=== PATIENT | male | born 1950 | race Caucasian/White ===

== ENCOUNTER → 2017-06-03 | Outpatient (CLI) | payer MEDICARE, BC ==
[2017-06-03 15:24] LABS: Blood Urea Nitrogen 22 mg/dL (9-20); Non-African American GFR(MDRD) >60 (>60 ml/min/1.73 sqM)
--- NOTE | 2017-06-03 16:25 | CT ---
EXAMINATION TYPE: CT chest w con DATE OF EXAM: 06/03/2017 COMPARISON: NONE HISTORY: 66-year-old male Abnormal chest xray. TECHNIQUE: Contiguous axial scanning of the chest after the administration of 100 mL of Omnipaque 300 . Coronal/sagittal reconstructions performed. CT DLP: 282.70mGycm. Automatic exposure control utilized for a dose reduction. FINDINGS: Heart is normal size with trace anterior pericardial fluid. Coronary vessel calcifications are remark able for coronary artery disease. Aorta is normal caliber with mild to moderate atherosclerotic arch calcifications and conventional ar ch vessel branching anatomy. There is mediastinal lymphadenopathy with a 1.6 cm pretracheal lymph node, 1 cm precarinal lymph note d. Abnormal soft tissue extending from the left hilum, encasing and narrowing the left upper lobe bronch us and extending into the left upper lobe. The abnormal left hilar soft tissue measures up to 5.4 x 4 .5 cm. There is a contiguous left upper lobe mass measuring 5.3 x 4.1 cm and up to 5.7 cm craniocauda l. Minimal satellite nodularity is also present measuring up to 7 mm. Subpleural reticulations within th e visualized lower lungs suggests underlying fibrosis. Moderate upper lung emphysematous changes pres ent. Spleen is enlarged measuring 14.6 cm on axial series. There is nonspecific nodularity of the left adr enal gland measuring 2.2 cm. Bones: Endplate spondylosis mid to lower thoracic spine. No osseous destructive process. IMPRESSION: 1. Left upper lobe mass measuring up to 5.7 cm with contiguous abnormal soft tissue encasing the left upper lobe bronchus and extending into the left hilum. Findings suggest lung cancer. 2. Metastatic disease with a 1.6 cm pretracheal lymph node. Minimal satellite nodularity is also pres ent in the left upper lobe measuring up to 7 mm. 3. Some 1.2 cm nodularity of the left adrenal gland is nonspecific. Underlying adrenal adenoma is pos sible. Focus of early metastatic disease here is not excluded. 4. Underlying fibrotic changes and moderate emphysema. 5. Mild splenomegaly (14.6 cm). Clinical correlate.
== END | disposition home or self-care (01) ==
LOC: RADCTMAIN 14:39
PROVIDERS: ATTEND Family Medicine
DX: C81.71 Other Hodgkin lymphoma, lymph nodes of head, face, and neck (principal); C80.1 Malignant (primary) neoplasm, unspecified; J43.9 Emphysema, unspecified; J84.10 Pulmonary fibrosis, unspecified; R91.8 Other nonspecific abnormal finding of lung field
CPT/HCPCS: 82565; 84520; 71260; 36415; Q9967

== ENCOUNTER 2017-06-08 15:05 | Day surgery (SDC) | payer MEDICARE, BC ==
[~2017-06-08 15:05] MED LIST: ALBUTEROL NEB (CONC) 2.5 MG/0.5 ML INHALATION ONE; ATROPINE SULFATE 0.4 MG/ML 1 ML VIAL IM ONE; LACTATED RINGERS 1,000 ML IV ONE; LIDOCAINE 2% (PF) 20 MG/ML 10ML INHALATION ONE
[2017-06-08] MEDS ORDERED: LIDOCAINE 1% 20 ML VIAL (10MG/ML) FOR IV START INTRADERMA ONE (15:10)
[2017-06-08] MEDS ORDERED: LACTATED RINGERS 1,000 ML IV ONE (15:11)
[2017-06-08 15:28] VITALS: BMI 26.9
[2017-06-08 15:28] LABS: Glucose,Whole Blood 107 mg/dL (75-99)
[2017-06-08 15:30] VITALS: RESP 16; TEMP 98.2
[2017-06-08] MEDS ORDERED: PROPOFOL 10 MG/ML 20 ML VIAL IV ONE (16:48)
[2017-06-08] MEDS ORDERED: LIDOCAINE 2% (PF) 20 MG/ML 10ML INHALATION ONE (17:06)
--- NOTE | 2017-06-08 17:22 | P.PCN ---
Date of Procedure: 06/08/17 Preoperative Diagnosis: Left upper lobe mass Postoperative Diagnosis: Left upper lobe mass Procedure(s) Performed: Flexible bronchoscopy, endobronchial biopsy, endobronchial brushings, bronchioloalveolar lavage Implants: Anesthesia: MAC Surgeon: Skip Scanlon Economics Consultant #1: Lucretia Atkins Estimated Blood Loss (ml): 10 Pathology: other Condition: stable Disposition: same day Indications for Procedure: COURTNEY mass Operative Findings: This procedure was done in the bronchoscopy suite. Anesthetic agents was being administered by HOTEL OR MOTEL MANAGER at the bedside. The patient was given a total of 270 mg milligrams of propofol throughout the procedure. After achieving adequate sedation the flexible bronchoscope was inserted to the right nostril and the bronchoscope was advanced into the upper airway. This procedure was being done as the patient was being oxygenated with high flow nasal cannula and the pulse ox remained above 90% throughout the procedure. As the bronchoscope was being advanced, the upper airway structures were examined and noted and the observed structures included the pharynx, larynx, epiglottis, vallecula, arytenoids, and vocal cords and all of this upper airway structures were within normal limits. Vocal cord mobility was within normal. No nodules. No lesions. A total of 2 mL of 1% lidocaine was applied to the vocal cords and following that the bronchoscope was advanced into the upper trachea and examination of the tracheal bronchial tree was done. Main trachea was within normal. Nicolasa was sharp in the midline. Bilateral mainstem bronchi were patent and within normal limits. Examination of the right side included the right mainstem bronchus, right upper lobe bronchus, bronchus intermedius, right middle lobe bronchus, right lower lobe bronchus and all of these were within normal limits were patent and there was a [id number] degree uptake of bronchomalacia encountered and noted throughout the airways. Examination of the left side included the left mainstem bronchus that was within normal limits. The left upper lobe bronchus was then identified and the left upper lobe bronchus was involved by some endobronchial irregularities over the medial wall where there was some mucosal irregularities and vascularity that was quite concerning of malignancy. Following that the lingular segment was identified and was quite narrowed and distorted and so was the secondary nicolasa the scene left upper lobe bronchus and the left lower lobe bronchus. Most abnormal area with the left upper lobe bronchus that was completely plugged by endobronchial tumor. In fact, the left upper lobe bronchus was completely blocked by necrotic fragment that was causing new complaints or almost 100% complete occlusion of the left upper lobe bronchus. At that point, endobronchial biopsies of the left upper lobe bronchus was done taken several fragments and pieces of the left upper lobe endobronchial tumor. At this point there was some endobronchial bleeding and the total amount of bleeding was estimated to be around 5-10 mL. The bleeding was stopped after irrigating the area with cold saline. After taking adequate number of endobronchial biopsies, bronchioloalveolar lavage of the left upper lobe was somewhat a total of 80 cc' s of fluid was infused and 25-30cc was was suctioned back. After that, the bronchus brushings of the left upper lobe bronchus was done. After obtaining all of the samples, therapeutic it was suctioning was done and the airways were cleared from an insulin bloody secretions. The bronchoscope was removed and the patient was stressed recovered a stable condition. No complications. Awaiting final biopsy results. Description of Procedure:
[2017-06-08 17:42] VITALS: BP 165/78; PULSE 70
== END 2017-06-08 18:25 | disposition home or self-care (01) ==
LOC: ORWHC2ENDO 15:05
PROVIDERS: ATTEND Internal Medicine Critical Care Medicine
DX: C34.12 Malignant neoplasm of upper lobe, left bronchus or lung (principal); E03.9 Hypothyroidism, unspecified; I10 Essential (primary) hypertension; C81.90 Hodgkin lymphoma, unspecified, unspecified site; Z87.891 Personal history of nicotine dependence; Z80.1 Family history of malignant neoplasm of trachea, bronchus and lung
CPT/HCPCS: 94640; 88104; 88108; 88305; 88342; 88341; 31625; 31623; 31624; J2001; J2704

== ENCOUNTER → 2017-06-23 | Outpatient (CLI) | payer MEDICARE, BC ==
--- NOTE | 2017-06-23 09:30 | MR ---
EXAMINATION TYPE: MR brain wo/w con DATE OF EXAM: 06/23/2017 9:18 AM COMPARISON: NONE HISTORY: LUNG CA, Headache CONTRAST: Patient received 16 mL intravenous MultiHance gadolinium contrast. Multiplanar and multispin-echo imaging of the brain was performed . Pre and post contrast enhanced i mages are obtained. The ventricles, basal cisterns and sulci overlying the cerebral convexities are mildly enlarged. There is evidence of mild to moderate periventricular white matter ischemic demyelination. Remote deep white matter insults are also noted. No acute edema is seen on diffusion weighted imaging. There is no evidence for midline shift or mass effect. Acute intracranial hemorrhage or extra-axial collection is not evident. No enhancing lesions are seen. Chronic paranasal sinusitis. Mastoid air cells are well-aerated. IMPRESSION: Age-related atrophic and chronic small vessel ischemic change. No acute intracranial process at this time. No enhancing lesions are seen.
== END | disposition home or self-care (01) ==
LOC: RADMRIMAIN 07:59
PROVIDERS: ATTEND Internal Medicine Hematology & Oncology
DX: C34.90 Malignant neoplasm of unspecified part of unspecified bronchus or lung (principal); G31.1 Senile degeneration of brain, not elsewhere classified; I67.82 Cerebral ischemia
CPT/HCPCS: 70553; A9577

== ENCOUNTER → 2017-06-25 | Outpatient (CLI) | payer MEDICARE, BC ==
--- NOTE | 2017-06-26 10:52 | PE ---
EXAMINATION TYPE: PET CT fusion skull to thigh DATE OF EXAM: 06/25/2017 COMPARISON: CT chest 05/26/2017 Prior PET/CT: None HISTORY: Lung mass TECHNIQUE: Following the intravenous administration of 15.99 mCi of F-18 FDG, whole body images are performed from the skull base to the midthigh. Images are reviewed on the computer in the coronal, a xial, and sagittal planes. Reconstructed rotating images are created on independent workstation and reviewed on the computer. A localization and attenuation correction CT is performed in conjunction with the PET scan. DLP: 431.41 mGycm SCAN: Initial Blood glucose: 106 mg/dL Average Mediastinum SUV: 1.2 Average Liver SUV: 2.1 FINDINGS: NECK: There is a right supraclavicular lymph node with uptake of 4.5 SUV in the right supraclavicula r region at the level of the larynx. PET image 50. THORAX: There is marked uptake within the left suprahilar mass measuring 8.3 SUV value. There is a ly mph node with increased uptake in the superior mediastinum with an SUV value of 9.3. PET image 71. An additional pretracheal lymph node has increased uptake of 4.9 but is not enlarged by CT criteria. ABDOMEN: No abnormal uptake. There is some vague increased signal within the medial right lobe liver. This is better visualized on the perfusion images. Image 142. Underlying metastatic disease is not excluded. Discrete typical metastasis however is not evident. PELVIS: No abnormal uptake OSSEOUS STRUCTURES: No abnormal uptake LOCALIZATION CT: Left suprahilar lung mass measures 7.8 x 4.9 cm COMPARISON: Hilar mass appears larger than the comparison by measurement criteria. This has lingular encasement is adjacent to the left lower lobe bronchus. The ascending thoracic aorta at the level the main pulmonary artery is 3.6 cm. The main pulmonary artery the bifurcation is 3.2 cm. The spinal cor d is enlarged measures 1.8 cm. The pretracheal lymph node has increased in size and is currently 1.0 cm. Note is made of coronary artery calcification. Note is made of diverticulosis within the mid sigm oid colon. IMPRESSION: 1. Left suprahilar mass with increased uptake compatible with neoplasm. 2. Three lymph nodes identified on PET/CT are suspicious for metastatic lesions including a pretrache al lymph node, superior mediastinal lymph node, and right supraclavicular lymph node discussed above.
== END | disposition home or self-care (01) ==
LOC: RADPETMAIN 13:09
PROVIDERS: ATTEND Internal Medicine Hematology & Oncology
DX: C34.90 Malignant neoplasm of unspecified part of unspecified bronchus or lung (principal)
CPT/HCPCS: 78815; A9552

== ENCOUNTER → 2017-09-16 | Outpatient (CLI) | payer MEDICARE, BC ==
[2017-09-16 09:14] LABS: Blood Urea Nitrogen 24 mg/dL (9-20); Non-African American GFR(MDRD) >60 (>60 ml/min/1.73 sqM)
--- NOTE | 2017-09-16 10:47 | CT ---
EXAMINATION TYPE: CT chest w con DATE OF EXAM: 09/16/2017 COMPARISON: PET/CT dated 06/25/[address] thorax dated 05/26/2017 HISTORY: Lung Cancer CT DLP: 694 mGycm. Automated Exposure Control for Dose Reduction was Utilized. TECHNIQUE: CT scan of the thorax is performed following with IV Contrast, patient injected with 100 mL of Omnipaque 350. FINDINGS: LUNGS: There is decrease in size and new cavitation of the most superior aspect of the left upper lob e mass that previously measured approximately 5.3 x 4.1 cm and now measures approximately 3.5 x 3.5 c m. Surrounding peripheral groundglass opacity remains as does traction bronchiectasis and obstructive distal subsegmental atelectasis. There is also decrease in size of the more confluent area of the ma ss abutting the left mediastinal border measuring approximately 4.4 x 1.9 cm and previously measuring 5.6 x 2.9 cm abutting the left lateral aspect of the main pulmonary and left main pulmonary artery. Subpleural density along the anterior margin of the left upper lobe on series 4 image 34 through 37 i s favored to relate to atelectasis. Triangular-shaped right upper lobe subpleural 3 mm pulmonary nodu les unchanged and of low suspicion. This is seen on series 4 image 20. Findings are superimposed upon moderate centrilobular and paraseptal emphysematous changes with peripheral basilar predominant tania ycombing relating to pulmonary fibrosis. The previously seen satellite 7 mm left upper lobe pulmonary nodule is no longer present and has reso lved. Area of probable scarring is unchanged from the prior exam in the left upper lobe anteriorly on series 4 image 17. MEDIASTINUM: The pretracheal lymph node that previously measured 1.6 cm has decreased in size now lawanda suring 1.1 x 0.7 cm. Second pretracheal lymph node previously measuring 9 mm has also decreased in si ze now measuring 6 mm. No pericardial effusion is seen. OTHER: Small hiatal hernia is noted. The spleen again is enlarged measuring up to 14.5 cm in anterior posterior dimension. Enlarging hepatic hypoattenuated lesion measuring up to 3.4 x 2.5 cm is seen wi thin the left hepatic lobe on series 3 image 71, retrospectively increase in size from the prior exam of 05/26/2017. 5 mm left upper pole renal cyst is present, benign. There is overall stability of the approximately 1.3 cm left adrenal gland nodule and thickening of the lateral limb of the left adrenal gland. No greater than 1 cm nodule seen within the right adrenal gland. Mild multilevel degenerative change of the thoracic spine. IMPRESSION: 1. Left hepatic lobe ill-defined hypoattenuated lesion concerning for metastasis. Further evaluation with dynamic contrast enhanced three-phase CT or MR is recommended. 2. Response to treatment in regards to the left upper lobe pulmonary mass in both the component abutt ing the mediastinal border and now cavitary left upper lobe mass. Complete resolution of the previous ly seen satellite nodule and marked improvement in size of mediastinal lymph nodes, now nonenlarged. 3. Overall stability of the indeterminate left adrenal gland nodule that could also be assessed on e above recommended exam. 4. Redemonstration of splenomegaly.
== END | disposition home or self-care (01) ==
LOC: RADCTMAIN 08:49
PROVIDERS: ATTEND Internal Medicine Hematology & Oncology
DX: C34.12 Malignant neoplasm of upper lobe, left bronchus or lung (principal)
CPT/HCPCS: 82565; 84520; 71260; 36415; Q9967

== ENCOUNTER → 2017-11-05 | Outpatient (CLI) | payer MEDICARE, BC ==
--- NOTE | 2017-11-09 06:27 | PE ---
EXAMINATION TYPE: PET CT fusion skull to thigh DATE OF EXAM: 11/05/2017 COMPARISON: PET/CT June 25, 2017. CT chest September 16, 2017 HISTORY: Lung cancer progress study , completed chemotherapy and radiation treatment September 18 7 TECHNIQUE: Following the intravenous administration of 13.59 mCi of F-18 FDG, whole body images are performed from the skull base to the midthigh. Images are reviewed on the computer in the coronal, a xial, and sagittal planes. Reconstructed rotating images are created on independent workstation and reviewed on the computer. A noncontrast CT is performed in conjunction with the PET scan. SCAN: Subsequent Scan FINDINGS: SKULL BASE AND NECK: No suspicious hypermetabolic uptake on current study. Previously visualized sub centimeter hypermetabolic focus right supraclavicular region probable lymph node is not clearly seen on current study. Mild symmetric increased uptake at submandibular glands could reflect inflammatory process, correlate clinically. CHEST, MEDIASTINUM, AND HILAR REGION: Masslike consolidation left suprahilar region is diminished in size with some central aeration measuring 5.6 x 2.9 cm current study axial image 88. No suspicious hy permetabolic uptake is seen on current study. There is some cavitation superiorly now identified on a xial image 84 without hypermetabolic uptake. There is new peripheral mid lateral to lower lung warranty manager ior consolidation with hypermetabolic uptake presumed postinflammatory or related to treatment change . Max SUV is 4.13. There is background moderate underlying emphysematous change most prominent in apices redemonstrated. Hypermetabolic right paratracheal lymph nodes as significantly improved. There is diminished in size of paratracheal lymph nodes, largest measures 8 x 8 mm on axial image 76 diminished in size from prio r study. Minimal hypermetabolic uptake is seen, max SUV is 2.68. No greater than 1 cm lymph nodes are seen on current study. No new areas of hypermetabolic uptake are identified. ABDOMEN AND PELVIS: There is persistent vague hypodense area or lesion left hepatic lobe with slightl y more prominent heterogeneous hypermetabolic uptake, lesion measures 5.4 x 4.2 cm on current study a xial image 151. There is new slight bulging of the anterior liver capsule.. Max SUV is 5.3. Lesion is felt falsely measured on recent CT as only posterior portion was measured. OSSEOUS STRUCTURES: No suspicious hypermetabolic uptake is present. OTHER CT: Nearly completely opacified right sphenoid sinus is now present, correlate clinically for a cute sinusitis. Bilateral gynecomastia is again redemonstrated. There is moderate to severe 3 vessel coronary artery calcification redemonstrated which is noted ashley er for coronary artery disease. Nodular thickening to left adrenal gland is redemonstrated felt stable favoring benign hyperplasia. Sigmoid colonic diverticulosis is redemonstrated. There is multilevel spurring in the spine. There is facet arthropathy lower lumbar levels. Spine is s traightened on lateral view. There is fairly moderate calcified plaque in the abdominal aorta extending into iliac branch vessels. IMPRESSION: Overall mixed response with predominantly positive treatment response with diminished siz e and hypermetabolic uptake in the left hilar mass, thoracic adenopathy, and right supraclavicular ad enopathy. Left hepatic lobe lesion however is more hypermetabolic and felt larger.
== END | disposition home or self-care (01) ==
LOC: RADPETMAIN 08:08
PROVIDERS: ATTEND Internal Medicine Hematology & Oncology
DX: C34.12 Malignant neoplasm of upper lobe, left bronchus or lung (principal); R59.0 Localized enlarged lymph nodes; K76.89 Other specified diseases of liver
CPT/HCPCS: 78815; A9552

== ENCOUNTER 2017-11-17 08:52 | Day surgery (SDC) | payer MEDICARE, BC ==
[2017-11-17 09:20] VITALS: TEMP 98.3
[2017-11-17 09:34] LABS: INR 1.1 (<1.2); Prothrombin Time 10.6 sec (9.0-12.0)
[2017-11-17 09:37] LABS: Mean Platelet Volume 6.7; Platelet Count 178 k/uL (150-450)
[2017-11-17] MEDS: HYDROmorphone 0.5 MG/0.5 ML SYRINGE IVP NR ×2 (10:28→10:40)
[2017-11-17 12:17] VITALS: RESP 16
--- NOTE | 2017-11-17 12:44 | CT ---
EXAMINATION TYPE: CT guided FNA DATE OF EXAM: 11/17/2017 COMPARISON: NONE HISTORY: Lung cancer and left hepatic lobe mass CT DLP: 950mGycm PROCEDURE: The risks, applications, benefits and alternatives, were discussed with the patient and questions wer e answered. Informed consent was obtained. The patient was placed supine on the fluoroscopic table, prepped and draped in the usual sterile fashion. A 22-gauge system was utilized with direct passage of the needle into the left lobe liver lesion und er CT guidance. Samples were obtained with fine needle aspiration. Pathology confirmed adequate herb ple. The patient was stable throughout procedure and remained stable upon discharge from radiology. All e lements of maximal barrier and sterile technique were utilized. IMPRESSION: 1. Successful left lobe liver mass fine needle aspiration under CT guidance.
[2017-11-17 13:46] VITALS: BP 114/66; PULSE 66
== END 2017-11-17 14:20 | disposition home or self-care (01) ==
LOC: RADPROMAIN 08:52
PROVIDERS: ATTEND Internal Medicine Hematology & Oncology
DX: C22.0 Liver cell carcinoma (principal); C34.12 Malignant neoplasm of upper lobe, left bronchus or lung
CPT/HCPCS: 88305; 88173; 85049; 85610; 88313; 36415; 77012; 10022; J1170

== ENCOUNTER → 2018-03-02 | Outpatient (CLI) | payer MEDICARE, BC ==
[2018-03-02 12:38] LABS: Blood Urea Nitrogen 16 mg/dL (9-20)
--- NOTE | 2018-03-02 17:23 | CT ---
EXAMINATION TYPE: CT chest abdomen w con DATE OF EXAM: 03/02/2018 INDICATION: Liver cell carcinoma and lung cancer COMPARISON: 09/16/2017 CT DLP: 1475 mGycm CONTRAST: Performed with Oral Contrast and with IV Contrast, patient injected with 100 ml mL of Isovue 300. TECHNIQUE: Axial images at 5 mm thick sections. Reconstructed images in the coronal plane. Delayed images through the kidneys. FINDINGS: CT CHEST: Portion of the thyroid visualized is normal. Emphysematous changes are present. There is a suspicious spiculated cavitary lesion at the left apex and suprahilar region measuring 3.7 x 2.5 cm. This previously measured 3.6 x 3.1 cm. Pulmonary fibrosis is present. No enlarged mediastinal or hilar adenopathy is evident. The ascending aorta diameter at the level of the main pulmonary artery is 3.2 cm. The main pulmonary artery diameter at the bifurcation is 3.2 cm. Coronary artery calcification is present. CT ABDOMEN: Liver: Diminished density in relation spleen compatible with mild fatty infiltration of the liver. Ap pears to be resection of the left lobe liver Spleen: Normal Pancreas: Normal Adrenal glands: Superior left adrenal gland measures 1.7 cm transverse which is slightly increased fr om 1.6 cm. Gallbladder: Normal Kidneys: No masses are evident. No hydronephrosis is present. No cysts are present. Delayed images were obtained through the kidneys, which remain unremarkable. Aorta: Vascular calcification is within the aorta. Inferior vena cava: Normal. CT PELVIS: Loops of bowel within the abdomen and pelvis are normal. Antrum the stomach may has some wall thi ckening diffusely. Loops of bowel within the abdomen appear unremarkable. Fecal debris is within the colon. IMPRESSIONS: 1. Cavitary mass on the left apex currently measuring 3.7 x 2.5 cm. 2. Pulmonary fibrosis is present. 3. Slightly more prominent left adrenal gland.
== END | disposition home or self-care (01) ==
LOC: RADCTMAIN 11:58
PROVIDERS: ATTEND Radiology Radiation Oncology
DX: C34.12 Malignant neoplasm of upper lobe, left bronchus or lung (principal); C22.0 Liver cell carcinoma; J84.10 Pulmonary fibrosis, unspecified
CPT/HCPCS: 82565; 84520; 71260; 74160; 36415; Q9967

== ENCOUNTER → 2018-07-31 | Outpatient (CLI) | payer MEDICARE, BC ==
[2018-07-31 12:04] LABS: Blood Urea Nitrogen 18 mg/dL (9-20)
--- NOTE | 2018-07-31 13:58 | CT ---
EXAMINATION TYPE: CT ChestAbdPelvis w con DATE OF EXAM: 07/31/2018 COMPARISON: 03/02/2018, 09/16/2017, 11/05/2017 HISTORY: Patient in for follow up of lung and liver cancer. Patient did last chemo Sep 17, 2017. CT DLP: 1253.8 mGycm Automated exposure control for dose reduction was used. CONTRAST: CT scan of the chest, abdomen and pelvis is performed with Oral Contrast and with IV Contrast, patien t injected with 100 mL of Isovue M300. FINDINGS: LUNGS: Diffuse emphysematous changes are noted. Linear changes involving the lungs suggestive of scar or atelectasis. There is a large spiculated mass involving the left upper lobe which previously tre ured 3.3 x 2.5 x 3.1 cm and now measures 3.3 x 2.5 x 4.1 cm. However, there appears to be increased s oft tissue extending into the left suprahilar region which could be related to consolidation versus i ncreasing mass. Interlobular septal thickening compatible chronic interstitial lung disease seen and there is subsegm ental consolidation at both lung bases. Vague peripheral nodule lateral margin right lower lobe axial image 46 measures 4 mm retrospectively similar in size to the prior exam. Pleural thickening along t he left upper lobe is unchanged. MEDIASTINUM: There are no greater than 1 cm hilar or mediastinal lymph nodes. No pericardial effusi on is seen. The ascending aorta diameter at the level of the main pulmonary artery is 3.2 cm. The ma in pulmonary artery diameter at the bifurcation is 3.2 cm. Coronary artery calcification is present. LIVER/GB: Diminished density in relation spleen compatible with mild fatty infiltration of the liver. Appears to be resection of the left lobe liver . There is an area of hyperdensity along the upper ma rgin of the dome of the liver right lobe which measures 1.7 cm appears to be more prominent than comp ared to the prior exam. May represent focal fatty sparing. Other etiologies not entirely excluded. Ad ditional hyperdense area seen involving the inferior margin of the right lobe the liver measuring 5 m m. PANCREAS: No significant abnormality is seen. SPLEEN: Spleen measures 15 cm compatible splenomegaly. ADRENALS: No significant abnormality is seen. KIDNEYS: No hydronephrosis. Subcentimeter hypodensity upper pole left kidney too small to characteriz e but likely related to tiny simple cyst.. BOWEL: Bowel gas pattern nonspecific with extensive retained fecal debris evidence of diverticulosis of colon. Small hiatal hernia noted. LYMPH NODES: There is a soft tissue density in the region of priscilla hepatis measuring 1.2 cm in short axis suspicious for area of adenopathy but stable.. OSSEOUS STRUCTURES: Hypertrophic changes and degenerative changes of the vertebral column. OTHER: Atherosclerotic change of the aorta. IMPRESSION: 1. There is a spiculated left upper lobe lung mass now measuring 3.2 x 2.3 x 3.1 cm and previously me asuring 3.3 x 2.5 x 3.1 cm. There appears to be increased soft tissue component of the mass extending into the left suprahilar re gion abutting the left mediastinal border which now measures 2.8 x 3 cm and previously measured 2 x 2 centimeters. 3. There are 2 hyperdense areas within the liver which may represent areas of fatty sparing. However there appear more prominent on today's exam as measured above. Recommend ultrasound for further evalu ation. 4. Correlate for pulmonary fibrosis. 3. Findings are suspicious for an area of adenopathy priscilla hepatis measuring short axis of 1.2 cm ret rospectively stable from prior exam of 03/02/2018 and 09/16/2017.
== END | disposition home or self-care (01) ==
LOC: RADCTMAIN 11:25
PROVIDERS: ATTEND Internal Medicine Hematology & Oncology
DX: R91.8 Other nonspecific abnormal finding of lung field (principal); R93.2 Abnormal findings on diagnostic imaging of liver and biliary tract; C34.12 Malignant neoplasm of upper lobe, left bronchus or lung
CPT/HCPCS: 82565; 84520; 71260; 74177; 36415; Q9967

== ENCOUNTER 2018-08-21 15:27 | Emergency (ER) | payer MEDICARE, BC ==
--- NOTE | 2018-08-21 16:53 | ED ---
General Adult HPI <Carlos Lopez - Last Filed: 08/21/18 19:18> - General Source: patient, RN notes reviewed Mode of arrival: ambulatory Limitations: no limitations <Pancho Wilhelm - Last Filed: 08/21/18 19:42> - General Chief complaint: Recheck/Abnormal Lab/Rx Stated complaint: low o2 Ca patient Time Seen by Provider: 08/21/18 16:37 - History of Present Illness Initial comments: Patient 68-year-old male presented to the emergency room today with a chief complaint of increased shortness of breath. Patient does have a history of lung cancer. Currently on Coumadin therapy. Patient states that was at the oncologist office today was advised complete emergency room for further evaluation of his shortness of breath. He does admit that has been steadily increasing over the last few months. Patient's denies any pain. He was then sent cough congestion believes seasonal sputum. Patient denies any other complaints. (Pancho Wilhelm) - Related Data Home Medications Medication Instructions Recorded Confirmed Acetaminophen-Codeine 300-30mg 1 tab PO Q8H PRN 06/08/17 11/17/17 [Tylenol #3] Aspirin 81 mg PO DAILY 06/08/17 11/17/17 Atorvastatin [Lipitor] 20 mg PO DAILY 06/08/17 11/17/17 Bisoprol/Hydrochlorothiazide 1 tab PO DAILY 06/08/17 11/17/17 [Bisoprolol-Hctz 5-6.25 mg Tab] Levothyroxine Sodium [Levoxyl] 137 mcg PO DAILY 06/08/17 11/17/17 [place]-3 Fatty Acids [[place]-3] 1 tab PO BID 06/08/17 11/17/17 Finasteride [Proscar] 5 mg PO DAILY 11/11/17 11/17/17 Lisinopril [Zestril] 5 mg PO DAILY 11/11/17 11/17/17 Multivitamin [Men's Multi-Vitamin] 1 each PO DAILY 11/11/17 11/17/17 Previous Rx's Medication Instructions Recorded Levofloxacin [Levaquin] 500 mg PO DAILY 7 Days tab 08/21/18 Allergies Allergy/AdvReac Type Severity Reaction Status Date / Time No Known Allergies Allergy Verified 08/21/18 16:20 Review of Systems ROS Other: All systems not noted in ROS Statement are negative. <Carlos Lopez - Last Filed: 08/21/18 19:18> ROS Other: All systems not noted in ROS Statement are negative. <WilhelmPancho - Last Filed: 08/21/18 19:42> ROS Statement: Those systems with pertinent positive or pertinent negative responses have been documented in the HPI. 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 - completed radiation and chemo - PET 11/05 resolved History of Any Multi-Drug Resistant Organisms: None Reported Past Surgical History: Hernia Repair Past Anesthesia/Blood Transfusion Reactions: No Reported Reaction Past Psychological History: No Psychological Hx Reported Smoking Status: Former smoker Past Alcohol Use History: None Reported Past Drug Use History: None Reported - Past Family History Father Family Medical History: Myocardial Infarction (PR) <Pancho Wilhelm - Last Filed: 08/21/18 19:42> General Exam <Carlos Lopez - Last Filed: 08/21/18 19:18> Limitations: no limitations <Pancho Wilhelm - Last Filed: 08/21/18 19:42> - General Exam Comments Initial Comments: General: The patient is awake and alert, in no distress, and does not appear acutely ill. Eye: Pupils are equal, round and reactive to light. Extra-ocular movements are intact. No nystagmus. There is normal conjunctiva bilaterally. No signs of icterus. Ears, nose, mouth and throat: There are moist mucous membranes and no oral lesions. Neck: The neck is supple, there is no tenderness or JVD. Cardiovascular: There is a regular rate and rhythm. No murmur, rub or gallop is appreciated. Respiratory: Lungs are clear to auscultation, respirations are non-labored, breath sounds are equal. No wheezes, stridor, rales, or rhonchi. Musculoskeletal: Normal ROM, no tenderness. Sensation intact. Strength 5/5. Pulses equal bilaterally 2+. Neurological: A&O x 3. CN II-XII intact, There are no obvious motor or sensory deficits. Coordination appears grossly intact. Speech is normal. Skin: Skin is warm and dry and no rashes or lesions are noted. Psychiatric: Cooperative, appropriate mood & affect, normal judgment. (Pancho Wilhelm) Course <Carlos Lopez - Last Filed: 08/21/18 19:18> <Pancho Wilhelm - Last Filed: 08/21/18 19:42> Vital Signs 08/21/18 08/21/18 08/21/18 16:18 16:43 16:50 Temperature 98.9 F Pulse Rate 86 87 87 Respiratory 20 30 H 27 H Rate Blood Pressure 133/69 157/70 O2 Sat by Pulse 94 L 91 L 91 L Oximetry 08/21/18 08/21/18 08/21/18 17:00 17:10 17:20 Temperature Pulse Rate 81 84 82 Respiratory 22 28 H 21 Rate Blood Pressure 157/70 145/70 145/70 O2 Sat by Pulse 96 95 97 Oximetry 08/21/18 08/21/18 08/21/18 17:30 17:40 17:50 Temperature Pulse Rate 84 86 85 Respiratory 15 18 20 Rate Blood Pressure 145/70 135/68 135/68 O2 Sat by Pulse 97 94 L 95 Oximetry 08/21/18 18:00 Temperature Pulse Rate 82 Respiratory 20 Rate Blood Pressure 135/68 O2 Sat by Pulse 94 L Oximetry - Reevaluation(s) Reevaluation #1: 08/21/18 19:18 PEs supervision I personally saw and examined patient. I reviewed and agree with the PA findings including all diagnostic interpretation treatment plans is written unless otherwise stated. I discussed the case initially with Dr. Allen. Patient does have evidence of an elevated troponin as well as left lower lobe infiltrate. Patient was offered admission and refuses at this time. He does that a lot follow-up with his dumper at [facility]. We did discuss this at length. (Carlos Lopez) EKG Findings - EKG Comments: EKG Findings:: EKG performed at 1639: Shows normal sinus rhythm at 86 bpm. LA interval 146. QRS is 110. QT/QTC 378/452. No acute ST changes. <Pancho Wilhelm - Last Filed: 08/21/18 19:42> Medical Decision Making - Lab Data Result diagrams: 08/21/18 17:08 08/21/18 17:08 <Carlos Lopez - Last Filed: 08/21/18 19:18> - Lab Data Result diagrams: 08/21/18 17:08 08/21/18 17:08 <Pancho Wilhelm - Last Filed: 08/21/18 19:42> - Medical Decision Making Patient's labs been reviewed does show elevated troponin 0.060. Patient's EKG showed no acute change. There is no old EKG to compare to. Patient's remaining lab work is unremarkable. A CT of the chest does show evidence for a pneumonia. No evidence for PE. Results were discussed with patient. Case discussed and seen by [facility] physician Dr. Lopez. Patient states that he does not want to stay in the hospital. Does not want to be admitted. Was discussed about the severity elevated troponin. Patient states that he will follow-up with his dumper. Patient will be treated for a pneumonia started on antibiotics. He is advised that he should follow-up the doctor tomorrow. Advised return if any symptoms increase or worsen. (Pancho Wilhelm) - Lab Data Lab Results 08/21/18 08/21/18 08/21/18 Range/Units 17:08 17:08 17:08 WBC 9.1 (3.8-10.6) k/uL RBC 4.90 (4.30-5.90) m/uL Hgb 14.6 (13.0-17.5) gm/dL Hct 41.5 (39.0-53.0) % MCV 84.6 (80.0-100.0) fL MCH 29.7 (25.0-35.0) pg MCHC 35.1 (31.0-37.0) g/dL RDW 13.0 (11.5-15.5) % Plt Count 183 (150-450) k/uL Neutrophils % 60 % Lymphocytes % 24 % Monocytes % 10 % Eosinophils % 4 % Basophils % 1 % Neutrophils # 5.4 (1.3-7.7) k/uL Lymphocytes # 2.1 (1.0-4.8) k/uL Monocytes # 0.9 (0-1.0) k/uL Eosinophils # 0.3 (0-0.7) k/uL Basophils # 0.1 (0-0.2) k/uL PT 10.6 (9.0-12.0) sec INR 1.1 (<1.2) APTT 23.2 (22.0-30.0) sec Sodium 138 (137-145) mmol/L Potassium 4.1 (3.5-5.1) mmol/L Chloride 102 (98-107) mmol/L Carbon Dioxide 28 (22-30) mmol/L Anion Gap 8 mmol/L BUN 18 (9-20) mg/dL Creatinine 0.89 (0.66-1.25) mg/dL Est GFR (CKD-EPI)AfAm >90 (>60 ml/min/1.73 sqM) Est GFR (CKD-EPI)NonAf 88 (>60 ml/min/1.73 sqM) Glucose 107 H (74-99) mg/dL Calcium 9.2 (8.4-10.2) mg/dL Total Bilirubin 0.8 (0.2-1.3) mg/dL AST 42 (17-59) U/L ALT 41 (21-72) U/L Alkaline Phosphatase 48 (38-126) U/L Total Creatine Kinase (55-170) U/L CK-MB (CK-2) (0.0-2.4) ng/mL CK-MB (CK-2) Rel Index Troponin I (0.000-0.034) ng/mL Total Protein 6.8 (6.3-8.2) g/dL Albumin 3.5 (3.5-5.0) g/dL 08/21/18 Range/Units 17:08 WBC (3.8-10.6) k/uL RBC (4.30-5.90) m/uL Hgb (13.0-17.5) gm/dL Hct (39.0-53.0) % MCV (80.0-100.0) fL MCH (25.0-35.0) pg MCHC (31.0-37.0) g/dL RDW (11.5-15.5) % Plt Count (150-450) k/uL Neutrophils % % Lymphocytes % % Monocytes % % Eosinophils % % Basophils % % Neutrophils # (1.3-7.7) k/uL Lymphocytes # (1.0-4.8) k/uL Monocytes # (0-1.0) k/uL Eosinophils # (0-0.7) k/uL Basophils # (0-0.2) k/uL PT (9.0-12.0) sec INR (<1.2) APTT (22.0-30.0) sec Sodium (137-145) mmol/L Potassium (3.5-5.1) mmol/L Chloride (98-107) mmol/L Carbon Dioxide (22-30) mmol/L Anion Gap mmol/L BUN (9-20) mg/dL Creatinine (0.66-1.25) mg/dL Est GFR (CKD-EPI)AfAm (>60 ml/min/1.73 sqM) Est GFR (CKD-EPI)NonAf (>60 ml/min/1.73 sqM) Glucose (74-99) mg/dL Calcium (8.4-10.2) mg/dL Total Bilirubin (0.2-1.3) mg/dL AST (17-59) U/L ALT (21-72) U/L Alkaline Phosphatase (38-126) U/L Total Creatine Kinase 159 (55-170) U/L CK-MB (CK-2) 3.4 H (0.0-2.4) ng/mL CK-MB (CK-2) Rel Index 2.1 Troponin I 0.060 H* (0.000-0.034) ng/mL Total Protein (6.3-8.2) g/dL Albumin (3.5-5.0) g/dL Disposition <Carlos Lopez - Last Filed: 08/21/18 19:18> Is patient prescribed a controlled substance at d/c from ED?: No Time of Disposition: 19:41 <Pancho Wilhelm - Last Filed: 08/21/18 19:42> Clinical Impression: Elevated troponin, CAP (community acquired pneumonia) Disposition: HOME SELF-CARE Condition: Good Instructions: Community Acquired Pneumonia (ED) Additional Instructions: Please follow-up the family doctor, oncologist, dumper tomorrow as discussed. Please return to emergency room if any symptoms increase worsen or for any other concerns. Prescriptions: Levofloxacin [Levaquin] 500 mg PO DAILY 7 Days tab Referrals: Noman Stephens Jr, [Primary Care Provider] - 1-2 days
[2018-08-21 17:50] LABS: INR 1.1 (<1.2); Partial Thromboplastin Time 23.2 sec (22.0-30.0); Prothrombin Time 10.6 sec (9.0-12.0)
[2018-08-21 17:51] LABS: Basophils # (A) 0.1 k/uL (0-0.2); Basophils % (A) 1 %; Eosinophils # (A) 0.3 k/uL (0-0.7); Eosinophils % (A) 4 %; HCT 41.5 % (39.0-53.0); HGB 14.6 gm/dL (13.0-17.5); Lymphocytes # (A) 2.1 k/uL (1.0-4.8); Lymphocytes % (A) 24 %; MCH 29.7 pg (25.0-35.0); MCHC 35.1 g/dL (31.0-37.0); MCV 84.6 fL (80.0-100.0); Mean Platelet Volume 6.7; Monocytes # (A) 0.9 k/uL (0-1.0); Monocytes % (A) 10 %; Neutrophils # (A) 5.4 k/uL (1.3-7.7); Neutrophils % (A) 60 %; Platelet Count 183 k/uL (150-450); WBC 9.1 k/uL (3.8-10.6)
[2018-08-21 18:00] LABS: ALT 41 U/L (21-72); AST 42 U/L (17-59); Albumin 3.5 g/dL (3.5-5.0); Alkaline Phosphatase 48 U/L (38-126); Anion Gap 8 mmol/L; Blood Urea Nitrogen 18 mg/dL (9-20); Calcium 9.2 mg/dL (8.4-10.2); Carbon Dioxide 28 mmol/L (22-30); Chloride 102 mmol/L (98-107); Glucose 107 mg/dL (74-99); Potassium 4.1 mmol/L (3.5-5.1); Sodium 138 mmol/L (137-145); Total Bilirubin 0.8 mg/dL (0.2-1.3); Total Protein 6.8 g/dL (6.3-8.2)
[2018-08-21 18:03] VITALS: PULSE 82
[2018-08-21 18:12] LABS: Creatine Kinase MB 3.4 ng/mL (0.0-2.4)
[2018-08-21 18:15] LABS: Troponin I 0.06 ng/mL (0.000-0.034)
--- NOTE | 2018-08-21 18:59 | CT ---
EXAMINATION TYPE: CT angio chest with contrast and with 3-D Reconstruction renderings DATE OF EXAM: 08/21/2018 6:30 PM COMPARISON: 07/31/2018 HISTORY: Shortness of breath and low O2. CT DLP: 381.3 mGycm Automated exposure control for dose reduction was used. CONTRAST: CTA scan of the thorax is performed with IV Contrast, patient injected with 75ml mL of Isov ue 370, pulmonary embolism protocol. Review reconstructions. FINDINGS: AIRWAYS AND LUNGS AND PLEURAL SPACES: 1. The interval change is within the left lower lobe where there is consolidative and groundglass op acity new since the prior study. This does not have a dependent nature and, therefore, is consistent with clinical diagnosis of pneumonitis/developing pneumonia. The lungs are otherwise negative for acu te process. The left upper lobe bronchogenic mass and left hilar appearance is similar when compared to the prior CT of 07/31/2018. 2. Pleural spaces are negative. 3. The tracheobronchial tree is patent. MEDIASTINUM: There is satisfactory enhancement of the pulmonary artery and its branches, there is no CT evidence for pulmonary embolism. Aorta is negative for acute findings. No cardiomegaly. No perica rdial effusion is seen. Dominant coronary calcifications are redemonstrated. SKELETAL STRUCTURES: Unremarkable. OTHER: No additional significant abnormality is seen. IMPRESSION: 1. NEGATIVE FOR PULMONARY EMBOLISM. 2. SUSPECT LEFT LOWER LOBE PNEUMONIA. 3. REDEMONSTRATED LEFT UPPER LOBE BRONCHOGENIC AND LEFT HILAR/MEDIASTINAL NEOPLASIA.
[2018-08-21 20:07] VITALS: BP 166/77; RESP 16; TEMP 98
== END 2018-08-21 20:00 | disposition home or self-care (01) ==
LOC: EC 15:27
DX: J18.9 Pneumonia, unspecified organism (principal); R79.89 Other specified abnormal findings of blood chemistry; E78.5 Hyperlipidemia, unspecified; I10 Essential (primary) hypertension; E07.9 Disorder of thyroid, unspecified; Z86.19 Personal history of other infectious and parasitic diseases; Z85.71 Personal history of Hodgkin lymphoma; Z85.118 Personal history of other malignant neoplasm of bronchus and lung; Z87.891 Personal history of nicotine dependence; Z79.82 Long term (current) use of aspirin; Z79.899 Other long term (current) drug therapy
CPT/HCPCS: 36415; 93005; 80053; 82550; 82553; 84484; 85025; 85610; 85730; 71275; 99285; Q9967

== ENCOUNTER → 2018-11-21 | Outpatient (CLI) | payer MEDICARE, BC ==
[2018-11-21 11:25] LABS: Blood Urea Nitrogen 25 mg/dL (9-20)
--- NOTE | 2018-11-21 14:09 | CT ---
EXAMINATION TYPE: CT ChestAbdPelvis w con DATE OF EXAM: 11/21/2018 COMPARISON: 07/31/2018 and 08/21/2018 HISTORY: Follow up scan. No complaints @ Time of scan. History of lung carcinoma, liver carcinoma an d lymphoma CT DLP: 1845 mGycm. Automated Exposure Control for Dose Reduction was Utilized. CONTRAST: CT scan of the thorax, abdomen and pelvis is performed with IV Contrast, patient injected with 100 mL of Isovue 300. FINDINGS: LUNGS: When measured on soft tissue windows on series 3 image 25 there is enlargement of the left upp er lobe known bronchogenic carcinoma as this measures approximately 5.5 x 5.6 cm and previously measu red approximately 3.4 x 5.5 cm at this location. A lobular component of the left upper lobe pulmonary nodule measures 2.2 x 3.4 cm on series 3 image 21 and previously measured 1.6 x 2.2 cm. There is mul tifocal left sided pleural thickening along the left upper lobe circumferentially. There is encasemen t of the left upper lobe segmental pulmonary arteries and bronchi with cylindrical bronchiectasis, tr action. There at least abutment of the mediastinum with suspicion for extent into the mediastinum. There is background moderate emphysematous change. Peripheral basilar predominant fibrosis with honey combing is again seen. More prominent spiculated appearance of a possible right upper lobe pulmonary nodule on series 4 image 24 is now seen. There is decrease in degree of the left basilar groundglass opacity seen on the prior exam. This likely represents resolution of the previously seen pneumonia. MEDIASTINUM: There are no greater than 1 cm hilar or mediastinal lymph nodes. There is severe three-v essel coronary artery calcifications. No pericardial effusion is seen. LIVER/GB: There is been a partial hepatectomy with resection of the left hepatic lobe. Additionally t here is redemonstration of hepatic steatosis that limits evaluation for underlying hepatic masses how ever there is elongated hypervascular bilobed lesion in segment 7 and 8 near the dome of diaphragm wi th components measuring 1.3 x 1.9 cm on series 3 image 54 and 1.1 x 2.3 cm on image 56. This is overa ll similar to the prior radiograph 07/31/2018. Other punctate foci suspicious for metastasis are seen anteriorly within the right hepatic lobe on image 67 and within the right hepatic lobe on image 70 an d 2 locations. PANCREAS: Peripheral calcifications are seen within the uncinate process, sequela chronic pancreatiti s. No ductal dilatation is seen. SPLEEN: The spleen is elongated and enlarged measuring 14.9 cm in longitudinal dimension. ADRENALS: Left adrenal gland is slightly thickened in comparison to the right although no discrete me asurable nodule is seen. KIDNEYS: Again there is a subcentimeter left upper pole renal lesion that is too small to accurately characterize. Bilateral extrarenal pelvises sees are seen. Too small to accurately characterize right lower pole renal lesion is also seen. BOWEL: A small hiatal hernia is noted. Numerous sigmoid diverticula are seen. Long segment sigmoid co lonic wall thickening may relate to incomplete distention or chronic diverticulitis. No pericolonic f at stranding is seen to suggest acute diverticulitis. No dilated large or small bowel is noted. LYMPH NODES: Other than the minimally enlarged stable priscilla hepatis lymph nodes measuring 1.1 cm in s hort axis there are no greater than 1cm abdominal or pelvic lymph nodes are appreciated. OSSEOUS STRUCTURES: There are minimal degenerative changes of the spine. No new suspicious osseous le [place] is seen. OTHER: Extensive atherosclerosis is present of the abdominal aorta and its branches. Abdominal aorta is of normal course and caliber. IMPRESSION: 1. Enlarging lobulated left upper lobe pulmonary mass at least abutting the mediastinal border with s uspicion for mediastinal invasion and encasement of the left hilum. Findings are superimposed upon ba ckground moderate emphysema and pulmonary fibrosis. 2. Resolution of the previously seen left basilar groundglass opacity that likely represented pneumon ia on the prior. 3. Similar appearing arterially hyperdense suspicious hepatic lesion in comparison to exam of 07/31/20 18 with 2 additional retrospectively unchanged subcentimeter foci suspicious for metastasis.
== END ==
LOC: RADCTMAIN 10:54
PROVIDERS: ATTEND Internal Medicine Hematology & Oncology
DX: J43.9 Emphysema, unspecified (principal); J84.10 Pulmonary fibrosis, unspecified; R91.8 Other nonspecific abnormal finding of lung field; C81.98 Hodgkin lymphoma, unspecified, lymph nodes of multiple sites; C34.12 Malignant neoplasm of upper lobe, left bronchus or lung; C22.8 Malignant neoplasm of liver, primary, unspecified as to type
CPT/HCPCS: 82565; 84520; 71260; 74177; 36415; Q9967

== ENCOUNTER → 2018-12-02 | Outpatient (CLI) | payer MEDICARE, BC | END | disposition home or self-care (01) | LOC: RADPETMAIN 12:42 | PROVIDERS: ATTEND Internal Medicine Hematology & Oncology | DX: Z53.9 Procedure and treatment not carried out, unspecified reason (principal) ==

== ENCOUNTER → 2018-12-09 | Outpatient (CLI) | payer MEDICARE, BC ==
--- NOTE | 2018-12-09 15:09 | PE ---
EXAMINATION TYPE: PET CT fusion skull to thigh DATE OF EXAM: 12/09/2018 COMPARISON: Most recent PET/CT November 05, 2017 and older studies. Most recent CAT scan November 21, [address]. HISTORY: Left lung cancer metastatic to liver progress study with treatment completed end of 2016. TECHNIQUE: Following the intravenous administration of 12.42 mCi of F-18 FDG, whole body images are performed from the skull base to the midthigh. Images are reviewed on the computer in the coronal, a xial, and sagittal planes. Reconstructed rotating images are created on independent workstation and reviewed on the computer. A localization and attenuation correction CT is performed in conjunction with the PET scan. SCAN: Subsequent Scan FINDINGS: SKULL BASE AND NECK: No new areas of suspicious hypermetabolic uptake are present. CHEST, MEDIASTINUM, AND HILAR REGION: There is more solid posterior left upper lung hypermetabolic ma ss measuring 3.9 x 3.0 cm transversely axial image 87 with max SUV of 8.49 on current study. This has hypermetabolic inferior and medial curvilinear extension near axial image 94 on current study extend ing towards left suprahilar region. There is more rounded a metabolic consolidation posterior medial to hypermetabolic left upper lung mass axial image 87 with peripherally metabolic irregular consolida tion in the left upper lung and some contiguous irregular left suprahilar a metabolic consolidation o n current study. There is background mild to moderate underlying emphysematous change most prominent in the upper lungs with dependent atelectasis in both lung bases. Left-sided volume loss with mediast inal shift is redemonstrated. Subcentimeter lymph nodes in the mediastinum do not show new hypermetab olic uptake. ABDOMEN AND PELVIS: Patient is status post left hepatectomy. No new suspicious hypermetabolic foci in the liver are identified. No new areas of abnormal hypermetabolic uptake in the abdomen are seen. OSSEOUS STRUCTURES: No new areas of suspicious hypermetabolic uptake identified. OTHER CT: Nearly completely opacified right sphenoid sinus is redemonstrated. Bilateral left greater than right mild gynecomastia is again redemonstrated. There are now suspected coronary stents in the LAD and left circumflex distribution. Slight thickening to left adrenal gland is redemonstrated felt stable favoring benign hyperplasia. Left-sided and sigmoid colonic diverticulosis are both redemonstrated. There is left pelvic phlebolit h. There is multilevel spurring in the spine. There is facet arthropathy lower lumbar levels. Spine is s traightened on lateral view. There is fairly moderate calcified plaque in the abdominal aorta extendi ng into iliac branch vessels. IMPRESSION: Interval left hepatectomy from prior PET/CT. No new hepatic hypermetabolic foci identifie d. There is better visualization of active malignancy left upper lung on current study versus prior P ET/CT.
== END ==
LOC: RADPETMAIN 11:46
PROVIDERS: ATTEND Internal Medicine Hematology & Oncology
DX: C34.12 Malignant neoplasm of upper lobe, left bronchus or lung (principal)
CPT/HCPCS: 78815; A9552

== ENCOUNTER → 2018-12-25 | Outpatient (CLI) | payer MEDICARE, BC ==
--- NOTE | 2018-12-25 17:26 | MR ---
EXAMINATION TYPE: MR brain wo/w con DATE OF EXAM: 12/25/2018 COMPARISON: 06/23/2017 HISTORY: Lung cancer. Headache. TECHNIQUE: Multiplanar, multisequence images of the brain and brainstem is performed without and with IV contras t, the contrast was 16 mL of MultiHance. FINDINGS: There are numerous foci of focal increased signal on the T2 and FLAIR images in the subcort ical white matter and periventricular white matter. Total number is more than 50. These measure up to 10 mm. There is no mass effect nor midline shift. There is no sign of cortical infarct. The contrast images show no pathologic enhancement. There is normal contrast enhancement of the anterior middle and posterior cerebral arteries. There is normal enhancement of the venous sinuses. The brain stem is intact. Cerebellum is intact. IMPRESSION: Cerebral atrophy. Extensive white matter disease probably due to chronic small vessel isc hemia. No significant change compared to old exam. I do not see pathologic enhancement to suggest met astatic disease.
== END | disposition home or self-care (01) ==
LOC: RADMRIMAIN 16:04
PROVIDERS: ATTEND Internal Medicine Hematology & Oncology
DX: G31.9 Degenerative disease of nervous system, unspecified (principal); R90.82 White matter disease, unspecified; C34.12 Malignant neoplasm of upper lobe, left bronchus or lung
CPT/HCPCS: 70553; A9585

== ENCOUNTER → 2019-01-27 | Outpatient (CLI) | payer MEDICARE, BC ==
--- NOTE | 2019-01-27 14:16 | PE ---
EXAMINATION TYPE: PET CT fusion skull to thigh DATE OF EXAM: 01/27/2019 COMPARISON: Most recent PET/CT December 09, [address] chest abdomen pelvis November. HISTORY: Lung cancer progress study with liver metastatic disease diagnosed 2017 completed chemothera py and radiation treatment September 18, 2017. TECHNIQUE: Following the intravenous administration of 12.42 mCi of F-18 FDG, whole body images are performed from the skull base to the midthigh. Images are reviewed on the computer in the coronal, a xial, and sagittal planes. Reconstructed rotating images are created on independent workstation and reviewed on the computer. A noncontrast CT is performed in conjunction with the PET scan. SCAN: Subsequent Scan FINDINGS: SKULL BASE AND NECK: No new areas of suspicious hypermetabolic uptake are present. CHEST, MEDIASTINUM, AND HILAR REGION: There is background mild to moderate underlying emphysematous c hange redemonstrated is prominent in the apices. There is persistent hypermetabolic left suprahilar m ass with indistinct margins from mediastinum that is stable or slightly more prominent from most rece nt PET/CT measuring approximately 8.7 x 4.9 cm on axial image 87 for reference, max SUV is 10.47 on c urrent study. Extension to left hilar level near axial image 94 is similar to prior study. There is now suspicious thick-walled cavitary hypermetabolic lesion right upper lobe axial image 84 m easuring 1.4 x 1.0 cm, max SUV is 3.65. ABDOMEN AND PELVIS: Surgical changes from left-sided hepatectomy are redemonstrated. No definitive ne w hypodense or hypermetabolic focal masses in the liver are present. Remainder of abdomen and pelvis shows normal excretion without definitive new areas of hypermetabolic uptake. OSSEOUS STRUCTURES: No new areas of suspicious hypermetabolic uptake are present. OTHER CT: Interval improvement in right sphenoid sinus disease noted. Small amount of bilateral gynecomastia is redemonstrated. Coronary stents once again suspected. Stable asymmetric thickening to left adrenal gland favoring benign hyperplasia. Diverticula in the le ft and sigmoid colon are redemonstrated. Prostate gland is upper limits of normal in size. Some left- sided pelvic phleboliths are redemonstrated. There is multilevel spurring in the spine. There is facet arthropathy lower lumbar levels. Spine is s traightened on lateral view. There is fairly moderate calcified plaque in the abdominal aorta extending into iliac branch vessels. IMPRESSION: Suspect overall neoplastic progression with left suprahilar malignancy stable or likely s lightly larger and increasing max SUV noted. Also new suspicious cavitary lesion right upper lobe.
== END | disposition home or self-care (01) ==
LOC: RADPETMAIN 07:48
PROVIDERS: ATTEND Internal Medicine Hematology & Oncology
DX: C34.12 Malignant neoplasm of upper lobe, left bronchus or lung (principal); Z92.21 Personal history of antineoplastic chemotherapy
CPT/HCPCS: 78815; A9552

== ENCOUNTER → 2019-04-21 | Outpatient (CLI) | payer MEDICARE, BC ==
--- NOTE | 2019-04-23 07:47 | PE ---
EXAMINATION TYPE: PET CT fusion skull to thigh DATE OF EXAM: 04/21/2019 COMPARISON: Prior PET/CT January 27, 2019 and older studies. HISTORY: Left-sided lung cancer progress study with partial liver resection 2017, completed radiati on treatment to left lung 2017 and recently completed chemotherapy. TECHNIQUE: Following the intravenous administration of 12.9 mCi of F-18 FDG, whole body images are p erformed from the skull base to the midthigh. Images are reviewed on the computer in the coronal, ax ial, and sagittal planes. Reconstructed rotating images are created on independent workstation and r eviewed on the computer. A noncontrast CT is performed in conjunction with the PET scan. SCAN: Subsequent Scan FINDINGS: SKULL BASE AND NECK: No new areas of suspicious hypermetabolic uptake. CHEST, MEDIASTINUM, AND HILAR REGION: Background mild to moderate underlying emphysematous change red emonstrated. There is persistent left suprahilar mass with indistinct margins measuring approximately 8.6 x 5.1 cm axial image 95, max SUV is 5.74 on current study improved from prior. Inferior extensio n to left hilar level near axial image 104 is redemonstrated. Dependent atelectasis bilateral lower lungs is present and slightly more prominent. No new masses or areas of hypermetabolic uptake clearly seen. There is interval improvement in 1.0 cm thick wall cavit griselda lesion right upper lobe with residual 9 x 6 mm ametabolic nodular focus present axial image 88. ABDOMEN AND PELVIS: Surgical changes from left-sided hepatectomy are redemonstrated. No new areas of suspicious hypermetabolic uptake are present. OSSEOUS STRUCTURES: No new areas of suspicious hypermetabolic uptake. OTHER CT: Mild to moderate calcified plaque bilateral carotid bulb level is redemonstrated. Small amount of bilateral gynecomastia is redemonstrated. Coronary stents once again suspected. Stable asymmetric thickening to left adrenal gland favoring benign hyperplasia. Diverticula in the si gmoid colon are redemonstrated. Prostate gland is upper limits of normal in size. Some left-sided pel tatiana phleboliths are redemonstrated. There is multilevel spurring in the spine. There is facet arthropathy lower lumbar levels. Spine is s traightened on lateral view. There is fairly moderate calcified plaque in the abdominal aorta extending into iliac branch vessels. IMPRESSION: Improved max SUV consistent with positive treatment response. Size of neoplasm fairly sta ble. No new metastatic disease is seen.
== END | disposition home or self-care (01) ==
LOC: RADPETMAIN 11:53
PROVIDERS: ATTEND Internal Medicine Hematology & Oncology
DX: C34.12 Malignant neoplasm of upper lobe, left bronchus or lung (principal)
CPT/HCPCS: 78815; A9552

== ENCOUNTER → 2019-09-01 | Outpatient (CLI) | payer MEDICARE, BC ==
--- NOTE | 2019-09-03 07:09 | PE ---
EXAMINATION TYPE: PET CT fusion skull to thigh DATE OF EXAM: 09/01/2019 COMPARISON: 11/21/2018 CT chest abdomen pelvis Prior PET/CT: 04/21/2019 most recent. HISTORY: Right lower quadrant pain, left lung cancer TECHNIQUE: Following the intravenous administration of 12.23 mCi of F-18 FDG, whole body images are performed from the skull base to the midthigh. Images are reviewed on the computer in the coronal, a xial, and sagittal planes. Reconstructed rotating images are created on independent workstation and reviewed on the computer. A localization and attenuation correction CT is performed in conjunction with the PET scan. DLP: 451.63 mGycm SCAN: Subsequent Blood glucose: 109 mg/dL Average Mediastinum SUV: 1.84 Average Liver SUV: 2.33 FINDINGS: NECK: No abnormal uptake THORAX: There is increased uptake within the left posterior apical collection with an SUV value of 5. 99. Image 90 ABDOMEN: No abnormal uptake. No suspicious uptake in the right lower quadrant is evident. There is di ffuse uptake through the loops of bowel which can be normal. PELVIS: No suspicious uptake evident. Diffuse uptake is again seen through the pelvic loops of bowel. OSSEOUS STRUCTURES: No abnormal uptake LOCALIZATION CT: There is a small left pleural effusion. Cavitary lesion in the left apex again evide nt. Moderately advanced coronary artery calcification is again evident. Minimal pericardial effusion is present. Gallbladder surgically absent. Fecal debris is within the colon. Diverticulosis without a cute diverticulitis is present within the sigmoid colon COMPARISON: Uptake through the left suprahilar region is similar to the most recent PET/CT study. The re may be less cavitation on the current exam. IMPRESSION: 1. Similar appearance to left upper lobe uptake.
== END | disposition home or self-care (01) ==
LOC: RADPETMAIN 09:12
PROVIDERS: ATTEND Internal Medicine Hematology & Oncology
DX: C34.12 Malignant neoplasm of upper lobe, left bronchus or lung (principal); Z92.21 Personal history of antineoplastic chemotherapy
CPT/HCPCS: 78815; A9552

== ENCOUNTER → 2019-09-19 | Day surgery (SDC) | payer MEDICARE, BC ==
[2019-09-17 16:10] VITALS: BMI 25.1
[~2019-09-19] MED LIST changes: -ALBUTEROL NEB (CONC) 2.5 MG/0.5 ML INHALATION ONE; -ATROPINE SULFATE 0.4 MG/ML 1 ML VIAL IM ONE; +DEXAMETHASONE SOD PHOSPHATE 10 MG/ML 1 ML VIAL IV ONE; +DEXAMETHASONE SOD PHOSPHATE 4 MG/ML 1 ML VIAL IV ONE; +FAMOTIDINE 20 MG/2 ML VIAL IV ONE; +HYDROcodone/APAP 5-325MG 1 EACH TAB PO ONE; +HYDROmorphone 0.5 MG/0.5 ML SYRINGE IVP PRN; -LACTATED RINGERS 1,000 ML IV ONE; +LACTATED RINGERS 1,000 ML IV SCH; +LIDOCAINE 1% 20 ML VIAL (10MG/ML) FOR IV START INTRADERMA PRN; +LIDOCAINE 1% INJ 10MG/ML (20 ML MDV) ONE; +LIDOCAINE 1%-EPI 1:100,000 20 ML VIAL SQ ONE; -LIDOCAINE 2% (PF) 20 MG/ML 10ML INHALATION ONE; +MIDAZOLAM 2 MG/2 ML VIAL IV PRN; +MIDAZOLAM 2 MG/2 ML VIAL ONE; +ONDANSETRON 4 MG/2 ML VIAL IVP ONE; +PHENYLEPHRINE-0.9% NACL SYG 1 MG/10 ML SYRINGE ONE; +PROPOFOL 10 MG/ML 20 ML VIAL IV ONE; +SCOPOLAMINE 1.5MG/72HR PATCH TRANSDERM ONE; +diphenhydrAMINE 50 MG/ML 1 ML VIAL ONE; +fentaNYL (PF) 50 MCG/ML 2 ML AMP ONE
[2019-09-19 08:58] LABS: Glucose,Whole Blood 105 mg/dL (75-99)
--- NOTE | 2019-09-19 10:50 | P.OP ---
Date of Procedure: 09/19/19 Preoperative Diagnosis: Left vocal cord paralysis Postoperative Diagnosis: Same Procedure(s) Performed: Left medialization thyroplasty Implants: Napier thyroplasty implant Anesthesia: DINAHA Surgeon: Carlos Price Estimated Blood Loss (ml): 5 Pathology: none sent Condition: stable Disposition: PACU Indications for Procedure: This 69-year-old white male with lung cancer with mediastinal involvement with a left vocal cord paralysis Operative Findings: Left vocal cord paralysis Description of Procedure: Patient brought to proceed and placed in a supine position. Patient underwent induction of IV sedation by the assistant secretary after appropriate monitors were placed. The patient was positioned with head donut and shoulder roll and prepped and draped in usual aseptic fashion. 1% lidocaine with 1-100,000 epinephrine was infused subcutaneously in field block fashion. A linear incision was then fashioned just above the level of the inferior aspect of the thyroid cartilage across the midline but mainly on the left. This is carried sharply through the skin and subcu tissue and platysma layers. The midline raphae was located and the strap muscles reflected from the midline raphae laterally to the left. This exposed the thyroid cartilage. The thyrohyoid muscle was detached from the inferior attachment of the thyroid cartilage using cautery. The inferior tubercle was located and the window caliper was utilized and then appropriate nazario were made to locate the brown point so that the window outline measurements for male were utilized. The this was marked and the thyroid window was created and the cartilage was removed. The perichondrium was then elevated deep to this. The this was then incised horizontally. Good hemostasis was noted. The Napier thyroplasty sizing tools were then utilized with the measuring device is to obtain the appropriate size implant and it was felt by voicing and without strain that the a #11 male implant was then appropriate size and therefore this was placed. This was then tested with him voicing and was working well for stronger voicing without strain or any respiratory difficulty or stridor. The larynx was then checked with flexible la ryngoscopy and the left vocal cord was noted to be in good position in the median position with good approximation of the right vocal cord without airway obstruction on vocalization. Good hemostasis was noted. The wound was then closed in layers with the deep muscular layers being closed with 3-0 Vicryl suture more superficial muscular layers and subcutaneous layer was closed with inverted interrupted 4-0 Vicryl suture skin closed with running locking 5-0 Prolene suture. In the deeper compartment a #10 suction drain was placed and this was sutured to the skin with suture. This was suctioned and minimal antrostomy 1 mL of blood was noted in the tubing. Sterile dressing was placed. The patient was awake and alert with good breathing no stridor and good voicing and was transferred to postop recovery area in satisfactory condition.
[2019-09-19 11:00] VITALS: TEMP 97
[2019-09-19 11:02] VITALS: RESP 16
[2019-09-19 12:35] VITALS: BP 115/75; PULSE 85
== END | disposition home or self-care (01) ==
LOC: OR 07:57
PROVIDERS: ATTEND Otolaryngology
DX: J38.01 Paralysis of vocal cords and larynx, unilateral (principal); C34.90 Malignant neoplasm of unspecified part of unspecified bronchus or lung; I51.9 Heart disease, unspecified; E78.00 Pure hypercholesterolemia, unspecified; I10 Essential (primary) hypertension; E07.9 Disorder of thyroid, unspecified; I25.10 Atherosclerotic heart disease of native coronary artery without angina pectoris; E78.5 Hyperlipidemia, unspecified; E11.9 Type 2 diabetes mellitus without complications; K21.9 Gastro-esophageal reflux disease without esophagitis; Z87.891 Personal history of nicotine dependence; Z79.899 Other long term (current) drug therapy; Z79.84 Long term (current) use of oral hypoglycemic drugs; Z79.890 Hormone replacement therapy; Z79.02 Long term (current) use of antithrombotics/antiplatelets; Z79.82 Long term (current) use of aspirin; Z95.5 Presence of coronary angioplasty implant and graft; Z98.890 Other specified postprocedural states; Z85.71 Personal history of Hodgkin lymphoma; Z92.21 Personal history of antineoplastic chemotherapy; Z86.19 Personal history of other infectious and parasitic diseases; Z82.49 Family history of ischemic heart disease and other diseases of the circulatory system; Z80.1 Family history of malignant neoplasm of trachea, bronchus and lung
CPT/HCPCS: 31591; L8509; J2250; J1200; J1100; J2405; J0690; J2001; J3010; J2370; J2704

== ENCOUNTER 2019-11-20 12:43 | Emergency (ER) | payer MEDICARE, BC ==
[2019-11-20] MEDS ORDERED: IBUPROFEN 600 MG TAB PO STA (13:20)
[2019-11-20] MEDS ORDERED: ACETAMINOPHEN TAB 500 MG TAB PO STA (13:20)
--- NOTE | 2019-11-20 13:22 | ED ---
General Adult HPI - General Chief complaint: Fever Stated complaint: Fever Time Seen by Provider: 11/20/19 13:05 Source: patient, family, RN notes reviewed Mode of arrival: wheelchair Limitations: no limitations - History of Present Illness Initial comments: Patient is a pleasant 69-year-old male presenting to the emergency department with fever. Onset of symptoms was last night. He should complains of myalgias and fatigue. Patient states her may be slightly worse dyspnea from chronic. Patient has known non-small cell lung cancer. Patient did go through 2 rounds of chemotherapy and then immunotherapy. This has been stopped recently secondary to patient with weight loss. No abdominal pain or dysuria. Patient has mild rhinorrhea. - Related Data Home Medications Medication Instructions Recorded Confirmed Lisinopril [Zestril] 10 mg PO BID 11/11/17 11/20/19 ALPRAZolam [Xanax] 0.5 mg PO Q8H PRN 08/21/18 11/20/19 Clopidogrel Bisulfate [Plavix] 75 mg PO DAILY 08/21/18 11/20/19 Metoprolol Tartrate [Lopressor] 100 mg PO BID 08/21/18 11/20/19 Rosuvastatin [Crestor] 20 mg PO HS 08/21/18 11/20/19 [place]-3 Fatty Acids/Fish Oil [Fish 1 cap PO BID 09/17/19 11/20/19 Oil 1,000 mg Softgel] glipiZIDE [Glucotrol] 5 mg PO AC-BRKFST 09/17/19 11/20/19 metFORMIN HCL [Glucophage] 500 mg PO TID 09/17/19 11/20/19 Aspirin [Adult Low Dose Aspirin EC] 81 mg PO DAILY 09/19/19 11/20/19 Levothyroxine Sodium [Synthroid] 200 mcg PO DAILY 09/19/19 11/20/19 Multivitamin [Multivitamins Adult 1 tab PO DAILY 09/19/19 11/20/19 Gummies] Tiotropium 18 Mcg/Puff [Spiriva] 1 puff INHALATION RT-DAILY 09/19/19 11/20/19 amLODIPine BESYLATE [Norvasc] 10 mg PO DAILY 09/19/19 11/20/19 predniSONE 10 mg PO BID 11/20/19 11/20/19 Previous Rx's Medication Instructions Recorded Levofloxacin [Levaquin] 500 mg PO DAILY #9 tab 11/20/19 Allergies Allergy/AdvReac Type Severity Reaction Status Date / Time No Known Allergies Allergy Verified 11/20/19 14:44 Review of Systems ROS Statement: Those systems with pertinent positive or pertinent negative responses have been documented in the HPI. ROS Other: All systems not noted in ROS Statement are negative. 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 - completed radiation and chemo - PET 11/05 resolved History of Any Multi-Drug Resistant Organisms: None Reported Past Surgical History: Hernia Repair Additional Past Surgical History / Comment(s): thyroid Past Anesthesia/Blood Transfusion Reactions: No Reported Reaction Date of Last Stent Placement:: 2017 Past Psychological History: No Psychological Hx Reported Smoking Status: Former smoker Past Alcohol Use History: None Reported Past Drug Use History: None Reported - Past Family History Father Family Medical History: Myocardial Infarction ([place]) Mother Family Medical History: Cancer Additional Family Medical History / Comment(s): Lung General Exam Limitations: no limitations General appearance: alert Head exam: Present: normocephalic Eye exam: Present: normal appearance, PERRL ENT exam: Present: normal oropharynx Neck exam: Present: normal inspection. Absent: meningismus Respiratory exam: Present: rhonchi Cardiovascular Exam: Present: tachycardia GI/Abdominal exam: Present: soft. Absent: distended, tenderness Extremities exam: Present: normal inspection Neurological exam: Present: alert Psychiatric exam: Present: flat affect Skin exam: Present: normal color Course Vital Signs 11/20/19 11/20/19 11/20/19 12:51 13:09 13:30 Temperature 102.3 F H Pulse Rate 107 H 104 H Respiratory 20 20 20 Rate Blood Pressure 84/52 119/75 O2 Sat by Pulse 87 L 91 L Oximetry 11/20/19 11/20/19 11/20/19 14:00 14:30 15:00 Temperature Pulse Rate 98 96 95 Respiratory 20 18 25 H Rate Blood Pressure 114/61 96/58 96/58 O2 Sat by Pulse 91 L Oximetry 11/20/19 11/20/19 11/20/19 15:04 15:15 15:30 Temperature 98.8 F Pulse Rate 92 91 Respiratory 22 16 Rate Blood Pressure 88/53 88/53 O2 Sat by Pulse 90 L Oximetry 11/20/19 11/20/19 11/20/19 15:45 16:00 16:27 Temperature Pulse Rate 94 88 88 Respiratory 20 23 20 Rate Blood Pressure 77/48 72/38 102/59 O2 Sat by Pulse 94 L 95 Oximetry EKG Findings - EKG Comments: EKG Findings:: Sinus tachycardia 104. PA 122. QRS 100. QT 314. QTC 412. Normal axis. Normal QRS. Nonspecific ST-T. Medical Decision Making - Medical Decision Making Patient reevaluated and significantly improved with fluids. Patient and family updated on results and recommendation or admission. Patient and family aware that patient is likely very sick and could be septic with concerns for hypotension and a potential infection that is not seen at this point. Patient is recommended admission however refuses. Family is present. Patient and family are aware that this is a very strong recommendation for admission. Despite this patient refuses and will leave AGAINST MEDICAL ADVICE. Patient does demonstrate medical decision making. Patient advised close follow-up. IV medications will be switched to oral. - Lab Data Result diagrams: 11/20/19 13:14 11/20/19 13:14 Lab Results 11/20/19 11/20/19 11/20/19 Range/Units 13:14 13:14 13:14 WBC 17.2 H (3.8-10.6) k/uL RBC 4.36 (4.30-5.90) m/uL Hgb 13.2 (13.0-17.5) gm/dL Hct 38.5 L (39.0-53.0) % MCV 88.2 (80.0-100.0) fL MCH 30.1 (25.0-35.0) pg MCHC 34.2 (31.0-37.0) g/dL RDW 15.5 (11.5-15.5) % Plt Count 239 (150-450) k/uL Neutrophils % 76 % Lymphocytes % 12 % Monocytes % 8 % Eosinophils % 0 % Basophils % 2 % Neutrophils # 13.1 H (1.3-7.7) k/uL Lymphocytes # 2.0 (1.0-4.8) k/uL Monocytes # 1.4 H (0-1.0) k/uL Eosinophils # 0.1 (0-0.7) k/uL Basophils # 0.4 H (0-0.2) k/uL Poikilocytosis Slight PT (9.0-12.0) sec INR (<1.2) APTT (22.0-30.0) sec Sodium 136 L (137-145) mmol/L Potassium 4.9 (3.5-5.1) mmol/L Chloride 102 (98-107) mmol/L Carbon Dioxide 25 (22-30) mmol/L Anion Gap 9 mmol/L BUN 33 H (9-20) mg/dL Creatinine 0.91 (0.66-1.25) mg/dL Est GFR (CKD-EPI)AfAm >90 (>60 ml/min/1.73 sqM) Est GFR (CKD-EPI)NonAf 86 (>60 ml/min/1.73 sqM) Glucose 135 H (74-99) mg/dL Plasma Lactic Acid Harry (0.7-2.0) mmol/L Calcium 8.9 (8.4-10.2) mg/dL Total Bilirubin 1.0 (0.2-1.3) mg/dL AST 35 (17-59) U/L ALT 23 (4-49) U/L Alkaline Phosphatase 53 (38-126) U/L Total Protein 6.4 (6.3-8.2) g/dL Albumin 3.3 L (3.5-5.0) g/dL Urine Color Urine Appearance (Clear) Urine pH (5.0-8.0) Ur Specific [place] (1.001-1.035) Urine Protein (Negative) Urine Glucose (UA) (Negative) Urine Ketones (Negative) Urine Blood (Negative) Urine Nitrite (Negative) Urine Bilirubin (Negative) Urine Urobilinogen (<2.0) mg/dL Ur Leukocyte Esterase (Negative) Urine WBC (0-5) /hpf Ur Squamous Epith Cells (0-4) /hpf Hyaline Casts (0-2) /lpf Urine Mucus (None) /hpf Influenza Type A RNA Not Detected (Not Detectd) Influenza Type B (PCR) Not Detected (Not Detectd) 11/20/19 11/20/19 11/20/19 Range/Units 13:14 13:14 15:09 WBC (3.8-10.6) k/uL RBC (4.30-5.90) m/uL Hgb (13.0-17.5) gm/dL Hct (39.0-53.0) % MCV (80.0-100.0) fL MCH (25.0-35.0) pg MCHC (31.0-37.0) g/dL RDW (11.5-15.5) % Plt Count (150-450) k/uL Neutrophils % % Lymphocytes % % Monocytes % % Eosinophils % % Basophils % % Neutrophils # (1.3-7.7) k/uL Lymphocytes # (1.0-4.8) k/uL Monocytes # (0-1.0) k/uL Eosinophils # (0-0.7) k/uL Basophils # (0-0.2) k/uL Poikilocytosis PT 9.9 (9.0-12.0) sec INR 0.9 (<1.2) APTT 20.8 L (22.0-30.0) sec Sodium (137-145) mmol/L Potassium (3.5-5.1) mmol/L Chloride (98-107) mmol/L Carbon Dioxide (22-30) mmol/L Anion Gap mmol/L BUN (9-20) mg/dL Creatinine (0.66-1.25) mg/dL Est GFR (CKD-EPI)AfAm (>60 ml/min/1.73 sqM) Est GFR (CKD-EPI)NonAf (>60 ml/min/1.73 sqM) Glucose (74-99) mg/dL Plasma Lactic Acid Harry 2.6 H* (0.7-2.0) mmol/L Calcium (8.4-10.2) mg/dL Total Bilirubin (0.2-1.3) mg/dL AST (17-59) U/L ALT (4-49) U/L Alkaline Phosphatase (38-126) U/L Total Protein (6.3-8.2) g/dL Albumin (3.5-5.0) g/dL Urine Color Yellow Urine Appearance Cloudy (Clear) Urine pH 5.5 (5.0-8.0) Ur Specific [place] 1.020 (1.001-1.035) Urine Protein 1+ H (Negative) Urine Glucose (UA) Negative (Negative) Urine Ketones Negative (Negative) Urine Blood Negative (Negative) Urine Nitrite Negative (Negative) Urine Bilirubin Negative (Negative) Urine Urobilinogen 2.0 (<2.0) mg/dL Ur Leukocyte Esterase Negative (Negative) Urine WBC 2 (0-5) /hpf Ur Squamous Epith Cells 1 (0-4) /hpf Hyaline Casts 4 H (0-2) /lpf Urine Mucus Many H (None) /hpf Influenza Type A RNA (Not Detectd) Influenza Type B (PCR) (Not Detectd) - Radiology Data Radiology results: image reviewed (Chest x-ray shows bilateral upper lobe masses consistent with patient's history of lung carcinoma. COPD.) Disposition Clinical Impression: Fever Disposition: Left Against Medical Advice Instructions (If sedation given, give patient instructions): Fever in Adults (ED) Additional Instructions: Please follow-up with primary care physician and your lung doctor and your oncologist this week. [id number] Tylenol as needed for fever. Return for difficulty breathing, increased weakness, worsening or change in symptoms or other concerns. You're leaving AGAINST MEDICAL ADVICE. Antibiotic prescription provided. Prescriptions: Levofloxacin [Levaquin] 500 mg PO DAILY #9 tab Is patient prescribed a controlled substance at d/c from ED?: No Referrals: Noman Stephens Jr, DO [Primary Care Provider] - 1-2 days Tamie Garcia MD [STAFF PHYSICIAN] - 1-2 days Skip Scanlon MD [STAFF PHYSICIAN] - 1-2 days Time of Disposition: 17:05
[2019-11-20] MEDS ORDERED: SODIUM CHLORIDE 0.9% 1,000 ML IV SCH (13:30)
[2019-11-20] MEDS: SODIUM CHLORIDE 0.9% 500 ML 500 ML IV SCH ×2 (13:34→14:03)
[2019-11-20 14:13] LABS: Basophils # (A) 0.4 k/uL (0-0.2); Basophils % (A) 2 %; Eosinophils # (A) 0.1 k/uL (0-0.7); Eosinophils % (A) 0 %; HCT 38.5 % (39.0-53.0); HGB 13.2 gm/dL (13.0-17.5); Lymphocytes % (A) 12 %; MCH 30.1 pg (25.0-35.0); MCHC 34.2 g/dL (31.0-37.0); MCV 88.2 fL (80.0-100.0); Mean Platelet Volume 7.3; Monocytes # (A) 1.4 k/uL (0-1.0); Monocytes % (A) 8 %; Neutrophils # (A) 13.1 k/uL (1.3-7.7); Neutrophils % (A) 76 %; Platelet Count 239 k/uL (150-450); Poikilocytosis Slight; RBC 4.36 m/uL (4.30-5.90); RDW 15.5 % (11.5-15.5); WBC 17.2 k/uL (3.8-10.6)
--- NOTE | 2019-11-20 14:13 | XR ---
EXAMINATION TYPE: XR chest 2V DATE OF EXAM: 11/20/2019 COMPARISON: NONE HISTORY: Shortness of breath. History of lung cancer TECHNIQUE: Frontal and lateral views of the chest are obtained. FINDINGS: Scattered senescent parenchymal changes noted. Hyperinflation compatible with COPD. There is a right upper lobe mass noted measuring 4.2 cm. In addition there is additional mass identif ied within the left suprahilar region measuring 5.8 x 5.8 cm. I suspect a degree of volume loss. Elev ation left hemidiaphragm. Heart size is stable. Degenerative changes dorsal spine. IMPRESSION: 1. Bilateral masses as described consistent with patient's history of lung carcinoma. Suspected left- sided volume loss.
[2019-11-20 14:14] LABS: INR 0.9 (<1.2); Prothrombin Time 9.9 sec (9.0-12.0)
[2019-11-20 14:17] LABS: Partial Thromboplastin Time 20.8 sec (22.0-30.0)
[2019-11-20 14:28] LABS: ALT 23 U/L (4-49); AST 35 U/L (17-59); African American GFR (CKD) >90 (>60 ml/min/1.73 sqM); Albumin 3.3 g/dL (3.5-5.0); Alkaline Phosphatase 53 U/L (38-126); Anion Gap 9 mmol/L; Blood Urea Nitrogen 33 mg/dL (9-20); Calcium 8.9 mg/dL (8.4-10.2); Carbon Dioxide 25 mmol/L (22-30); Chloride 102 mmol/L (98-107); Glucose 135 mg/dL (74-99); Non-African American GFR(CKD) 86 (>60 ml/min/1.73 sqM); Potassium 4.9 mmol/L (3.5-5.1); Sodium 136 mmol/L (137-145); Total Protein 6.4 g/dL (6.3-8.2)
[2019-11-20 15:25] LABS: Appearance,Urine Cloudy (Clear); Bilirubin,Urine Negative (Negative); Blood,Urine Negative (Negative); Color,Urine Yellow; Glucose,Urine (UA) Negative (Negative); Hyaline Casts,Urine 4 /lpf (0-2); Ketones,Urine Negative (Negative); Leukocyte Esterase,Urine Negative (Negative); Mucus,Urine Many /hpf; Nitrite,Urine Negative (Negative); PH, Urine 5.5 (5.0-8.0); Protein,Urine 1+ (Negative); Squamous Epithelial Cell,Urine 1 /hpf (0-4); WBC,Urine 2 /hpf (0-5)
[2019-11-20] MEDS ORDERED: SODIUM CHLORIDE 0.9% 500 ML 500 ML IV STA (15:58)
[2019-11-20] MEDS ORDERED: SODIUM CHLORIDE 0.9% 1,000 ML IV STA ×2 (15:58)
[2019-11-20] MEDS ORDERED: LEVOFLOXACIN 750MG-D5W PMX 750 MG in DEXTROSE/WATER 1 150ML.BAG IVPB STA (15:59)
[2019-11-20] MEDS ORDERED: LEVOFLOXACIN 750 MG TAB PO STA (17:07)
[2019-11-20 18:00] VITALS: BP 109/64; PULSE 87; RESP 25
[2019-11-20 18:02] VITALS: TEMP 98.9
[2019-11-21] MEDS ORDERED: LEVOFLOXACIN 750MG-D5W PMX 750 MG in DEXTROSE/WATER 1 150ML.BAG IVPB SCH (16:00)
== END 2019-11-20 18:02 | disposition left against medical advice (07) ==
LOC: EC 12:43
DX: R50.9 Fever, unspecified (principal); M79.10 Myalgia, unspecified site; R53.83 Other fatigue; I10 Essential (primary) hypertension; E78.5 Hyperlipidemia, unspecified; E07.9 Disorder of thyroid, unspecified; Z79.82 Long term (current) use of aspirin; Z79.51 Long term (current) use of inhaled steroids; Z79.890 Hormone replacement therapy; Z79.02 Long term (current) use of antithrombotics/antiplatelets; Z79.84 Long term (current) use of oral hypoglycemic drugs; Z79.899 Other long term (current) drug therapy; Z87.891 Personal history of nicotine dependence; Z85.71 Personal history of Hodgkin lymphoma
CPT/HCPCS: 36415; 71046; 80053; 81001; 83605; 85025; 85610; 85730; 87040; 87502; 93005; 96360; 96361; 99284

== ENCOUNTER 2019-11-22 13:00 | Inpatient (IN) | payer MEDICARE, BC ==
[2019-11-22] MEDS ORDERED: SODIUM CHLORIDE 0.9% 1,000 ML IV STA ×2 (13:11→13:59)
[2019-11-22] MEDS ORDERED: methylPREDNISolone SOD SUCCI 125 MG/2 ML VIAL IV STA (13:11)
[2019-11-22] MEDS ORDERED: IPRATROPIUM-ALBUTEROL 3 ML NEB INHALATION STA (13:11)
--- NOTE | 2019-11-22 13:20 | ED ---
SOB HPI - General Chief Complaint: Shortness of Breath Stated Complaint: Shortness of breath Time Seen by Provider: 11/22/19 13:08 Source: patient, family, EMS, RN notes reviewed, old records reviewed Mode of arrival: EMS Limitations: no limitations - History of Present Illness Initial Comments: This is a 69-year-old male with a history of left-sided lung cancer also a former smoker COPD who presents with complaints of shortness of breath. He was found to be hypoxemic with his pulse ox in the 50s which did improve after oxygen was applied into the 90s. He has had fevers chills over last couple days he was seen here 3 days ago placed on Ricardo FALCON Complaint: shortness of breath - Related Data Home Medications Medication Instructions Recorded Confirmed Lisinopril [Zestril] 10 mg PO BID 11/11/17 11/22/19 ALPRAZolam [Xanax] 0.5 mg PO Q8H PRN 08/21/18 11/22/19 Clopidogrel Bisulfate [Plavix] 75 mg PO HS 08/21/18 11/22/19 Metoprolol Tartrate [Lopressor] 100 mg PO BID 08/21/18 11/22/19 Rosuvastatin [Crestor] 20 mg PO HS 08/21/18 11/22/19 [place]-3 Fatty Acids/Fish Oil [Fish 1 cap PO BID 09/17/19 11/22/19 Oil 1,000 mg Softgel] glipiZIDE [Glucotrol] 5 mg PO AC-BRKFST 09/17/19 11/22/19 metFORMIN HCL [Glucophage] 500 mg PO BID 09/17/19 11/22/19 Aspirin [Adult Low Dose Aspirin EC] 81 mg PO HS 09/19/19 11/22/19 Levothyroxine Sodium [Synthroid] 200 mcg PO DAILY 09/19/19 11/22/19 Multivitamin [Multivitamins Adult 1 tab PO DAILY 09/19/19 11/22/19 Gummies] Tiotropium 18 Mcg/Puff [Spiriva] 1 puff INHALATION RT-DAILY 09/19/19 11/22/19 amLODIPine BESYLATE [Norvasc] 10 mg PO DAILY 09/19/19 11/22/19 predniSONE 10 mg PO DAILY 11/20/19 11/22/19 Albuterol Nebulized [Ventolin 2.5 mg INHALATION RT-Q4H PRN 11/22/19 11/22/19 Nebulized] Levofloxacin [Levaquin] 500 mg PO DAILY 11/22/19 11/22/19 Zolpidem [Ambien] 5 - 10 mg PO HS PRN 11/22/19 11/22/19 Allergies Allergy/AdvReac Type Severity Reaction Status Date / Time No Known Allergies Allergy Verified 11/22/19 14:46 Review of Systems ROS Statement: Those systems with pertinent positive or pertinent negative responses have been documented in the HPI. ROS Other: All systems not noted in ROS Statement are negative. 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 - completed radiation and chemo - PET 11/05 resolved History of Any Multi-Drug Resistant Organisms: None Reported Past Surgical History: Hernia Repair Additional Past Surgical History / Comment(s): thyroid Past Anesthesia/Blood Transfusion Reactions: No Reported Reaction Date of Last Stent Placement:: 2017 Past Psychological History: No Psychological Hx Reported Smoking Status: Former smoker Past Alcohol Use History: None Reported Past Drug Use History: None Reported - Past Family History Father Family Medical History: Myocardial Infarction ([place]) Mother Family Medical History: Cancer Additional Family Medical History / Comment(s): Lung General Exam - General Exam Comments Initial Comments: This a well-developed asthenic appearing male who is awake alert oriented 3 Limitations: no limitations General appearance: alert, anxious, in distress Head exam: Present: atraumatic, normocephalic, normal inspection Eye exam: Present: normal appearance, PERRL, EOMI. Absent: scleral icterus, conjunctival injection, periorbital swelling ENT exam: Present: mucous membranes dry Neck exam: Present: normal inspection. Absent: tenderness, meningismus, lymphadenopathy Respiratory exam: Present: respiratory distress, accessory muscle use, decreased breath sounds. Absent: wheezes, rales, rhonchi, stridor Cardiovascular Exam: Present: normal rhythm, tachycardia, normal heart sounds. Absent: systolic murmur, diastolic murmur, rubs, gallop, clicks GI/Abdominal exam: Present: soft, normal bowel sounds. Absent: distended, tenderness, guarding, rebound, rigid Extremities exam: Present: normal inspection, full ROM, normal capillary refill. Absent: tenderness, pedal edema, joint swelling, calf tenderness Back exam: Present: normal inspection Neurological exam: Present: alert, oriented X3, CN II-XII intact Psychiatric exam: Present: normal affect, normal mood Skin exam: Present: warm, dry, intact, normal color. Absent: rash Course Vital Signs 11/22/19 11/22/19 11/22/19 13:02 13:24 13:28 Temperature 101.0 F H Pulse Rate 116 H 104 H Respiratory 24 24 20 Rate Blood Pressure 121/78 O2 Sat by Pulse 69 L Oximetry 11/22/19 13:40 Temperature Pulse Rate 104 H Respiratory 20 Rate Blood Pressure O2 Sat by Pulse Oximetry - Reevaluation(s) Reevaluation #1: 11/22/19 15:37 Patient did get improvement after oxygen was applied. Medical Decision Making - Medical Decision Making Patient is improving after administration of oxygen he's not sure of the nebulizer treatment helped. I did discuss the findings with him and his family as well as with Dr. Stephens. Patient be admitted for inpatient treatment of pneumonia, COPD exacerbation, lung cancer, dehydration - Lab Data Result diagrams: 11/22/19 13:11 11/22/19 13:11 Lab Results 11/22/19 11/22/19 11/22/19 Range/Units 13:11 13:11 13:11 WBC 12.2 H (3.8-10.6) k/uL RBC 3.72 L (4.30-5.90) m/uL Hgb 11.0 L (13.0-17.5) gm/dL Hct 32.5 L (39.0-53.0) % MCV 87.4 (80.0-100.0) fL MCH 29.5 (25.0-35.0) pg MCHC 33.7 (31.0-37.0) g/dL RDW 15.6 H (11.5-15.5) % Plt Count 195 (150-450) k/uL Neutrophils % 89 % Lymphocytes % 5 % Monocytes % 5 % Eosinophils % 0 % Basophils % 1 % Neutrophils # 10.8 H (1.3-7.7) k/uL Lymphocytes # 0.6 L (1.0-4.8) k/uL Monocytes # 0.6 (0-1.0) k/uL Eosinophils # 0.0 (0-0.7) k/uL Basophils # 0.1 (0-0.2) k/uL Poikilocytosis Moderate PT 10.8 (9.0-12.0) sec INR 1.1 (<1.2) APTT 21.9 L (22.0-30.0) sec Sodium 136 L (137-145) mmol/L Potassium 4.5 (3.5-5.1) mmol/L Chloride 108 H (98-107) mmol/L Carbon Dioxide 21 L (22-30) mmol/L Anion Gap 7 mmol/L BUN 25 H (9-20) mg/dL Creatinine 0.74 (0.66-1.25) mg/dL Est GFR (CKD-EPI)AfAm >90 (>60 ml/min/1.73 sqM) Est GFR (CKD-EPI)NonAf >90 (>60 ml/min/1.73 sqM) Glucose 230 H (74-99) mg/dL Plasma Lactic Acid Harry (0.7-2.0) mmol/L Calcium 8.4 (8.4-10.2) mg/dL Magnesium 1.6 (1.6-2.3) mg/dL Total Bilirubin 0.8 (0.2-1.3) mg/dL AST 44 (17-59) U/L ALT 24 (4-49) U/L Alkaline Phosphatase 40 (38-126) U/L Creatine Kinase 52 L (55-170) U/L Troponin I (0.000-0.034) ng/mL NT-Pro-B Natriuret Pep pg/mL Total Protein 5.4 L (6.3-8.2) g/dL Albumin 2.6 L (3.5-5.0) g/dL 11/22/19 11/22/19 11/22/19 Range/Units 13:11 13:11 13:11 WBC (3.8-10.6) k/uL RBC (4.30-5.90) m/uL Hgb (13.0-17.5) gm/dL Hct (39.0-53.0) % MCV (80.0-100.0) fL MCH (25.0-35.0) pg MCHC (31.0-37.0) g/dL RDW (11.5-15.5) % Plt Count (150-450) k/uL Neutrophils % % Lymphocytes % % Monocytes % % Eosinophils % % Basophils % % Neutrophils # (1.3-7.7) k/uL Lymphocytes # (1.0-4.8) k/uL Monocytes # (0-1.0) k/uL Eosinophils # (0-0.7) k/uL Basophils # (0-0.2) k/uL Poikilocytosis PT (9.0-12.0) sec INR (<1.2) APTT (22.0-30.0) sec Sodium (137-145) mmol/L Potassium (3.5-5.1) mmol/L Chloride (98-107) mmol/L Carbon Dioxide (22-30) mmol/L Anion Gap mmol/L BUN (9-20) mg/dL Creatinine (0.66-1.25) mg/dL Est GFR (CKD-EPI)AfAm (>60 ml/min/1.73 sqM) Est GFR (CKD-EPI)NonAf (>60 ml/min/1.73 sqM) Glucose (74-99) mg/dL Plasma Lactic Acid Harry 2.7 H* (0.7-2.0) mmol/L Calcium (8.4-10.2) mg/dL Magnesium (1.6-2.3) mg/dL Total Bilirubin (0.2-1.3) mg/dL AST (17-59) U/L ALT (4-49) U/L Alkaline Phosphatase (38-126) U/L Creatine Kinase (55-170) U/L Troponin I 0.660 H* (0.000-0.034) ng/mL NT-Pro-B Natriuret Pep 2110 pg/mL Total Protein (6.3-8.2) g/dL Albumin (3.5-5.0) g/dL - EKG Data -: EKG Interpreted by Me EKG shows normal: sinus rhythm (Sinus tachycardia of 106. Interval 120 QRS 96 QT since QTC of 322/427 possible left atrial enlargement. This is consistent with EKG dated and 1 submitted by EMS.) - Radiology Data Radiology results: report reviewed (I did review the imaging and report is evidence of left hilar and right upper lobe masses also consolidation of the lower lobes.), image reviewed Critical Care Time Critical Care Time: Yes Critical Care Time: 33 minutes of critical care time which includes initial presentation with history physical labs x-rays multiple reevaluation the patient responsive therapy review of old charting discussed with the patient family and several occasions discussion with the main physician admission orders and documentation of the above Disposition Clinical Impression: Acute exacerbation of chronic obstructive pulmonary disease, Acute respiratory distress syndrome in adult, Pneumonia, Lung cancer, Febrile illness, acute, Dehydration, Failure of outpatient treatment Disposition: ADMITTED IP TO THIS HOSP Condition: Fair Is patient prescribed a controlled substance at d/c from ED?: No Referrals: Noman Stephens Jr, [Primary Care Provider] - 1-2 days
[2019-11-22 13:40] LABS: Basophils # (A) 0.1 k/uL (0-0.2); Basophils % (A) 1 %; Eosinophils % (A) 0 %; HCT 32.5 % (39.0-53.0); Lymphocytes # (A) 0.6 k/uL (1.0-4.8); Lymphocytes % (A) 5 %; MCH 29.5 pg (25.0-35.0); MCHC 33.7 g/dL (31.0-37.0); MCV 87.4 fL (80.0-100.0); Mean Platelet Volume 7.4; Monocytes # (A) 0.6 k/uL (0-1.0); Monocytes % (A) 5 %; Neutrophils # (A) 10.8 k/uL (1.3-7.7); Neutrophils % (A) 89 %; Platelet Count 195 k/uL (150-450); Poikilocytosis Moderate; RBC 3.72 m/uL (4.30-5.90); RDW 15.6 % (11.5-15.5); WBC 12.2 k/uL (3.8-10.6)
[2019-11-22 13:48] LABS: ALT 24 U/L (4-49); AST 44 U/L (17-59); African American GFR (CKD) >90 (>60 ml/min/1.73 sqM); Albumin 2.6 g/dL (3.5-5.0); Alkaline Phosphatase 40 U/L (38-126); Anion Gap 7 mmol/L; Blood Urea Nitrogen 25 mg/dL (9-20); Calcium 8.4 mg/dL (8.4-10.2); Carbon Dioxide 21 mmol/L (22-30); Chloride 108 mmol/L (98-107); Creatine Kinase 52 U/L (55-170); Glucose 230 mg/dL (74-99); Magnesium 1.6 mg/dL (1.6-2.3); Non-African American GFR(CKD) >90 (>60 ml/min/1.73 sqM); Potassium 4.5 mmol/L (3.5-5.1); Sodium 136 mmol/L (137-145); Total Bilirubin 0.8 mg/dL (0.2-1.3); Total Protein 5.4 g/dL (6.3-8.2)
[2019-11-22 13:59] LABS: INR 1.1 (<1.2); Partial Thromboplastin Time 21.9 sec (22.0-30.0); Prothrombin Time 10.8 sec (9.0-12.0)
--- NOTE | 2019-11-22 15:08 | XR ---
EXAMINATION TYPE: XR chest 2V DATE OF EXAM: 11/22/2019 COMPARISON: 11/20/2019 TECHNIQUE: PA and lateral views submitted. HISTORY: Difficulty breathing FINDINGS: Scattered senescent parenchymal changes noted. Hyperinflation compatible with COPD. There is a right upper lobe mass noted measuring 4.2 cm. In addition there is additional mass identified within the le ft suprahilar region measuring 5.8 x 5.8 cm. Degenerative changes of the spine. Heart size stable. Interstitial pattern seen with bilateral consol idation and small left effusion. Arthropathy of the shoulders with diffuse osteopenia. IMPRESSION: 1. Bilateral pulmonary masses with basilar consolidation. Underlying pneumonia in the differential di agnosis. Correlate to exclude venous congestion or interstitial pneumonitis.
[2019-11-22] MEDS ORDERED: PIPERACILLIN-TAZOBACTAM 3.375 GM in SODIUM CHLORIDE 0.9% 100 ML IVPB STA (15:39)
[2019-11-22] MEDS ORDERED: PNEUMONIA PROTOCOL UTILIZED 1 EACH MISC PO PRN (15:42)
[2019-11-22] MEDS ORDERED: LEVOFLOXACIN 750MG-D5W PMX 750 MG in DEXTROSE/WATER 1 150ML.BAG IVPB STA (15:42)
[2019-11-22] MEDS: SODIUM CHLORIDE 0.9% 1,000 ML IV SCH (16:02)
[2019-11-22] MEDS: IPRATROPIUM-ALBUTEROL 3 ML NEB INHALATION SCH ×3 (17:12→23:29)
[2019-11-22] MEDS: HYDROcodone/APAP 10-325MG 1 EACH TAB PO PRN (17:31)
[2019-11-22 18:08] LABS: Glucose,Whole Blood 280 mg/dL (75-99)
[2019-11-22] MEDS: INSULIN ASPART (NovoLOG) 100 UNIT/ML VIAL SQ SCH ×2 (18:26→19:44)
[2019-11-22] MEDS: metFORMIN 500 MG TAB PO SCH (18:27)
[2019-11-22 19:40] LABS: Glucose,Whole Blood 357 mg/dL (75-99)
[2019-11-22] MEDS: ATORVASTATIN 40 MG TAB PO SCH (19:44)
[2019-11-22] MEDS: ALPRAZolam 0.5 MG TAB PO PRN (19:44)
[2019-11-22] MEDS: glipiZIDE 5 MG TAB PO SCH (19:44)
[2019-11-22] MEDS: ZOLPIDEM 5 MG TAB PO PRN (19:44)
[2019-11-22] MEDS: ASPIRIN 81 MG PO SCH (19:45)
[2019-11-22] MEDS: CLOPIDOGREL 75 MG TAB PO SCH (19:45)
[2019-11-22] MEDS: METOPROLOL TARTRATE 50 MG TAB PO SCH (19:46)
[2019-11-22] MEDS: LISINOPRIL 10 MG TAB PO SCH (20:34)
[2019-11-22] MEDS ORDERED: NON FORMULARY DRUG (Omega-3 Fatty Acids/Fish Oil [Fish Oil 1,000 Mg Softgel] 1 CAP) PO SCH (21:00)
[2019-11-22] MEDS: PIPERACILLIN-TAZOBACTAM 3.375 GM in SODIUM CHLORIDE 0.9% 100 ML IVPB SCH (23:30)
[2019-11-23] MEDS: HYDROcodone/APAP 10-325MG 1 EACH TAB PO PRN ×4 (01:19→23:36)
[2019-11-23] MEDS: SODIUM CHLORIDE 0.9% 1,000 ML IV SCH ×2 (02:51→17:07)
[2019-11-23] MEDS: IPRATROPIUM-ALBUTEROL 3 ML NEB INHALATION SCH ×5 (03:37→20:22)
[2019-11-23 06:13] LABS: Glucose,Whole Blood 230 mg/dL (75-99)
[2019-11-23] MEDS: INSULIN ASPART (NovoLOG) 100 UNIT/ML VIAL SQ SCH ×4 (06:28→19:53)
[2019-11-23] MEDS: metFORMIN 500 MG TAB PO SCH ×2 (06:29→17:05)
[2019-11-23] MEDS: LEVOTHYROXINE 100 MCG TAB PO SCH (06:29)
[2019-11-23] MEDS ORDERED: glipiZIDE 5 MG TAB PO SCH (07:30)
[2019-11-23] MEDS: PIPERACILLIN-TAZOBACTAM 3.375 GM in SODIUM CHLORIDE 0.9% 100 ML IVPB SCH ×3 (07:39→23:36)
[2019-11-23] MEDS ORDERED: NON FORMULARY DRUG (Tiotropium 18 Mcg/Puff 1 PUFF) INHALATION SCH (08:00)
[2019-11-23] MEDS: MULTIVITAMINS, THERA 1 EACH TAB PO SCH (08:15)
[2019-11-23] MEDS: METOPROLOL TARTRATE 50 MG TAB PO SCH ×2 (08:15→19:53)
[2019-11-23] MEDS ORDERED: LEVOFLOXACIN 500 MG TAB PO SCH (09:00)
--- NOTE | 2019-11-23 09:47 | XR ---
EXAMINATION TYPE: XR chest 2V DATE OF EXAM: 11/23/2019 COMPARISON: 11/22/2019, PET/CT 09/01/2019 INDICATION: Pneumonia TECHNIQUE: Frontal and lateral views of the chest are obtained. FINDINGS: The heart size is normal. The pulmonary vasculature is normal. There is a density in the periphery of the right upper lobe. Pneumonia and underlying mass should be considered. There is worsening opacity in the left apex. Pneumonia should be considered. There is maicol vation left diaphragm. A small left pleural effusion is not excluded.. IMPRESSION: 1. Worsening left apical infiltrate. Correlate for pneumonia. 2. Right upper lobe infiltrate. Developing mass should be considered. 3. Underlying left upper lobe lung cancer remains present.
[2019-11-23] MEDS ORDERED: BENZOCAINE/MENTHOL LOZENG 1 EACH LOZENGE MUCOUS MEM PRN (10:39)
[2019-11-23] MEDS ORDERED: Magnesium Replacement Protocol 1 EACH MISC MISCELLANE PRN (10:50)
[2019-11-23] MEDS: ALPRAZolam 0.5 MG TAB PO PRN ×2 (11:05→18:57)
[2019-11-23 11:33] LABS: Glucose,Whole Blood 247 mg/dL (75-99)
[2019-11-23] MEDS: LISINOPRIL 10 MG TAB PO SCH ×2 (11:42→19:53)
[2019-11-23 11:46] LABS: Basophils % (A) 0 %; Eosinophils % (A) 0 %; HCT 29.1 % (39.0-53.0); HGB 9.8 gm/dL (13.0-17.5); Hypochromasia Slight; Lymphocytes % (A) 8 %; MCH 30.4 pg (25.0-35.0); MCHC 33.5 g/dL (31.0-37.0); MCV 90.8 fL (80.0-100.0); Mean Platelet Volume 7.3; Monocytes # (A) 0.5 k/uL (0-1.0); Monocytes % (A) 4 %; Neutrophils # (A) 10.1 k/uL (1.3-7.7); Neutrophils % (A) 86 %; Platelet Count 155 k/uL (150-450); Poikilocytosis Moderate; RDW 15.7 % (11.5-15.5); WBC 11.8 k/uL (3.8-10.6)
[2019-11-23 11:51] LABS: African American GFR (CKD) >90 (>60 ml/min/1.73 sqM); Anion Gap 8 mmol/L; Blood Urea Nitrogen 26 mg/dL (9-20); Carbon Dioxide 21 mmol/L (22-30); Chloride 110 mmol/L (98-107); Glucose 237 mg/dL (74-99); Non-African American GFR(CKD) >90 (>60 ml/min/1.73 sqM); Potassium 4.3 mmol/L (3.5-5.1); Sodium 139 mmol/L (137-145)
--- NOTE | 2019-11-23 12:19 | P.CNPUL ---
History of Present Illness Consult date: 11/23/19 Reason for consult: dyspnea, cough, hypoxemia, abnormal CXR/CT Chief complaint: Cough, congestion, weakness, weight loss History of present illness: 69-year-old male patient of Dr. 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 Chicas and Dr. Scanlon. Patient was diagnosed in 2016, he is status post chemoradiation therapy completed in August 2017. He was started on immunotherapy in April 2018, and his most recent PET scan from August 2019 showed no disease progression, fact the metabolic activity seen in the right mediastinum has completely resolved and the left suprahilar mass showed less metabolic activity and had shrunken in size. There was however evidence of radiation pneumonitis and left upper lobe and loss and limited areas of drug- induced pneumonitis with chronic interstitial changes. Other medical history includes coronary artery disease, history of non-ST elevated myocardial infarction, and patient had several coronary artery stents, diabetes mellitus 2, Hodgkin's lymphoma, hepatitis C, former smoker, history of chronic obstructive lung disease the baseline FEV1 of 75% of predicted however most recent PFT in [facility] 2018 showed decrease in his FEV1 value down to 1.92 L or 60% of predicted consistent with stage II COPD, and patient is not normally oxygen dependent. Patient states his immunotherapy had been on hold since September for possibility of cataract surgery. On 11/22/2019 patient presented today emergency department per EMS for increasing shortness of breath, fever, fatigue, decreased appetite, chest soreness from difficulty breathing. He states his pulse ox was in the 60s at home. Patient was seen in the emergency department 3 days prior and was started on Levaquin. Denies any nausea or vomiting, denied any diarrhea, no abdominal pain. Chest x-ray showed bilateral pulmonary masses with basilar consolidation, with high suspicion for pneumonia, venous congestion or interstitial pneumonitis. Patient was started on antibiotics with Zosyn and Levaquin, breathing treatments and admitted for further management. Review of Systems All systems: negative Constitutional: Reports anorexia, Reports fatigue, Reports fever, Reports malaise, Reports weakness, Reports weight loss, Denies chills Eyes: denies blurred vision, denies pain Ears, nose, mouth and throat: Denies headache, Denies sore throat Cardiovascular: Denies chest pain, Denies shortness of breath Respiratory: Reports cough with sputum, Reports dyspnea, Reports hemoptysis, Reports home oxygen, Reports respiratory infections, Denies cough Gastrointestinal: Denies abdominal pain, Denies diarrhea, Denies nausea, Denies vomiting Musculoskeletal: Denies myalgias Integumentary: Denies pruritus, Denies rash Neurological: Denies numbness, Denies weakness Psychiatric: Denies anxiety, Denies depression Endocrine: Denies fatigue, Denies weight change 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 - completed radiation and chemo - PET 11/05 resolved History of Any Multi-Drug Resistant Organisms: None Reported Past Surgical History: Hernia Repair Additional Past Surgical History / Comment(s): thyroid Past Anesthesia/Blood Transfusion Reactions: No Reported Reaction Date of Last Stent Placement:: 2017 Past Psychological History: No Psychological Hx Reported Smoking Status: Former smoker Past Alcohol Use History: None Reported Additional Past Alcohol Use History / Comment(s): Quit smoking 2004. Started as a teenager. Past Drug Use History: None Reported - Past Family History Father Family Medical History: Myocardial Infarction ([place]) Mother Family Medical History: Cancer Additional Family Medical History / Comment(s): Lung Medications and Allergies Home Medications Medication Instructions Recorded Confirmed Type Lisinopril [Zestril] 10 mg PO BID 11/11/17 11/22/19 History ALPRAZolam [Xanax] 0.5 mg PO Q8H PRN 08/21/18 11/22/19 History Clopidogrel Bisulfate [Plavix] 75 mg PO HS 08/21/18 11/22/19 History Metoprolol Tartrate [Lopressor] 100 mg PO BID 08/21/18 11/22/19 History Rosuvastatin [Crestor] 20 mg PO HS 08/21/18 11/22/19 History [place]-3 Fatty Acids/Fish Oil [Fish 1 cap PO BID 09/17/19 11/22/19 History Oil 1,000 mg Softgel] glipiZIDE [Glucotrol] 5 mg PO AC-BRKFST 09/17/19 11/22/19 History metFORMIN HCL [Glucophage] 500 mg PO BID 09/17/19 11/22/19 History Aspirin [Adult Low Dose Aspirin EC] 81 mg PO HS 09/19/19 11/22/19 History Levothyroxine Sodium [Synthroid] 200 mcg PO DAILY 09/19/19 11/22/19 History Multivitamin [Multivitamins Adult 1 tab PO DAILY 09/19/19 11/22/19 History Gummies] Tiotropium 18 Mcg/Puff [Spiriva] 1 puff INHALATION RT-DAILY 09/19/19 11/22/19 History amLODIPine BESYLATE [Norvasc] 10 mg PO DAILY 09/19/19 11/22/19 History predniSONE 10 mg PO DAILY 11/20/19 11/22/19 History Albuterol Nebulized [Ventolin 2.5 mg INHALATION RT-Q4H PRN 11/22/19 11/22/19 History Nebulized] HYDROcodone/APAP 10-325MG [[place] 1 tab PO Q6H PRN 11/22/19 11/22/19 History 10-325] Levofloxacin [Levaquin] 500 mg PO DAILY 11/22/19 11/22/19 History Zolpidem [Ambien] 5 - 10 mg PO HS PRN 11/22/19 11/22/19 History Allergies Allergy/AdvReac Type Severity Reaction Status Date / Time No Known Allergies Allergy Verified 11/22/19 14:46 Physical Exam Vitals: Vital Signs Temp Pulse Pulse Resp BP BP Pulse Ox 11/23/19 11:23 94 11/23/19 11:12 96 11/23/19 08:00 97.5 F L 108 H 20 105/57 91 L 11/23/19 07:35 94 11/23/19 07:25 96 91 L 11/23/19 03:46 92 11/23/19 03:37 90 11/23/19 03:15 97.8 F 92 20 104/66 91 L 11/22/19 23:42 89 11/22/19 23:29 89 11/22/19 23:25 97.6 F 89 20 101/61 90 L 11/22/19 19:25 98.5 F 110 H 22 100/65 90 L 11/22/19 18:19 98.0 F 111 H 20 111/65 91 L 11/22/19 17:26 105 H 11/22/19 17:17 101 H 11/22/19 16:11 105 H 18 120/76 92 L 11/22/19 13:40 104 H 20 11/22/19 13:28 104 H 20 11/22/19 13:24 24 11/22/19 13:02 101.0 F H 116 H 24 121/78 69 L Intake and Output 11/22/19 11/23/19 11/23/19 22:59 06:59 14:59 Intake Total 240 240 Output Total 600 400 200 Balance -360 -400 40 Intake: Oral 240 240 Output: Urine 600 400 200 Other: # Voids 1 Weight 71.214 kg 79.5 kg GENERAL EXAM: Alert, very pleasant, 69-year-old white male, appears chronically ill, fatigued, debilitated, short of breath, he is currently on 6 L of oxygen with a pulse ox of 91%, has conversational dyspnea HEAD: Normocephalic/atraumatic. EYES: Normal reaction of pupils, equal size. Conjunctiva pink, sclera white. NOSE: Clear with pink turbinates. THROAT: No erythema or exudates. NECK: No masses, no JVD, no thyroid enlargement, no adenopathy. CHEST: No chest wall deformity. Symmetrical expansion. LUNGS: Equal air entry with coarse crackles at bilateral bases, and left upper lobe CVS: Regular rate and rhythm, normal S1 and S2, no gallops, no murmurs, no rubs ABDOMEN: Soft, nontender. No hepatosplenomegaly, normal bowel sounds, no guarding or rigidity. EXTREMITIES: No clubbing, no edema, no cyanosis, 2+ pulses and upper and lower extremities. MUSCULOSKELETAL: Muscle strength and tone normal. SPINE: No scoliosis or deformity SKIN: No rashes CENTRAL NERVOUS SYSTEM: Alert and oriented -3. No focal deficits, tone is normal in all 4 extremities. PSYCHIATRIC: Alert and oriented -3. Appropriate affect. Intact judgment and insight. Results - Laboratory Findings CBC and BMP: 11/23/19 11:23 11/22/19 13:11 PT/INR, D-dimer PT 10.8 sec (9.0-12.0) 11/22/19 13:11 INR 1.1 (<1.2) 11/22/19 13:11 Abnormal lab findings: Abnormal Labs 11/22/19 11/22/19 11/22/19 13:11 13:11 13:11 WBC 12.2 H RBC 3.72 L Hgb 11.0 L Hct 32.5 L RDW 15.6 H Neutrophils # 10.8 H Lymphocytes # 0.6 L APTT 21.9 L Sodium 136 L Chloride 108 H Carbon Dioxide 21 L BUN 25 H Glucose 230 H POC Glucose (mg/dL) Plasma Lactic Acid Harry Creatine Kinase 52 L Troponin I Total Protein 5.4 L Albumin 2.6 L 11/22/19 11/22/19 11/22/19 13:11 13:11 17:53 WBC RBC Hgb Hct RDW Neutrophils # Lymphocytes # APTT Sodium Chloride Carbon Dioxide BUN Glucose POC Glucose (mg/dL) 280 H Plasma Lactic Acid Harry 2.7 H* Creatine Kinase Troponin I 0.660 H* Total Protein Albumin 11/22/19 11/23/19 11/23/19 19:38 05:52 11:23 WBC 11.8 H RBC 3.20 L Hgb 9.8 L Hct 29.1 L RDW 15.7 H Neutrophils # 10.1 H Lymphocytes # APTT Sodium Chloride Carbon Dioxide BUN Glucose POC Glucose (mg/dL) 357 H 230 H Plasma Lactic Acid Harry Creatine Kinase Troponin I Total Protein Albumin 11/23/19 11:32 WBC RBC Hgb Hct RDW Neutrophils # Lymphocytes # APTT Sodium Chloride Carbon Dioxide BUN Glucose POC Glucose (mg/dL) 247 H Plasma Lactic Acid Harry Creatine Kinase Troponin I Total Protein Albumin - Diagnostic Findings Chest x-ray: report reviewed, image reviewed Assessment and Plan Plan: Assessment: #1. Acute hypoxemic respiratory failure related to bilateral pneumonia, chest x-ray showed bilateral pulmonary masses, consolidation with suspicion of underlying pneumonia, follow-up chest x-ray today on 11/23/2019 showing worsening left apical infiltrate, right upper lobe infiltrate and developing mass should be considered #2. Weakness, fatigue, febrile illness, occasional hemoptysis related to the above #3. Non-small cell carcinoma of the lung, TNM stage IIIB diagnosed in 2017 patient underwent chemoradiation therapy completed in August 2017, patient was started immunotherapy in April 2018, most recent PET scan in August 2019 showed no disease progression, resolution of metabolic activity in the right mediastinum, in decrease in metabolic activity involving left suprahilar mass was decreased in size. #4. Chronic interstitial changes involving left upper lobe #5. History of coronary artery disease with history of coronary artery stenting #6. History of non-ST elevated myocardial infarction #7. History of COPD with FEV1 of 60% of predicted, stage II COPD not normally oxygen dependent #8. Type 2 diabetes mellitus #9. Dyspnea, acute on chronic, multifactorial, related to acute bilateral lung pneumonia, chronic COPD, chronic deconditioning #10. History of Hodgkin's disease #11. History of hypothyroidism #12. History of hypertension #13. History of hyperlipidemia #14. Former smoker Plan: Continue Zosyn and Levaquin, continue breathing treatments, we will add IV steroids, GI and DVT prophylaxis, send sputum for culture. Patient has been fluid resuscitated, hemodynamically stable, he is very weak, he continues on supplemental oxygen at 6 L, and close monitoring today's chest x-ray has been reviewed, showing worsening left apical infiltrate, and right upper lobe infiltrate. Overall prognosis is guarded, will continue to follow I performed a history & physical examination of the patient and discussed their management with my nurse practitioner, Mohini Fischer. I reviewed the nurse practitioner's note and agree with the documented findings and plan of care. Lung sounds are positive for diffuse crackles. The findings and the impression was discussed with the patient. I attest to the documentation by the nurse practitioner. Time with Patient: Greater than 30
--- NOTE | 2019-11-23 14:22 | P.HPIM ---
History of Present Illness H&P Date: 11/23/19 Chief Complaint: Worsening shortness of breath This is a 69 year old gentleman with history of underlying left sided lung cancer, hyperlipidemia, hypertension, thyroid disorder, hepatitis C, Hodgkin's lymphoma and squamous cell-completed radiation and chemo, former nicotine d ependence returned to the ER with complaints of worsening shortness of breath, occasional hemoptysis, fevers, chills 2 days. Patient initially had come into ER 3 days ago, placed on Levaquin and discharged home. Chest x-ray on admission reported bilateral pulmonary masses with bibasilar consolidation, underlying pneumonia, interstitial pneumonitis. Right upper lobe mass noted at 4.2 cm, additional masses identified within the suprahilar region measuring 5.8 x 5.8 cm. follow-up chest x-ray this morning reporting worsening left apical infiltrate, correlate for pneumonia, right upper lobe infiltrate, developing mass possible, underlying left upper lobe lung cancer. EKG reported sinus tachy cardia, left atrial enlargement. T-max 101, WBC 12.2-now down to 11.8. Hemoglobin 9.8, BUN 26, creatinine 0.76. Blood sugars elevated 230-350s. O2 sat on admission 69% on room air, placed on nonrebreather, currently maintaining O2 sats in the low 90s on 6 L nasal cannula. IV antibiotics of Zosyn and Levaquin initiated in addition to nebulized bronchodilators and IV fluid hydration. Pulmonary and oncology consulted. Review of Systems ROS Statement: Those systems with pertinent positive or pertinent negative responses have been documented in the HPI. ROS Other: All systems not noted in ROS Statement are negative. 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 Started as a teenager. Past Drug Use History: None Reported - Past Family History Father Family Medical History: Myocardial Infarction ([place]) Mother Family Medical History: Cancer Additional Family Medical History / Comment(s): Lung Medications and Allergies Home Medications Medication Instructions Recorded Confirmed Type Lisinopril [Zestril] 10 mg PO BID 11/11/17 11/22/19 History ALPRAZolam [Xanax] 0.5 mg PO Q8H PRN 08/21/18 11/22/19 History Clopidogrel Bisulfate [Plavix] 75 mg PO HS 08/21/18 11/22/19 History Metoprolol Tartrate [Lopressor] 100 mg PO BID 08/21/18 11/22/19 History Rosuvastatin [Crestor] 20 mg PO HS 08/21/18 11/22/19 History [place]-3 Fatty Acids/Fish Oil [Fish 1 cap PO BID 09/17/19 11/22/19 History Oil 1,000 mg Softgel] glipiZIDE [Glucotrol] 5 mg PO AC-BRKFST 09/17/19 11/22/19 History metFORMIN HCL [Glucophage] 500 mg PO BID 09/17/19 11/22/19 History Aspirin [Adult Low Dose Aspirin EC] 81 mg PO HS 09/19/19 11/22/19 History Levothyroxine Sodium [Synthroid] 200 mcg PO DAILY 09/19/19 11/22/19 History Multivitamin [Multivitamins Adult 1 tab PO DAILY 09/19/19 11/22/19 History Gummies] Tiotropium 18 Mcg/Puff [Spiriva] 1 puff INHALATION RT-DAILY 09/19/19 11/22/19 History amLODIPine BESYLATE [Norvasc] 10 mg PO DAILY 09/19/19 11/22/19 History predniSONE 10 mg PO DAILY 11/20/19 11/22/19 History Albuterol Nebulized [Ventolin 2.5 mg INHALATION RT-Q4H PRN 11/22/19 11/22/19 History Nebulized] HYDROcodone/APAP 10-325MG [[place] 1 tab PO Q6H PRN 11/22/19 11/22/19 History 10-325] Levofloxacin [Levaquin] 500 mg PO DAILY 11/22/19 11/22/19 History Zolpidem [Ambien] 5 - 10 mg PO HS PRN 01/16/20 01/16/20 History Allergies Allergy/AdvReac Type Severity Reaction Status Date / Time No Known Allergies Allergy Verified 11/22/19 14:46 Physical Exam Vitals: Vital Signs Temp Pulse Pulse Resp BP BP Pulse Ox 11/23/19 08:00 97.5 F L 108 H 20 105/57 91 L 11/23/19 07:35 94 11/23/19 07:25 96 91 L 11/23/19 03:46 92 11/23/19 03:37 90 11/23/19 03:15 97.8 F 92 20 104/66 91 L 11/22/19 23:42 89 11/22/19 23:29 89 11/22/19 23:25 97.6 F 89 20 101/61 90 L 11/22/19 19:25 98.5 F 110 H 22 100/65 90 L 11/22/19 18:19 98.0 F 111 H 20 111/65 91 L 11/22/19 17:26 105 H 11/22/19 17:17 101 H 11/22/19 16:11 105 H 18 120/76 92 L 11/22/19 13:40 104 H 20 11/22/19 13:28 104 H 20 11/22/19 13:24 24 11/22/19 13:02 101.0 F H 116 H 24 121/78 69 L Intake and Output 11/22/19 11/23/19 11/23/19 22:59 06:59 14:59 Intake Total 240 240 Output Total 600 400 Balance -360 -400 240 Intake: Oral 240 240 Output: Urine 600 400 Other: Weight 71.214 kg 79.5 kg PHYSICAL EXAM: VITAL SIGNS: [As above] GENERAL: Sitting up in bed, no acute distress, hoarse. HEENT: Conjunctivae normal. eyes normal. Oral mucosa moist NECK: No JVD. No thyroid enlargement. No LNs CARDIOVASCULAR: S1, S2 regular.. No murmur RESPIRATION: Breath sounds diminished in the bases. No rhonchi. Bibasilar crackles. No wheezing, No bronchial breathing. ABDOMEN: Soft, nontender . No guarding. no masses palpable. No ascites, No hepatosplenomegaly.Bowel sounds heard. LEGS: No edema. no swelling PSYCHIATRY: Alert and oriented X3, mood and affect normal. NERVOUS SYSTEM: Cranial N 2-12 grossly normal. Moves all 4 limbs. Diffuse weakness No focal deficits. Strength and sensation grossly intact.. Skin: no rash Lymphatic system. No LN neck axilla. Microbiology 11/22/19 03:15 Sputum Sputum Culture - Preliminary Results CBC & Chem 7: 11/23/19 11:23 11/23/19 11:23 Labs: Abnormal Lab Results - Last 24 Hours (Table) 11/22/19 11/22/19 11/22/19 Range/Units 13:11 13:11 13:11 WBC 12.2 H (3.8-10.6) k/uL RBC 3.72 L (4.30-5.90) m/uL Hgb 11.0 L (13.0-17.5) gm/dL Hct 32.5 L (39.0-53.0) % RDW 15.6 H (11.5-15.5) % Neutrophils # 10.8 H (1.3-7.7) k/uL Lymphocytes # 0.6 L (1.0-4.8) k/uL APTT 21.9 L (22.0-30.0) sec Sodium 136 L (137-145) mmol/L Chloride 108 H (98-107) mmol/L Carbon Dioxide 21 L (22-30) mmol/L BUN 25 H (9-20) mg/dL Glucose 230 H (74-99) mg/dL POC Glucose (mg/dL) (75-99) mg/dL Plasma Lactic Acid Harry (0.7-2.0) mmol/L Creatine Kinase 52 L (55-170) U/L Troponin I (0.000-0.034) ng/mL Total Protein 5.4 L (6.3-8.2) g/dL Albumin 2.6 L (3.5-5.0) g/dL 11/22/19 11/22/19 11/22/19 Range/Units 13:11 13:11 17:53 WBC (3.8-10.6) k/uL RBC (4.30-5.90) m/uL Hgb (13.0-17.5) gm/dL Hct (39.0-53.0) % RDW (11.5-15.5) % Neutrophils # (1.3-7.7) k/uL Lymphocytes # (1.0-4.8) k/uL APTT (22.0-30.0) sec Sodium (137-145) mmol/L Chloride (98-107) mmol/L Carbon Dioxide (22-30) mmol/L BUN (9-20) mg/dL Glucose (74-99) mg/dL POC Glucose (mg/dL) 280 H (75-99) mg/dL Plasma Lactic Acid Harry 2.7 H* (0.7-2.0) mmol/L Creatine Kinase (55-170) U/L Troponin I 0.660 H* (0.000-0.034) ng/mL Total Protein (6.3-8.2) g/dL Albumin (3.5-5.0) g/dL 11/22/19 11/23/19 Range/Units 19:38 05:52 WBC (3.8-10.6) k/uL RBC (4.30-5.90) m/uL Hgb (13.0-17.5) gm/dL Hct (39.0-53.0) % RDW (11.5-15.5) % Neutrophils # (1.3-7.7) k/uL Lymphocytes # (1.0-4.8) k/uL APTT (22.0-30.0) sec Sodium (137-145) mmol/L Chloride (98-107) mmol/L Carbon Dioxide (22-30) mmol/L BUN (9-20) mg/dL Glucose (74-99) mg/dL POC Glucose (mg/dL) 357 H 230 H (75-99) mg/dL Plasma Lactic Acid Harry (0.7-2.0) mmol/L Creatine Kinase (55-170) U/L Troponin I (0.000-0.034) ng/mL Total Protein (6.3-8.2) g/dL Albumin (3.5-5.0) g/dL Microbiology - Last 24 Hours (Table) 11/22/19 03:15 Sputum Culture - Preliminary Sputum Assessment and Plan Assessment: Assessment: Acute hypoxic respiratory failure, multifactorial, secondary to bilateral pneumonia, bilateral pulmonary masses, in a patient with history of underlying left lobe carcinoma, failed outpatient treatment Acute dehydration Acute COPD exacerbation Non-small cell CA of the lung, completed chemoradiation therapy, underwent immunotherapy, PET scan August 2019 reported no progression. CVAT, history of stenting, non-STEMI Diabetes mellitus2 Hypothyroidism Hypertension Hodgkin's disease Former nicotine dependence Plan: Continue current medication regime ,monitoring and symptomatic treatment. Maintain IV fluid hydration, IV antibiotics of Zosyn, Levaquin, nebulized bronchodilators. Evaluated by pulmonary with recommendations noted and appreciated. Oncology consult in place with recommendations pending. PT/OT consulted. Prognosis guarded given multiple complex medical issues. The impression and plan of care has been dictated as directed. : I performed a history and examination of this patient, discussed the same with the dictator. I agree with the dictator's note ,documented as a scribe. Any additional findings or plans will be noted.
--- NOTE | 2019-11-23 16:11 | P.CONS ---
History of Present Illness - Reason for Consult Consult date: 11/23/19 History of hepatocellular cancer, and lung cancer. - History of Present Illness Mr. Savage is a 69-year-old white male who had initially presented to his PCP with abnormal CXR done routinely at [facility], he was found to have Left upper lobe mass. He had CT Scan of chest dated 06/03/17 revealing a Large L Hilar mass 5.4X4.5 cm involving COURTNEY bronchus and contiguous with left upper lobe mass measuring 5.1X4.1X5.7 cm. He has 1.6 pre-tracheal lymph node. Left Adrenal nodularity measured 1.2 cm. The patient was evaluated by Dr Scanlon and had diagnostic Bronchoscopy on 06/08/17 revealing COURTNEY bronchus involvement with endobronchial process, Biopsy revealed Squamous cell Carcinoma. He smoked 1-2 PPD X 30 years, quit 3 years ago, he was exposed to agent orange in [place]. He has Hx of Hodgkins disesae diagnosed & treated by Dr Sylvain Perales at [facility] (MOPP regimen) > CR. 06/28/17: Feels well, asymptomatic. MRI of head negative,PET Scan: III-A disease, ? RSC Lymph node. He was therefore treated with concurrent chemoradiation com pleting that in 08/2311/10/17: still C/O fatigue. PET Scan : Good throacic response, but liver lesion larger with increased FDG uptake. 11/29/17: Bx of liver : HCC, he has Hx of Hep-C treated with IFN 15 years ago. 03/03/18: Had L hepatic Lobectomy on 01/04/18 (Dr Ngo) : HCC, margins negative. he was diagnosed with NSTEMI while at [facility], seen by Dr Doty (Cardiology) . 04/14/18: Had coronary angiography by Dr Doty at [place] > CABG advised > not a candidate for CABG according to panel discussion at [place] > had PTCA and multiple stents placed. 06/08/18: Feels Ok, had PTCA and stents placed > started on Imfinzi . 09/12/18: Feels Ok, was placed on steroids(Medrol dosepack) for suspected bilater al Pneumonitis > improved. 10/18/18: Feels Ok, less SOB on low-dose steroids. Tolerating Imfinzi well. 11/28/18: Feels Ok, CT Scan suggested progression of L lung disease. He is on Prednisone 10mg Po daily. 12/12/18: Feels Ok, tired. PET Scan : No sings of metastatic disease, no active disease in liver. COURTNEY tumor with increased SUV, but no definate increase in size . 01/30/19: Not doing well, C/O persistent weakness and hoarseness. PET Scan> progressive lung Ca with R lung lesion, HCC stable. He was then started on chemotherapy with carboplatin and Taxol, along with Avastin and Tecentriq. He had 6 cycles of the same, completing those in 05/25. She continued to have issues with neuropathy, hoarseness and fatigue. 05/29/19: C/O fatigue, nausea, vomiting and decreased oral intake following cycle #6 of Chemotherapy. Chemotherapy was discontinued and he was continued on Avastin and Tecentriq 07/05/19: Feels very tired, C/O severe neuropathy in both hands/feet, Anorexic 07.26.19: Dysphagia, feeling food and pills getting Stuck in Throat. 09/06/19: Not doing well, will have Vocal cord surgery by Dr Price. C/O severe L shoulder pain. PET Scan: Stable L hilar tumor uptake. 10/03/19: C/O severe weakness, anorexia, lost weight, still has L shoulder pain. Maintenance chemotherapy was also held at this point, to see if his symptoms improved. In addition he was supposed to have a cataract surgery. The patient does has a computed past medical and surgical history, especially related to oncology, as detailed above. Not been on any active treatment since 09/25. He has continued to have issues with fatigue, neuropathy, and overall decreased appetite. The vision noted new issues starting about a week ago, with nasal and chest congestion, new cough, and some increased shortness of breath. He was seen in the emergency room earlier this week, and discharged after supportive treatment. However his symptoms persisted and progressed. He called the office yesterday with significant new symptoms, including fever of 103, increased difficulty in breathing and dusky discoloration, as well as generalized sweats. EMS was called and he was brought into the hospital. Worsening densities were noted in both upper lobes. The patient was felt to have bilateral pneumonia, and was adm itted for further management. Consult was placed for further evaluation and recommendations Review of Systems Constitutional: Reports fatigue, Reports malaise, Reports poor appetite, Reports weakness, Reports weight loss Eyes: left decreased vision, denies blurred vision, denies pain Ears: deny: decreased hearing, ear discharge, earache, tinnitus Ears, nose, mouth and throat: Reports post-nasal drip, Denies headache, Denies sore throat Cardiovascular: Reports shortness of breath Respiratory: Reports congestion, Reports cough with sputum, Reports dyspnea Gastrointestinal: Denies abdominal pain, Denies diarrhea, Denies nausea, Denies vomiting Genitourinary: Reports as per HPI Musculoskeletal: Reports muscle weakness Integumentary: Denies pruritus, Denies rash Neurological: Reports weakness Psychiatric: Reports anxiety Endocrine: Reports fatigue, Reports weight change Hematologic/Lymphatic: Reports as per HPI 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 - completed radiation and chemo - PET 11/05 resolved History of Any Multi-Drug Resistant Organisms: None Reported Past Surgical History: Hernia Repair Additional Past Surgical History / Comment(s): thyroid Past Anesthesia/Blood Transfusion Reactions: No Reported Reaction Date of Last Stent Placement:: 2017 Past Psychological History: No Psychological Hx Reported Smoking Status: Former smoker Past Alcohol Use History: None Reported Additional Past Alcohol Use History / Comment(s): Quit smoking 2004. Started as a teenager. Past Drug Use History: None Reported - Past Family History Father Family Medical History: Myocardial Infarction ([place]) Mother Family Medical History: Cancer Additional Family Medical History / Comment(s): Lung Medications and Allergies Home Medications Medication Instructions Recorded Confirmed Type Lisinopril [Zestril] 10 mg PO BID 11/11/17 11/22/19 History ALPRAZolam [Xanax] 0.5 mg PO Q8H PRN 08/21/18 11/22/19 History Clopidogrel Bisulfate [Plavix] 75 mg PO HS 08/21/18 11/22/19 History Metoprolol Tartrate [Lopressor] 100 mg PO BID 08/21/18 11/22/19 History Rosuvastatin [Crestor] 20 mg PO HS 08/21/18 11/22/19 History [place]-3 Fatty Acids/Fish Oil [Fish 1 cap PO BID 09/17/19 11/22/19 History Oil 1,000 mg Softgel] glipiZIDE [Glucotrol] 5 mg PO AC-BRKFST 09/17/19 11/22/19 History metFORMIN HCL [Glucophage] 500 mg PO BID 09/17/19 11/22/19 History Aspirin [Adult Low Dose Aspirin EC] 81 mg PO HS 09/19/19 11/22/19 History Levothyroxine Sodium [Synthroid] 200 mcg PO DAILY 09/19/19 11/22/19 History Multivitamin [Multivitamins Adult 1 tab PO DAILY 09/19/19 11/22/19 History Gummies] Tiotropium 18 Mcg/Puff [Spiriva] 1 puff INHALATION RT-DAILY 09/19/19 11/22/19 History amLODIPine BESYLATE [Norvasc] 10 mg PO DAILY 09/19/19 11/22/19 History predniSONE 10 mg PO DAILY 11/20/19 11/22/19 History Albuterol Nebulized [Ventolin 2.5 mg INHALATION RT-Q4H PRN 11/22/19 11/22/19 History Nebulized] HYDROcodone/APAP 10-325MG [[place] 1 tab PO Q6H PRN 11/22/19 11/22/19 History 10-325] Levofloxacin [Levaquin] 500 mg PO DAILY 11/22/19 11/22/19 History Zolpidem [Ambien] 5 - 10 mg PO HS PRN 11/22/19 11/22/19 History Allergies Allergy/AdvReac Type Severity Reaction Status Date / Time No Known Allergies Allergy Verified 11/22/19 14:46 Physical Exam Vitals: Vital Signs Temp Pulse Pulse Resp BP BP Pulse Ox 11/23/19 12:00 97.7 F 90 20 107/61 90 L 11/23/19 11:23 94 11/23/19 11:12 96 11/23/19 08:00 97.5 F L 108 H 20 105/57 91 L 11/23/19 07:35 94 11/23/19 07:25 96 91 L 11/23/19 03:46 92 11/23/19 03:37 90 11/23/19 03:15 97.8 F 92 20 104/66 91 L 11/22/19 23:42 89 11/22/19 23:29 89 11/22/19 23:25 97.6 F 89 20 101/61 90 L 11/22/19 19:25 98.5 F 110 H 22 100/65 90 L 11/22/19 18:19 98.0 F 111 H 20 111/65 91 L 11/22/19 17:26 105 H 11/22/19 17:17 101 H 11/22/19 16:11 105 H 18 120/76 92 L 11/22/19 13:40 104 H 20 Intake and Output 11/22/19 11/23/19 11/23/19 22:59 06:59 14:59 Intake Total 240 480 Output Total 600 400 200 Balance -360 -400 280 Intake: Oral 240 480 Output: Urine 600 400 200 Other: # Voids 1 Weight 71.214 kg 79.5 kg - Constitutional General appearance: no acute distress - EENT Eyes: EOMI, ptosis (left) ENT: hearing grossly normal, normal oropharynx - Neck Neck: no lymphadenopathy Thyroid: bilateral: normal size - Respiratory Respiratory: right: rales, left: rhonchi (upper) - Cardiovascular Rhythm: regular Heart sounds: normal: S1, S2 - Gastrointestinal General gastrointestinal: normal bowel sounds, soft - Integumentary Integumentary: normal - Neurologic Neurologic: CNII-XII intact - Musculoskeletal Musculoskeletal: generalized weakness, strength equal bilaterally - Psychiatric Psychiatric: A&O x's 3, appropriate affect Results CBC & Chem 7: 11/23/19 11:23 11/23/19 11:23 Labs: Abnormal Lab Results - Last 24 Hours (Table) 11/22/19 11/22/19 11/22/19 Range/Units 13:11 13:11 13:11 WBC 12.2 H (3.8-10.6) k/uL RBC 3.72 L (4.30-5.90) m/uL Hgb 11.0 L (13.0-17.5) gm/dL Hct 32.5 L (39.0-53.0) % RDW 15.6 H (11.5-15.5) % Neutrophils # 10.8 H (1.3-7.7) k/uL Lymphocytes # 0.6 L (1.0-4.8) k/uL APTT 21.9 L (22.0-30.0) sec Sodium 136 L (137-145) mmol/L Chloride 108 H (98-107) mmol/L Carbon Dioxide 21 L (22-30) mmol/L BUN 25 H (9-20) mg/dL Glucose 230 H (74-99) mg/dL POC Glucose (mg/dL) (75-99) mg/dL Plasma Lactic Acid Harry (0.7-2.0) mmol/L Calcium (8.4-10.2) mg/dL Creatine Kinase 52 L (55-170) U/L Troponin I (0.000-0.034) ng/mL Total Protein 5.4 L (6.3-8.2) g/dL Albumin 2.6 L (3.5-5.0) g/dL 11/22/19 11/22/19 11/22/19 Range/Units 13:11 13:11 17:53 WBC (3.8-10.6) k/uL RBC (4.30-5.90) m/uL Hgb (13.0-17.5) gm/dL Hct (39.0-53.0) % RDW (11.5-15.5) % Neutrophils # (1.3-7.7) k/uL Lymphocytes # (1.0-4.8) k/uL APTT (22.0-30.0) sec Sodium (137-145) mmol/L Chloride (98-107) mmol/L Carbon Dioxide (22-30) mmol/L BUN (9-20) mg/dL Glucose (74-99) mg/dL POC Glucose (mg/dL) 280 H (75-99) mg/dL Plasma Lactic Acid Harry 2.7 H* (0.7-2.0) mmol/L Calcium (8.4-10.2) mg/dL Creatine Kinase (55-170) U/L Troponin I 0.660 H* (0.000-0.034) ng/mL Total Protein (6.3-8.2) g/dL Albumin (3.5-5.0) g/dL 11/22/19 11/23/19 11/23/19 Range/Units 19:38 05:52 11:23 WBC 11.8 H (3.8-10.6) k/uL RBC 3.20 L (4.30-5.90) m/uL Hgb 9.8 L (13.0-17.5) gm/dL Hct 29.1 L (39.0-53.0) % RDW 15.7 H (11.5-15.5) % Neutrophils # 10.1 H (1.3-7.7) k/uL Lymphocytes # (1.0-4.8) k/uL APTT (22.0-30.0) sec Sodium (137-145) mmol/L Chloride (98-107) mmol/L Carbon Dioxide (22-30) mmol/L BUN (9-20) mg/dL Glucose (74-99) mg/dL POC Glucose (mg/dL) 357 H 230 H (75-99) mg/dL Plasma Lactic Acid Harry (0.7-2.0) mmol/L Calcium (8.4-10.2) mg/dL Creatine Kinase (55-170) U/L Troponin I (0.000-0.034) ng/mL Total Protein (6.3-8.2) g/dL Albumin (3.5-5.0) g/dL 11/23/19 11/23/19 Range/Units 11:23 11:32 WBC (3.8-10.6) k/uL RBC (4.30-5.90) m/uL Hgb (13.0-17.5) gm/dL Hct (39.0-53.0) % RDW (11.5-15.5) % Neutrophils # (1.3-7.7) k/uL Lymphocytes # (1.0-4.8) k/uL APTT (22.0-30.0) sec Sodium (137-145) mmol/L Chloride 110 H (98-107) mmol/L Carbon Dioxide 21 L (22-30) mmol/L BUN 26 H (9-20) mg/dL Glucose 237 H (74-99) mg/dL POC Glucose (mg/dL) 247 H (75-99) mg/dL Plasma Lactic Acid Harry (0.7-2.0) mmol/L Calcium 8.0 L (8.4-10.2) mg/dL Creatine Kinase (55-170) U/L Troponin I (0.000-0.034) ng/mL Total Protein (6.3-8.2) g/dL Albumin (3.5-5.0) g/dL Microbiology - Last 24 Hours (Table) 11/22/19 03:15 Sputum Culture - Preliminary Sputum Chest x-ray: report reviewed Assessment and Plan (1) Pneumonia Narrative/Plan: The patient is currently presenting with new symptoms, that have become quite prominent over the past few weeks, and are dictated in the HPI. The rapid onset of symptoms, and imaging studies are most indicative of an infection. The patient has been seen by pulmonary medicine, and is currently on breathing treatments, IV steroids, and broad-spectrum antibiotic The case was discussed in detail with the patient and his family, as well as with the primary service. Given his presentation, other differentials include recurrent pneumonitis, as well as progression of tumor by itself, or associated with postobstructive pneumonia. Recurrent pneumonitis is unlikely, as the patient has been off immunotherapy now for 2 months. Comparison of current imaging with prior imaging was done by pulmonary medicine, and discussed with them. At this time the imaging studies appear to be more suggestive of bilateral pneumonia rather than tumor progression. The patient will therefore continue treatment per pulmonary medicine. We will continue to follow. If he does not appear to be responding appropriately, then additional imaging can be considered. Current Visit: Yes Status: Acute Code(s): J18.9 - PNEUMONIA, UNSPECIFIED ORGANISM SNOMED Code(s): 457990463 (2) Lung cancer Narrative/Plan: Diagnostic and therapeutic circumstances as described. The patient has not been on any active treatment for about 2 months. Based on imaging so far, progression appears to be less likely at least in the lung, as described above. Imaging that the patient recovers from his acute situation appropriately with treatment for pneumonia, he will have restaging studies done in the near future. He is coming due for his routine PET scan anyway. The concern in this case is the patient's persistent poor performance status, despite stopping his treatment, therefore generally ruling treatment related effects out as a cause, and despite no definite evidence of progression. Current Visit: Yes Status: Acute Code(s): C34.90 - MALIGNANT NEOPLASM OF UNSP PART OF UNSP BRONCHUS OR LUNG SNOMED Code(s): 295682690 (3) Hepatocellular carcinoma Narrative/Plan: The patient has not had any evidence of recurrence or progression since his initial treatment. he is being monitored for the same, with periodic imaging studies that he is having for his lung malignancy Current Visit: Yes Status: Acute Code(s): C22.0 - LIVER CELL CARCINOMA SNOMED Code(s): 254155251
[2019-11-23 16:35] LABS: Glucose,Whole Blood 173 mg/dL (75-99)
[2019-11-23] MEDS: methylPREDNISolone SOD SUCCI 40 MG/ML 1 ML VIAL IV SCH ×2 (17:06→23:35)
[2019-11-23] MEDS: LEVOFLOXACIN 750 MG TAB PO SCH (17:06)
[2019-11-23] MEDS: amLODIPine 10 MG TAB PO SCH (17:08)
[2019-11-23 19:50] LABS: Glucose,Whole Blood 198 mg/dL (75-99)
[2019-11-23] MEDS: ASPIRIN 81 MG PO SCH (19:53)
[2019-11-23] MEDS: glipiZIDE 5 MG TAB PO SCH (19:53)
[2019-11-23] MEDS: CLOPIDOGREL 75 MG TAB PO SCH (19:53)
[2019-11-23] MEDS: ZOLPIDEM 5 MG TAB PO PRN (19:53)
[2019-11-23] MEDS: ATORVASTATIN 40 MG TAB PO SCH (19:53)
[2019-11-24] MEDS: IPRATROPIUM-ALBUTEROL 3 ML NEB INHALATION SCH ×7 (00:08→23:16)
[2019-11-24] MEDS: SODIUM CHLORIDE 0.9% 1,000 ML IV SCH ×3 (04:20→18:03)
[2019-11-24] MEDS: HYDROcodone/APAP 10-325MG 1 EACH TAB PO PRN ×3 (05:15→16:43)
[2019-11-24 06:28] LABS: Glucose,Whole Blood 193 mg/dL (75-99)
[2019-11-24] MEDS: metFORMIN 500 MG TAB PO SCH ×2 (06:28→17:28)
[2019-11-24] MEDS: LEVOTHYROXINE 100 MCG TAB PO SCH (06:28)
[2019-11-24] MEDS: INSULIN ASPART (NovoLOG) 100 UNIT/ML VIAL SQ SCH ×4 (06:28→20:43)
[2019-11-24 07:03] LABS: Anisocytosis Slight; Basophils % (A) 0 %; Eosinophils % (A) 0 %; HCT 28.8 % (39.0-53.0); HGB 9.5 gm/dL (13.0-17.5); Hypochromasia Moderate; Lymphocytes # (A) 0.4 k/uL (1.0-4.8); Lymphocytes % (A) 4 %; MCH 29.9 pg (25.0-35.0); MCHC 32.9 g/dL (31.0-37.0); MCV 90.9 fL (80.0-100.0); Mean Platelet Volume 8.1; Monocytes # (A) 0.3 k/uL (0-1.0); Monocytes % (A) 3 %; Neutrophils # (A) 8.9 k/uL (1.3-7.7); Neutrophils % (A) 93 %; Platelet Count 115 k/uL (150-450); Poikilocytosis Moderate; RBC 3.17 m/uL (4.30-5.90); RDW 16.2 % (11.5-15.5); WBC 9.6 k/uL (3.8-10.6)
[2019-11-24 07:13] LABS: African American GFR (CKD) >90 (>60 ml/min/1.73 sqM); Anion Gap 7 mmol/L; Blood Urea Nitrogen 26 mg/dL (9-20); Calcium 8.3 mg/dL (8.4-10.2); Carbon Dioxide 21 mmol/L (22-30); Chloride 113 mmol/L (98-107); Glucose 194 mg/dL (74-99); Magnesium 1.7 mg/dL (1.6-2.3); Non-African American GFR(CKD) >90 (>60 ml/min/1.73 sqM); Potassium 4.5 mmol/L (3.5-5.1); Sodium 141 mmol/L (137-145)
[2019-11-24] MEDS: MULTIVITAMINS, THERA 1 EACH TAB PO SCH (10:12)
[2019-11-24] MEDS: amLODIPine 10 MG TAB PO SCH (10:12)
[2019-11-24] MEDS: LISINOPRIL 10 MG TAB PO SCH ×2 (10:12→20:44)
[2019-11-24] MEDS: METOPROLOL TARTRATE 50 MG TAB PO SCH ×2 (10:12→20:44)
[2019-11-24] MEDS: methylPREDNISolone SOD SUCCI 40 MG/ML 1 ML VIAL IV SCH ×3 (10:13→23:13)
[2019-11-24] MEDS: PIPERACILLIN-TAZOBACTAM 3.375 GM in SODIUM CHLORIDE 0.9% 100 ML IVPB SCH ×3 (10:14→23:13)
[2019-11-24 11:42] LABS: Glucose,Whole Blood 268 mg/dL (75-99)
--- NOTE | 2019-11-24 12:19 | P.PN ---
Subjective Progress Note Date: 11/24/19 Principal diagnosis: Acute hypoxemic respiratory failure secondary to bilateral pneumonia 69-year-old male patient of Dr. 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 Chicas and Dr. Scanlon. Patient was diagnosed in 2016, he is status post chemoradiation therapy completed in August 2017. He was started on immunotherapy in April 2018, and his most recent PET scan from August 2019 showed no disease progression, fact the metabolic activity seen in the right mediastinum has completely resolved and the left suprahilar mass showed less metabolic activity and had shrunken in size. There was however evidence of radiation pneumonitis and left upper lobe and loss and limited areas of drug-induced pneumonitis with chronic interstitial changes. Other medical history includes coronary artery disease, history of non-ST elevated myocardial infarction, and patient had several coronary artery stents, diabetes mellitus 2, Hodgkin's lymphoma, hepatitis C, former smoker, history of chronic obstructive lung disease the baseline FEV1 of 75% of predicted however most recent PFT in January 2019 showed decrease in his FEV1 value down to 1.92 L or 60% of predicted consistent with stage II COPD, and patient is not normally oxygen dependent. Patient states his immunotherapy had been on hold since September for possibility of cataract surgery. On 11/22/2019 patient presented today emergency department per EMS for increasing shortness of breath, fever, fatigue, decreased appetite, chest soreness from difficulty breathing. He states his pulse ox was in the 60s at home. Patient was seen in the emergency department 3 days prior and was started on Levaquin. Denies any nausea or vomiting, denied any diarrhea, no abdominal pain. Chest x-ray showed bilateral pulmonary masses with basilar consolidation, with high suspicion for pneumonia, venous congestion or interstitial pneumonitis. Patient was started on antibiotics with Zosyn and Levaquin, breathing treatments and admitted for further management. The patient is seen today 11/24/2019 in follow-up on the selective care unit. He is awake and alert in no acute distress. He is still requiring 8 L high flow nasal cannula to maintain O2 saturations in the 90s. He's been afebrile the past 24 hours. White count 9.6. Hemoglobin 9.5. Creatinine 0.71. Blood and sputum cultures revealing no growth to date. He is continued on DuoNeb inha lations, IV Solu-Medrol, Zosyn and Levaquin. Objective - Vital Signs Vital signs: Vital Signs Temp 98.3 F 11/24/19 03:00 Pulse 89 11/24/19 11:16 Resp 18 11/24/19 03:00 BP 97/55 11/24/19 03:00 Pulse Ox 95 11/24/19 03:00 Intake & Output 11/23/19 11/24/19 11/24/19 18:59 06:59 18:59 Intake Total 1620 240 Output Total 800 300 Balance 820 -60 Weight 81 kg Intake: Intake, IV Titration 900 Amount Piperacillin-Tazobactam 3 100 .375 gm In Sodium Chloride 0.9% 100 ml @ 25 mls/hr IVPB Q8HR [facility] Rx# :[id number] Sodium Chloride 0.9% 1, 800 000 ml @ 100 mls/hr IV . Q10H [facility] Rx#:[id number] Oral 720 240 Output: Urine 800 300 Other: # Voids 1 # Bowel Movements 1 - Exam GENERAL EXAM: Alert, very pleasant, 69-year-old male patient, appears chronically ill, debilitated, short of breath, he is currently on 6 L of oxygen with a pulse ox of 95% HEAD: Normocephalic/atraumatic. EYES: Normal reaction of pupils, equal size. Conjunctiva pink, sclera white. NOSE: Clear with pink turbinates. THROAT: No erythema or exudates. NECK: No masses, no JVD, no thyroid enlargement, no adenopathy. CHEST: No chest wall deformity. Symmetrical expansion. LUNGS: Equal air entry with coarse crackles at bilateral bases, few scattered rhonchi CVS: Regular rate and rhythm, normal S1 and S2, no gallops, no murmurs, no rubs ABDOMEN: Soft, nontender. No hepatosplenomegaly, normal bowel sounds, no guarding or rigidity. EXTREMITIES: No clubbing, no edema, no cyanosis, 2+ pulses and upper and lower extremities. MUSCULOSKELETAL: Muscle strength and tone normal. SPINE: No scoliosis or deformity SKIN: No rashes CENTRAL NERVOUS SYSTEM: No focal deficits, tone is normal in all 4 extremities. PSYCHIATRIC: Alert and oriented -3. Appropriate affect. Intact judgment and i nsight. - Labs CBC & Chem 7: 11/24/19 06:35 11/24/19 06:35 Labs: Abnormal Lab Results - Last 24 Hours (Table) 11/23/19 11/23/19 11/24/19 Range/Units 16:35 19:47 06:26 RBC (4.30-5.90) m/uL Hgb (13.0-17.5) gm/dL Hct (39.0-53.0) % RDW (11.5-15.5) % Plt Count (150-450) k/uL Neutrophils # (1.3-7.7) k/uL Lymphocytes # (1.0-4.8) k/uL Chloride (98-107) mmol/L Carbon Dioxide (22-30) mmol/L BUN (9-20) mg/dL Glucose (74-99) mg/dL POC Glucose (mg/dL) 173 H 198 H 193 H (75-99) mg/dL Calcium (8.4-10.2) mg/dL 11/24/19 11/24/19 11/24/19 Range/Units 06:35 06:35 11:40 RBC 3.17 L (4.30-5.90) m/uL Hgb 9.5 L (13.0-17.5) gm/dL Hct 28.8 L (39.0-53.0) % RDW 16.2 H (11.5-15.5) % Plt Count 115 L (150-450) k/uL Neutrophils # 8.9 H (1.3-7.7) k/uL Lymphocytes # 0.4 L (1.0-4.8) k/uL Chloride 113 H (98-107) mmol/L Carbon Dioxide 21 L (22-30) mmol/L BUN 26 H (9-20) mg/dL Glucose 194 H (74-99) mg/dL POC Glucose (mg/dL) 268 H (75-99) mg/dL Calcium 8.3 L (8.4-10.2) mg/dL Microbiology - Last 24 Hours (Table) 11/22/19 13:11 Blood Culture - Preliminary Blood No Growth after 24 hours 11/22/19 03:15 Gram Stain - Preliminary Sputum Sputum Culture - Preliminary Assessment and Plan Assessment: #1. Acute hypoxemic respiratory failure related to bilateral pneumonia, chest x-ray showed bilateral pulmonary masses, consolidation with suspicion of underlying pneumonia, follow-up chest x-ray today on 11/23/2019 showing worsening left apical infiltrate, right upper lobe infiltrate and developing mass should be considered #2. Weakness, fatigue, febrile illness, occasional hemoptysis related to the above #3. Non-small cell carcinoma of the lung, TNM stage IIIB diagnosed in 2016 patient underwent chemoradiation therapy completed in August 2017, patient was started immunotherapy in April 2018, most recent PET scan in August 2019 showed no disease progression, resolution of metabolic activity in the right mediastinum, in decrease in metabolic activity involving left suprahilar mass was decreased in size. #4. Chronic interstitial changes involving left upper lobe #5. History of coronary artery disease with history of coronary artery stenting #6. History of non-ST elevated myocardial infarction #7. History of COPD with FEV1 of 60% of predicted, stage II COPD not normally oxygen dependent #8. Type 2 diabetes mellitus #9. Dyspnea, acute on chronic, multifactorial, related to acute bilateral lung pneumonia, chronic COPD, chronic deconditioning #10. History of Hodgkin's disease #11. History of hypothyroidism #12. History of hypertension #13. History of hyperlipidemia #14. Former smoker Plan: The patient was seen and evaluated by Dr. Arteaga. Slightly improved today compared to yesterday. We'll continue the current treatment plan. We'll repeat a chest x-ray in the a.m. We'll continue to follow. I, the cosigning physician, performed a history & physical examination of the patient. Lungs sounds bilateral crackles scattered rhonchi. Maintaining good O2 saturations in the 90s on 6 L high flow nasal cannula. I discussed the assessment and plan of care with my nurse practitioner, Lucretia Atkins. I attest to the above note as dictated by her.
[2019-11-24] MEDS: MORPHINE SULFATE 2 MG/ML SYRINGE IVP PRN ×3 (13:07→23:14)
[2019-11-24] MEDS: LEVOFLOXACIN 750 MG TAB PO SCH (16:40)
[2019-11-24 16:51] LABS: Glucose,Whole Blood 208 mg/dL (75-99)
[2019-11-24 20:44] LABS: Glucose,Whole Blood 209 mg/dL (75-99)
[2019-11-24] MEDS: ALPRAZolam 0.5 MG TAB PO PRN (20:44)
[2019-11-24] MEDS: CLOPIDOGREL 75 MG TAB PO SCH (20:44)
[2019-11-24] MEDS: glipiZIDE 5 MG TAB PO SCH (20:44)
[2019-11-24] MEDS: ZOLPIDEM 5 MG TAB PO PRN (20:44)
[2019-11-24] MEDS: ATORVASTATIN 40 MG TAB PO SCH (20:44)
[2019-11-24] MEDS: ASPIRIN 81 MG PO SCH (20:44)
[2019-11-24] MEDS: MAGNESIUM SULFATE-D5W PMX 1 GM in DEXTROSE/WATER 1 100ML.BAG IVPB SCH ×2 (21:33→23:12)
[2019-11-24] MEDS ORDERED: APIXABAN 5 MG TAB PO SCH (22:30)
[2019-11-25] MEDS: HYDROcodone/APAP 10-325MG 1 EACH TAB PO PRN (02:23)
[2019-11-25] MEDS: MORPHINE SULFATE 2 MG/ML SYRINGE IVP PRN ×2 (03:10→06:29)
[2019-11-25] MEDS: IPRATROPIUM-ALBUTEROL 3 ML NEB INHALATION SCH ×6 (03:28→23:06)
[2019-11-25] MEDS: SODIUM CHLORIDE 0.9% 1,000 ML IV SCH ×3 (05:20→23:23)
[2019-11-25 06:10] LABS: Glucose,Whole Blood 166 mg/dL (75-99)
[2019-11-25] MEDS: LEVOTHYROXINE 100 MCG TAB PO SCH (06:12)
[2019-11-25] MEDS: INSULIN ASPART (NovoLOG) 100 UNIT/ML VIAL SQ SCH ×4 (06:12→23:22)
[2019-11-25] MEDS: metFORMIN 500 MG TAB PO SCH (06:12)
[2019-11-25 06:16] LABS: Anisocytosis Slight; Basophils % (A) 0 %; Eosinophils % (A) 0 %; HCT 29.9 % (39.0-53.0); HGB 9.7 gm/dL (13.0-17.5); Hypochromasia Moderate; Lymphocytes # (A) 0.7 k/uL (1.0-4.8); Lymphocytes % (A) 5 %; MCH 29.7 pg (25.0-35.0); MCHC 32.5 g/dL (31.0-37.0); MCV 91.5 fL (80.0-100.0); Mean Platelet Volume 7.3; Monocytes # (A) 0.5 k/uL (0-1.0); Monocytes % (A) 4 %; Neutrophils # (A) 12.6 k/uL (1.3-7.7); Neutrophils % (A) 90 %; Poikilocytosis Moderate; RBC 3.27 m/uL (4.30-5.90); RDW 16.5 % (11.5-15.5)
[2019-11-25 06:22] LABS: Platelet Count 180 k/uL (150-450)
[2019-11-25 06:31] LABS: ALT 35 U/L (4-49); AST 44 U/L (17-59); African American GFR (CKD) >90 (>60 ml/min/1.73 sqM); Albumin 2.5 g/dL (3.5-5.0); Alkaline Phosphatase 50 U/L (38-126); Anion Gap 5 mmol/L; Blood Urea Nitrogen 27 mg/dL (9-20); Calcium 8.6 mg/dL (8.4-10.2); Carbon Dioxide 24 mmol/L (22-30); Chloride 111 mmol/L (98-107); Glucose 160 mg/dL (74-99); Magnesium 2.3 mg/dL (1.6-2.3); Non-African American GFR(CKD) >90 (>60 ml/min/1.73 sqM); Potassium 4.6 mmol/L (3.5-5.1); Sodium 140 mmol/L (137-145); Total Bilirubin 0.5 mg/dL (0.2-1.3); Total Protein 5.3 g/dL (6.3-8.2)
--- NOTE | 2019-11-25 07:07 | XR ---
EXAMINATION TYPE: XR chest 1V portable DATE OF EXAM: 11/25/2019 HISTORY: chf. REFERENCE: Previous study dated 11/23/2019. FINDINGS: There continue to be masslike densities in both upper lobes. Both have improved slightly. T here is continuing left basilar airspace disease. There are small, bilateral effusions. There is wors ening interstitial change in the right upper lobe. There is more confluent airspace disease developin g in the right lower lobe. IMPRESSION: 1. CONTINUING MASSLIKE DENSITY IN BOTH UPPER LOBES. 2. WORSENING INTERSTITIAL CHANGE IN THE RIGHT UPPER LOBE MAY REPRESENT INTERSTITIAL SPREAD OF CARCINO MA. 3. QUESTIONABLE DEVELOPING PNEUMONIA IN THE RIGHT MIDLUNG.
[2019-11-25 07:17] LABS: Glucose,Whole Blood 165 mg/dL (75-99)
[2019-11-25] MEDS: DILTIAZEM 125 MG in SODIUM CHLORIDE 0.9% 100 ML IV SCH (07:44)
[2019-11-25 08:27] LABS: ABG Base Excess 0.5 mmol/L; ABG HCO3 25 mmol/L (21-25); ABG Oxygen Saturation 86.2 % (94-97); ABG PCO2 40 mmHg (35-45); ABG PH 7.41 (7.35-7.45); ABG TCO2 26 mmol/L (19-24); Allen Test Performed? Yes
[2019-11-25 08:30] LABS: ABG PO2 51 mmHg (83-108)
[2019-11-25] MEDS ORDERED: SUCCINYLCHOLINE CHLORIDE 100 MG/5 ML SYR IV ONE (08:50)
[2019-11-25] MEDS ORDERED: PROPOFOL 10 MG/ML 20 ML VIAL IV ONE (08:50)
--- NOTE | 2019-11-25 09:10 | P.PCN ---
Date of Procedure: 11/25/19 Procedure(s) Performed: Preoperative diagnoses= acute respiratory failure. Operative diagnoses= acute respiratory failure. Procedure= intubation. Complication=none. Condition= critical. Description& indication for the procedure= 69 years old male with acute respiratory failure he needs to be intubated, patient was hypoxic on 100% facemask, patient was preoxygenated and induction done using propofol 100 mg IV, and succinylcholine 100 mg IV, intubation done using Mac number 3 blade, and the size 8 oral ET tube, acute secured at 23 cm, positive end-tidal CO2, positive bilateral breath sounds equal, patient on the ventilator and vent settings as per ICU team
[2019-11-25] MEDS: LISINOPRIL 10 MG TAB PO SCH (09:21)
[2019-11-25] MEDS: amLODIPine 10 MG TAB PO SCH (09:21)
--- NOTE | 2019-11-25 09:35 | XR ---
EXAMINATION TYPE: XR chest 1V portable DATE OF EXAM: 11/25/2019 HISTORY: ET tube placement. REFERENCE: Previous study dated 11/25/2019. FINDINGS: There is been interval placement of an ET tube. The tips in good position approximately 7.3 cm above the raheem. An NG tube is been passed and its tip is within the stomach. There continue to be masslike densities in the upper lobes bilaterally. There is worsening interstiti al change throughout the right lung which May reflect interstitial spread of carcinomatosis. There is a pleural reaction on the left. The heart is not enlarged. IMPRESSION: 1. SATISFACTORY TUBE PLACEMENT. 2. NO SIGNIFICANT INTERVAL CHANGE IN THE APPEARANCE OF THE CHEST FROM THIS MORNING'S FILM.
[2019-11-25 09:38] LABS: ABG Base Excess -0.5 mmol/L; ABG HCO3 26 mmol/L (21-25); ABG PCO2 52 mmHg (35-45); ABG PH 7.31 (7.35-7.45); ABG PO2 361 mmHg (83-108); ABG TCO2 27 mmol/L (19-24); Allen Test Performed? Yes
[2019-11-25] MEDS ORDERED: HYDROmorphone 0.5 MG/0.5 ML SYRINGE IVP ONE (09:59)
[2019-11-25] MEDS: CISATRACURIUM 2 MG/ML 5 ML VIAL IV ONE (10:05)
[2019-11-25] MEDS ORDERED: VANCOMYCIN IV PER PHARMACY 1 EACH MISC MISCELLANE PRN (10:30)
[2019-11-25] MEDS: MULTIVITAMINS, THERA 1 EACH TAB PO SCH (10:38)
[2019-11-25] MEDS: methylPREDNISolone SOD SUCCI 40 MG/ML 1 ML VIAL IV SCH ×3 (10:42→23:19)
[2019-11-25] MEDS: CHLORHEXIDINE GLUCONATE 15 ML CUP MUCOUS MEM SCH ×2 (10:42→20:05)
[2019-11-25] MEDS: PIPERACILLIN-TAZOBACTAM 3.375 GM in SODIUM CHLORIDE 0.9% 100 ML IVPB SCH ×3 (10:42→23:19)
[2019-11-25] MEDS: HYDROmorphone 1 MG/ML 1 ML SYRINGE IVP PRN ×4 (10:52→23:18)
[2019-11-25] MEDS: PROPOFOL 1,000 MG in EMPTY BAG 1 BAG IV SCH ×5 (11:49→23:25)
[2019-11-25 11:51] LABS: Glucose,Whole Blood 138 mg/dL (75-99)
[2019-11-25] MEDS: VANCOMYCIN 1,500 MG in SODIUM CHLORIDE 0.9% 250 ML IVPB SCH ×2 (11:57→19:39)
[2019-11-25 12:06] LABS: Appearance,BF Blood Tinged; Nucleated Cells, Body Fluid 47 /uL; RBC, Body Fluid 110 /uL
[2019-11-25 12:10] LABS: Mononuclear WBC,Body Fluid 93 %; Polynuclear WBC,Body Fluid 7 %; Total Cells Counted,Body Fluid 100
--- NOTE | 2019-11-25 12:43 | P.PN ---
Subjective Progress Note Date: 11/24/19 Principal diagnosis: Non-small cell carcinoma, acute hypoxemia, bilateral pneumonia 69-year-old male well-known to my practice past history of non-small cell lung carcinoma TNM stage IIIB currently on immunotherapy who is currently following with Dr. Chicas and Dr. Scanlon Patient was diagnosed in 2016 actually was seen in my office because after running 5 miles daily he started getting somewhat short of breath came in to get treated for what he thought was a bronchitis plain film x-ray demonstrated a large mass in the left lung. Patient underwent chemoradiation therapy completed in August 2017 and started immunotherapy April 2018 most recent PET scan from August showed no disease progression the metabolic activity seen in the mediastinum completely resolved and the left suprahilar mass showed less metabolic activity and had in fact shrunk in size. There was however evidence of radiation pneumonitis the left upper lobe as well as possible drug-induced pneumonitis with chronic interstitial changes. 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 He presented to the emergency room approximately 5 days ago the emergency room physician had wished to admit him and apparently he bolted and decided to go home and return in 2 days later at which time he was admitted. Presented with increased shortness of breath fever fatigue decreased appetite chest soreness from difficulty breathing and coughing has a pulse oximeter at home pulse ox was in the 60s he was taking oral Levaquin from prior ER visit was started on antibiotics with this admission Zosyn and Levaquin and albuterol updraft 6:00 AM I was called and told the patient was becoming more hypoxic he had gone into atrial fibrillation with rapid ventricular response rate was around 120 we di scussed meds he was already on 100 mg twice daily of metoprolol 5 mg of Norvasc . The only thing was to start him on elaquis for the A. fib , patient was on 6 L nasal cannula his pulse ox was on or around 60 as most everything had already been done and he was already on the right meds for A. fib my decision at that time was to transfer him to the intensive care unit and prepared to intubate if necessary. On my presentation to round today patient was in fact intubated and was sedated and resting and in fact after intubating him Dr. CARLISLE came in and did a bronchoscopy including washes for diagnostic as well as therapeutic efforts at this time patient is resting comfortably oxygenating well and once O2 sats had improved the A. fib went back to a sinus rhythm Objective - Vital Signs Vital signs: Vital Signs Temp 97.3 F L 11/25/19 07:30 Pulse 81 11/25/19 12:00 Resp 18 11/25/19 12:00 BP 77/49 11/25/19 10:00 Pulse Ox 94 L 11/25/19 12:00 Intake & Output 11/24/19 11/25/19 11/25/19 18:59 06:59 18:59 Intake Total 962 507.5 Output Total 700 300 405 Balance 262 -300 102.5 Weight 80.5 kg Intake: Intake, IV Titration 500 507.5 Amount Diltiazem 125 mg In 7.5 Sodium Chloride 0.9% 100 ml @ 5 MG/HR 5 mls/hr IV .Q24H [facility] Rx#:[id number] Piperacillin-Tazobactam 3 100 100 .375 gm In Sodium Chloride 0.9% 100 ml @ 25 mls/hr IVPB Q8HR [facility] Rx# :[id number] Sodium Chloride 0.9% 1, 400 400 000 ml @ 100 mls/hr IV . Q10H [facility] Rx#:[id number] Oral 462 0 Output: Urine 700 300 405 Other: Voiding Method Indwelling Catheter ABP, PAP, CO, CI - Last Documented Arterial Blood Pressure 111/46 - Exam General: Patient intubated, sedated HEENT: [PERRL. EOMI. No pharyngeal erythema or exudate.] Neck: [No adenopathy.] Cardiac: [Heart regular in rate and rhythm. No S3. No S4. No clicks, rubs. No murmur.] Lungs: [Clear to auscultation bilaterally.] Abdomen: [No mass. No organomegaly. Bowel sounds presnt and normoactive in all 4 quadrants.] Extremes: [No edema no cyanosis no claudication normal pulses] : Normal male genitalia Oro inserted Musculoskeletal: [No joint erythema, edema or tenderness.] Skin: [No rash.] Neurologic: [No lateralizing deficits. CN II - XII grossly intact.] Lymphatic: [No adenopathy.] - Labs CBC & Chem 7: 11/25/19 05:43 11/25/19 05:43 Labs: Abnormal Lab Results - Last 24 Hours (Table) 11/24/19 11/24/19 11/25/19 Range/Units 16:49 20:34 05:43 WBC (3.8-10.6) k/uL RBC (4.30-5.90) m/uL Hgb (13.0-17.5) gm/dL Hct (39.0-53.0) % RDW (11.5-15.5) % Neutrophils # (1.3-7.7) k/uL Lymphocytes # (1.0-4.8) k/uL ABG pH (7.35-7.45) ABG pCO2 (35-45) mmHg ABG pO2 (83-108) mmHg ABG HCO3 (21-25) mmol/L ABG Total CO2 (19-24) mmol/L ABG O2 Saturation (94-97) % Chloride 111 H (98-107) mmol/L BUN 27 H (9-20) mg/dL Glucose 160 H (74-99) mg/dL POC Glucose (mg/dL) 208 H 209 H (75-99) mg/dL Total Protein 5.3 L (6.3-8.2) g/dL Albumin 2.5 L (3.5-5.0) g/dL 11/25/19 11/25/19 11/25/19 Range/Units 05:43 06:08 07:15 WBC 14.0 H (3.8-10.6) k/uL RBC 3.27 L (4.30-5.90) m/uL Hgb 9.7 L (13.0-17.5) gm/dL Hct 29.9 L (39.0-53.0) % RDW 16.5 H (11.5-15.5) % Neutrophils # 12.6 H (1.3-7.7) k/uL Lymphocytes # 0.7 L (1.0-4.8) k/uL ABG pH (7.35-7.45) ABG pCO2 (35-45) mmHg ABG pO2 (83-108) mmHg ABG HCO3 (21-25) mmol/L ABG Total CO2 (19-24) mmol/L ABG O2 Saturation (94-97) % Chloride (98-107) mmol/L BUN (9-20) mg/dL Glucose (74-99) mg/dL POC Glucose (mg/dL) 166 H 165 H (75-99) mg/dL Total Protein (6.3-8.2) g/dL Albumin (3.5-5.0) g/dL 11/25/19 11/25/19 11/25/19 Range/Units 08:26 09:37 11:50 WBC (3.8-10.6) k/uL RBC (4.30-5.90) m/uL Hgb (13.0-17.5) gm/dL Hct (39.0-53.0) % RDW (11.5-15.5) % Neutrophils # (1.3-7.7) k/uL Lymphocytes # (1.0-4.8) k/uL ABG pH 7.31 L (7.35-7.45) ABG pCO2 52 H (35-45) mmHg ABG pO2 51 L* 361 H (83-108) mmHg ABG HCO3 26 H (21-25) mmol/L ABG Total CO2 26 H 27 H (19-24) mmol/L ABG O2 Saturation 86.2 L 100.0 H (94-97) % Chloride (98-107) mmol/L BUN (9-20) mg/dL Glucose (74-99) mg/dL POC Glucose (mg/dL) 138 H (75-99) mg/dL Total Protein (6.3-8.2) g/dL Albumin (3.5-5.0) g/dL Microbiology - Last 24 Hours (Table) 11/22/19 03:15 Gram Stain - Final Sputum Sputum Culture - Final 11/22/19 13:11 Blood Culture - Preliminary Blood No Growth after 48 hours Assessment and Plan (1) Acute exacerbation of chronic obstructive pulmonary disease Current Visit: Yes Status: Acute Code(s): J44.1 - CHRONIC OBSTRUCTIVE PULMONARY DISEASE W (ACUTE) EXACERBATION SNOMED Code(s): 899918073 (2) Acute respiratory distress syndrome in adult Current Visit: Yes Status: Acute Code(s): J80 - ACUTE RESPIRATORY DISTRESS SYNDROME SNOMED Code(s): 05173796 (3) Dehydration Current Visit: Yes Status: Acute Code(s): E86.0 - DEHYDRATION SNOMED Code(s): 10357956 (4) Failure of outpatient treatment Current Visit: Yes Status: Acute Code(s): Z78.9 - OTHER SPECIFIED HEALTH STATUS SNOMED Code(s): 577759178 (5) Febrile illness, acute Current Visit: Yes Status: Acute Code(s): R50.9 - FEVER, UNSPECIFIED SNOMED Code(s): 682282250 (6) Hepatocellular carcinoma Current Visit: Yes Status: Acute Code(s): C22.0 - LIVER CELL CARCINOMA SNOMED Code(s): 794227067 (7) Lung cancer Current Visit: Yes Status: Acute Code(s): C34.90 - MALIGNANT NEOPLASM OF UNSP PART OF UNSP BRONCHUS OR LUNG SNOMED Code(s): 262632391 (8) Mass of upper lobe of left lung Current Visit: No Status: Acute Code(s): R91.8 - OTHER NONSPECIFIC ABNORMAL FINDING OF LUNG FIELD SNOMED Code(s): 217410640 Plan: Patient transferred to the intensive care unit at or around 6:00 this morning The patient was in new onset atrial fibrillation with rapid ventricular response was already metoprolol 100 twice daily Already on Norvasc 5 mg daily eliquis added for stroke prevention Patient patient's hypoxemia progressed decision, secondary to profound hypoxemia was made to intubate around 9:00 Once oxygenation was restored patient converted to normal sinus rhythm Patient is currently intubated, sedated, antibiotics are still on board for pneumonia Bronchoscopy was performed by pulmonary medicine results pending Will continue to follow and reevaluate daily Prognosis at this time guarded Time with Patient: Greater than 30
--- NOTE | 2019-11-25 13:25 | P.PN ---
Subjective Progress Note Date: 11/25/19 Principal diagnosis: Acute hypoxic respiratory failure secondary to bilateral pneumonia and underlying bronchogenic carcinoma. 69-year-old male patient of Dr. 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 Chicas and Dr. Scanlon. Patient was diagnosed in 2016, he is status post chemoradiation therapy completed in August 2017. He was started on immunotherapy in April 2018, and his most recent PET scan from August 2019 showed no disease progression, fact the metabolic activity seen in the right me diastinum has completely resolved and the left suprahilar mass showed less metabolic activity and had shrunken in size. There was however evidence of radiation pneumonitis and left upper lobe and loss and limited areas of drug- induced pneumonitis with chronic interstitial changes. Other medical history includes coronary artery disease, history of non-ST elevated myocardial infarction, and patient had several coronary artery stents, diabetes mellitus 2, Hodgkin's lymphoma, hepatitis C, former smoker, history of chronic obstructive lung disease the baseline FEV1 of 75% of predicted however most recent PFT in January 2019 showed decrease in his FEV1 value down to 1.92 L or 60% of predicted consistent with stage II COPD, and patient is not normally oxygen dependent. Patient states his immunotherapy had been on hold since September for possibility of cataract surgery. On 11/22/2019 patient presented today emergency department per EMS for increasing shortness of breath, fever, fatigue, decreased appetite, chest soreness from difficulty breathing. He states his pulse ox was in the 60s at home. Patient was seen in the emergency department 3 days prior and was started on Levaquin. Denies any nausea or vomiting, denied any diarrhea, no abdominal pain. Chest x-ray showed bilateral pulmonary masses with basilar consolidation, with high suspicion for pneumonia, venous congestion or int erstitial pneumonitis. Patient was started on antibiotics with Zosyn and Levaquin, breathing treatments and admitted for further management. Patient was reevaluated today on 11/25/2019, patient developed worsening shortness of breath early this morning, and his O2 saturation was extremely low in spite of placement on a nonrebreather mask. I was called by the rapid response team with his ABG on 100% nonrebreather pO2 of 51 pCO2 of 40 pH of 7.41. Recommended immediate intubation. And follow-up ABG post intubation showed a pO2 of 361 pCO2 of 52 and pH of 7.31. I came in and evaluated the pat ient, chest x-ray was reviewed clearly showed evidence of worsening airspace disease especially in the right lung. Proceeded to bronchoscopy of this patient, and performed lavage of the right upper lobe right the lobe right lower lobe. There was evidence of blood clots in the inferior segment of the right upper lobe, there was also evidence of extrinsic compression of the posterior apical segment on the left side. The bronchial mucosa was bathing with blood. But again no evidence of active bleeding at the time of my bronchoscopy. Lavage was performed, antibiotics were reviewed, and vancomycin was added. Patient developed atrial fibrillation with RVR earlier while he was on the medical floor, however as soon as he was intubated, patient went into a normal sinus rhythm. Patient did not require any pressors. And did not require any medications for his atrial fibrillation. His blood pressure medications were placed on hold mostly because of relatively low blood pressure. An arterial line was placed, did not feel the need for a central line at this point. Updated his on his condition. The differential on the bronchial washing showed significant PMNs. Gram stain culture are pending. Objective - Vital Signs Vital signs: Vital Signs Temp 98 F 11/25/19 12:00 Pulse 82 11/25/19 13:00 Resp 14 11/25/19 13:00 BP 77/49 11/25/19 10:00 Pulse Ox 92 L 11/25/19 13:00 Intake & Output 11/24/19 11/25/19 11/25/19 18:59 06:59 18:59 Intake Total 962 607.5 Output Total 700 300 455 Balance 262 -300 152.5 Weight 80.5 kg Intake: Intake, IV Titration 500 607.5 Amount Diltiazem 125 mg In 7.5 Sodium Chloride 0.9% 100 ml @ 5 MG/HR 5 mls/hr IV .Q24H [facility] Rx#:[id number] Piperacillin-Tazobactam 3 100 100 .375 gm In Sodium Chloride 0.9% 100 ml @ 25 mls/hr IVPB Q8HR [facility] Rx# :[id number] Sodium Chloride 0.9% 1, 400 500 000 ml @ 100 mls/hr IV . Q10H [facility] Rx#:[id number] Oral 462 0 Output: Urine 700 300 455 Other: Voiding Method Indwelling Catheter ABP, PAP, CO, CI - Last Documented Arterial Blood Pressure 120/49 - Exam GENERAL EXAM: Revealed a 69-year-old white male on mechanical ventilation, sedated, on propofol. Head: Atraumatic, normocephalic. Endotracheal tube and orogastric tube are intact. EENT: PERRLA, EOMI, neck is. Moist mucous membranes. CHEST: No chest wall deformity. Symmetrical expansion. LUNGS: Crackles at the right base are noted. No rhonchi no wheezes. CVS: Regular rate and rhythm, normal S1 and S2, no gallops, no murmurs, no rubs ABDOMEN: Soft, nontender. No hepatosplenomegaly, normal bowel sounds, no guarding or rigidity. EXTREMITIES: No clubbing, no edema, no cyanosis, 2+ pulses and upper and lower extremities. MUSCULOSKELETAL: Good muscle tone, no deformities. SKIN: No rashes CENTRAL NERVOUS SYSTEM: Could not be assessed, patient is on propofol. Bit restless on propofol, Dilaudid was added be PSYCHIATRIC: Cannot be assessed. - Labs CBC & Chem 7: 11/25/19 05:43 11/25/19 05:43 Labs: Abnormal Lab Results - Last 24 Hours (Table) 11/24/19 11/24/19 11/25/19 Range/Units 16:49 20:34 05:43 WBC (3.8-10.6) k/uL RBC (4.30-5.90) m/uL Hgb (13.0-17.5) gm/dL Hct (39.0-53.0) % RDW (11.5-15.5) % Neutrophils # (1.3-7.7) k/uL Lymphocytes # (1.0-4.8) k/uL ABG pH (7.35-7.45) ABG pCO2 (35-45) mmHg ABG pO2 (83-108) mmHg ABG HCO3 (21-25) mmol/L ABG Total CO2 (19-24) mmol/L ABG O2 Saturation (94-97) % Chloride 111 H (98-107) mmol/L BUN 27 H (9-20) mg/dL Glucose 160 H (74-99) mg/dL POC Glucose (mg/dL) 208 H 209 H (75-99) mg/dL Total Protein 5.3 L (6.3-8.2) g/dL Albumin 2.5 L (3.5-5.0) g/dL 11/25/19 11/25/19 11/25/19 Range/Units 05:43 06:08 07:15 WBC 14.0 H (3.8-10.6) k/uL RBC 3.27 L (4.30-5.90) m/uL Hgb 9.7 L (13.0-17.5) gm/dL Hct 29.9 L (39.0-53.0) % RDW 16.5 H (11.5-15.5) % Neutrophils # 12.6 H (1.3-7.7) k/uL Lymphocytes # 0.7 L (1.0-4.8) k/uL ABG pH (7.35-7.45) ABG pCO2 (35-45) mmHg ABG pO2 (83-108) mmHg ABG HCO3 (21-25) mmol/L ABG Total CO2 (19-24) mmol/L ABG O2 Saturation (94-97) % Chloride (98-107) mmol/L BUN (9-20) mg/dL Glucose (74-99) mg/dL POC Glucose (mg/dL) 166 H 165 H (75-99) mg/dL Total Protein (6.3-8.2) g/dL Albumin (3.5-5.0) g/dL 11/25/19 11/25/19 11/25/19 Range/Units 08:26 09:37 11:50 WBC (3.8-10.6) k/uL RBC (4.30-5.90) m/uL Hgb (13.0-17.5) gm/dL Hct (39.0-53.0) % RDW (11.5-15.5) % Neutrophils # (1.3-7.7) k/uL Lymphocytes # (1.0-4.8) k/uL ABG pH 7.31 L (7.35-7.45) ABG pCO2 52 H (35-45) mmHg ABG pO2 51 L* 361 H (83-108) mmHg ABG HCO3 26 H (21-25) mmol/L ABG Total CO2 26 H 27 H (19-24) mmol/L ABG O2 Saturation 86.2 L 100.0 H (94-97) % Chloride (98-107) mmol/L BUN (9-20) mg/dL Glucose (74-99) mg/dL POC Glucose (mg/dL) 138 H (75-99) mg/dL Total Protein (6.3-8.2) g/dL Albumin (3.5-5.0) g/dL Microbiology - Last 24 Hours (Table) 11/22/19 03:15 Gram Stain - Final Sputum Sputum Culture - Final 11/22/19 13:11 Blood Culture - Preliminary Blood No Growth after 48 hours Assessment and Plan Assessment: Impression: #1. Acute hypoxemic respiratory failure related to bilateral pneumonia, hemoptysis, underlying bronchogenic carcinoma, patient is known to have history of stage IIIB squamous cell carcinoma diagnosed in 2016. #2. Recurrent hemoptysis, most likely secondary to blood thinners/Plavix. that the patient takes, plus pneumonia plus bronchogenic carcinoma. Bronchoscopy revealed bronchial mucosa to be bathing with blood, however the most likely source of the blood seems to be from the right upper lobe posterior segment since there was a blood clot removed, but there was no oozing in that right upper lobe bronchus. #3. Non-small cell carcinoma of the lung, TNM stage IIIB diagnosed in 2017 patient underwent chemoradiation therapy completed in August 2017, patient was started immunotherapy in April 2018, most recent PET scan in August 2019 showed no disease progression, resolution of metabolic activity in the right mediastinum, in decrease in metabolic activity involving left suprahilar mass was decreased in size. #4. Chronic interstitial changes involving left upper lobe #5. History of coronary artery disease with history of coronary artery stenting #6. History of non-ST elevated myocardial infarction #7. History of COPD with FEV1 of 60% of predicted, stage II COPD not normally oxygen dependent #8. Type 2 diabetes mellitus #9. Dyspnea, acute on chronic, multifactorial, related to acute bilateral lung pneumonia, chronic COPD, chronic deconditioning #10. History of Hodgkin's disease #11. History of hypothyroidism #12. History of hypertension #13. History of hyperlipidemia #14. Former smoker #15 history of hepatic carcinoma, surgically removed at [facility]. #16 status post bronchoscopy and lavage of the right lung, done on 11/25/2019. Plan: Continue ventilatory support. Nutritional support. Hemodynamic support if necessary. Antibiotics in the form of vancomycin and Levaquin and Zosyn for now. And they would be decelerated based on the cultures from the lavage. Resume cardiac meds, hold blood pressure meds if the patient is hypotensive. Consider holding Plavix, but I believe at this point I will continue Plavix unless the hemoptysis gets much worse. Continue bronchodilators. We'll continue to monitor in the ICU. Critical care time is 35 minutes not including the time on procedures. was updated on his condition. We'll continue to follow. Time with Patient: Greater than 30
[2019-11-25 15:00] LABS: ABG Base Excess -0.1 mmol/L; ABG HCO3 26 mmol/L (21-25); ABG Oxygen Saturation 96.3 % (94-97); ABG PCO2 49 mmHg (35-45); ABG PH 7.33 (7.35-7.45); ABG PO2 86 mmHg (83-108); ABG TCO2 27 mmol/L (19-24); Allen Test Performed? Yes
[2019-11-25] MEDS: LEVOFLOXACIN 750 MG TAB PO SCH (15:59)
--- NOTE | 2019-11-25 16:53 | PCN ---
PROCEDURE NOTE OPERATIVE REPORT: Placement of the left radial arterial line. PREOPERATIVE DIAGNOSIS: Acute respiratory failure secondary to pneumonia. POSTOPERATIVE DIAGNOSIS: Acute respiratory failure secondary to pneumonia. ANESTHESIA: None deployed. PROCEDURE DESCRIPTION: The left wrist was placed on the bedside table. The left wrist was prepared in a sterile fashion and drapes were applied. The left radial artery was palpated easily, cannulated, and a guidewire was placed. A Cook catheter was inserted over the guidewire, and the guidewire was removed. Good blood flow and good waveform were noted, no evidence of any immediate complications. MMODL / IJN: [id number] /
--- NOTE | 2019-11-25 16:53 | PCN ---
PROCEDURE NOTE OPERATIVE REPORT: Bronchoscopy and bronchoalveolar lavage of the right upper lobe, right middle lobe and right lower lobe. PREOPERATIVE DIAGNOSES: Acute respiratory failure, and worsening pneumonia on the right lung. History of lung cancer. POSTOPERATIVE DIAGNOSES: Acute respiratory failure, and worsening pneumonia on the right lung. History of lung cancer. ANESTHESIA: The patient was already on propofol drip, and he received Nimbex 10 mg IV push prior to procedure. PROCEDURE DESCRIPTION: The patient was placed in a supine position, he was already on mechanical ventilation with endotracheal tube connected to ventilator. We monitored his O2 saturation continuously, blood pressure was continuously monitored via arterial line, and cardiac rhythm was continuously monitored. After adequate sedation, the bronchoscope was advanced through the endotracheal tube down to the area of the distal trachea. As we visualized the airways, there was significant amount of blood noted in the whole airways and bathing the mucosa bilaterally. There was no evidence of active bleeding, however, as I looked further, there was a good size blood clot noted in the right upper lobe posterior segment, and this was lavaged and suctioned. No endobronchial tumor could be seen on the right side. Then, lavage of the right upper lobe, right middle lobe and right lower lobe was done. The fluid was serosanguineous, and the fluid was sent for different diagnostic studies. I evaluated the left side, and as we entered the left upper lobe bronchus, I was able to visualize extrinsic compression on the posterior apical segment of the left upper lobe, but no endobronchial tumor was noted. No evidence of active bleeding. The blood was suctioned easily, and washed easily. The lingula was noted to be unremarkable. The left lower lobe was also noted to be unremarkable except for blood on the bronchial mucosa. Procedure was well tolerated, no evidence of any immediate complications. MMODL / IJN: [id number] /
[2019-11-25 18:17] LABS: Glucose,Whole Blood 152 mg/dL (75-99)
[2019-11-25] MEDS: METOPROLOL TARTRATE 50 MG TAB PO SCH (20:05)
[2019-11-25] MEDS: ASPIRIN 81 MG PO SCH (20:05)
[2019-11-25] MEDS: ATORVASTATIN 40 MG TAB PO SCH (20:05)
--- NOTE | 2019-11-25 21:45 | P.CRDCN ---
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 [facility] with a past medical history significant for history of non-small cell lung cancer the patient received a mean of therapy in the past, currently the cancer seems to be under remission, history of coronary artery disease and status post triple-vessel stenting performed in 2018, the patient underwent stenting of the left anterior descending artery, left circumflex, and ramus intermedius, for some reason the patient continues to be on dual antiplatelet therapy with aspirin and Plavix, as well as multiple comorbid conditions was admitted to the intensive care unit with what it seems to be acute hypoxic respiratory failure. The patient was not feeling well for the last few days where he was experiencing symptoms of cough associated with sputum production. Beside that he was experiencing symptoms of increasing in the shortness of breath. No chest pain or chest discomfort. He initially was admitted to the third floor but later during the day he developed acute hypoxic respiratory failure and subsequently he developed arrhythmia and we consulted to see the patient for further evaluation of atrial fibrillation. I did review the 12 please EKG and that revealed what it seems to be an atrial tachycardia and I did not see any evidence of atrial fibrillation. Subsequently the patient was transferred to the intensive care unit and he was intubated and then he was intubated. He remains hemodynamically stable. Early today he underwent bronchoscopy and blood was aspirated. Currently he is on dual antiplatelet therapy with aspirin and Plavix. I did review the records of stenting and all of them were performed in 2018 at [facility] after he underwent liver surgery complicated by acute non-ST deviation myocardial infarction and subsequently a heart catheterization and stenting as described above. 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 Started as a teenager. Past Drug Use History: None Reported - Past Family History Father Family Medical History: Myocardial Infarction (PR) Mother Family Medical History: Cancer Additional Family Medical History / Comment(s): Lung Medications and Allergies Home Medications Medication Instructions Recorded Confirmed Type Lisinopril [Zestril] 10 mg PO BID 11/11/17 11/22/19 History ALPRAZolam [Xanax] 0.5 mg PO Q8H PRN 08/21/18 11/22/19 History Clopidogrel Bisulfate [Plavix] 75 mg PO HS 08/21/18 11/22/19 History Metoprolol Tartrate [Lopressor] 100 mg PO BID 08/21/18 11/22/19 History Rosuvastatin [Crestor] 20 mg PO HS 08/21/18 11/22/19 History [place]-3 Fatty Acids/Fish Oil [Fish 1 cap PO BID 09/17/19 11/22/19 History Oil 1,000 mg Softgel] glipiZIDE [Glucotrol] 5 mg PO AC-BRKFST 09/17/19 11/22/19 History metFORMIN HCL [Glucophage] 500 mg PO BID 09/17/19 11/22/19 History Aspirin [Adult Low Dose Aspirin EC] 81 mg PO HS 09/19/19 11/22/19 History Levothyroxine Sodium [Synthroid] 200 mcg PO DAILY 09/19/19 11/22/19 History Multivitamin [Multivitamins Adult 1 tab PO DAILY 09/19/19 11/22/19 History Gummies] Tiotropium 18 Mcg/Puff [Spiriva] 1 puff INHALATION RT-DAILY 09/19/19 11/22/19 History amLODIPine BESYLATE [Norvasc] 10 mg PO DAILY 09/19/19 11/22/19 History predniSONE 10 mg PO DAILY 11/20/19 11/22/19 History Albuterol Nebulized [Ventolin 2.5 mg INHALATION RT-Q4H PRN 11/22/19 11/22/19 History Nebulized] HYDROcodone/APAP 10-325MG [[place] 1 tab PO Q6H PRN 11/22/19 11/22/19 History 10-325] Levofloxacin [Levaquin] 500 mg PO DAILY 11/22/19 11/22/19 History Zolpidem [Ambien] 5 - 10 mg PO HS PRN 11/22/19 11/22/19 History Allergies Allergy/AdvReac Type Severity Reaction Status Date / Time No Known Allergies Allergy Verified 11/22/19 14:46 Physical Exam Vitals: Vital Signs Temp Pulse Pulse Resp BP BP Pulse Ox 11/25/19 20:00 97.0 F L 82 18 94 L 11/25/19 19:45 83 18 94 L 11/25/19 19:30 81 18 93 L 11/25/19 19:22 82 11/25/19 19:15 85 20 93 L 11/25/19 19:00 86 18 93 L 11/25/19 18:45 86 21 93 L 11/25/19 18:30 88 15 93 L 11/25/19 18:15 84 18 94 L 11/25/19 18:00 79 9 L 93 L 11/25/19 17:45 83 21 81/51 92 L 11/25/19 17:30 84 20 92 L 11/25/19 17:15 85 16 93 L 11/25/19 17:00 86 16 93 L 11/25/19 16:45 92 16 93 L 11/25/19 16:30 93 17 92 L 11/25/19 16:15 92 21 93 L 11/25/19 16:00 97.9 F 90 10 L 91 L 11/25/19 15:45 88 13 93 L 11/25/19 15:30 89 18 92 L 11/25/19 15:25 88 11/25/19 15:15 87 14 93 L 11/25/19 15:08 87 11/25/19 15:00 87 11 L 94 L 11/25/19 14:45 86 16 93 L 11/25/19 14:30 86 18 91 L 11/25/19 14:15 85 17 92 L 11/25/19 14:00 84 16 91 L 11/25/19 13:45 84 16 92 L 11/25/19 13:30 86 16 92 L 11/25/19 13:15 84 17 92 L 11/25/19 13:00 82 14 92 L 11/25/19 12:45 84 19 92 L 11/25/19 12:30 82 15 92 L 11/25/19 12:15 82 16 93 L 11/25/19 12:00 98 F 81 18 94 L 11/25/19 11:45 86 28 H 95 11/25/19 11:40 88 11/25/19 11:30 81 18 95 11/25/19 11:25 96 11/25/19 11:15 85 18 89 L 11/25/19 11:00 86 19 90 L 11/25/19 10:45 96 23 97 11/25/19 10:30 90 19 96 11/25/19 10:15 87 20 93 L 11/25/19 10:00 85 18 77/49 95 11/25/19 09:45 84 12 88/50 97 11/25/19 09:30 89 15 96/58 98 11/25/19 09:15 90 17 121/79 97 11/25/19 09:00 94 15 95/60 93 L 11/25/19 08:45 123 H 19 109/68 87 L 11/25/19 08:30 114 H 22 105/80 87 L 11/25/19 08:15 134 H 18 100/76 87 L 11/25/19 08:00 123 H 21 121/87 90 L 11/25/19 07:45 137 H 26 H 121/87 90 L 11/25/19 07:30 97.3 F L 142 H 22 95/70 89 L 11/25/19 03:05 98.1 F 100 20 100/59 90 L 11/24/19 23:27 128 H 11/24/19 23:17 124 H 11/24/19 23:00 98 F 111 H 24 113/68 92 L Intake and Output 11/25/19 11/25/19 11/25/19 06:59 14:59 22:59 Intake Total 510.175 3136.829 Output Total 300 605 390 Balance -300 322.289 746.829 Intake: IV 725 718 Diltiazem 125 mg In 10 Sodium Chloride 0.9% 100 ml @ 5 MG/HR 5 mls/hr IV .Q24H PEDRO LUIS Rx#:[id number] Piperacillin-Tazobactam 3 100 200 .375 gm In Sodium Chloride 0.9% 100 ml @ 25 mls/hr IVPB Q8HR PEDRO LUIS Rx# :[id number] Sodium Chloride 0.9% 1, 600 500 000 ml @ 100 mls/hr IV . Q10H PEDRO LUIS Rx#:[id number] pressure bag 15 18 Intake, IV Titration 202.289 303.829 Amount Diltiazem 125 mg In 7.5 Sodium Chloride 0.9% 100 ml @ 5 MG/HR 5 mls/hr IV .Q24H PEDRO LUIS Rx#:[id number] Piperacillin-Tazobactam 3 100 .375 gm In Sodium Chloride 0.9% 100 ml @ 25 mls/hr IVPB Q8HR PEDRO LUIS Rx# :[id number] Propofol 1,000 mg In 94.789 178.829 Empty Bag 1 bag @ Titrate IV .Q0M PEDRO LUIS Rx#: [id number] Vancomycin 1,500 mg In 125 Sodium Chloride 0.9% 250 ml @ 125 mls/hr IVPB Q8H PEDRO LUIS Rx#:[id number] Oral 0 0 Tube Feeding 85 Other 30 Output: Urine 300 605 390 Other: Voiding Method Indwelling Catheter Indwelling Catheter Weight 80.5 kg 81.1 kg ABP, PAP, CO, CI - Last 8 Hours Arterial Blood Pressure 112/47 Arterial Blood Pressure 102/50 Arterial Blood Pressure 110/53 Arterial Blood Pressure 119/50 Arterial Blood Pressure 112/48 Arterial Blood Pressure 121/50 Arterial Blood Pressure 110/48 Arterial Blood Pressure 122/50 Arterial Blood Pressure 128/53 Arterial Blood Pressure 97/45 Arterial Blood Pressure 103/43 Arterial Blood Pressure 119/49 Arterial Blood Pressure 116/47 Arterial Blood Pressure 133/48 Arterial Blood Pressure 141/52 Arterial Blood Pressure 127/48 Arterial Blood Pressure 115/45 Arterial Blood Pressure 117/46 Arterial Blood Pressure 103/44 Arterial Blood Pressure 104/43 Arterial Blood Pressure 121/46 Arterial Blood Pressure 131/56 Arterial Blood Pressure 129/51 Arterial Blood Pressure 133/53 Arterial Blood Pressure 120/49 Arterial Blood Pressure 119/49 - Constitutional General appearance: mild distress - Respiratory Respiratory: bilateral: diminished - Cardiovascular Rhythm: regular Heart sounds: normal: S1, S2 Results 11/25/19 05:43 11/25/19 05:43 Cardiac Enzymes 11/25/19 11/25/19 Range/Units 05:43 17:30 AST 44 (17-59) U/L Troponin I 0.369 H* (0.000-0.034) ng/mL CBC 11/25/19 Range/Units 05:43 WBC 14.0 H (3.8-10.6) k/uL RBC 3.27 L (4.30-5.90) m/uL Hgb 9.7 L (13.0-17.5) gm/dL Hct 29.9 L (39.0-53.0) % Plt Count 180 D (150-450) k/uL Comprehensive Metabolic Panel 11/25/19 Range/Units 05:43 Sodium 140 (137-145) mmol/L Potassium 4.6 (3.5-5.1) mmol/L Chloride 111 H (98-107) mmol/L Carbon Dioxide 24 (22-30) mmol/L BUN 27 H (9-20) mg/dL Creatinine 0.72 (0.66-1.25) mg/dL Glucose 160 H (74-99) mg/dL Calcium 8.6 (8.4-10.2) mg/dL AST 44 (17-59) U/L ALT 35 (4-49) U/L Alkaline Phosphatase 50 (38-126) U/L Total Protein 5.3 L (6.3-8.2) g/dL Albumin 2.5 L (3.5-5.0) g/dL Current Medications Generic Name Dose Route Start Last Admin Trade Name Freq PRN Reason Stop Dose Admin Hydrocodone Bitart/Acetaminophen 1 each 11/22/19 17:23 11/25/19 02:23 [place] 10 PO 1 each Q6H PRN Administration MODERATE Pain Albuterol/Ipratropium 3 ml 11/22/19 17:00 11/25/19 19:12 Duoneb 0.5 Mg-3 Mg/3 Ml Soln INHALATION 3 ml RT-Q4H PEDRO LUIS Administration Alprazolam 0.5 mg 11/22/19 15:45 11/24/19 20:44 Xanax PO 0.5 mg Q8H PRN Administration Anxiety Aspirin 81 mg 11/22/19 21:00 11/25/19 20:05 Aspirin PO 81 mg HS PEDRO LUIS Administration Atorvastatin Calcium 40 mg 11/22/19 21:00 11/25/19 20:05 Lipitor PO 40 mg HS PEDRO LUIS Administration Benzocaine/Menthol 1 each 11/23/19 10:39 11/23/19 19:53 Cepacol Lozenge MUCOUS MEM 1 each Q4HR PRN Administration Sore Throat Chlorhexidine Gluconate 15 ml 11/25/19 09:15 11/25/19 20:05 Peridex MUCOUS MEM 15 ml BID PEDRO LUIS Administration Hydromorphone HCl 1 mg 11/25/19 18:10 11/25/19 18:16 Dilaudid IVP 1 mg Q2HR PRN Administration SEVERE Pain Sodium Chloride 1,000 mls @ 100 mls/hr 11/22/19 15:45 11/25/19 14:26 Saline 0.9% IV 100 mls/hr .Q10H PEDRO LUIS Administration Piperacillin Sod/Tazobactam 100 mls @ 25 mls/hr 11/23/19 00:00 11/25/19 16:00 Sod 3.375 gm/ Sodium Chloride IVPB 12/02/19 16:01 25 mls/hr Q8HR PEDRO LUIS Administration Diltiazem HCl 125 mg/ Sodium 125 mls @ 5 mls/hr 11/25/19 07:30 11/25/19 09:14 Chloride IV 0 mg/hr .Q24H PEDRO LUIS 0 mls/hr Infusion 5 MG/HR Propofol 1,000 mg/ IV Solution 100 mls @ 0 mls/hr 11/25/19 09:15 11/25/19 20:53 IV 60 mcg/kg/min .Q0M PEDRO LUIS 29.196 mls/hr Administration Protocol Titrate Vancomycin HCl 1,500 mg/ 250 mls @ 125 mls/hr 11/25/19 12:00 11/25/19 19:39 Sodium Chloride IVPB 125 mls/hr Q8H PEDRO LUIS Administration Insulin Aspart 0 unit 11/25/19 12:00 11/25/19 18:47 Novolog SQ 2 unit Q6HR PEDRO LUIS Administration Protocol Levofloxacin 750 mg 11/23/19 16:00 11/25/19 15:59 Levaquin PO 11/28/19 16:01 750 mg Q24H PEDRO LUIS Administration Levothyroxine Sodium 200 mcg 11/23/19 06:30 11/25/19 06:12 Synthroid PO 200 mcg DAILY@0630 PEDRO LUIS Administration Methylprednisolone Sodium Succinate 40 mg 11/23/19 16:00 11/25/19 15:59 Solu-Medrol IV 40 mg Q8HR PEDRO LUIS Administration Metoprolol Tartrate 50 mg 11/25/19 21:00 11/25/19 20:05 Lopressor PO 50 mg BID PEDRO LUIS Administration Miscellaneous Information 1 each 11/22/19 15:42 Pneumonia Protocol Utilized PO ONCE PRN Per Protocol Miscellaneous Information 1 each 11/23/19 10:50 Magnesium Per Protocol MISCELLANE DAILY PRN Per Protocol Protocol Morphine Sulfate 2 mg 11/24/19 12:12 11/25/19 06:29 Morphine Sulfate (Inj) IVP 2 mg Q4H PRN Administration breathing Multivitamins 1 each 11/23/19 09:00 11/25/19 10:38 Theragran PO Not Given DAILY [facility] Pantoprazole Sodium 40 mg 11/26/19 09:00 Protonix IVP DAILY [facility] Zolpidem Tartrate 5 mg 11/22/19 15:45 11/24/19 20:44 Ambien PO 5 mg HS PRN Administration Insomnia Intake and Output 11/25/19 11/25/19 11/25/19 06:59 14:59 22:59 Intake Total 782.907 3911.829 Output Total 300 605 390 Balance -300 322.289 746.829 Intake: IV 725 718 Diltiazem 125 mg In 10 Sodium Chloride 0.9% 100 ml @ 5 MG/HR 5 mls/hr IV .Q24H PEDRO LUIS Rx#:[id number] Piperacillin-Tazobactam 3 100 200 .375 gm In Sodium Chloride 0.9% 100 ml @ 25 mls/hr IVPB Q8HR PEDRO LUIS Rx# :[id number] Sodium Chloride 0.9% 1, 600 500 000 ml @ 100 mls/hr IV . Q10H PEDRO LUIS Rx#:[id number] pressure bag 15 18 Intake, IV Titration 202.289 303.829 Amount Diltiazem 125 mg In 7.5 Sodium Chloride 0.9% 100 ml @ 5 MG/HR 5 mls/hr IV .Q24H PEDRO LUIS Rx#:[id number] Piperacillin-Tazobactam 3 100 .375 gm In Sodium Chloride 0.9% 100 ml @ 25 mls/hr IVPB Q8HR PEDRO LUIS Rx# :[id number] Propofol 1,000 mg In 94.789 178.829 Empty Bag 1 bag @ Titrate IV .Q0M PEDRO LUIS Rx#: [id number] Vancomycin 1,500 mg In 125 Sodium Chloride 0.9% 250 ml @ 125 mls/hr IVPB Q8H PEDRO LUIS Rx#:[id number] Oral 0 0 Tube Feeding 85 Other 30 Output: Urine 300 605 390 Other: Voiding Method Indwelling Catheter Indwelling Catheter Weight 80.5 kg 81.1 kg Patient Weight 11/26/19 06:59 Weight 81.1 kg 11/25/19 05:43 11/25/19 05:43 Assessment and Plan Assessment: Assessment #1 acute hypoxic respiratory failure secondary to bilateral pneumonia #2 hemoptysis of unknown etiology #3 cardiac arrhythmia, the patient did have an atrial tachycardia, no evidence of atrial fibrillation #4 history of non-small cell lung carcinoma #5 coronary artery disease and status post double vessel stenting #6 diabetes type 2 #7 hypertension #8 dyslipidemia Plan #1 DC Plavix and continue aspirin. The last stent was performed more than a year ago and the patient does have hemoptysis. #2 hold any kind of oral anticoagulation, the patient did not have any atrial fibrillation and his EKG revealed atrial tachycardia #3 obtain an echocardiogram was Doppler to established ventricular systolic function #4 he remains hemodynamically stable at this point of time #5 obtain 2 more sets of serial cardiac enzymes to assess his troponin trend #6 follow-up with the patient Thank you for allowing us participate in his care
[2019-11-25 23:13] LABS: Glucose,Whole Blood 201 mg/dL (75-99)
[2019-11-26] MEDS: IPRATROPIUM-ALBUTEROL 3 ML NEB INHALATION SCH ×5 (03:00→19:29)
[2019-11-26] MEDS: VANCOMYCIN 1,500 MG in SODIUM CHLORIDE 0.9% 250 ML IVPB SCH ×3 (03:38→19:34)
[2019-11-26] MEDS: HYDROmorphone 1 MG/ML 1 ML SYRINGE IVP PRN ×9 (03:39→23:07)
[2019-11-26 04:03] LABS: ABG Base Excess 0.7 mmol/L; ABG HCO3 27 mmol/L (21-25); ABG Oxygen Saturation 96.9 % (94-97); ABG PCO2 53 mmHg (35-45); ABG PH 7.32 (7.35-7.45); ABG PO2 89 mmHg (83-108); ABG TCO2 29 mmol/L (19-24)
[2019-11-26 04:38] LABS: Allen Test Performed? no
[2019-11-26 04:46] LABS: Anisocytosis Slight; HCT 25.5 % (39.0-53.0); HGB 8.5 gm/dL (13.0-17.5); Hypochromasia Moderate; MCH 30.3 pg (25.0-35.0); MCHC 33.3 g/dL (31.0-37.0); MCV 91.1 fL (80.0-100.0); Mean Platelet Volume 7.2; Platelet Count 153 k/uL (150-450); Poikilocytosis Moderate; RBC 2.79 m/uL (4.30-5.90); RDW 16.6 % (11.5-15.5); WBC 9.3 k/uL (3.8-10.6)
[2019-11-26 04:58] LABS: African American GFR (CKD) >90 (>60 ml/min/1.73 sqM); Anion Gap 0 mmol/L; Blood Urea Nitrogen 26 mg/dL (9-20); Calcium 8.1 mg/dL (8.4-10.2); Carbon Dioxide 27 mmol/L (22-30); Chloride 112 mmol/L (98-107); Glucose 183 mg/dL (74-99); Non-African American GFR(CKD) >90 (>60 ml/min/1.73 sqM); Potassium 4.3 mmol/L (3.5-5.1); Sodium 139 mmol/L (137-145)
[2019-11-26 05:24] LABS: Glucose,Whole Blood 202 mg/dL (75-99)
[2019-11-26] MEDS: LEVOTHYROXINE 100 MCG TAB PO SCH (05:26)
[2019-11-26] MEDS: INSULIN ASPART (NovoLOG) 100 UNIT/ML VIAL SQ SCH ×2 (05:26→12:24)
[2019-11-26] MEDS: DILTIAZEM 125 MG in SODIUM CHLORIDE 0.9% 100 ML IV SCH (05:27)
[2019-11-26] MEDS: PROPOFOL 1,000 MG in EMPTY BAG 1 BAG IV SCH ×6 (06:43→22:27)
[2019-11-26] MEDS: CHLORHEXIDINE GLUCONATE 15 ML CUP MUCOUS MEM SCH ×2 (08:05→20:00)
[2019-11-26] MEDS: methylPREDNISolone SOD SUCCI 40 MG/ML 1 ML VIAL IV SCH ×3 (08:05→23:00)
[2019-11-26] MEDS: PANTOPRAZOLE 40 MG/10 ML VIAL IVP SCH (08:07)
[2019-11-26] MEDS: PIPERACILLIN-TAZOBACTAM 3.375 GM in SODIUM CHLORIDE 0.9% 100 ML IVPB SCH ×3 (08:13→23:00)
--- NOTE | 2019-11-26 08:17 | XR ---
EXAMINATION TYPE: XR chest 1V portable DATE OF EXAM: 11/26/2019 CLINICAL HISTORY: Difficulty breathing progress study. History of lung cancer. TECHNIQUE: Single AP portable semiupright view of the chest is obtained. COMPARISON: Chest x-ray from one day earlier and older studies. PET/CT September 01, 2019 FINDINGS: Stable endotracheal tube and orogastric tube. Overlying EKG leads redemonstrated. Backgrou nd chronic emphysematous change with elevated left hemidiaphragm. Diffuse right lung opacity with rig ht suprahilar lateral masslike consolidation. Some left-sided volume loss with mediastinal shift. Car diac silhouette size stable and upper limits of normal with atherosclerotic aorta. Abnormal periaorti c soft tissue density or mass. Coronary stent in the left circumflex distribution. Underlying scoliot ic curvature in the spine. IMPRESSION: Background chronic emphysematous change and elevated left hemidiaphragm with left suprahi lar neoplasm. Diffuse right lung edema and/or infiltrates with more focal masslike right suprahilar c onsolidation all redemonstrated. Likely small bilateral pleural effusions. No significant change from most recent chest x-ray.
[2019-11-26] MEDS: MULTIVITAMINS, THERA 1 EACH TAB PO SCH (08:18)
[2019-11-26] MEDS: METOPROLOL TARTRATE 50 MG TAB PO SCH ×2 (08:18→20:00)
[2019-11-26] MEDS: SODIUM CHLORIDE 0.9% 1,000 ML IV SCH ×2 (09:36→15:39)
--- NOTE | 2019-11-26 11:01 | ECHOF ---
Referral Reason:new onset afib MEASUREMENTS -------- HEIGHT: 175.3 cm WEIGHT: 83.0 kg BP: 114/45 RVIDd: 3.5 cm (< 3.3) IVSd: 1.3 cm (0.6 - 1.1) LVIDd: 4.7 cm (3.9 - 5.3) LVPWd: 1.3 cm (0.6 - 1.1) IVSs: 1.4 cm LVIDs: 3.2 cm LVPWs: 1.6 cm LA Diam: 3.1 cm (2.7 - 3.8) LAESV Index (A-L): 18.04 ml/m Ao Diam: 3.3 cm (2.0 - 3.7) AV Cusp: 1.7 cm (1.5 - 2.6) MV EXCURSION: 21.996 mm (> 18.000) MV EF SLOPE: 70 mm/s (70 - 150) EPSS: 0.6 cm MV E Derrick: 0.81 m/s MV DecT: 219 ms MV A Derrick: 0.78 m/s MV E/A Ratio: 1.04 RAP: 15.00 mmHg RVSP: 62.84 mmHg TAPSE: 22.13 mm FINDINGS -------- Sinus rhythm. This was a technically adequate study. The left ventricular size is normal. There is mild concentric left ventricular hypertrophy. Overa ll left ventricular systolic function is normal with, an EF between 60 - 65 %. The right ventricle is mild to moderately enlarged. Normal LA size by volume 22+/-6 ml/m2. The right atrium is normal in size. Interatrial and interventricular septum intact. There is mild aortic valve sclerosis. Mild mitral annular calcification present. Mild mitral regurgitation is present. Moderate to severe tricuspid regurgitation present. There is severe pulmonary hypertension. The r ight ventricular systolic pressure, as measured by Doppler, is 62.84mmHg. The aortic root size is normal. The inferior vena cava is dilated with poor inspiratory collapse which is consistent with estimated r ight atrial pressure of 15 mmHg. There is a small, generalized pericardial effusion present. CONCLUSIONS -------- 1. Sinus rhythm. 2. This was a technically adequate study. 3. The left ventricular size is normal. 4. There is mild concentric left ventricular hypertrophy. 5. Overall left ventricular systolic function is normal with, an EF between 60 - 65 %. 6. The right ventricle is mild to moderately enlarged. 7. Normal LA size by volume 22+/-6 ml/m2. 8. The right atrium is normal in size. 9. Interatrial and interventricular septum intact. 10. There is mild aortic valve sclerosis. 11. Mild mitral annular calcification present. 12. Moderate to severe tricuspid regurgitation present. 13. There is severe pulmonary hypertension. 14. The right ventricular systolic pressure, as measured by Doppler, is 62.84mmHg. 15. The aortic root size is normal. 16. The inferior vena cava is dilated with poor inspiratory collapse which is consistent with estimat ed right atrial pressure of 15 mmHg. 17. There is a small, generalized pericardial effusion present. FINANCIAL PROJECT MANAGER: Sayda Yang RDCS
--- NOTE | 2019-11-26 11:39 | PN ---
PROGRESS NOTE PULMONARY/CRITICAL CARE PROGRESS NOTE: DATE OF SERVICE: November 26, 2019. CRITICAL CARE TIME: 34 minutes This is a 69-year-old male who was admitted back on November 22. He came to the ICU on the and was intubated on the for respiratory failure. His initial admission diagnosis was that of lung cancer, COPD exacerbation, and pneumonia. The patient has been seen by Dr. Arteaga the last couple of days. The patient came in with acute hypoxemic respiratory failure secondary to bilateral pneumonia with hemoptysis. The patient also is known to have a history of stage IIIB squamous cell carcinoma diagnosed in 2016. In addition, the patient has history of CAD with previous stenting, non ST-segment elevation myocardial infarction, moderate COPD with an FEV1 that is 60% of predicted, diabetes mellitus, Hodgkin disease, hypothyroidism, hypertension, hyperlipidemia, previous tobacco use, hepatic carcinoma, and status post bronchoscopy back in November 2019. Currently, the patient remains on the mechanical ventilator. He is on the volume assist-control mode with a rate of 20, breathing 20 times a minute, tidal volume 450, FiO2 60% to be dropped to 50%, PEEP is set of 5 to be increased to 8. Blood gases show pO2 of 89, pCO2 of 53 and a pH of 7.32. The patient is on propofol at 60 mcg/kg per minute, saline IV at 100 mL an hour and Vital high-protein at 32 with a goal of 32 mL an hour. The patient is still a FULL CODE. A conversation will take place today between myself and his , who is a former ICU nurse. The patient was initially diagnosed with stage IIIB non-small cell lung cancer back in 2016. The patient underwent chemoradiation, was completed August 2017. He started immunotherapy in April, but has not had any immunotherapy recently. PHYSICAL EXAMINATION: VITAL SIGNS: Current vital signs are reviewed. His temperature is 97.6, heart rate 85, respiratory rate 14, blood pressure 119/55, mean is 70, saturations are 95% on the 50% and 8 of PEEP. GENERAL: Appears in no acute distress. He is currently sedated heavily with Diprivan at 60 mcg/kg per minute. There is an orally placed endotracheal tube and NG tube. HEENT: Examination is grossly unremarkable. Tubes and lines are noted. NECK: Supple. Full range of motion. No adenopathy. Neck veins are flat. CARDIOVASCULAR: Examination reveals regular rhythm and rate. Heart rate 85. S1, S2 normal. No S3, S4, or murmur. Heart sounds are distant. LUNGS: Reveal diffuse coarse rhonchi. Breath sounds are diminished. There is prolongation. ABDOMEN: Soft. Bowel sounds are heard. EXTREMITIES: Are intact. No cyanosis, clubbing, or edema. SKIN: Without rash. NEUROLOGIC: Examination could not be adequately assessed. LABORATORY DATA: Laboratory data includes a white count 9.3, hemoglobin 8.5, hematocrit 25.5, platelet count 153,000. Blood gases have been noted, 89, 53 and 7.32. Sodium 139, potassium 4.3, chloride 112, CO2 is 27. Anion gap is 0. BUN and creatinine were 26 and 0.67. Troponins were 0.369 and 0.321. Microbiology is thus far all negative. The bronchoscopy was actually done yesterday on November 25. A chest x-ray done on November 26 shows emphysematous changes, elevation of left hemidiaphragm and left suprahilar neoplasm. There is diffuse edema bilaterally with infiltrates or focal masslike right suprahilar consolidation. The chest x-ray is relatively stable compared to prior x-rays. There is also bilateral small effusions and/or basilar atelectasis. MEDICATIONS: Medications are reviewed. Currently, the patient is on Xanax, aspirin, Lipitor, Cepacol lozenges, chlorhexidine, [place], Dilaudid, insulin, updrafts, Levaquin, levothyroxine, magnesium replacement, Solu-Medrol, metoprolol, morphine, multivitamins, Protonix, Zosyn, vancomycin, and Ambien. ASSESSMENT: 1. Acute hypoxemic respiratory failure secondary to underlying pneumonia and bronchogenic carcinoma, with intubation on November 25 and bronchoscopy on the same day. 2. Stage IIIB non-small cell lung cancer/squamous cell carcinoma, diagnosed in 2017, status post chemoradiation and more recently immunotherapy in 2018, although nothing recently. 3. Recurrent hemoptysis, secondary to lung cancer. 4. Stage IIIB non-small cell lung cancer/squamous cell type, as mentioned above. 5. Chronic interstitial changes, left upper lobe. 6. History of coronary artery disease with previous stenting. 7. History of non ST-segment elevation myocardial infarction. 8. Moderate/stage II chronic obstructive pulmonary disease with an FEV1 at 60% of predicted. 9. Type 2 diabetes mellitus. 10.History of Hodgkin disease. 11.History of hypothyroidism. 12.History of hypertension. 13.History of hyperlipidemia. 14.Previous tobacco use. 15.History of hepatic carcinoma, status post surgical excision. 16.Recent bronchoscopy and lavage, November 25, 2019. PLAN: The patient's overall prognosis remains very guarded. I will have a conversation about code status with the . She is a former ICU nurse. I will review the medications and discontinue the unnecessary medications that he was on prior to intubation. We will continue with GI and DVT prophylaxis as well as nutrition. Again prognosis is poor. No additional recommendations are made. CRITICAL CARE TIME: 34 minutes. KAM / LAURIN: [id number] /
[2019-11-26] MEDS: CISATRACURIUM 2 MG/ML 5 ML VIAL IV ONE (11:45)
--- NOTE | 2019-11-26 12:17 | P.PN ---
Subjective This is Rhoda Meneses PA-C dictating a progress note on this patient The patient was interviewed and examined by me as well as by Dr. Jones Case discussed with Dr. Jones and he agrees with the plan of care IMPRESSION / ASSESSMENT: Acute hypoxic respiratory failure secondary to pneumonia, requiring intubation Hemoptysis status post bronchoscopy with blood clots but no active bleeding, on the Plavix has been stopped History of non-small cell lung carcinoma Abnormal troponins, no acute EKG changes, likely type 2 ND likely secondary to combination of hypoxia and respiratory distress CAD status post stenting Echo showing preserved LV systolic function Diabetes Hypertension Dyslipidemia PLAN: Continue current medication regimen including aspirin, atorvastatin, and metoprolol 50 mg by mouth twice a day HPI/interval history Patient is a 69-year-old male with a past medical history of non-small cell lung cancer in remission, CAD status post stenting, hypertension, dyslipidemia who presented with complaints of cough and shortness of breath. He was admitted for treatment of pneumonia and later developed hemoptysis and respiratory failure requiring intubation and transfer to the ICU. His Plavix was stopped. He was thought to have possible atrial fibrillation however after reviewing the EKG it was sinus tachycardia. No signs of atrial fibrillation. Patient seen and examined resting in bed, remains intubated. He is responsive and shakes his head no when asked if he has any chest pain. Telemetry reveals sinus rhythm, rate in the 80s. EXAMINATION Patient is afebrile, pulse in the 80s, respirations 21, blood pressure 123/53, oxygen saturation 95% on mechanical ventilation Patient seen and examined resting in bed, intubated Lungs are rhonchorous bilaterally Heart is regular, no audible murmurs No elevated JVD No lower extremity edema REVIEW OF LABS, ECG Labs reviewed, WBC 9.3, hemoglobin 8.5, platelets 153, potassium 4.3, BUN 26, creatinine 0.67 Troponins 0.321, 0.369, 0.660 Echocardiogram showed EF 60-65%, mild concentric hypertrophy, Objective - Vital Signs Vital signs: Vital Signs Temp 97.6 F 11/26/19 08:00 Pulse 80 11/26/19 12:01 Resp 21 11/26/19 11:00 BP 81/51 11/25/19 17:45 Pulse Ox 95 11/26/19 11:00 Intake & Output 11/25/19 11/26/1920 18:59 06:59 18:59 Intake Total 5652.666 5252.792 805.887 Output Total 880 710 262 Balance 231.933 8194.792 543.887 Weight 81.1 kg 83.3 kg Intake: IV 1237 1036 615 Diltiazem 125 mg In 10 Sodium Chloride 0.9% 100 ml @ 5 MG/HR 5 mls/hr IV .Q24H [facility] Rx#:[id number] Piperacillin-Tazobactam 3 200 200 100 .375 gm In Sodium Chloride 0.9% 100 ml @ 25 mls/hr IVPB Q8HR [facility] Rx# :[id number] Sodium Chloride 0.9% 1, 1000 800 500 000 ml @ 100 mls/hr IV . Q10H [facility] Rx#:[id number] pressure bag 27 36 15 Intake, IV Titration 302.289 752.792 94.887 Amount Diltiazem 125 mg In 7.5 Sodium Chloride 0.9% 100 ml @ 5 MG/HR 5 mls/hr IV .Q24H [facility] Rx#:[id number] Piperacillin-Tazobactam 3 100 .375 gm In Sodium Chloride 0.9% 100 ml @ 25 mls/hr IVPB Q8HR [facility] Rx# :[id number] Propofol 1,000 mg In 194.789 252.792 94.887 Empty Bag 1 bag @ Titrate IV .Q0M [facility] Rx#: [id number] Vancomycin 1,500 mg In 500 Sodium Chloride 0.9% 250 ml @ 125 mls/hr IVPB Q8H [facility] Rx#:[id number] Oral 0 Tube Feeding 20 272 96 Other 90 Output: Urine 880 710 262 Other: Voiding Method Indwelling Catheter Indwelling Catheter Indwelling Catheter ABP, PAP, CO, CI - Last Documented Arterial Blood Pressure 123/53 - Labs CBC & Chem 7: 11/26/19 04:05 11/26/19 04:05 Labs: Abnormal Lab Results - Last 24 Hours (Table) 11/25/19 11/25/19 11/25/19 Range/Units 14:58 17:30 18:16 RBC (4.30-5.90) m/uL Hgb (13.0-17.5) gm/dL Hct (39.0-53.0) % RDW (11.5-15.5) % ABG pH 7.33 L (7.35-7.45) ABG pCO2 49 H (35-45) mmHg ABG HCO3 26 H (21-25) mmol/L ABG Total CO2 27 H (19-24) mmol/L Chloride (98-107) mmol/L BUN (9-20) mg/dL Glucose (74-99) mg/dL POC Glucose (mg/dL) 152 H (75-99) mg/dL Calcium (8.4-10.2) mg/dL Troponin I 0.369 H* (0.000-0.034) ng/mL 11/25/19 11/25/19 11/26/19 Range/Units 23:05 23:12 04:02 RBC (4.30-5.90) m/uL Hgb (13.0-17.5) gm/dL Hct (39.0-53.0) % RDW (11.5-15.5) % ABG pH 7.32 L (7.35-7.45) ABG pCO2 53 H (35-45) mmHg ABG HCO3 27 H (21-25) mmol/L ABG Total CO2 29 H (19-24) mmol/L Chloride (98-107) mmol/L BUN (9-20) mg/dL Glucose (74-99) mg/dL POC Glucose (mg/dL) 201 H (75-99) mg/dL Calcium (8.4-10.2) mg/dL Troponin I 0.321 H* (0.000-0.034) ng/mL 11/26/19 11/26/19 11/26/19 Range/Units 04:05 04:05 05:23 RBC 2.79 L (4.30-5.90) m/uL Hgb 8.5 L (13.0-17.5) gm/dL Hct 25.5 L (39.0-53.0) % RDW 16.6 H (11.5-15.5) % ABG pH (7.35-7.45) ABG pCO2 (35-45) mmHg ABG HCO3 (21-25) mmol/L ABG Total CO2 (19-24) mmol/L Chloride 112 H (98-107) mmol/L BUN 26 H (9-20) mg/dL Glucose 183 H (74-99) mg/dL POC Glucose (mg/dL) 202 H (75-99) mg/dL Calcium 8.1 L (8.4-10.2) mg/dL Troponin I (0.000-0.034) ng/mL Microbiology - Last 24 Hours (Table) 11/25/19 10:30 Gram Stain - Preliminary Bronchial Washings - Right Bronchial Washings Culture - Preliminary 11/25/19 10:30 Fungal Culture - Preliminary Bronchial Washings - Right 11/25/19 10:30 Acid Fast Bacilli Culture - Preliminary Bronchial Washings - Right 11/22/19 13:11 Blood Culture - Preliminary Blood No Growth after 72 hours 11/22/19 03:15 Gram Stain - Final Sputum Sputum Culture - Final
[2019-11-26 12:21] LABS: Glucose,Whole Blood 182 mg/dL (75-99)
--- NOTE | 2019-11-26 12:27 | XR ---
EXAMINATION TYPE: XR chest 1V portable DATE OF EXAM: 11/26/2019 CLINICAL HISTORY: Postcentral line placement . TECHNIQUE: Single AP portable upright view of the chest is obtained. COMPARISON: Chest x-ray from earlier today and older studies FINDINGS: Stable endotracheal tube and orogastric tube. New left internal jugular central venous cat heter terminating in SVC. Background chronic emphysematous change with elevated left hemidiaphragm redemonstrated. Diffuse righ t lung interstitial opacity with right suprahilar lateral masslike consolidation redemonstrated. Some left-sided volume loss with mediastinal shift redemonstrated. Cardiac silhouette size stable and upp er limits of normal with atherosclerotic aorta. Abnormal left paraaortic soft tissue density or mass again seen. Obstructive Left apical atelectatic changes felt present. Underlying scoliotic curvature in the spine. IMPRESSION: New left internal jugular central venous catheter terminating in SVC. No pneumothorax see n after Central catheter insertion. Other findings stable. Background chronic emphysematous change an d left-sided volume loss with left periaortic neoplasm and diffuse right lung interstitial edema and/ or infiltrates with lateral right upper lung masslike consolidation. Probable small bilateral pleural effusions.
--- NOTE | 2019-11-26 12:41 | PCN ---
PROCEDURE NOTE TRIPLE LUMEN CATHETER PLACEMENT: Indication: Hemodynamic monitoring/Intravenous access. A time-out was completed verifying correct patient, procedure, site, positioning, and implant(s) or special equipment if applicable. The patient was placed in a dependent position appropriate for triple lumen catheter placement based on the vein to be cannulated. The patient's left neck was prepped and draped in sterile fashion. 1% Lidocaine was used to anesthetize the surrounding skin area. A triple lumen 9F Cordis catheter was introduced into the left internal jugular vein using Seldinger technique. The catheter was threaded smoothly over the guide wire and appropriate blood return was obtained. Each lumen of the catheter was evacuated of air and flushed with sterile saline. The catheter was then sutured in place to the skin and a sterile dressing applied. Perfusion to the extremity distal to the point of catheter insertion was checked and found to be adequate. No immediate complications. MMODL / IJN: [id number] /
--- NOTE | 2019-11-26 13:40 | CDI ---
Documentation Clarification Form Date: 11/26/2019 12:36:55 PM From: Ping Morales RN, CCDS Admit Date: 11/22/2019 03:42:00 PM Patient Name: Jareth Savage Visit Number: [id number] Discharge Date: ATTENTION: The Clinical Documentation Specialists (CDI) and [facility] Coding Staff appreciate your assistance in clarifying documentation. Please respond to the clarification below the line at the bottom and electronically sign. The CDI & [facility] Coding staff will review the response and follow-up if needed. Please note: Queries are made part of the Legal Health Record. If you have any questions, please contact the author of this message via ITS. Dr. Noman Stephens The patient presented to ER on 11/22/19 with shortness of breath found to have hypoxemia, with complaints of fevers and chills. He has SIRS criteria and the attending clinical diagnosis is needed. History/Risk Factors: Cancer, Hogkins Lymphoma with chemotherapy and radiation treatments, Former smoker Clinical Indicators: 69-year-old male present on 11/22/19 with shortness of breath. His vital signs on 11/22/19 at 13:02 was 121/78 116 24 temp. 101.0, saturation 69 % room air. WBC 11/22/19 (12:00) 12..2, Neutrophils 10.8 Lactic acid: 11/22/19 (12:00) 2.7 Blood cultures: Pending, No Growth after 72 hours Treatment: Duoneb Inhalations Q4 hrs Solu-medrol IV q 8 hr Antibiotics:Vancomycin IV, Pharmacy to dose, Zosyn IV IV q hrs IV Bolus: .9 % 1000ml bolus, continue .9% @ 100 mls/hr In your professional opinion, please clarify if these findings signify one of the following conditions, whether the condition is POA, and cause, if known: Condition Sepsis ruled in and present on admission (specify infection source) Sepsis ruled out Severe Sepsis Septic Shock Other, please specify Unable to determine Identify the (suspected) organism Link or clarify if there is associated (due to/with): Organ failure Shock SIRS Criteria (2 or more of the following may indicate SIRS): -Temperature < 96.8F (36C) or > 101.0F (38.3C) -Heart Rate > 90 bpm -Respiratory Rate > 20 breaths/min or PaCO2 < 32 mmHg -White Blood Cell Count > 12,000 or < 4,000 cells/mm3 or > 10% bands -Lactate >2.0 mmol/L (>4.0 is equivalent to septic shock) (Last Revision: February 2018) known metastatic lung cancer with underlying infiltrate, severe hypoximia MTDD
[2019-11-26] MEDS ORDERED: INSULIN REGULAR BOLUS (FROM DRIP BAG) IV PRN (14:41)
[2019-11-26 14:50] LABS: Glucose,Whole Blood 188 mg/dL (75-99)
[2019-11-26] MEDS: INSULIN REGULAR 100 UNIT in SODIUM CHLORIDE 0.9% 100 ML IV SCH (15:14)
[2019-11-26 15:51] LABS: Glucose,Whole Blood 194 mg/dL (75-99)
--- NOTE | 2019-11-26 15:55 | P.PN ---
Subjective Progress Note Date: 11/26/19 This is a 69 year old gentleman with history of underlying left sided lung cancer, hyperlipidemia, hypertension, thyroid disorder, hepatitis C, Hodgkin's lymphoma and squamous cell-completed radiation and chemo, former nicotine dependence returned to the ER with complaints of worsening shortness of breath, occasional hemoptysis, fevers, chills 2 days. Patient initially had come into ER 3 days ago, placed on Levaquin and discharged home. Chest x-ray on admission reported bilateral pulmonary masses with bibasilar consolidation, underlying pneumonia, interstitial pneumonitis. Right upper lobe mass noted at 4.2 cm, additional masses identified within the suprahilar region measuring 5.8 x 5.8 cm. follow-up chest x-ray this morning reporting worsening left apical infiltrate, correlate for pneumonia, right upper lobe infiltrate, developing mass possible, underlying left upper lobe lung cancer. EKG reported sinus tachycardia, left atrial enlargement. T-max 101, WBC 12.2-now down to 11.8. Hemoglobin 9.8, BUN 26, creatinine 0.76. Blood sugars elevated 230-350s. O2 sat on admission 69% on room air, placed on nonrebreather, currently maintaining O2 sats in the low 90s on 6 L nasal cannula. IV antibiotics of Zosyn and Levaquin initiated in addition to nebulized bronchodilators and IV fluid hydration. Pulmonary and oncology consulted. 11/26/2019 until yesterday morning patient developed worsening hypoxia, sinus tachycardia, patient was transferred to ICU and intubated. Converted and r emains in sinus rhythm. Maintained on mechanical ventilation, FiO2 down to 50, PEEP up to +8. Continues on diprovan, IV fluids and IV antibiotics. Underwent bronchoscopy yesterday, cytology, cultures pending. Afebrile. Echo reportedly mild concentric hypertrophy, EF 60-65%, moderate to severe tricuspid regurgitation, severe pulmonary hypertension . Chest x-ray noted. Tolerating tube feeds at goal with minimal to no residuals. Objective - Vital Signs Vital signs: Vital Signs Temp 97.5 F L 11/26/19 12:00 Pulse 78 11/26/19 15:36 Resp 21 11/26/19 15:00 BP 81/51 11/25/19 17:45 Pulse Ox 95 11/26/19 15:00 Intake & Output 11/25/19 11/26/19 11/26/19 18:59 06:59 18:59 Intake Total 2944.941 4178.792 1621.351 Output Total 880 710 502 Balance 077.461 9917.792 1119.351 Weight 81.1 kg 83.3 kg Intake: IV 1237 1036 1027 Diltiazem 125 mg In 10 Sodium Chloride 0.9% 100 ml @ 5 MG/HR 5 mls/hr IV .Q24H [facility] Rx#:[id number] Piperacillin-Tazobactam 3 200 200 100 .375 gm In Sodium Chloride 0.9% 100 ml @ 25 mls/hr IVPB Q8HR [facility] Rx# :[id number] Sodium Chloride 0.9% 1, 1000 800 900 000 ml @ 100 mls/hr IV . Q10H [facility] Rx#:[id number] pressure bag 27 36 27 Intake, IV Titration 302.289 752.792 434.351 Amount Diltiazem 125 mg In 7.5 Sodium Chloride 0.9% 100 ml @ 5 MG/HR 5 mls/hr IV .Q24H [facility] Rx#:[id number] Piperacillin-Tazobactam 3 100 .375 gm In Sodium Chloride 0.9% 100 ml @ 25 mls/hr IVPB Q8HR [facility] Rx# :[id number] Propofol 1,000 mg In 194.789 252.792 184.351 Empty Bag 1 bag @ Titrate IV .Q0M [facility] Rx#: [id number] Vancomycin 1,500 mg In 500 250 Sodium Chloride 0.9% 250 ml @ 125 mls/hr IVPB Q8H [facility] Rx#:[id number] Oral 0 Tube Feeding 20 272 160 Other 90 Output: Urine 880 710 502 Other: Voiding Method Indwelling Catheter Indwelling Catheter Indwelling Catheter ABP, PAP, CO, CI - Last Documented Arterial Blood Pressure 104/45 - Exam VITAL SIGNS: [As above] GENERAL: Sitting up in bed, intubated, sedated. HEENT: Conjunctivae normal. eyes normal. OG present. NECK: No JVD. No thyroid enlargement. No LNs CARDIOVASCULAR: S1, S2 regular. No murmur RESPIRATION: Breath sounds diminished in the bases. Scattered rhonchi ABDOMEN: Soft, nontender . No guarding. no masses palpable. No ascites, No hepatosplenomegaly.Bowel sounds heard. LEGS: No edema. no swelling PSYCHIATRY: Alert and oriented X3, mood and affect normal. NERVOUS SYSTEM: Unable to fully assess, appears to have no gross focal deficits, shakes head to answer questions. Skin: no rash - Labs CBC & Chem 7: 11/26/19 04:05 11/26/19 04:05 Labs: Abnormal Lab Results - Last 24 Hours (Table) 11/25/19 11/25/19 11/25/19 Range/Units 17:30 18:16 23:05 RBC (4.30-5.90) m/uL Hgb (13.0-17.5) gm/dL Hct (39.0-53.0) % RDW (11.5-15.5) % ABG pH (7.35-7.45) ABG pCO2 (35-45) mmHg ABG HCO3 (21-25) mmol/L ABG Total CO2 (19-24) mmol/L Chloride (98-107) mmol/L BUN (9-20) mg/dL Glucose (74-99) mg/dL POC Glucose (mg/dL) 152 H (75-99) mg/dL Calcium (8.4-10.2) mg/dL Troponin I 0.369 H* 0.321 H* (0.000-0.034) ng/mL 11/25/19 11/26/19 11/26/19 Range/Units 23:12 04:02 04:05 RBC (4.30-5.90) m/uL Hgb (13.0-17.5) gm/dL Hct (39.0-53.0) % RDW (11.5-15.5) % ABG pH 7.32 L (7.35-7.45) ABG pCO2 53 H (35-45) mmHg ABG HCO3 27 H (21-25) mmol/L ABG Total CO2 29 H (19-24) mmol/L Chloride 112 H (98-107) mmol/L BUN 26 H (9-20) mg/dL Glucose 183 H (74-99) mg/dL POC Glucose (mg/dL) 201 H (75-99) mg/dL Calcium 8.1 L (8.4-10.2) mg/dL Troponin I (0.000-0.034) ng/mL 11/26/19 11/26/19 11/26/19 Range/Units 04:05 05:23 12:19 RBC 2.79 L (4.30-5.90) m/uL Hgb 8.5 L (13.0-17.5) gm/dL Hct 25.5 L (39.0-53.0) % RDW 16.6 H (11.5-15.5) % ABG pH (7.35-7.45) ABG pCO2 (35-45) mmHg ABG HCO3 (21-25) mmol/L ABG Total CO2 (19-24) mmol/L Chloride (98-107) mmol/L BUN (9-20) mg/dL Glucose (74-99) mg/dL POC Glucose (mg/dL) 202 H 182 H (75-99) mg/dL Calcium (8.4-10.2) mg/dL Troponin I (0.000-0.034) ng/mL 11/26/19 Range/Units 14:49 RBC (4.30-5.90) m/uL Hgb (13.0-17.5) gm/dL Hct (39.0-53.0) % RDW (11.5-15.5) % ABG pH (7.35-7.45) ABG pCO2 (35-45) mmHg ABG HCO3 (21-25) mmol/L ABG Total CO2 (19-24) mmol/L Chloride (98-107) mmol/L BUN (9-20) mg/dL Glucose (74-99) mg/dL POC Glucose (mg/dL) 188 H (75-99) mg/dL Calcium (8.4-10.2) mg/dL Troponin I (0.000-0.034) ng/mL Microbiology - Last 24 Hours (Table) 11/22/19 13:11 Blood Culture - Preliminary Blood No Growth after 96 hours 11/25/19 10:30 Gram Stain - Preliminary Bronchial Washings - Right Bronchial Washings Culture - Preliminary 11/25/19 10:30 Fungal Culture - Preliminary Bronchial Washings - Right 11/25/19 10:30 Acid Fast Bacilli Culture - Preliminary Bronchial Washings - Right 11/22/19 03:15 Gram Stain - Final Sputum Sputum Culture - Final Assessment and Plan Assessment: Assessment: Acute hypoxic respiratory failure, multifactorial, secondary to bilateral pneumonia, bilateral pulmonary masses, in a patient with history of underlying left lobe carcinoma, failed outpatient treatment, ventilator dependent Acute dehydration Acute COPD exacerbation Non-small cell CA of the lung, completed chemoradiation therapy, underwent immunotherapy, PET scan August 2019 reported no progression. Recurrent hemoptysis secondary to lung cancer CVAT, history of stenting, non-STEMI Diabetes mellitus2 Hypothyroidism Hypertension Hodgkin's disease Former nicotine dependence Sinus tachycardia, not A. fib per cardiology's review of EKGs Severe pulmonary hypertension Moderate to severe tricuspid regurgitation Plan: Continue current medication regime ,monitoring and symptomatic treatment. Maintain IV antibiotics,nebulized bronchodilators. Bronchoscopy cytology, cultures pending. Prognosis guarded given multiple complex medical issues. The impression and plan of care has been dictated as directed. : I performed a history and examination of this patient, discussed the same with the dictator. I agree with the dictator's note ,documented as a scribe. Any additional findings or plans will be noted.
[2019-11-26] MEDS: LEVOFLOXACIN 750 MG TAB PO SCH (16:21)
[2019-11-26 16:29] LABS: Glucose,Whole Blood 161 mg/dL (75-99)
[2019-11-26 16:54] LABS: Glucose,Whole Blood 148 mg/dL (75-99)
[2019-11-26 17:54] LABS: Glucose,Whole Blood 147 mg/dL (75-99)
[2019-11-26 18:51] LABS: Glucose,Whole Blood 136 mg/dL (75-99)
[2019-11-26] MEDS ORDERED: VANCOMYCIN TROUGH DUE 1 EACH MISC MISCELLANE ONE (19:00)
[2019-11-26 19:54] LABS: Glucose,Whole Blood 154 mg/dL (75-99)
[2019-11-26] MEDS: ASPIRIN 81 MG PO SCH (20:00)
[2019-11-26] MEDS: ATORVASTATIN 40 MG TAB PO SCH (20:00)
[2019-11-26 20:40] LABS: Glucose,Whole Blood 168 mg/dL (75-99)
[2019-11-26 21:44] LABS: Glucose,Whole Blood 166 mg/dL (75-99)
[2019-11-26 22:30] LABS: Glucose,Whole Blood 161 mg/dL (75-99)
[2019-11-26 23:39] LABS: Glucose,Whole Blood 155 mg/dL (75-99)
[2019-11-27] MEDS: IPRATROPIUM-ALBUTEROL 3 ML NEB INHALATION SCH ×7 (00:18→23:40)
[2019-11-27 00:34] LABS: Glucose,Whole Blood 143 mg/dL (75-99)
[2019-11-27] MEDS: HYDROmorphone 1 MG/ML 1 ML SYRINGE IVP PRN ×16 (00:47→23:30)
[2019-11-27 01:42] LABS: Glucose,Whole Blood 152 mg/dL (75-99)
[2019-11-27] MEDS: PROPOFOL 1,000 MG in EMPTY BAG 1 BAG IV SCH ×7 (03:05→21:48)
[2019-11-27 03:15] LABS: Glucose,Whole Blood 170 mg/dL (75-99)
[2019-11-27 04:04] LABS: Glucose,Whole Blood 176 mg/dL (75-99)
[2019-11-27 04:30] LABS: Anisocytosis Slight; HCT 26.4 % (39.0-53.0); HGB 8.5 gm/dL (13.0-17.5); Hypochromasia Moderate; MCH 29.8 pg (25.0-35.0); MCHC 32.2 g/dL (31.0-37.0); MCV 92.6 fL (80.0-100.0); Mean Platelet Volume 7.3; Platelet Count 149 k/uL (150-450); Poikilocytosis Moderate; RBC 2.85 m/uL (4.30-5.90); RDW 16.5 % (11.5-15.5)
[2019-11-27 04:34] LABS: African American GFR (CKD) >90 (>60 ml/min/1.73 sqM); Anion Gap 1 mmol/L; Blood Urea Nitrogen 29 mg/dL (9-20); Calcium 8.1 mg/dL (8.4-10.2); Carbon Dioxide 27 mmol/L (22-30); Chloride 112 mmol/L (98-107); Glucose 165 mg/dL (74-99); Non-African American GFR(CKD) >90 (>60 ml/min/1.73 sqM); Potassium 4.4 mmol/L (3.5-5.1); Sodium 140 mmol/L (137-145)
[2019-11-27 05:09] LABS: Glucose,Whole Blood 152 mg/dL (75-99)
[2019-11-27] MEDS: LEVOTHYROXINE 100 MCG TAB PO SCH (05:21)
[2019-11-27 05:23] LABS: ABG Base Excess 0.1 mmol/L; ABG HCO3 26 mmol/L (21-25); ABG Oxygen Saturation 94.7 % (94-97); ABG PCO2 53 mmHg (35-45); ABG PH 7.31 (7.35-7.45); ABG PO2 73 mmHg (83-108); ABG TCO2 28 mmol/L (19-24); Allen Test Performed? Yes
[2019-11-27] MEDS: SODIUM CHLORIDE 0.9% 1,000 ML IV SCH ×2 (05:26→16:05)
[2019-11-27 06:12] LABS: Glucose,Whole Blood 151 mg/dL (75-99)
[2019-11-27 07:10] LABS: Glucose,Whole Blood 167 mg/dL (75-99)
[2019-11-27] MEDS: CHLORHEXIDINE GLUCONATE 15 ML CUP MUCOUS MEM SCH ×2 (07:41→20:34)
[2019-11-27] MEDS: PIPERACILLIN-TAZOBACTAM 3.375 GM in SODIUM CHLORIDE 0.9% 100 ML IVPB SCH ×2 (07:41→16:05)
[2019-11-27] MEDS: PANTOPRAZOLE 40 MG/10 ML VIAL IVP SCH (07:41)
[2019-11-27] MEDS: methylPREDNISolone SOD SUCCI 40 MG/ML 1 ML VIAL IV SCH ×3 (07:41→23:31)
[2019-11-27 08:09] LABS: Glucose,Whole Blood 168 mg/dL (75-99)
--- NOTE | 2019-11-27 08:44 | XR ---
EXAMINATION TYPE: XR chest 1V portable DATE OF EXAM: 11/27/2019 COMPARISON: 11/26/2019 HISTORY: Shortness of breath TECHNIQUE: Single frontal view of the chest is obtained. FINDINGS: Left-sided central line seen with the tip overlying the SVC and no pneumothorax diffuse bi lateral pleural-parenchymal changes with pleural effusion and areas of consolidation are noted. Massl ricardo areas of density left upper lobe and right upper lobe are seen. There is increasing consolidation at the left lung. ET and NG tubes stable. IMPRESSION: 1. There is interval progression of disease involving the left lung apex. Other diffuse pleural-paren chymal changes are stable may represent diffuse pneumonia versus pulmonary edema. 2. Correlate for pulmonary mass.
[2019-11-27 09:06] LABS: Glucose,Whole Blood 147 mg/dL (75-99)
--- NOTE | 2019-11-27 09:47 | PN ---
PROGRESS NOTE PULMONARY/CRITICAL CARE PROGRESS NOTE: DATE OF SERVICE: November 27, 2019 CRITICAL CARE TIME: 34 minutes. This is a 69-year-old male who was admitted back on November 22. He came to the ICU on the and was intubated on the for acute hypoxemic respiratory failure. His initial admission diagnosis was that of lung cancer, COPD exacerbation and possible pneumonia. The patient had been seen by Dr. Arteaga over the last few days. The patient was again admitted with acute hypoxemic respiratory failure with bilateral pneumonia and hemoptysis. The patient has a known history of stage IIIB squamous cell carcinoma, diagnosed in 2017. He has gone through chemo and radiation and more recently was on immune therapy. In addition, the patient has a history of CAD with previous stenting, non ST-segment elevation myocardial infarction, moderate COPD with an FEV1 that is 60% of predicted (GOLD stage 2), diabetes mellitus, Hodgkin disease, hypothyroidism, hypertension, hyperlipidemia, previous tobacco use, hepatic carcinoma, and previous bronchoscopy. Currently, the patient remains on the mechanical ventilator. He is on the volume assist-control mode rate of 20, tidal volume 450, FiO2 of 50%, PEEP of 8. Blood gases are reasonable with a pO2 of 73, pCO2 of 53, pH 7.30. He is getting saline at 100 mL an hour, propofol at 60 mcg/kg per minute and Vital high-protein at 32 with a goal of 32 mL an hour. We will increase his Dilaudid to 1 mg q.1 hour around the clock. Previously he was not well controlled and was very agitated. I have had conversations with the who is a former ICU nurse as well as the son and daughter. I tried to be real honest about his overall prognosis. PHYSICAL EXAMINATION: VITAL SIGNS: Current vital signs are reviewed. Temperature is 97.9, heart rate 81, respiratory rate 20, blood pressure 98/44, saturation 97%. GENERAL: Appears in no acute distress. HEENT: Examination is grossly unremarkable. Mucous membranes are moist. No oral lesions. Oral endotracheal tube and NG tube noted. NECK: Supple. Full range of motion. No adenopathy or thyromegaly. Neck veins are flat. CARDIOVASCULAR: Examination reveals regular rhythm and rate. Heart sounds are distant. Heart rate 88 beats per minute. S1, S2 normal. No murmur. LUNGS: Reveal diffuse coarse rhonchi bilaterally. There are some bilateral wheezes. No crackles. ABDOMEN: Soft. Bowel sounds are heard. EXTREMITIES: Are intact. Minimal edema. SKIN: Without rash. NEUROLOGIC: Examination cannot be assessed. Microbiology thus far is negative including blood and sputum sampling as well as bronch washes done by my partner. LAB DATA: Lab data is reviewed. White count 10, hemoglobin 8.5, hematocrit 26.4, platelet count 149,000. Sodium 140, potassium 4.4, chloride 112, CO2 of 27. Anion gap is 1. BUN and creatinine were 29 and 0.7. Total protein was 5.3. Albumin 2.5. A chest x-ray today in my opinion shows similar findings with chest x-ray yesterday including chronic emphysematous changes, left-sided volume loss with a left periaortic neoplasm and diffuse right lung interstitial edema and/or infiltrate and also a right upper lung masslike consolidation. There are also small effusions. MEDICATIONS: Medications are reviewed. He is on aspirin, Lipitor, Peridex, Dilaudid, sliding scale insulin, DuoNeb, Levaquin, levothyroxine, magnesium replacement, Solu-Medrol, metoprolol, Protonix, Zosyn, propofol and vancomycin. ASSESSMENT: 1. Acute hypoxemic respiratory failure secondary to underlying pneumonia and/or bronchogenic carcinoma with intubation on the and bronchoscopy on the same day. 2. Stage III non-small cell lung cancer/squamous cell carcinoma, diagnosed in 2017, status post chemo radiation and more recently immunotherapy in 2018. 3. Recurrent hemoptysis, secondary to lung cancer. 4. Stage IIIB non-small cell lung cancer/squamous cell type, as mentioned above. 5. Chronic interstitial changes, left upper lobe, which may represent fluid, pneumonia, lymphangitic carcinomatosis, or radiation changes. 6. History of coronary artery disease with previous stenting. 7. History of non ST-segment elevation myocardial infarction. 8. Moderate/stage 2 chronic obstructive pulmonary disease, with an FEV1 of 60% of predicted. 9. Type 2 diabetes mellitus. 10.History of Hodgkin disease. 11.History of hypothyroidism. 12.History of benign essential hypertension. 13.History of hyperlipidemia. 14.Previous history of tobacco use. 15.History of hepatic carcinoma, status post surgical excision. 16.Status post bronchoscopy and BAL, November 25, 2019. PLAN: The patient's overall prognosis remains guarded. I have had conversations with the , daughter and son. I feel that they understand the severity of his illness. We will continue to support him fully at this time. The patient will continue with tube feeds at goal. He will continue with propofol at 60 mcg/kg per minute. We have increased his pain medications to Dilaudid 1 mg q.1 hour. His vent settings and blood gases were reasonable. His microbiology thus far is negative. We will continue to follow closely. He remains on Zosyn, Levaquin and vancomycin. We may need to deescalate antibiotics in the near future. Again overall prognosis remains very guarded. CRITICAL CARE TIME: 34 minutes. MMODL / IJN: [id number] /
[2019-11-27] MEDS: VANCOMYCIN 1,500 MG in SODIUM CHLORIDE 0.9% 250 ML IVPB SCH ×2 (10:03→21:49)
[2019-11-27 10:08] LABS: Glucose,Whole Blood 143 mg/dL (75-99)
[2019-11-27 11:04] LABS: Glucose,Whole Blood 54 mg/dL (75-99)
[2019-11-27 11:05] LABS: Glucose,Whole Blood 154 mg/dL (75-99)
[2019-11-27 11:07] LABS: Glucose,Whole Blood 168 mg/dL (75-99)
[2019-11-27] MEDS: METOPROLOL TARTRATE 50 MG TAB PO SCH ×2 (11:10→20:34)
[2019-11-27 12:05] LABS: Glucose,Whole Blood 164 mg/dL (75-99)
--- NOTE | 2019-11-27 12:42 | P.PN ---
Subjective Progress Note Date: 11/27/19 This is a 69 year old gentleman with history of underlying left sided lung cancer, hyperlipidemia, hypertension, thyroid disorder, hepatitis C, Hodgkin's lymphoma and squamous cell-completed radiation and chemo, former nicotine dependence returned to the ER with complaints of worsening shortness of breath, occasional hemoptysis, fevers, chills 2 days. Patient initially had come into ER 3 days ago, placed on Levaquin and discharged home. Chest x-ray on admission reported bilateral pulmonary masses with bibasilar consolidation, underlying pneumonia, interstitial pneumonitis. Right upper lobe mass noted at 4.2 cm, additional masses identified within the suprahilar region measuring 5.8 x 5.8 cm. follow-up chest x-ray this morning reporting worsening left apical infiltrate, correlate for pneumonia, right upper lobe infiltrate, developing mass possible, underlying left upper lobe lung cancer. EKG reported sinus tachycardia, left atrial enlargement. T-max 101, WBC 12.2-now down to 11.8. Hemoglobin 9.8, BUN 26, creatinine 0.76. Blood sugars elevated 230-350s. O2 sat on admission 69% on room air, placed on nonrebreather, currently maintaining O2 sats in the low 90s on 6 L nasal cannula. IV antibiotics of Zosyn and Levaquin initiated in addition to nebulized bronchodilators and IV fluid hydration. Pulmonary and oncology consulted. 11/26/2019 until yesterday morning patient developed worsening hypoxia, sinus tachycardia, patient was transferred to ICU and intubated. Converted and r emains in sinus rhythm. Maintained on mechanical ventilation, FiO2 down to 50, PEEP up to +8. Continues on diprovan, IV fluids and IV antibiotics. Underwent bronchoscopy yesterday, cytology, cultures pending. Afebrile. Echo reportedly mild concentric hypertrophy, EF 60-65%, moderate to severe tricuspid regurgitation, severe pulmonary hypertension . Chest x-ray noted. Tolerating tube feeds at goal with minimal to no residuals. 11/27/2019 remains vent dependent, FiO2 50%/+8 of PEEP. ABGs noted. Chest x- ray reporting interval progression of the disease involving left lung apex, diffuse pleural-progression of changes, correlate for pulmonary mass. Maintained on IV fluids ,diprovan, Dilaudid. Blood pressure marginal, map 55. No weaning trials recommended today.Tolerating tube feeds at goal with minimal to no residual. Blood sugars controlled on insulin drip. Bronc cultures, cytology pending. Continues on Zosyn, Levaquin, vancomycin. Creatinine 0.7. Afebrile, WBC 10. Objective - Vital Signs Vital signs: Vital Signs Temp 97.7 F 11/27/19 12:00 Pulse 81 11/27/19 12:00 Resp 20 11/27/19 12:00 BP 81/51 11/25/19 17:45 Pulse Ox 98 11/27/19 12:00 Intake & Output 11/26/19 11/27/19 11/27/19 18:59 06:59 18:59 Intake Total 2308.797 2249.269 1144.657 Output Total 687 685 268 Balance 4153.769 5130.269 876.657 Weight 87.1 kg Intake: IV 1539 1136 615 Piperacillin-Tazobactam 3 200 100 .375 gm In Sodium Chloride 0.9% 100 ml @ 25 mls/hr IVPB Q8HR [facility] Rx# :[id number] Sodium Chloride 0.9% 1, 1300 1100 500 000 ml @ 100 mls/hr IV . Q10H [facility] Rx#:[id number] pressure bag 39 36 15 Intake, IV Titration 545.797 745.269 433.657 Amount Insulin Regular 100 unit 11.446 23.450 13.685 In Sodium Chloride 0.9% 100 ml @ Per Protocol IV .Q0M [facility] Rx#:[id number] Propofol 1,000 mg In 284.351 346.819 169.972 Empty Bag 1 bag @ Titrate IV .Q0M [facility] Rx#: [id number] Vancomycin 1,500 mg In 250 Sodium Chloride 0.9% 250 ml @ 125 mls/hr IVPB Q12H [facility] Rx#:[id number] Vancomycin 1,500 mg In 250 375 Sodium Chloride 0.9% 250 ml @ 125 mls/hr IVPB Q8H [facility] Rx#:[id number] Tube Feeding 224 288 96 Other 80 Output: Urine 687 685 268 Other: Voiding Method Indwelling Catheter Indwelling Catheter Indwelling Catheter ABP, PAP, CO, CI - Last Documented Arterial Blood Pressure 97/44 - Exam VITAL SIGNS: [As above] GENERAL: Sitting up in bed, intubated, sedated. HEENT: Conjunctivae normal. eyes normal. OG present. NECK: No JVD. No thyroid enlargement. No LNs CARDIOVASCULAR: S1, S2 regular. No murmur RESPIRATION: Breath sounds diminished in the bases. Scattered rhonchi, and occasional expiratory wheezing. ABDOMEN: Soft, nontender . No guarding. no masses palpable. No ascites, No hepatosplenomegaly.Bowel sounds heard. LEGS: mild edema. PSYCHIATRY: Alert and oriented X3, mood and affect normal. NERVOUS SYSTEM: Unable to assess, sedated on diprovan and Dilaudid Skin: no rash - Labs CBC & Chem 7: 11/27/19 04:00 11/27/19 04:00 Labs: Abnormal Lab Results - Last 24 Hours (Table) 11/26/19 11/26/19 11/26/19 Range/Units 14:49 15:49 16:25 RBC (4.30-5.90) m/uL Hgb (13.0-17.5) gm/dL Hct (39.0-53.0) % RDW (11.5-15.5) % Plt Count (150-450) k/uL ABG pH (7.35-7.45) ABG pCO2 (35-45) mmHg ABG pO2 (83-108) mmHg ABG HCO3 (21-25) mmol/L ABG Total CO2 (19-24) mmol/L Chloride (98-107) mmol/L BUN (9-20) mg/dL Glucose (74-99) mg/dL POC Glucose (mg/dL) 188 H 194 H 161 H (75-99) mg/dL Calcium (8.4-10.2) mg/dL 11/26/19 11/26/19 11/26/19 Range/Units 16:53 17:53 18:49 RBC (4.30-5.90) m/uL Hgb (13.0-17.5) gm/dL Hct (39.0-53.0) % RDW (11.5-15.5) % Plt Count (150-450) k/uL ABG pH (7.35-7.45) ABG pCO2 (35-45) mmHg ABG pO2 (83-108) mmHg ABG HCO3 (21-25) mmol/L ABG Total CO2 (19-24) mmol/L Chloride (98-107) mmol/L BUN (9-20) mg/dL Glucose (74-99) mg/dL POC Glucose (mg/dL) 148 H 147 H 136 H (75-99) mg/dL Calcium (8.4-10.2) mg/dL 11/26/19 11/26/19 11/26/19 Range/Units 19:53 20:38 21:43 RBC (4.30-5.90) m/uL Hgb (13.0-17.5) gm/dL Hct (39.0-53.0) % RDW (11.5-15.5) % Plt Count (150-450) k/uL ABG pH (7.35-7.45) ABG pCO2 (35-45) mmHg ABG pO2 (83-108) mmHg ABG HCO3 (21-25) mmol/L ABG Total CO2 (19-24) mmol/L Chloride (98-107) mmol/L BUN (9-20) mg/dL Glucose (74-99) mg/dL POC Glucose (mg/dL) 154 H 168 H 166 H (75-99) mg/dL Calcium (8.4-10.2) mg/dL 11/26/19 11/26/19 11/27/19 Range/Units 22:29 23:38 00:32 RBC (4.30-5.90) m/uL Hgb (13.0-17.5) gm/dL Hct (39.0-53.0) % RDW (11.5-15.5) % Plt Count (150-450) k/uL ABG pH (7.35-7.45) ABG pCO2 (35-45) mmHg ABG pO2 (83-108) mmHg ABG HCO3 (21-25) mmol/L ABG Total CO2 (19-24) mmol/L Chloride (98-107) mmol/L BUN (9-20) mg/dL Glucose (74-99) mg/dL POC Glucose (mg/dL) 161 H 155 H 143 H (75-99) mg/dL Calcium (8.4-10.2) mg/dL 11/27/19 11/27/19 11/27/19 Range/Units 01:41 03:14 04:00 RBC (4.30-5.90) m/uL Hgb (13.0-17.5) gm/dL Hct (39.0-53.0) % RDW (11.5-15.5) % Plt Count (150-450) k/uL ABG pH (7.35-7.45) ABG pCO2 (35-45) mmHg ABG pO2 (83-108) mmHg ABG HCO3 (21-25) mmol/L ABG Total CO2 (19-24) mmol/L Chloride 112 H (98-107) mmol/L BUN 29 H (9-20) mg/dL Glucose 165 H (74-99) mg/dL POC Glucose (mg/dL) 152 H 170 H (75-99) mg/dL Calcium 8.1 L (8.4-10.2) mg/dL 11/27/19 11/27/19 11/27/19 Range/Units 04:00 04:02 05:07 RBC 2.85 L (4.30-5.90) m/uL Hgb 8.5 L (13.0-17.5) gm/dL Hct 26.4 L (39.0-53.0) % RDW 16.5 H (11.5-15.5) % Plt Count 149 L (150-450) k/uL ABG pH (7.35-7.45) ABG pCO2 (35-45) mmHg ABG pO2 (83-108) mmHg ABG HCO3 (21-25) mmol/L ABG Total CO2 (19-24) mmol/L Chloride (98-107) mmol/L BUN (9-20) mg/dL Glucose (74-99) mg/dL POC Glucose (mg/dL) 176 H 152 H (75-99) mg/dL Calcium (8.4-10.2) mg/dL 11/27/19 11/27/19 11/27/19 Range/Units 05:20 06:10 07:08 RBC (4.30-5.90) m/uL Hgb (13.0-17.5) gm/dL Hct (39.0-53.0) % RDW (11.5-15.5) % Plt Count (150-450) k/uL ABG pH 7.31 L (7.35-7.45) ABG pCO2 53 H (35-45) mmHg ABG pO2 73 L (83-108) mmHg ABG HCO3 26 H (21-25) mmol/L ABG Total CO2 28 H (19-24) mmol/L Chloride (98-107) mmol/L BUN (9-20) mg/dL Glucose (74-99) mg/dL POC Glucose (mg/dL) 151 H 167 H (75-99) mg/dL Calcium (8.4-10.2) mg/dL 11/27/19 11/27/19 11/27/19 Range/Units 08:08 09:00 10:07 RBC (4.30-5.90) m/uL Hgb (13.0-17.5) gm/dL Hct (39.0-53.0) % RDW (11.5-15.5) % Plt Count (150-450) k/uL ABG pH (7.35-7.45) ABG pCO2 (35-45) mmHg ABG pO2 (83-108) mmHg ABG HCO3 (21-25) mmol/L ABG Total CO2 (19-24) mmol/L Chloride (98-107) mmol/L BUN (9-20) mg/dL Glucose (74-99) mg/dL POC Glucose (mg/dL) 168 H 147 H 143 H (75-99) mg/dL Calcium (8.4-10.2) mg/dL 11/27/19 11/27/19 11/27/19 Range/Units 11:02 11:03 11:05 RBC (4.30-5.90) m/uL Hgb (13.0-17.5) gm/dL Hct (39.0-53.0) % RDW (11.5-15.5) % Plt Count (150-450) k/uL ABG pH (7.35-7.45) ABG pCO2 (35-45) mmHg ABG pO2 (83-108) mmHg ABG HCO3 (21-25) mmol/L ABG Total CO2 (19-24) mmol/L Chloride (98-107) mmol/L BUN (9-20) mg/dL Glucose (74-99) mg/dL POC Glucose (mg/dL) 54 L 154 H 168 H (75-99) mg/dL Calcium (8.4-10.2) mg/dL 11/27/19 Range/Units 12:03 RBC (4.30-5.90) m/uL Hgb (13.0-17.5) gm/dL Hct (39.0-53.0) % RDW (11.5-15.5) % Plt Count (150-450) k/uL ABG pH (7.35-7.45) ABG pCO2 (35-45) mmHg ABG pO2 (83-108) mmHg ABG HCO3 (21-25) mmol/L ABG Total CO2 (19-24) mmol/L Chloride (98-107) mmol/L BUN (9-20) mg/dL Glucose (74-99) mg/dL POC Glucose (mg/dL) 164 H (75-99) mg/dL Calcium (8.4-10.2) mg/dL Microbiology - Last 24 Hours (Table) 11/25/19 10:30 Gram Stain - Final Bronchial Washings - Right Bronchial Washings Culture - Final 11/25/19 10:30 Acid Fast Bacilli Smear - Final Bronchial Washings - Right Acid Fast Bacilli Culture - Preliminary 11/22/19 13:11 Blood Culture - Preliminary Blood No Growth after 96 hours Assessment and Plan Assessment: Assessment: Acute hypoxic respiratory failure, multifactorial, secondary to bilateral pneumonia, bilateral pulmonary masses, in a patient with history of underlying left lobe carcinoma, failed outpatient treatment, ventilator dependent Acute dehydration Acute COPD exacerbation Non-small cell CA of the lung, completed chemoradiation therapy, underwent immunotherapy, PET scan August 2019 reported no progression. Recurrent hemoptysis secondary to lung cancer CVAT, history of stenting, non-STEMI Diabetes mellitus2 Hypothyroidism Hypertension Hodgkin's disease Former nicotine dependence Sinus tachycardia, not A. fib per cardiology's review of EKGs Severe pulmonary hypertension Moderate to severe tricuspid regurgitation Plan: Continue current medication regime ,monitoring and symptomatic treatment. Bronchoscopy cytology, cultures pending. Continue IV antibiotics,nebulized bronchodilators. Close monitoring of renal function with repeat labs ordered for a.m. CODE STATUS, trach/PEG being discussed between vendette and family. Prognosis guarded given multiple complex medical issues. The impression and plan of care has been dictated as directed. : I performed a history and examination of this patient, discussed the same with the dictator. I agree with the dictator's note ,documented as a scribe. Any additional findings or plans will be noted.
[2019-11-27 13:00] LABS: Glucose,Whole Blood 155 mg/dL (75-99)
[2019-11-27 14:05] LABS: Glucose,Whole Blood 153 mg/dL (75-99)
[2019-11-27 15:00] LABS: Glucose,Whole Blood 150 mg/dL (75-99)
--- NOTE | 2019-11-27 15:39 | P.PN ---
Subjective This is Rhoda Meneses PA-C dictating a progress note on this patient The patient was interviewed and examined by me as well as by Dr. Jones Case discussed with Dr. Jones and he agrees with the plan of care IMPRESSION / ASSESSMENT: Acute hypoxic respiratory failure secondary to pneumonia, requiring intubation Hemoptysis status post bronchoscopy with blood clots but no active bleeding, on the Plavix has been stopped History of non-small cell lung carcinoma Abnormal troponins, no acute EKG changes, likely type 2 [place] likely secondary to combination of hypoxia and respiratory distress CAD status post stenting Echo showing preserved LV systolic function Diabetes Hypertension, currently hypotensive Dyslipidemia PLAN: From a cardiology standpoint, continue medical management with aspirin statins and beta blockers Will add hold parameters to metoprolol Thank you kindly for the consult, We will sign off now and see the patient on an as-needed basis, please feel free to call with questions HPI/interval history Patient is a 69-year-old male with a history of lung cancer, CAD status post stenting, hypertension, and dyslipidemia who presented with cough and shortness of breath. He developed hemoptysis and respiratory failure requiring intubation in his Plavix was stopped. Telemetry reveals sinus rhythm, heart rate in the 80s. Patient seen and examined resting in bed, intubated and sedated. Not on pressors. EXAMINATION Patient is afebrile, pulse in the 80s, respirations 20, blood pressure 98/43, oxygen saturation are percent on mechanical ventilation Patient seen and examined, intubated and sedated Breath sounds are equal bilaterally Heart is regular, systolic murmur audible No lower extremity edema REVIEW OF LABS, ECG WBC 10, hemoglobin 8.5, platelets 149, potassium 4.4, BUN 29, creatinine 0.7 Objective - Vital Signs Vital signs: Vital Signs Temp 97.7 F 11/27/19 12:00 Pulse 85 11/27/19 15:30 Resp 20 11/27/19 15:30 BP 81/51 11/25/19 17:45 Pulse Ox 100 11/27/19 15:00 Intake & Output 11/26/19 11/27/19 11/27/19 18:59 06:59 18:59 Intake Total 2308.797 2249.269 1591.566 Output Total 687 685 413 Balance 4013.139 9732.269 1178.566 Weight 87.1 kg Intake: IV 1539 1136 924 Piperacillin-Tazobactam 3 200 100 .375 gm In Sodium Chloride 0.9% 100 ml @ 25 mls/hr IVPB Q8HR [facility] Rx# :[id number] Sodium Chloride 0.9% 1, 1300 1100 800 000 ml @ 100 mls/hr IV . Q10H [facility] Rx#:[id number] pressure bag 39 36 24 Intake, IV Titration 545.797 745.269 539.566 Amount Insulin Regular 100 unit 11.446 23.450 19.594 In Sodium Chloride 0.9% 100 ml @ Per Protocol IV .Q0M [facility] Rx#:[id number] Propofol 1,000 mg In 284.351 346.819 269.972 Empty Bag 1 bag @ Titrate IV .Q0M [facility] Rx#: [id number] Vancomycin 1,500 mg In 250 Sodium Chloride 0.9% 250 ml @ 125 mls/hr IVPB Q12H [facility] Rx#:[id number] Vancomycin 1,500 mg In 250 375 Sodium Chloride 0.9% 250 ml @ 125 mls/hr IVPB Q8H [facility] Rx#:[id number] Tube Feeding 224 288 128 Other 80 Output: Urine 687 685 413 Other: Voiding Method Indwelling Catheter Indwelling Catheter Indwelling Catheter ABP, PAP, CO, CI - Last Documented Arterial Blood Pressure 89/43 - Labs CBC & Chem 7: 11/27/19 04:00 11/27/19 04:00 Labs: Abnormal Lab Results - Last 24 Hours (Table) 11/26/19 11/26/19 11/26/19 Range/Units 15:49 16:25 16:53 RBC (4.30-5.90) m/uL Hgb (13.0-17.5) gm/dL Hct (39.0-53.0) % RDW (11.5-15.5) % Plt Count (150-450) k/uL ABG pH (7.35-7.45) ABG pCO2 (35-45) mmHg ABG pO2 (83-108) mmHg ABG HCO3 (21-25) mmol/L ABG Total CO2 (19-24) mmol/L Chloride (98-107) mmol/L BUN (9-20) mg/dL Glucose (74-99) mg/dL POC Glucose (mg/dL) 194 H 161 H 148 H (75-99) mg/dL Calcium (8.4-10.2) mg/dL 11/26/19 11/26/19 11/26/19 Range/Units 17:53 18:49 19:53 RBC (4.30-5.90) m/uL Hgb (13.0-17.5) gm/dL Hct (39.0-53.0) % RDW (11.5-15.5) % Plt Count (150-450) k/uL ABG pH (7.35-7.45) ABG pCO2 (35-45) mmHg ABG pO2 (83-108) mmHg ABG HCO3 (21-25) mmol/L ABG Total CO2 (19-24) mmol/L Chloride (98-107) mmol/L BUN (9-20) mg/dL Glucose (74-99) mg/dL POC Glucose (mg/dL) 147 H 136 H 154 H (75-99) mg/dL Calcium (8.4-10.2) mg/dL 11/26/19 11/26/19 11/26/19 Range/Units 20:38 21:43 22:29 RBC (4.30-5.90) m/uL Hgb (13.0-17.5) gm/dL Hct (39.0-53.0) % RDW (11.5-15.5) % Plt Count (150-450) k/uL ABG pH (7.35-7.45) ABG pCO2 (35-45) mmHg ABG pO2 (83-108) mmHg ABG HCO3 (21-25) mmol/L ABG Total CO2 (19-24) mmol/L Chloride (98-107) mmol/L BUN (9-20) mg/dL Glucose (74-99) mg/dL POC Glucose (mg/dL) 168 H 166 H 161 H (75-99) mg/dL Calcium (8.4-10.2) mg/dL 11/26/19 11/27/19 11/27/19 Range/Units 23:38 00:32 01:41 RBC (4.30-5.90) m/uL Hgb (13.0-17.5) gm/dL Hct (39.0-53.0) % RDW (11.5-15.5) % Plt Count (150-450) k/uL ABG pH (7.35-7.45) ABG pCO2 (35-45) mmHg ABG pO2 (83-108) mmHg ABG HCO3 (21-25) mmol/L ABG Total CO2 (19-24) mmol/L Chloride (98-107) mmol/L BUN (9-20) mg/dL Glucose (74-99) mg/dL POC Glucose (mg/dL) 155 H 143 H 152 H (75-99) mg/dL Calcium (8.4-10.2) mg/dL 11/27/19 11/27/19 11/27/19 Range/Units 03:14 04:00 04:00 RBC 2.85 L (4.30-5.90) m/uL Hgb 8.5 L (13.0-17.5) gm/dL Hct 26.4 L (39.0-53.0) % RDW 16.5 H (11.5-15.5) % Plt Count 149 L (150-450) k/uL ABG pH (7.35-7.45) ABG pCO2 (35-45) mmHg ABG pO2 (83-108) mmHg ABG HCO3 (21-25) mmol/L ABG Total CO2 (19-24) mmol/L Chloride 112 H (98-107) mmol/L BUN 29 H (9-20) mg/dL Glucose 165 H (74-99) mg/dL POC Glucose (mg/dL) 170 H (75-99) mg/dL Calcium 8.1 L (8.4-10.2) mg/dL 11/27/19 11/27/19 11/27/19 Range/Units 04:02 05:07 05:20 RBC (4.30-5.90) m/uL Hgb (13.0-17.5) gm/dL Hct (39.0-53.0) % RDW (11.5-15.5) % Plt Count (150-450) k/uL ABG pH 7.31 L (7.35-7.45) ABG pCO2 53 H (35-45) mmHg ABG pO2 73 L (83-108) mmHg ABG HCO3 26 H (21-25) mmol/L ABG Total CO2 28 H (19-24) mmol/L Chloride (98-107) mmol/L BUN (9-20) mg/dL Glucose (74-99) mg/dL POC Glucose (mg/dL) 176 H 152 H (75-99) mg/dL Calcium (8.4-10.2) mg/dL 11/27/19 11/27/19 11/27/19 Range/Units 06:10 07:08 08:08 RBC (4.30-5.90) m/uL Hgb (13.0-17.5) gm/dL Hct (39.0-53.0) % RDW (11.5-15.5) % Plt Count (150-450) k/uL ABG pH (7.35-7.45) ABG pCO2 (35-45) mmHg ABG pO2 (83-108) mmHg ABG HCO3 (21-25) mmol/L ABG Total CO2 (19-24) mmol/L Chloride (98-107) mmol/L BUN (9-20) mg/dL Glucose (74-99) mg/dL POC Glucose (mg/dL) 151 H 167 H 168 H (75-99) mg/dL Calcium (8.4-10.2) mg/dL 11/27/19 11/27/19 11/27/19 Range/Units 09:00 10:07 11:02 RBC (4.30-5.90) m/uL Hgb (13.0-17.5) gm/dL Hct (39.0-53.0) % RDW (11.5-15.5) % Plt Count (150-450) k/uL ABG pH (7.35-7.45) ABG pCO2 (35-45) mmHg ABG pO2 (83-108) mmHg ABG HCO3 (21-25) mmol/L ABG Total CO2 (19-24) mmol/L Chloride (98-107) mmol/L BUN (9-20) mg/dL Glucose (74-99) mg/dL POC Glucose (mg/dL) 147 H 143 H 54 L (75-99) mg/dL Calcium (8.4-10.2) mg/dL 11/27/19 11/27/19 11/27/19 Range/Units 11:03 11:05 12:03 RBC (4.30-5.90) m/uL Hgb (13.0-17.5) gm/dL Hct (39.0-53.0) % RDW (11.5-15.5) % Plt Count (150-450) k/uL ABG pH (7.35-7.45) ABG pCO2 (35-45) mmHg ABG pO2 (83-108) mmHg ABG HCO3 (21-25) mmol/L ABG Total CO2 (19-24) mmol/L Chloride (98-107) mmol/L BUN (9-20) mg/dL Glucose (74-99) mg/dL POC Glucose (mg/dL) 154 H 168 H 164 H (75-99) mg/dL Calcium (8.4-10.2) mg/dL 11/27/19 11/27/19 11/27/19 Range/Units 12:59 14:02 14:58 RBC (4.30-5.90) m/uL Hgb (13.0-17.5) gm/dL Hct (39.0-53.0) % RDW (11.5-15.5) % Plt Count (150-450) k/uL ABG pH (7.35-7.45) ABG pCO2 (35-45) mmHg ABG pO2 (83-108) mmHg ABG HCO3 (21-25) mmol/L ABG Total CO2 (19-24) mmol/L Chloride (98-107) mmol/L BUN (9-20) mg/dL Glucose (74-99) mg/dL POC Glucose (mg/dL) 155 H 153 H 150 H (75-99) mg/dL Calcium (8.4-10.2) mg/dL Microbiology - Last 24 Hours (Table) 11/22/19 13:11 Blood Culture - Preliminary Blood No Growth after 120 hours 11/25/19 10:30 Gram Stain - Final Bronchial Washings - Right Bronchial Washings Culture - Final 11/25/19 10:30 Acid Fast Bacilli Smear - Final Bronchial Washings - Right Acid Fast Bacilli Culture - Preliminary
--- NOTE | 2019-11-27 15:51 | P.PN ---
Subjective Progress Note Date: 11/27/19 Principal diagnosis: pneumonia IN f/u today pt remains sedated and intubated Objective - Vital Signs Vital signs: Vital Signs Temp 97.7 F 11/27/19 12:00 Pulse 85 11/27/19 15:30 Resp 20 11/27/19 15:30 BP 81/51 11/25/19 17:45 Pulse Ox 100 11/27/19 15:00 Intake & Output 11/26/19 11/27/19 11/27/19 18:59 06:59 18:59 Intake Total 2308.797 2249.269 1591.566 Output Total 687 685 413 Balance 7920.253 3876.269 1178.566 Weight 87.1 kg Intake: IV 1539 1136 924 Piperacillin-Tazobactam 3 200 100 .375 gm In Sodium Chloride 0.9% 100 ml @ 25 mls/hr IVPB Q8HR [facility] Rx# :[id number] Sodium Chloride 0.9% 1, 1300 1100 800 000 ml @ 100 mls/hr IV . Q10H [facility] Rx#:[id number] pressure bag 39 36 24 Intake, IV Titration 545.797 745.269 539.566 Amount Insulin Regular 100 unit 11.446 23.450 19.594 In Sodium Chloride 0.9% 100 ml @ Per Protocol IV .Q0M [facility] Rx#:[id number] Propofol 1,000 mg In 284.351 346.819 269.972 Empty Bag 1 bag @ Titrate IV .Q0M [facility] Rx#: [id number] Vancomycin 1,500 mg In 250 Sodium Chloride 0.9% 250 ml @ 125 mls/hr IVPB Q12H [facility] Rx#:[id number] Vancomycin 1,500 mg In 250 375 Sodium Chloride 0.9% 250 ml @ 125 mls/hr IVPB Q8H [facility] Rx#:[id number] Tube Feeding 224 288 128 Other 80 Output: Urine 687 685 413 Other: Voiding Method Indwelling Catheter Indwelling Catheter Indwelling Catheter ABP, PAP, CO, CI - Last Documented Arterial Blood Pressure 89/43 - Constitutional General appearance: Present: average body habitus - EENT Eyes: Present: anicteric sclerae - Respiratory Respiratory: bilateral: diminished - Cardiovascular Heart sounds: normal: S1, S2 - Peripheral edema leg Peripheral Edema: bilateral: None - Gastrointestinal General gastrointestinal: Present: normal bowel sounds, soft - Musculoskeletal Musculoskeletal: Absent: gait normal, generalized weakness, strength equal bilaterally, right sided weakness, left sided weakness - Psychiatric Psychiatric: Absent: A&O x's 3, appropriate affect, intact judgment & insight - Labs CBC & Chem 7: 11/27/19 04:00 11/27/19 04:00 Labs: Abnormal Lab Results - Last 24 Hours (Table) 11/26/19 11/26/19 11/26/19 Range/Units 15:49 16:25 16:53 RBC (4.30-5.90) m/uL Hgb (13.0-17.5) gm/dL Hct (39.0-53.0) % RDW (11.5-15.5) % Plt Count (150-450) k/uL ABG pH (7.35-7.45) ABG pCO2 (35-45) mmHg ABG pO2 (83-108) mmHg ABG HCO3 (21-25) mmol/L ABG Total CO2 (19-24) mmol/L Chloride (98-107) mmol/L BUN (9-20) mg/dL Glucose (74-99) mg/dL POC Glucose (mg/dL) 194 H 161 H 148 H (75-99) mg/dL Calcium (8.4-10.2) mg/dL 11/26/19 11/26/19 11/26/19 Range/Units 17:53 18:49 19:53 RBC (4.30-5.90) m/uL Hgb (13.0-17.5) gm/dL Hct (39.0-53.0) % RDW (11.5-15.5) % Plt Count (150-450) k/uL ABG pH (7.35-7.45) ABG pCO2 (35-45) mmHg ABG pO2 (83-108) mmHg ABG HCO3 (21-25) mmol/L ABG Total CO2 (19-24) mmol/L Chloride (98-107) mmol/L BUN (9-20) mg/dL Glucose (74-99) mg/dL POC Glucose (mg/dL) 147 H 136 H 154 H (75-99) mg/dL Calcium (8.4-10.2) mg/dL 11/26/19 11/26/19 11/26/19 Range/Units 20:38 21:43 22:29 RBC (4.30-5.90) m/uL Hgb (13.0-17.5) gm/dL Hct (39.0-53.0) % RDW (11.5-15.5) % Plt Count (150-450) k/uL ABG pH (7.35-7.45) ABG pCO2 (35-45) mmHg ABG pO2 (83-108) mmHg ABG HCO3 (21-25) mmol/L ABG Total CO2 (19-24) mmol/L Chloride (98-107) mmol/L BUN (9-20) mg/dL Glucose (74-99) mg/dL POC Glucose (mg/dL) 168 H 166 H 161 H (75-99) mg/dL Calcium (8.4-10.2) mg/dL 11/26/19 11/27/19 11/27/19 Range/Units 23:38 00:32 01:41 RBC (4.30-5.90) m/uL Hgb (13.0-17.5) gm/dL Hct (39.0-53.0) % RDW (11.5-15.5) % Plt Count (150-450) k/uL ABG pH (7.35-7.45) ABG pCO2 (35-45) mmHg ABG pO2 (83-108) mmHg ABG HCO3 (21-25) mmol/L ABG Total CO2 (19-24) mmol/L Chloride (98-107) mmol/L BUN (9-20) mg/dL Glucose (74-99) mg/dL POC Glucose (mg/dL) 155 H 143 H 152 H (75-99) mg/dL Calcium (8.4-10.2) mg/dL 11/27/19 11/27/19 11/27/19 Range/Units 03:14 04:00 04:00 RBC 2.85 L (4.30-5.90) m/uL Hgb 8.5 L (13.0-17.5) gm/dL Hct 26.4 L (39.0-53.0) % RDW 16.5 H (11.5-15.5) % Plt Count 149 L (150-450) k/uL ABG pH (7.35-7.45) ABG pCO2 (35-45) mmHg ABG pO2 (83-108) mmHg ABG HCO3 (21-25) mmol/L ABG Total CO2 (19-24) mmol/L Chloride 112 H (98-107) mmol/L BUN 29 H (9-20) mg/dL Glucose 165 H (74-99) mg/dL POC Glucose (mg/dL) 170 H (75-99) mg/dL Calcium 8.1 L (8.4-10.2) mg/dL 11/27/19 11/27/19 11/27/19 Range/Units 04:02 05:07 05:20 RBC (4.30-5.90) m/uL Hgb (13.0-17.5) gm/dL Hct (39.0-53.0) % RDW (11.5-15.5) % Plt Count (150-450) k/uL ABG pH 7.31 L (7.35-7.45) ABG pCO2 53 H (35-45) mmHg ABG pO2 73 L (83-108) mmHg ABG HCO3 26 H (21-25) mmol/L ABG Total CO2 28 H (19-24) mmol/L Chloride (98-107) mmol/L BUN (9-20) mg/dL Glucose (74-99) mg/dL POC Glucose (mg/dL) 176 H 152 H (75-99) mg/dL Calcium (8.4-10.2) mg/dL 11/27/19 11/27/19 11/27/19 Range/Units 06:10 07:08 08:08 RBC (4.30-5.90) m/uL Hgb (13.0-17.5) gm/dL Hct (39.0-53.0) % RDW (11.5-15.5) % Plt Count (150-450) k/uL ABG pH (7.35-7.45) ABG pCO2 (35-45) mmHg ABG pO2 (83-108) mmHg ABG HCO3 (21-25) mmol/L ABG Total CO2 (19-24) mmol/L Chloride (98-107) mmol/L BUN (9-20) mg/dL Glucose (74-99) mg/dL POC Glucose (mg/dL) 151 H 167 H 168 H (75-99) mg/dL Calcium (8.4-10.2) mg/dL 11/27/19 11/27/19 11/27/19 Range/Units 09:00 10:07 11:02 RBC (4.30-5.90) m/uL Hgb (13.0-17.5) gm/dL Hct (39.0-53.0) % RDW (11.5-15.5) % Plt Count (150-450) k/uL ABG pH (7.35-7.45) ABG pCO2 (35-45) mmHg ABG pO2 (83-108) mmHg ABG HCO3 (21-25) mmol/L ABG Total CO2 (19-24) mmol/L Chloride (98-107) mmol/L BUN (9-20) mg/dL Glucose (74-99) mg/dL POC Glucose (mg/dL) 147 H 143 H 54 L (75-99) mg/dL Calcium (8.4-10.2) mg/dL 11/27/19 11/27/19 11/27/19 Range/Units 11:03 11:05 12:03 RBC (4.30-5.90) m/uL Hgb (13.0-17.5) gm/dL Hct (39.0-53.0) % RDW (11.5-15.5) % Plt Count (150-450) k/uL ABG pH (7.35-7.45) ABG pCO2 (35-45) mmHg ABG pO2 (83-108) mmHg ABG HCO3 (21-25) mmol/L ABG Total CO2 (19-24) mmol/L Chloride (98-107) mmol/L BUN (9-20) mg/dL Glucose (74-99) mg/dL POC Glucose (mg/dL) 154 H 168 H 164 H (75-99) mg/dL Calcium (8.4-10.2) mg/dL 11/27/19 11/27/19 11/27/19 Range/Units 12:59 14:02 14:58 RBC (4.30-5.90) m/uL Hgb (13.0-17.5) gm/dL Hct (39.0-53.0) % RDW (11.5-15.5) % Plt Count (150-450) k/uL ABG pH (7.35-7.45) ABG pCO2 (35-45) mmHg ABG pO2 (83-108) mmHg ABG HCO3 (21-25) mmol/L ABG Total CO2 (19-24) mmol/L Chloride (98-107) mmol/L BUN (9-20) mg/dL Glucose (74-99) mg/dL POC Glucose (mg/dL) 155 H 153 H 150 H (75-99) mg/dL Calcium (8.4-10.2) mg/dL Microbiology - Last 24 Hours (Table) 11/22/19 13:11 Blood Culture - Preliminary Blood No Growth after 120 hours 11/25/19 10:30 Gram Stain - Final Bronchial Washings - Right Bronchial Washings Culture - Final 11/25/19 10:30 Acid Fast Bacilli Smear - Final Bronchial Washings - Right Acid Fast Bacilli Culture - Preliminary - Imaging and Cardiology Chest x-ray: report reviewed Assessment and Plan (1) Pneumonia Narrative/Plan: Cont treatments per Pulmonary med and Critical Care Current Visit: Yes Status: Acute Priority: High Code(s): J18.9 - PNEUMONIA, UNSPECIFIED ORGANISM SNOMED Code(s): 819473228 (2) Hepatocellular carcinoma Current Visit: No Status: Chronic Priority: Medium Code(s): C22.0 - LIVER CELL CARCINOMA SNOMED Code(s): 436354365 (3) Lung cancer Current Visit: No Status: Chronic Priority: Medium Code(s): C34.90 - MALIGNANT NEOPLASM OF UNSP PART OF UNSP BRONCHUS OR LUNG SNOMED Code(s): 994422793 Plan: In regards to malignancy, it was not felt that pt has progression of disease at this time. Have sent CXR to Dr. Chicas for review at pt request. Will get opinion and recommendations from Dr. Chicas. plan is to meet/speak with pt tomorrow.
[2019-11-27] MEDS: LEVOFLOXACIN 750MG-D5W PMX 750 MG in DEXTROSE/WATER 1 150ML.BAG IVPB SCH (16:06)
[2019-11-27 16:17] LABS: Glucose,Whole Blood 161 mg/dL (75-99)
[2019-11-27 18:10] LABS: Glucose,Whole Blood 181 mg/dL (75-99)
[2019-11-27 20:12] LABS: Glucose,Whole Blood 160 mg/dL (75-99)
[2019-11-27] MEDS: INSULIN REGULAR 100 UNIT in SODIUM CHLORIDE 0.9% 100 ML IV SCH (20:33)
[2019-11-27] MEDS: ATORVASTATIN 40 MG TAB PO SCH (20:34)
[2019-11-27] MEDS: ASPIRIN 81 MG PO SCH (20:34)
[2019-11-27 22:00] LABS: Glucose,Whole Blood 171 mg/dL (75-99)
[2019-11-27] MEDS: CEFEPIME 2 GM in SODIUM CHLORIDE 0.9% 100 ML IVPB SCH (23:30)
--- NOTE | 2019-11-27 23:42 | P.CONS ---
History of Present Illness - Reason for Consult Consult date: 11/27/19 Pneumonia Requesting physician: Lori Laureano - Chief Complaint shortness of breath and cough x few days - History of Present Illness Patient is a 69-year-old male with a past medical he significant for non-small cell lung cancer stage IIIb initially diagnosed in 2016 and the patient status post chemoradiation completed August 2017 patient is currently on immunotherapy and apparently the patient did have overall improvement on the PET scan that was done August 2019 patient presented to [facility] ER on November 22, 2019 with a chief complaints of increasing shortness of breath and generalized not feeling well. The patient was seen for similar symptoms in the ER about 3 days prior to this admission for the patient was treated with oral Levaquin patient now complaining of weakness he was also hypoxic with O2 sats in 60% patient initially did have a chest x-ray with evidence of bilateral pneumonia he did have a fever on presented hospital with temperature of 101 F and did have a elevated white count of 12.2 patient has been admitted to the ICU patient has been intubated because of worsening respiratory status and the patient has been treated with vancomycin Zosyn and Levaquin patient did have bronchoscopy done November 25 with evidence of blood that was suctioned out significant purulent secretion on evidence of tumor the bronchoscopy cultures so far negative patient initially sputum culture on admission was negative as well as blood culture has been negative I was asked to see the patient today for further management of his antibiotics, history has been obtained from chart review the chart as the patient is currently intubated on the vent and does not report any history and no family member at the bedside. 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 Started as a teenager. Past Drug Use History: None Reported - Past Family History Father Family Medical History: Myocardial Infarction ([place]) Mother Family Medical History: Cancer Additional Family Medical History / Comment(s): Lung Medications and Allergies Home Medications Medication Instructions Recorded Confirmed Type Lisinopril [Zestril] 10 mg PO BID 11/11/17 11/22/19 History ALPRAZolam [Xanax] 0.5 mg PO Q8H PRN 08/21/18 11/22/19 History Clopidogrel Bisulfate [Plavix] 75 mg PO HS 08/21/18 11/22/19 History Metoprolol Tartrate [Lopressor] 100 mg PO BID 08/21/18 11/22/19 History Rosuvastatin [Crestor] 20 mg PO HS 08/21/18 11/22/19 History [place]-3 Fatty Acids/Fish Oil [Fish 1 cap PO BID 09/17/19 11/22/19 History Oil 1,000 mg Softgel] glipiZIDE [Glucotrol] 5 mg PO AC-BRKFST 09/17/19 11/22/19 History metFORMIN HCL [Glucophage] 500 mg PO BID 09/17/19 11/22/19 History Aspirin [Adult Low Dose Aspirin EC] 81 mg PO HS 09/19/19 11/22/19 History Levothyroxine Sodium [Synthroid] 200 mcg PO DAILY 09/19/19 11/22/19 History Multivitamin [Multivitamins Adult 1 tab PO DAILY 09/19/19 11/22/19 History Gummies] Tiotropium 18 Mcg/Puff [Spiriva] 1 puff INHALATION RT-DAILY 09/19/19 11/22/19 History amLODIPine BESYLATE [Norvasc] 10 mg PO DAILY 09/19/19 11/22/19 History predniSONE 10 mg PO DAILY 11/20/19 11/22/19 History Albuterol Nebulized [Ventolin 2.5 mg INHALATION RT-Q4H PRN 11/22/19 11/22/19 History Nebulized] HYDROcodone/APAP 10-325MG [[place] 1 tab PO Q6H PRN 11/22/19 11/22/19 History 10-325] Levofloxacin [Levaquin] 500 mg PO DAILY 11/22/19 11/22/19 History Zolpidem [Ambien] 5 - 10 mg PO HS PRN 11/22/19 11/22/19 History Allergies Allergy/AdvReac Type Severity Reaction Status Date / Time No Known Allergies Allergy Verified 11/22/19 14:46 Physical Exam Vitals: Vital Signs Temp Pulse Resp Pulse Ox 11/27/19 16:00 97.8 F 90 20 97 11/27/19 15:40 83 20 11/27/19 15:30 85 20 11/27/19 15:00 85 20 100 11/27/19 14:00 84 20 98 11/27/19 13:00 82 20 98 11/27/19 12:00 97.7 F 81 20 98 11/27/19 11:36 82 11/27/19 11:22 85 11/27/19 11:00 86 20 98 11/27/19 10:00 87 20 98 11/27/19 09:00 94 22 97 11/27/19 08:00 97.9 F 89 20 97 11/27/19 07:26 81 11/27/19 07:13 86 11/27/19 07:00 86 20 96 11/27/19 06:00 86 20 95 11/27/19 05:00 84 20 93 L 11/27/19 04:00 97.8 F 85 20 97 11/27/19 03:49 97 11/27/19 03:00 80 20 95 11/27/19 02:00 81 20 95 11/27/19 01:00 81 20 94 L 11/27/19 00:29 84 11/27/19 00:20 89 9 L 91 L 11/27/19 00:18 88 11/27/19 00:00 85 16 93 L 11/26/19 23:00 77 21 97 11/26/19 22:00 81 20 96 11/26/19 21:00 86 20 94 L 11/26/19 20:00 97.5 F L 84 21 96 11/26/19 19:50 80 11/26/19 19:30 80 11/26/19 19:00 78 21 96 11/26/19 18:00 80 21 96 11/26/19 17:00 83 21 95 Intake and Output 11/27/19 11/27/19 11/27/19 06:59 14:59 22:59 Intake Total 9630.554 0295.566 494.565 Output Total 465 358 115 Balance 626.845 7056.566 379.565 Intake: IV 927 821 306 Piperacillin-Tazobactam 3 100 100 .375 gm In Sodium Chloride 0.9% 100 ml @ 25 mls/hr IVPB Q8HR [facility] Rx# :[id number] Sodium Chloride 0.9% 1, 900 700 200 000 ml @ 100 mls/hr IV . Q10H [facility] Rx#:[id number] pressure bag 27 21 6 Intake, IV Titration 185.293 539.566 156.565 Amount Insulin Regular 100 unit 21.901 19.594 6.565 In Sodium Chloride 0.9% 100 ml @ Per Protocol IV .Q0M [facility] Rx#:[id number] Levofloxacin 750Mg-D5w 150 Pmx 750 mg In Dextrose/ Water 1 150ml.bag @ 100 mls/hr IVPB Q24H [facility] Rx#: [id number] Propofol 1,000 mg In 163.392 269.972 Empty Bag 1 bag @ Titrate IV .Q0M [facility] Rx#: [id number] Vancomycin 1,500 mg In 250 Sodium Chloride 0.9% 250 ml @ 125 mls/hr IVPB Q12H [facility] Rx#:[id number] Tube Feeding 224 128 32 Other 60 Output: Urine 465 358 115 Other: Voiding Method Indwelling Catheter Indwelling Catheter Indwelling Catheter Weight 87.1 kg ABP, PAP, CO, CI - Last 8 Hours Arterial Blood Pressure 111/45 Arterial Blood Pressure 89/43 Arterial Blood Pressure 103/45 Arterial Blood Pressure 108/47 Arterial Blood Pressure 97/44 Arterial Blood Pressure 98/42 Arterial Blood Pressure 101/43 Arterial Blood Pressure 93/44 GENERAL DESCRIPTION: Elderly male intubated on the vent, no distress. No tachypnea or accessory muscle of respiration use. HEENT: Shows Pallor , no scleral icterus. Oral mucous membrane could not be examined and the patient is orally intubated nECK: Trachea central, no thyromegaly. LUNGS: Unlabored breathing. Decreased breath sounds at bases. No wheeze or crackle. HEART: S1, S2, regular rate and rhythm. ABDOMEN: Soft, no tenderness , guarding or rigidity EXTREMITIES: No edema of feet. SKIN: No rash, no masses palpable. NEUROLOGICAL: The patient is sedated on the vent Results CBC & Chem 7: 11/27/19 04:00 11/27/19 04:00 Labs: Abnormal Lab Results - Last 24 Hours (Table) 11/26/19 11/26/19 11/26/19 Range/Units 17:53 18:49 19:53 RBC (4.30-5.90) m/uL Hgb (13.0-17.5) gm/dL Hct (39.0-53.0) % RDW (11.5-15.5) % Plt Count (150-450) k/uL ABG pH (7.35-7.45) ABG pCO2 (35-45) mmHg ABG pO2 (83-108) mmHg ABG HCO3 (21-25) mmol/L ABG Total CO2 (19-24) mmol/L Chloride (98-107) mmol/L BUN (9-20) mg/dL Glucose (74-99) mg/dL POC Glucose (mg/dL) 147 H 136 H 154 H (75-99) mg/dL Calcium (8.4-10.2) mg/dL 11/26/19 11/26/19 11/26/19 Range/Units 20:38 21:43 22:29 RBC (4.30-5.90) m/uL Hgb (13.0-17.5) gm/dL Hct (39.0-53.0) % RDW (11.5-15.5) % Plt Count (150-450) k/uL ABG pH (7.35-7.45) ABG pCO2 (35-45) mmHg ABG pO2 (83-108) mmHg ABG HCO3 (21-25) mmol/L ABG Total CO2 (19-24) mmol/L Chloride (98-107) mmol/L BUN (9-20) mg/dL Glucose (74-99) mg/dL POC Glucose (mg/dL) 168 H 166 H 161 H (75-99) mg/dL Calcium (8.4-10.2) mg/dL 11/26/19 11/27/19 11/27/19 Range/Units 23:38 00:32 01:41 RBC (4.30-5.90) m/uL Hgb (13.0-17.5) gm/dL Hct (39.0-53.0) % RDW (11.5-15.5) % Plt Count (150-450) k/uL ABG pH (7.35-7.45) ABG pCO2 (35-45) mmHg ABG pO2 (83-108) mmHg ABG HCO3 (21-25) mmol/L ABG Total CO2 (19-24) mmol/L Chloride (98-107) mmol/L BUN (9-20) mg/dL Glucose (74-99) mg/dL POC Glucose (mg/dL) 155 H 143 H 152 H (75-99) mg/dL Calcium (8.4-10.2) mg/dL 11/27/19 11/27/19 11/27/19 Range/Units 03:14 04:00 04:00 RBC 2.85 L (4.30-5.90) m/uL Hgb 8.5 L (13.0-17.5) gm/dL Hct 26.4 L (39.0-53.0) % RDW 16.5 H (11.5-15.5) % Plt Count 149 L (150-450) k/uL ABG pH (7.35-7.45) ABG pCO2 (35-45) mmHg ABG pO2 (83-108) mmHg ABG HCO3 (21-25) mmol/L ABG Total CO2 (19-24) mmol/L Chloride 112 H (98-107) mmol/L BUN 29 H (9-20) mg/dL Glucose 165 H (74-99) mg/dL POC Glucose (mg/dL) 170 H (75-99) mg/dL Calcium 8.1 L (8.4-10.2) mg/dL 11/27/19 11/27/19 11/27/19 Range/Units 04:02 05:07 05:20 RBC (4.30-5.90) m/uL Hgb (13.0-17.5) gm/dL Hct (39.0-53.0) % RDW (11.5-15.5) % Plt Count (150-450) k/uL ABG pH 7.31 L (7.35-7.45) ABG pCO2 53 H (35-45) mmHg ABG pO2 73 L (83-108) mmHg ABG HCO3 26 H (21-25) mmol/L ABG Total CO2 28 H (19-24) mmol/L Chloride (98-107) mmol/L BUN (9-20) mg/dL Glucose (74-99) mg/dL POC Glucose (mg/dL) 176 H 152 H (75-99) mg/dL Calcium (8.4-10.2) mg/dL 11/27/19 11/27/19 11/27/19 Range/Units 06:10 07:08 08:08 RBC (4.30-5.90) m/uL Hgb (13.0-17.5) gm/dL Hct (39.0-53.0) % RDW (11.5-15.5) % Plt Count (150-450) k/uL ABG pH (7.35-7.45) ABG pCO2 (35-45) mmHg ABG pO2 (83-108) mmHg ABG HCO3 (21-25) mmol/L ABG Total CO2 (19-24) mmol/L Chloride (98-107) mmol/L BUN (9-20) mg/dL Glucose (74-99) mg/dL POC Glucose (mg/dL) 151 H 167 H 168 H (75-99) mg/dL Calcium (8.4-10.2) mg/dL 11/27/19 11/27/19 11/27/19 Range/Units 09:00 10:07 11:02 RBC (4.30-5.90) m/uL Hgb (13.0-17.5) gm/dL Hct (39.0-53.0) % RDW (11.5-15.5) % Plt Count (150-450) k/uL ABG pH (7.35-7.45) ABG pCO2 (35-45) mmHg ABG pO2 (83-108) mmHg ABG HCO3 (21-25) mmol/L ABG Total CO2 (19-24) mmol/L Chloride (98-107) mmol/L BUN (9-20) mg/dL Glucose (74-99) mg/dL POC Glucose (mg/dL) 147 H 143 H 54 L (75-99) mg/dL Calcium (8.4-10.2) mg/dL 11/27/19 11/27/19 11/27/19 Range/Units 11:03 11:05 12:03 RBC (4.30-5.90) m/uL Hgb (13.0-17.5) gm/dL Hct (39.0-53.0) % RDW (11.5-15.5) % Plt Count (150-450) k/uL ABG pH (7.35-7.45) ABG pCO2 (35-45) mmHg ABG pO2 (83-108) mmHg ABG HCO3 (21-25) mmol/L ABG Total CO2 (19-24) mmol/L Chloride (98-107) mmol/L BUN (9-20) mg/dL Glucose (74-99) mg/dL POC Glucose (mg/dL) 154 H 168 H 164 H (75-99) mg/dL Calcium (8.4-10.2) mg/dL 11/27/19 11/27/19 11/27/19 Range/Units 12:59 14:02 14:58 RBC (4.30-5.90) m/uL Hgb (13.0-17.5) gm/dL Hct (39.0-53.0) % RDW (11.5-15.5) % Plt Count (150-450) k/uL ABG pH (7.35-7.45) ABG pCO2 (35-45) mmHg ABG pO2 (83-108) mmHg ABG HCO3 (21-25) mmol/L ABG Total CO2 (19-24) mmol/L Chloride (98-107) mmol/L BUN (9-20) mg/dL Glucose (74-99) mg/dL POC Glucose (mg/dL) 155 H 153 H 150 H (75-99) mg/dL Calcium (8.4-10.2) mg/dL 11/27/19 Range/Units 16:15 RBC (4.30-5.90) m/uL Hgb (13.0-17.5) gm/dL Hct (39.0-53.0) % RDW (11.5-15.5) % Plt Count (150-450) k/uL ABG pH (7.35-7.45) ABG pCO2 (35-45) mmHg ABG pO2 (83-108) mmHg ABG HCO3 (21-25) mmol/L ABG Total CO2 (19-24) mmol/L Chloride (98-107) mmol/L BUN (9-20) mg/dL Glucose (74-99) mg/dL POC Glucose (mg/dL) 161 H (75-99) mg/dL Calcium (8.4-10.2) mg/dL Microbiology - Last 24 Hours (Table) 11/22/19 13:11 Blood Culture - Preliminary Blood No Growth after 120 hours 11/25/19 10:30 Gram Stain - Final Bronchial Washings - Right Bronchial Washings Culture - Final 11/25/19 10:30 Acid Fast Bacilli Smear - Final Bronchial Washings - Right Acid Fast Bacilli Culture - Preliminary Assessment and Plan Assessment: patient presented to hospital with sepsis in this patient who did have a fever elevated white count source is likely pneumonia concern for possible community- acquired pathogen as the patient both sputum as well as blood culture has been negative for any resistant pathogen, patient to carry high risk of nephrotoxicity from combination of vancomycin and Zosyn the patient is currently on and we need to simplify his antibiotic therapy (1) Sepsis Current Visit: Yes Status: Acute Code(s): A41.9 - SEPSIS, UNSPECIFIED ORGANISM SNOMED Code(s): 86854574 (2) Pneumonia Current Visit: Yes Status: Acute Priority: High Code(s): J18.9 - PNEUMONIA, UNSPECIFIED ORGANISM SNOMED Code(s): 663285217 Plan: 1 discontinue the Zosyn and vancomycin- 2-start the patient cefepime 2 g every 24 continue with the Levaquin We will follow on clinical condition and cultures to further adjust medication if needed Thank you for this consultation we will follow the patient along with you Time with Patient: Greater than 30
[2019-11-27 23:50] LABS: Glucose,Whole Blood 160 mg/dL (75-99)
[2019-11-28] MEDS: PROPOFOL 1,000 MG in EMPTY BAG 1 BAG IV SCH ×3 (00:12→05:50)
[2019-11-28 01:39] LABS: Glucose,Whole Blood 176 mg/dL (75-99)
[2019-11-28] MEDS: HYDROmorphone 1 MG/ML 1 ML SYRINGE IVP PRN ×10 (02:32→23:23)
[2019-11-28] MEDS: SODIUM CHLORIDE 0.9% 1,000 ML IV SCH ×2 (02:32→12:26)
[2019-11-28] MEDS: IPRATROPIUM-ALBUTEROL 3 ML NEB INHALATION SCH ×5 (03:30→19:36)
[2019-11-28 04:11] LABS: Glucose,Whole Blood 163 mg/dL (75-99)
[2019-11-28 04:28] LABS: Anisocytosis Slight; HCT 28.6 % (39.0-53.0); Hypochromasia Moderate; MCH 29.3 pg (25.0-35.0); MCHC 31.5 g/dL (31.0-37.0); Mean Platelet Volume 7.6; Platelet Count 134 k/uL (150-450); Poikilocytosis Moderate; RBC 3.07 m/uL (4.30-5.90); RDW 16.6 % (11.5-15.5); WBC 8.2 k/uL (3.8-10.6)
[2019-11-28 04:35] LABS: African American GFR (CKD) >90 (>60 ml/min/1.73 sqM); Anion Gap 1 mmol/L; Blood Urea Nitrogen 34 mg/dL (9-20); Calcium 8.1 mg/dL (8.4-10.2); Carbon Dioxide 26 mmol/L (22-30); Chloride 115 mmol/L (98-107); Glucose 157 mg/dL (74-99); Non-African American GFR(CKD) >90 (>60 ml/min/1.73 sqM); Potassium 4.4 mmol/L (3.5-5.1); Sodium 142 mmol/L (137-145)
[2019-11-28 05:14] LABS: ABG Base Excess -0.2 mmol/L; ABG HCO3 26 mmol/L (21-25); ABG Oxygen Saturation 98.3 % (94-97); ABG PCO2 50 mmHg (35-45); ABG PH 7.32 (7.35-7.45); ABG PO2 95 mmHg (83-108); ABG TCO2 27 mmol/L (19-24); Allen Test Performed? Yes
[2019-11-28] MEDS: LEVOTHYROXINE 100 MCG TAB PO SCH (05:32)
[2019-11-28 05:43] LABS: Glucose,Whole Blood 180 mg/dL (75-99)
[2019-11-28] MEDS ORDERED: FUROSEMIDE 10 MG/ML 4 ML VIAL IV STA (06:25)
--- NOTE | 2019-11-28 07:51 | XR ---
EXAMINATION TYPE: XR chest 1V portable DATE OF EXAM: 11/28/2019 CLINICAL HISTORY: Difficulty breathing progress study. TECHNIQUE: Single AP portable upright view of the chest is obtained. COMPARISON: Chest x-ray from one day earlier and older studies. PET/CT September 01, 2019. FINDINGS: : Stable endotracheal tube and orogastric tube. Stable left internal jugular central veno us catheter . Overlying EKG leads redemonstrated. Background chronic emphysematous change with elevated left hemidiaphragm redemonstrated. Diffuse righ t lung interstitial opacity with right suprahilar lateral masslike consolidation redemonstrated. Some left-sided volume loss with mediastinal shift redemonstrated. Cardiac silhouette size stable and upp er limits of normal with atherosclerotic aorta. Abnormal left paraaortic soft tissue density or mass again seen. Obstructive Left upper lung atelectatic changes redemonstrated. Underlying scoliotic curv ature in the spine. IMPRESSION: Overall stable findings, left suprahilar mass or neoplasm on background chronic emphyse matous change with left-sided volume loss. Diffuse right lung edema and/or infiltrates with more foca l right upper lung masslike consolidation. Probable small bilateral pleural effusions. No significant change from one day earlier.
[2019-11-28 08:00] LABS: Glucose,Whole Blood 136 mg/dL (75-99)
--- NOTE | 2019-11-28 08:25 | PN ---
PROGRESS NOTE PULMONARY/CRITICAL CARE PROGRESS NOTE: DATE OF SERVICE: November 28, 2019 CRITICAL CARE TIME: 36 minutes. This is a 69-year-old male who was admitted back on November 22. He came to the ICU on the and was intubated on the for acute hypoxemic respiratory failure. His initial admission diagnosis was that of lung cancer, COPD exacerbation and possible pneumonia. The patient was seen by Dr. Arteaga initially and then me beginning on Tuesday. The patient was thought to have bilateral pneumonia and hemoptysis and underwent bronchoscopy on the . Cytology from that bronch result is currently negative, but microbiology is still pending or negative. Anyway, the patient has been here in the ICU. Initially requiring higher concentrations of oxygen and higher PEEP levels. Currently, he is on the volume assist-control mode rate of 20, tidal volume 450, FiO2 of 50%, PEEP of 8. Blood gases are very reasonable with a pO2 of 95, pCO2 of 50, pH is 7.32. He is getting saline at 100 mL an hour to be turned down to 43 mL an hour, propofol at 60 mcg/kg per minute, insulin at 8 units an hour and Vital high- protein at 32 with a goal of 32 mL an hour. The patient is way ahead on fluids. He will get Lasix 40 mg IV push and the IV was turned down. Microbiology thus far has been negative. Cytology and bronch washes were negative. The patient will have a daily interruption of sedation and spontaneous breathing trial today on PSV 8, CPAP of 5. I have been having ongoing discussions with the family including Ilda, his , who is a former ICU nurse here at this hospital. Currently, the patient remains a FULL CODE. PHYSICAL EXAMINATION: VITAL SIGNS: Current vital signs are reviewed. Temperature is 98.3, heart rate 80, respiratory rate 20, blood pressure 116/63, mean 80, and saturations are 98%. That is on 50% and 8 of PEEP. GENERAL: Appears in no acute distress, currently sedated heavily. HEENT: Examination is grossly unremarkable. There is an orally placed endotracheal tube and NG tube. NECK: Supple. Full range of motion. No adenopathy, thyromegaly or neck vein distention. CARDIOVASCULAR: Examination reveals regular rhythm and rate. Heart rate 80. S1, S2 normal. Heart sounds are distant. LUNGS: Reveal diffuse coarse rhonchi. Breath sounds equal. A few crackles. No wheezes. ABDOMEN: Soft. Bowel sounds are heard. EXTREMITIES: Are intact. Mild edema. SKIN: Without rash. NEUROLOGIC: Examination is difficult to assess given his current level of sedation. Microbiology thus far is negative including bronch washings, blood and sputum sampling. As I mentioned, cytology from the bronchoscopy was negative. White count 8.2, hemoglobin 9, hematocrit 28.6, platelet count 134,000. Sodium and potassium normal. Chloride 115, CO2 is 26. BUN and creatinine were 34 and 0.68. Chest x-ray shows a similar findings. There is a mass in the right chest and diffuse interstitial changes in the right chest as well. There is also volume loss in the left base with a left-sided pleural effusion and volume loss and mass in the left upper lobe. Tubes and lines look fine. Current laboratory data includes a white count 8.2, hemoglobin 9, hematocrit 28.6, platelet count 134,000. Blood gases have been noted. Sodium 142, potassium 4.4, chloride 115, CO2 is 26. Anion gap is 1. BUN and creatinine were 34 and 0.68. MEDICATIONS: Medications are reviewed. He is currently on aspirin, Lipitor, cefepime, chlorhexidine, Dilaudid, insulin, DuoNeb, Levaquin, levothyroxine, magnesium replacement, Solu-Medrol, metoprolol, Protonix, and propofol. ASSESSMENT: 1. Acute hypoxemic respiratory failure secondary to underlying pneumonia and/or bronchogenic carcinoma with intubation on the and bronchoscopy on the same day, which was negative cytologically. 2. Stage IIIB non-small cell lung cancer/squamous cell carcinoma, diagnosed in 2017, status post chemo/radiation and more recently immunotherapy in 2018. 3. Recurrent hemoptysis, secondary to lung cancer, improved. 4. Stage IIIB non-small cell lung cancer/squamous cell type, as mentioned above. 5. Chronic interstitial changes, right lung, which may represent fluid, pneumonia, lymphangitic carcinomatosis, or radiation changes. 6. History of coronary artery disease with previous stenting. 7. History of non ST-segment elevation myocardial infarction. 8. Moderate/stage 2 chronic obstructive pulmonary disease, with FEV1 60% of predicted. 9. Type 2 diabetes mellitus. 10.History of Hodgkin lymphoma. 11.History of hypothyroidism. 12.Benign essential hypertension. 13.Hyperlipidemia. 14.Prior history of tobacco use. 15.History of hepatic carcinoma, status post surgical excision. 16.Status post bronchoscopy and BAL, November 25, 2019. PLAN: The patient will have a daily interruption of sedation and potential spontaneous breathing trial today. We will go with pressure support of 8 and CPAP of 5. The patient's 0.9 IV is turned down to 43 mL an hour from 100 mL an hour. We will hold the Diprivan of course when we do the DIS. The patient remains on 8 units of insulin per hour. The patient is getting tube feeds with Vital high-protein at goal. The patient will get Lasix 40 mg IV push. Microbiology thus far is negative. Bronch washes were negative. Microbiologically and cytologically were negative as well. We will continue to follow. He is currently on cefepime and Levaquin. Overall prognosis remains guarded. CRITICAL CARE TIME: 36 minutes. KAM / JESUS: [id number] /
[2019-11-28] MEDS: methylPREDNISolone SOD SUCCI 40 MG/ML 1 ML VIAL IV SCH ×2 (08:41→16:30)
[2019-11-28] MEDS: PANTOPRAZOLE 40 MG/10 ML VIAL IVP SCH (08:41)
[2019-11-28] MEDS: METOPROLOL TARTRATE 50 MG TAB PO SCH ×2 (08:41→20:11)
[2019-11-28] MEDS: CHLORHEXIDINE GLUCONATE 15 ML CUP MUCOUS MEM SCH (08:41)
[2019-11-28] MEDS ORDERED: VANCOMYCIN TROUGH DUE 1 EACH MISC MISCELLANE ONE (09:00)
[2019-11-28 09:04] LABS: ABG Base Excess 2.1 mmol/L; ABG HCO3 28 mmol/L (21-25); ABG Oxygen Saturation 95.5 % (94-97); ABG PCO2 53 mmHg (35-45); ABG PH 7.33 (7.35-7.45); ABG PO2 76 mmHg (83-108); ABG TCO2 30 mmol/L (19-24)
[2019-11-28 09:25] LABS: Glucose,Whole Blood 135 mg/dL (75-99)
--- NOTE | 2019-11-28 09:57 | CDI ---
Documentation Clarification Form Date: 11/28/2019 08:51:00 AM From: Ping Morales RN, CCDS Admit Date: 11/22/2019 03:42:00 PM Patient Name: Jareth Savage Visit Number: [id number] Discharge Date: ATTENTION: The Clinical Documentation Specialists (CDI) and [facility] Coding Staff appreciate your assistance in clarifying documentation. Please respond to the clarification below the line at the bottom and electronically sign. The CDI & [facility] Coding staff will review the response and follow-up if needed. Please note: Queries are made part of the Legal Health Record. If you have any questions, please contact the author of this message via ITS. Dr. Noman Stephens Documentation states: Recurrent hemoptysis secondary to lung cancer on 11/26/19 and subsequent progress notes, with decreasing hemoglobin from admission. History/Risk Factors: Hepatocellular cancer, Squamous cell carcinoma left upper lobe bronchus, Hemoptysis Hodgkin's lymphoma, Clinical indicators: present on 11/22/19 with complaint of worsening shortness of breath, occasional hemoptysis, fevers, chills x2 days. 11/25/19 Pulmonary (Dr. Cleveland) Recurrent hemoptysis, most likely secondary to blood thinners/Plavix, plus pneumonia, plus bronchogenic carcinoma. Labs drawn daily: 11/22/19 HGB 11.0, HCT 32.5 11/23/19 HGB 9.8 HCT 29.1 11/24/19 HGB 9.5 HCT 28.8 11/26/19 HGB 8.5 HCT 25.5 Treatment: Monitor CBC daily Holding Plavix Protonix 40 mg IVP daily IV .9% @ 43 mls/hr 11/25/19 Bronchoscopy and bronchoalveolar lavage of the right upper lobe, right middle lobe and right lower lobe, there was a significant amount of blood noted and a good size blood clot that was lavaged and suctioned. per operative report no evidence of active bleeding. Clinical significance of diagnostic testing and treatment CANNOT be assumed or coded without physician documentation of significance if any for the decrease in the patient hemoglobin. Please clarify what abnormal hemoglobin signifies: Disease process, please specify Abnormal Lab Value Unable to determine Other, please specify (Last Revision: August 2017) MTDD
[2019-11-28] MEDS ORDERED: INSULIN ASPART (NovoLOG) 100 UNIT/ML VIAL SQ SCH (10:00)
[2019-11-28] MEDS: CEFEPIME 2 GM in SODIUM CHLORIDE 0.9% 100 ML IVPB SCH ×2 (10:50→23:24)
[2019-11-28 11:53] LABS: Allen Test Performed? no
[2019-11-28 12:06] LABS: Glucose,Whole Blood 181 mg/dL (75-99)
[2019-11-28] MEDS: INSULIN ASPART (NovoLOG) 100 UNIT/ML VIAL SQ SCH ×3 (12:24→20:10)
--- NOTE | 2019-11-28 12:41 | P.PN ---
Subjective Progress Note Date: 11/28/19 Principal diagnosis: pneumonia In f/u today pt was recently extubated, he is alert and answering questions appropriately, breathing is slightly uncomfortable, he is tired, throat is sore and mouth is dry, no pain Objective - Vital Signs Vital signs: Vital Signs Temp 97.4 F L 11/28/19 08:00 Pulse 97 11/28/19 11:00 Resp 15 11/28/19 11:00 BP 116/63 11/28/19 07:00 Pulse Ox 97 11/28/19 11:00 Intake & Output 11/27/19 11/28/19 11/28/19 18:59 06:59 18:59 Intake Total 2429.787 2348.354 394.596 Output Total 872 870 3002 Balance 7344.159 6258.354 -1380.404 Weight 92 kg 92 kg Intake: IV 1436 1516 276 Cefepime 2 gm In Sodium 100 Chloride 0.9% 100 ml @ 200 mls/hr IVPB Q12H [facility] Rx#:[id number] Piperacillin-Tazobactam 3 200 .375 gm In Sodium Chloride 0.9% 100 ml @ 25 mls/hr IVPB Q8HR [facility] Rx# :[id number] Sodium Chloride 0.9% 1, 1200 1100 258 000 ml @ 43 mls/hr IV . [id number] [facility] Rx#:[id number] Vancomycin 1,500 mg In 250 Sodium Chloride 0.9% 250 ml @ 125 mls/hr IVPB Q12H [facility] Rx#:[id number] pressure bag 36 66 18 Intake, IV Titration 801.787 390.354 86.596 Amount Insulin Regular 100 unit 31.815 50.989 19.123 In Sodium Chloride 0.9% 100 ml @ Per Protocol IV .Q0M [facility] Rx#:[id number] Levofloxacin 750Mg-D5w 150 Pmx 750 mg In Dextrose/ Water 1 150ml.bag @ 100 mls/hr IVPB Q24H [facility] Rx#: [id number] Propofol 1,000 mg In 369.972 339.365 67.473 Empty Bag 1 bag @ Titrate IV .Q0M [facility] Rx#: [id number] Vancomycin 1,500 mg In 250 Sodium Chloride 0.9% 250 ml @ 125 mls/hr IVPB Q12H [facility] Rx#:[id number] Tube Feeding 192 352 32 Other 90 Output: Urine 468 422 9148 Other: Voiding Method Indwelling Catheter Indwelling Catheter Indwelling Catheter ABP, PAP, CO, CI - Last Documented Arterial Blood Pressure 177/74 - Constitutional General appearance: Present: average body habitus, cooperative, mild distress - EENT Eyes: Present: anicteric sclerae, EOMI ENT: Present: hearing grossly normal - Respiratory Respiratory: left: rales, bilateral: diminished, prolonged expiration - Cardiovascular Rhythm: regular Heart sounds: normal: S1, S2 Abnormal Heart Sounds: Absent: systolic murmur, diastolic murmur, rub, S3 Gallop, S4 Gallop, click, other - Peripheral edema leg Peripheral Edema: bilateral: None - Gastrointestinal General gastrointestinal: Present: normal bowel sounds, soft - Neurologic Neurologic: Present: CNII-XII intact - Musculoskeletal Musculoskeletal: Present: generalized weakness - Psychiatric Psychiatric: Present: A&O x's 3, appropriate affect, intact judgment & insight - Labs CBC & Chem 7: 11/28/19 04:10 11/28/19 04:10 Labs: Abnormal Lab Results - Last 24 Hours (Table) 11/27/19 11/27/19 11/27/19 Range/Units 12:59 14:02 14:58 RBC (4.30-5.90) m/uL Hgb (13.0-17.5) gm/dL Hct (39.0-53.0) % RDW (11.5-15.5) % Plt Count (150-450) k/uL ABG pH (7.35-7.45) ABG pCO2 (35-45) mmHg ABG pO2 (83-108) mmHg ABG HCO3 (21-25) mmol/L ABG Total CO2 (19-24) mmol/L ABG O2 Saturation (94-97) % Chloride (98-107) mmol/L BUN (9-20) mg/dL Glucose (74-99) mg/dL POC Glucose (mg/dL) 155 H 153 H 150 H (75-99) mg/dL Calcium (8.4-10.2) mg/dL 11/27/19 11/27/19 11/27/19 Range/Units 16:15 18:08 20:11 RBC (4.30-5.90) m/uL Hgb (13.0-17.5) gm/dL Hct (39.0-53.0) % RDW (11.5-15.5) % Plt Count (150-450) k/uL ABG pH (7.35-7.45) ABG pCO2 (35-45) mmHg ABG pO2 (83-108) mmHg ABG HCO3 (21-25) mmol/L ABG Total CO2 (19-24) mmol/L ABG O2 Saturation (94-97) % Chloride (98-107) mmol/L BUN (9-20) mg/dL Glucose (74-99) mg/dL POC Glucose (mg/dL) 161 H 181 H 160 H (75-99) mg/dL Calcium (8.4-10.2) mg/dL 11/27/19 11/27/19 11/28/19 Range/Units 21:59 23:49 01:37 RBC (4.30-5.90) m/uL Hgb (13.0-17.5) gm/dL Hct (39.0-53.0) % RDW (11.5-15.5) % Plt Count (150-450) k/uL ABG pH (7.35-7.45) ABG pCO2 (35-45) mmHg ABG pO2 (83-108) mmHg ABG HCO3 (21-25) mmol/L ABG Total CO2 (19-24) mmol/L ABG O2 Saturation (94-97) % Chloride (98-107) mmol/L BUN (9-20) mg/dL Glucose (74-99) mg/dL POC Glucose (mg/dL) 171 H 160 H 176 H (75-99) mg/dL Calcium (8.4-10.2) mg/dL 11/28/19 11/28/19 11/28/19 Range/Units 04:09 04:10 04:10 RBC 3.07 L (4.30-5.90) m/uL Hgb 9.0 L (13.0-17.5) gm/dL Hct 28.6 L (39.0-53.0) % RDW 16.6 H (11.5-15.5) % Plt Count 134 L (150-450) k/uL ABG pH (7.35-7.45) ABG pCO2 (35-45) mmHg ABG pO2 (83-108) mmHg ABG HCO3 (21-25) mmol/L ABG Total CO2 (19-24) mmol/L ABG O2 Saturation (94-97) % Chloride 115 H (98-107) mmol/L BUN 34 H (9-20) mg/dL Glucose 157 H (74-99) mg/dL POC Glucose (mg/dL) 163 H (75-99) mg/dL Calcium 8.1 L (8.4-10.2) mg/dL 11/28/19 11/28/19 11/28/19 Range/Units 05:10 05:41 07:59 RBC (4.30-5.90) m/uL Hgb (13.0-17.5) gm/dL Hct (39.0-53.0) % RDW (11.5-15.5) % Plt Count (150-450) k/uL ABG pH 7.32 L (7.35-7.45) ABG pCO2 50 H (35-45) mmHg ABG pO2 (83-108) mmHg ABG HCO3 26 H (21-25) mmol/L ABG Total CO2 27 H (19-24) mmol/L ABG O2 Saturation 98.3 H (94-97) % Chloride (98-107) mmol/L BUN (9-20) mg/dL Glucose (74-99) mg/dL POC Glucose (mg/dL) 180 H 136 H (75-99) mg/dL Calcium (8.4-10.2) mg/dL 11/28/19 11/28/19 11/28/19 Range/Units 09:00 09:24 12:05 RBC (4.30-5.90) m/uL Hgb (13.0-17.5) gm/dL Hct (39.0-53.0) % RDW (11.5-15.5) % Plt Count (150-450) k/uL ABG pH 7.33 L (7.35-7.45) ABG pCO2 53 H (35-45) mmHg ABG pO2 76 L (83-108) mmHg ABG HCO3 28 H (21-25) mmol/L ABG Total CO2 30 H (19-24) mmol/L ABG O2 Saturation (94-97) % Chloride (98-107) mmol/L BUN (9-20) mg/dL Glucose (74-99) mg/dL POC Glucose (mg/dL) 135 H 181 H (75-99) mg/dL Calcium (8.4-10.2) mg/dL Microbiology - Last 24 Hours (Table) 11/22/19 13:11 Blood Culture - Preliminary Blood No Growth after 120 hours 11/25/19 10:30 Gram Stain - Final Bronchial Washings - Right Bronchial Washings Culture - Final - Imaging and Cardiology Chest x-ray: report reviewed Assessment and Plan (1) Pneumonia Narrative/Plan: Cont treatments per Pulmonary med and Critical Care CXR reports stable Current Visit: Yes Status: Acute Priority: High Code(s): J18.9 - PNE UMONIA, UNSPECIFIED ORGANISM SNOMED Code(s): 281533414 (2) Hepatocellular carcinoma Current Visit: No Status: Chronic Priority: Medium Code(s): C22.0 - LIVER CELL CARCINOMA SNOMED Code(s): 561379386 (3) Lung cancer Current Visit: No Status: Chronic Priority: Medium Code(s): C34.90 - MALIGNANT NEOPLASM OF UNSP PART OF UNSP BRONCHUS OR LUNG SNOMED Code(s): 722177189 Plan: In regards to malignancy, it was not felt that pt has progression of disease at this time. Dr. Chicas reviewed most recent CXR and is not convinced of a malignant process. He agrees with continuing treatment and supportive care of pneumonia.
[2019-11-28] MEDS ORDERED: cloNIDine 0.2 MG/24HR PATCH TRANSDERM SCH (13:00)
[2019-11-28] MEDS: CLEVIDIPINE BUTYRATE 25 MG in EMPTY BAG 1 BAG IV SCH ×5 (14:40→22:07)
[2019-11-28 16:27] LABS: Glucose,Whole Blood 182 mg/dL (75-99)
[2019-11-28] MEDS: amLODIPine 10 MG TAB PO SCH (16:30)
[2019-11-28] MEDS: LEVOFLOXACIN 750MG-D5W PMX 750 MG in DEXTROSE/WATER 1 150ML.BAG IVPB SCH (16:31)
--- NOTE | 2019-11-28 17:00 | P.PN ---
Subjective Progress Note Date: 11/28/19 This is a 69 year old gentleman with history of underlying left sided lung cancer, hyperlipidemia, hypertension, thyroid disorder, hepatitis C, Hodgkin's lymphoma and squamous cell-completed radiation and chemo, former nicotine dependence returned to the ER with complaints of worsening shortness of breath, occasional hemoptysis, fevers, chills 2 days. Patient initially had come into ER 3 days ago, placed on Levaquin and discharged home. Chest x-ray on admission reported bilateral pulmonary masses with bibasilar consolidation, underlying pneumonia, interstitial pneumonitis. Right upper lobe mass noted at 4.2 cm, additional masses identified within the suprahilar region measuring 5.8 x 5.8 cm. follow-up chest x-ray this morning reporting worsening left apical infiltrate, correlate for pneumonia, right upper lobe infiltrate, developing mass possible, underlying left upper lobe lung cancer. EKG reported sinus tachycardia, left atrial enlargement. T-max 101, WBC 12.2-now down to 11.8. Hemoglobin 9.8, BUN 26, creatinine 0.76. Blood sugars elevated 230-350s. O2 sat on admission 69% on room air, placed on nonrebreather, currently maintaining O2 sats in the low 90s on 6 L nasal cannula. IV antibiotics of Zosyn and Levaquin initiated in addition to nebulized bronchodilators and IV fluid hydration. Pulmonary and oncology consulted. 11/26/2019 until yesterday morning patient developed worsening hypoxia, sinus tachycardia, patient was transferred to ICU and intubated. Converted and r emains in sinus rhythm. Maintained on mechanical ventilation, FiO2 down to 50, PEEP up to +8. Continues on diprovan, IV fluids and IV antibiotics. Underwent bronchoscopy yesterday, cytology, cultures pending. Afebrile. Echo reportedly mild concentric hypertrophy, EF 60-65%, moderate to severe tricuspid regurgitation, severe pulmonary hypertension . Chest x-ray noted. Tolerating tube feeds at goal with minimal to no residuals. 11/27/2019 remains vent dependent, FiO2 50%/+8 of PEEP. ABGs noted. Chest x- ray reporting interval progression of the disease involving left lung apex, diffuse pleural-progression of changes, correlate for pulmonary mass. Maintained on IV fluids ,diprovan, Dilaudid. Blood pressure marginal, map 55. No weaning trials recommended today.Tolerating tube feeds at goal with minimal to no residual. Blood sugars controlled on insulin drip. Bronc cultures, cytology pending. Continues on Zosyn, Levaquin, vancomycin. Creatinine 0.7. Afebrile, WBC 10. 11/28/2019 Consulted infectious disease, antibiotics adjusted. Currently on cefepime and Levaquin.Bronchoscopy cytology reporting no malignant cells identified. Bronchoscopy washings, cultures currently negative, fungal culture pending. Afebrile, normal WBC. Chest x-ray reporting stable, no significant change from yesterday's x-ray; left suprahilar mass or neoplasm on background, chronic emphysematous change with left-sided volume loss, diffuse right lung edema and/or infiltrates with more focal right upper lung masslike consolidation, small bilateral pleural effusions. Recently extubated, requiring 60% high flow, being transitioned to airvo. Currently nothing by mouth, blood sugars ranging 130s to 140s. Hemoglobin 9. Objective - Vital Signs Vital signs: Vital Signs Temp 97.4 F L 11/28/19 08:00 Pulse 97 11/28/19 11:00 Resp 15 11/28/19 11:00 BP 116/63 11/28/19 07:00 Pulse Ox 97 11/28/19 11:00 Intake & Output 11/27/19 11/28/19 11/28/19 18:59 06:59 18:59 Intake Total 2429.787 2348.354 348.596 Output Total 898 745 9913 Balance 5596.758 5181.354 -1276.404 Weight 92 kg 92 kg Intake: IV 1436 1516 230 Cefepime 2 gm In Sodium 100 Chloride 0.9% 100 ml @ 200 mls/hr IVPB Q12H [facility] Rx#:[id number] Piperacillin-Tazobactam 3 200 .375 gm In Sodium Chloride 0.9% 100 ml @ 25 mls/hr IVPB Q8HR [facility] Rx# :[id number] Sodium Chloride 0.9% 1, 1200 1100 215 000 ml @ 43 mls/hr IV . [id number] [facility] Rx#:[id number] Vancomycin 1,500 mg In 250 Sodium Chloride 0.9% 250 ml @ 125 mls/hr IVPB Q12H [facility] Rx#:[id number] pressure bag 36 66 15 Intake, IV Titration 801.787 390.354 86.596 Amount Insulin Regular 100 unit 31.815 50.989 19.123 In Sodium Chloride 0.9% 100 ml @ Per Protocol IV .Q0M [facility] Rx#:[id number] Levofloxacin 750Mg-D5w 150 Pmx 750 mg In Dextrose/ Water 1 150ml.bag @ 100 mls/hr IVPB Q24H [facility] Rx#: [id number] Propofol 1,000 mg In 369.972 339.365 67.473 Empty Bag 1 bag @ Titrate IV .Q0M [facility] Rx#: [id number] Vancomycin 1,500 mg In 250 Sodium Chloride 0.9% 250 ml @ 125 mls/hr IVPB Q12H [facility] Rx#:[id number] Tube Feeding 192 352 32 Other 90 Output: Urine 143 548 8372 Other: Voiding Method Indwelling Catheter Indwelling Catheter Indwelling Catheter ABP, PAP, CO, CI - Last Documented Arterial Blood Pressure 177/74 - Exam VITAL SIGNS: [As above] GENERAL: Sitting up in bed, extubated HEENT: Conjunctivae normal. eyes normal. NECK: No JVD. No thyroid enlargement. No LNs CARDIOVASCULAR: S1, S2 regular. No murmur RESPIRATION: Breath sounds diminished in the bases. Scattered rhonchi, and occasional expiratory wheezing. ABDOMEN: Soft, nontender . No guarding. no masses palpable. No ascites, No hepatosplenomegaly.Bowel sounds heard. LEGS: mild edema. PSYCHIATRY: Alert and oriented X3, mood and affect normal. NERVOUS SYSTEM: Cranial nerves II through XII grossly intact, moving all extremities. Generalized diffuse weakness .No focal deficits Skin: no rash - Labs CBC & Chem 7: 11/28/19 04:10 11/28/19 04:10 Labs: Abnormal Lab Results - Last 24 Hours (Table) 11/27/19 11/27/19 11/27/19 Range/Units 12:03 12:59 14:02 RBC (4.30-5.90) m/uL Hgb (13.0-17.5) gm/dL Hct (39.0-53.0) % RDW (11.5-15.5) % Plt Count (150-450) k/uL ABG pH (7.35-7.45) ABG pCO2 (35-45) mmHg ABG HCO3 (21-25) mmol/L ABG Total CO2 (19-24) mmol/L ABG O2 Saturation (94-97) % Chloride (98-107) mmol/L BUN (9-20) mg/dL Glucose (74-99) mg/dL POC Glucose (mg/dL) 164 H 155 H 153 H (75-99) mg/dL Calcium (8.4-10.2) mg/dL 11/27/19 11/27/19 11/27/19 Range/Units 14:58 16:15 18:08 RBC (4.30-5.90) m/uL Hgb (13.0-17.5) gm/dL Hct (39.0-53.0) % RDW (11.5-15.5) % Plt Count (150-450) k/uL ABG pH (7.35-7.45) ABG pCO2 (35-45) mmHg ABG HCO3 (21-25) mmol/L ABG Total CO2 (19-24) mmol/L ABG O2 Saturation (94-97) % Chloride (98-107) mmol/L BUN (9-20) mg/dL Glucose (74-99) mg/dL POC Glucose (mg/dL) 150 H 161 H 181 H (75-99) mg/dL Calcium (8.4-10.2) mg/dL 11/27/19 11/27/19 11/27/19 Range/Units 20:11 21:59 23:49 RBC (4.30-5.90) m/uL Hgb (13.0-17.5) gm/dL Hct (39.0-53.0) % RDW (11.5-15.5) % Plt Count (150-450) k/uL ABG pH (7.35-7.45) ABG pCO2 (35-45) mmHg ABG HCO3 (21-25) mmol/L ABG Total CO2 (19-24) mmol/L ABG O2 Saturation (94-97) % Chloride (98-107) mmol/L BUN (9-20) mg/dL Glucose (74-99) mg/dL POC Glucose (mg/dL) 160 H 171 H 160 H (75-99) mg/dL Calcium (8.4-10.2) mg/dL 11/28/19 11/28/19 11/28/19 Range/Units 01:37 04:09 04:10 RBC (4.30-5.90) m/uL Hgb (13.0-17.5) gm/dL Hct (39.0-53.0) % RDW (11.5-15.5) % Plt Count (150-450) k/uL ABG pH (7.35-7.45) ABG pCO2 (35-45) mmHg ABG HCO3 (21-25) mmol/L ABG Total CO2 (19-24) mmol/L ABG O2 Saturation (94-97) % Chloride 115 H (98-107) mmol/L BUN 34 H (9-20) mg/dL Glucose 157 H (74-99) mg/dL POC Glucose (mg/dL) 176 H 163 H (75-99) mg/dL Calcium 8.1 L (8.4-10.2) mg/dL 11/28/19 11/28/19 11/28/19 Range/Units 04:10 05:10 05:41 RBC 3.07 L (4.30-5.90) m/uL Hgb 9.0 L (13.0-17.5) gm/dL Hct 28.6 L (39.0-53.0) % RDW 16.6 H (11.5-15.5) % Plt Count 134 L (150-450) k/uL ABG pH 7.32 L (7.35-7.45) ABG pCO2 50 H (35-45) mmHg ABG HCO3 26 H (21-25) mmol/L ABG Total CO2 27 H (19-24) mmol/L ABG O2 Saturation 98.3 H (94-97) % Chloride (98-107) mmol/L BUN (9-20) mg/dL Glucose (74-99) mg/dL POC Glucose (mg/dL) 180 H (75-99) mg/dL Calcium (8.4-10.2) mg/dL 11/28/19 11/28/19 Range/Units 07:59 09:24 RBC (4.30-5.90) m/uL Hgb (13.0-17.5) gm/dL Hct (39.0-53.0) % RDW (11.5-15.5) % Plt Count (150-450) k/uL ABG pH (7.35-7.45) ABG pCO2 (35-45) mmHg ABG HCO3 (21-25) mmol/L ABG Total CO2 (19-24) mmol/L ABG O2 Saturation (94-97) % Chloride (98-107) mmol/L BUN (9-20) mg/dL Glucose (74-99) mg/dL POC Glucose (mg/dL) 136 H 135 H (75-99) mg/dL Calcium (8.4-10.2) mg/dL Microbiology - Last 24 Hours (Table) 11/22/19 13:11 Blood Culture - Preliminary Blood No Growth after 120 hours 11/25/19 10:30 Gram Stain - Final Bronchial Washings - Right Bronchial Washings Culture - Final Assessment and Plan Assessment: Assessment: Acute hypoxic respiratory failure, multifactorial, secondary to bilateral pneumonia, bilateral pulmonary masses, in a patient with history of underlying left lobe carcinoma, failed outpatient treatment, status post ventilator dependent Acute dehydration Acute COPD exacerbation Non-small cell CA of the lung, completed chemoradiation therapy, underwent immunotherapy, PET scan August 2019 reported no progression. Recurrent hemoptysis secondary to lung cancer CVAT, history of stenting, non-STEMI Diabetes mellitus2 Hypothyroidism Hypertension Hodgkin's disease Former nicotine dependence Sinus tachycardia, not A. fib per cardiology's review of EKGs Severe pulmonary hypertension Moderate to severe tricuspid regurgitation Plan: Continue current medication regime ,monitoring and symptomatic treatment. Continue IV antibiotics as per infectious disease. Maintained nebulized bronchodilators Prognosis guarded given multiple complex medical issues. Follow closely with multiple consults. The impression and plan of care has been dictated as directed. : I performed a history and examination of this patient, discussed the same with the dictator. I agree with the dictator's note ,documented as a scribe. Any additional findings or plans will be noted.
[2019-11-28 20:04] LABS: Glucose,Whole Blood 175 mg/dL (75-99)
[2019-11-28] MEDS: LISINOPRIL 10 MG TAB PO SCH (20:11)
[2019-11-28] MEDS: ATORVASTATIN 40 MG TAB PO SCH (20:11)
--- NOTE | 2019-11-28 21:43 | PN ---
PROGRESS NOTE DATE OF SERVICE: 11/28/2019 REASON FOR FOLLOWUP: Pneumonia. INTERVAL HISTORY: The patient is currently afebrile. The patient has been extubated this morning. The patient is breathing comfortably, extubation, no chest pain. cough. No nausea, no vomiting and no diarrhea. PHYSICAL EXAMINATION: Blood pressure 147/82 with a pulse of 112, temperature 98.9. He is 99% on high-flow oxygen. General description is an elderly male lying in bed in no distress. Respiratory system: Unlabored breathing. Clear to auscultation anteriorly. Heart S1, S2. Regular rate and rhythm. Abdomen soft. No tenderness. Extremities: No edema of the feet. LABS: Hemoglobin 9.8, with white count of 8.2, BUN of 34, creatinine 0.6. Bronch culture has been negative. DIAGNOSTIC IMPRESSION AND PLAN: Patient admitted to the hospital with pneumonia likely community-acquired. Sputum as well as bronch culture has been negative for any resistant pathogen. The patient currently covered with Cefepime. To continue and monitor clinical course closely. Continue supportive care. MMODL / IJN: [id number] /
[2019-11-28] MEDS: ASPIRIN 81 MG PO SCH (23:24)
[2019-11-29 00:07] LABS: Glucose,Whole Blood 146 mg/dL (75-99)
[2019-11-29] MEDS: IPRATROPIUM-ALBUTEROL 3 ML NEB INHALATION SCH ×6 (00:18→18:43)
[2019-11-29] MEDS: CLEVIDIPINE BUTYRATE 25 MG in EMPTY BAG 1 BAG IV SCH ×4 (00:34→12:17)
[2019-11-29] MEDS: methylPREDNISolone SOD SUCCI 40 MG/ML 1 ML VIAL IV SCH (00:35)
[2019-11-29] MEDS: INSULIN ASPART (NovoLOG) 100 UNIT/ML VIAL SQ SCH ×7 (00:35→23:45)
[2019-11-29 04:08] LABS: Glucose,Whole Blood 148 mg/dL (75-99)
[2019-11-29] MEDS: LEVOTHYROXINE 100 MCG TAB PO SCH (05:53)
[2019-11-29] MEDS: HYDROmorphone 1 MG/ML 1 ML SYRINGE IVP PRN ×3 (05:53→20:39)
[2019-11-29 06:19] LABS: Anisocytosis Slight; Basophils # (A) 0.1 k/uL (0-0.2); Basophils % (A) 1 %; Eosinophils % (A) 0 %; HCT 30.3 % (39.0-53.0); Hypochromasia Slight; Lymphocytes # (A) 0.4 k/uL (1.0-4.8); Lymphocytes % (A) 4 %; MCH 29.7 pg (25.0-35.0); MCV 89.9 fL (80.0-100.0); Mean Platelet Volume 6.9; Monocytes # (A) 0.4 k/uL (0-1.0); Monocytes % (A) 5 %; Neutrophils # (A) 8.8 k/uL (1.3-7.7); Neutrophils % (A) 90 %; Platelet Count 155 k/uL (150-450); Poikilocytosis Slight; RBC 3.37 m/uL (4.30-5.90); RDW 16.3 % (11.5-15.5); WBC 9.7 k/uL (3.8-10.6)
[2019-11-29 06:33] LABS: African American GFR (CKD) >90 (>60 ml/min/1.73 sqM); Anion Gap 4 mmol/L; Blood Urea Nitrogen 34 mg/dL (9-20); Calcium 8.2 mg/dL (8.4-10.2); Carbon Dioxide 30 mmol/L (22-30); Chloride 108 mmol/L (98-107); Glucose 154 mg/dL (74-99); Non-African American GFR(CKD) >90 (>60 ml/min/1.73 sqM); Potassium 3.9 mmol/L (3.5-5.1); Sodium 142 mmol/L (137-145)
[2019-11-29] MEDS ORDERED: FUROSEMIDE 10 MG/ML 4 ML VIAL IV STA (07:45)
[2019-11-29] MEDS ORDERED: Potassium Replacement Protocol 1 EACH MISC MISCELLANE PRN (07:49)
[2019-11-29 08:07] LABS: Glucose,Whole Blood 219 mg/dL (75-99)
[2019-11-29] MEDS: FORMOTEROL FUMARATE 20 MCG/2 ML NEBU INHALATION SCH ×2 (08:08→18:43)
[2019-11-29] MEDS: BUDESONIDE 1 MG/2 ML NEBU INHALATION SCH ×2 (08:08→18:43)
--- NOTE | 2019-11-29 08:09 | PN ---
PROGRESS NOTE PULMONARY/CRITICAL CARE PROGRESS NOTE: DATE OF SERVICE: November 29, 2019. CRITICAL CARE TIME: 34 minutes. This is a 69-year-old male admitted back on November 22. He came to the ICU on November 25. He was intubated on the for acute hypoxemic respiratory failure. His initial diagnosis was that of lung cancer, COPD exacerbation, and pneumonia. The patient was initially seen by my partner, Dr. Arteaga, and I began seeing the patient on Tuesday morning. The patient was thought to have bilateral pneumonia and hemoptysis and underwent bronchoscopy on the . The cytology from the overall bronch washes is negative and microbiology is negative or pending. The patient was on the ventilator since yesterday. Yesterday, his weaning parameters after a daily interruption of sedation and spontaneous breathing trial were reasonable and we gave him a trial of extubation. He seems to be doing reasonably well. He is currently on AIRVO at 60 L/minute and 60%. His IV is saline at 43 mL an hour. He is on Cleviprex at 6 mg an hour. Again, he was extubated on November 28 and intubated on the . The patient is awake and alert. He seems to be doing a bit better today than even yesterday. He is getting some Dilaudid for pain control. I have had daily conversations with the family including the , who is a former ICU nurse here and son and daughter. PHYSICAL EXAMINATION: VITAL SIGNS: Current vital signs are reviewed. Temperature is 98.6, heart rate 99, respiratory rate 21 to 22 breaths per minute, blood pressure 137/55. Central venous pressure is 4. Saturations are 95%. GENERAL: Currently appears in no acute distress. A little lethargic and sleepy but he does arouse and is appropriate. HEENT: Examination is grossly unremarkable. Mucous membranes are moist. No oral lesions. NECK: Supple. Full range of motion. No adenopathy or thyromegaly. Neck veins are flat. CARDIOVASCULAR: Examination reveals regular rhythm and rate. S1, S2 normal. No S3, S4, or murmur. LUNGS: Reveal a few scattered rhonchi and crackles. No wheezes. Breath sounds equal. ABDOMEN: Soft. Bowel sounds are heard. EXTREMITIES: Are intact. Mild edema. SKIN: Without rash. NEUROLOGIC: Examination is brief but nonfocal. Thus far, microbiology is negative. As I mentioned, cytology from the bronch washings on the were also negative. LAB DATA: Lab data is reviewed. White count 9.7, hemoglobin 10, hematocrit 30.3 platelet count 155,000. Sodium 142, potassium 3.9, chloride 108, CO2 of 30. BUN and creatinine were 34 and 0.63. Current chest x-ray shows volume loss in the left upper lobe and left lower lobe. There is probably a left-sided pleural effusion and infiltrate in the left lower lobe. In the right lung, there is a rounded mass in the right upper lobe. In addition, there are diffuse interstitial changes on the right side. They were also noted on the left side, but they are much less extensive and much less obvious. MEDICATIONS: Medications are reviewed. He is currently on amlodipine, aspirin, Lipitor, Maxipime, Cleviprex 6 mg an hour, clonidine patch, Lasix, Dilaudid, insulin, updrafts with DuoNeb, Synthroid, lisinopril, magnesium replacement protocol, Solu-Medrol, metoprolol, Protonix, and saline IV at 43 mL an hour. ASSESSMENT: 1. Acute hypoxemic respiratory failure secondary to underlying pneumonia and/or bronchogenic carcinoma with intubation on the and bronchoscopy on the same day, which was negative cytologically. 2. Stage IIIB non-small cell lung cancer/squamous cell carcinoma, diagnosed in 2017, status post chemo radiation and more recently immunotherapy in 2018. 3. Recurrent hemoptysis, secondary to lung cancer, improved. 4. Stage IIIB non-small cell lung cancer/squamous cell type, as mentioned above. 5. Chronic interstitial changes, right lung, which may represent fluid, pneumonia, lymphangitic carcinomatosis, or radiation changes. 6. History of coronary artery disease with previous stenting. 7. History of non ST-segment elevation myocardial infarction. 8. Moderate/stage 2 chronic obstructive pulmonary disease with an FEV1 that is 60% of predicted. 9. Type 2 diabetes mellitus. 10.History of Hodgkin lymphoma. 11.History of hypothyroidism. 12.Benign essential hypertension. 13.Hyperlipidemia. 14.Prior history of tobacco use. 15.History of hepatic carcinoma, status post surgical excision. 16.Status post bronchoscopy and BAL, November 25, 2019. PLAN: The patient was extubated yesterday on November 28. He is currently on AIRVO at 60 L/minutes, 60% FiO2. He is getting saline at 43 mL an hour and Cleviprex at 6 mg an hour for blood pressure control. We will continue to see if we cannot improve the patient's overall situation. I will review the medications. Prognosis remains guarded. I have had ongoing discussions with the family including , son and daughter. Thus far, bronch washes per my partner on the have been negative cytologically and microbiologically. He remains on good antibiotics. CRITICAL CARE TIME: 34 minutes. MMKAELAL / LAURIN: [id number] /
[2019-11-29] MEDS: amLODIPine 10 MG TAB PO SCH (08:14)
[2019-11-29] MEDS: POTASSIUM CHLORIDE 10 MEQ in WATER FOR INJECTION 1 100ML.BAG IVPB SCH ×2 (08:15→10:39)
[2019-11-29] MEDS: PANTOPRAZOLE 40 MG/10 ML VIAL IVP SCH (08:15)
[2019-11-29] MEDS: LISINOPRIL 10 MG TAB PO SCH (08:15)
[2019-11-29] MEDS: METOPROLOL TARTRATE 50 MG TAB PO SCH ×2 (08:15→20:39)
--- NOTE | 2019-11-29 08:49 | XR ---
EXAMINATION TYPE: XR chest 1V portable DATE OF EXAM: 11/29/2019 HISTORY: Shortness of breath. COMPARISON: 11/28/2019 TECHNIQUE: Single view of the chest is submitted. FINDINGS: Endotracheal and NG tubes have been removed. Central venous line is unchanged in position. Left apical opacity is unchanged as is left basilar density. Mass density right upper lobe measures 5 .4 cm. Persistent patchy but improving right lower lobe infiltrate. The heart is stable. Hilar and mediastinal structures are within normal limits. Degenerative changes are seen of the dorsal spine. IMPRESSION: 1. Left apical opacity is unchanged as is left basilar density. Mass density right upper lobe measur es 5.4 cm. Persistent patchy but improving right lower lobe infiltrate.
[2019-11-29] MEDS: SODIUM CHLORIDE 0.9% 1,000 ML IV SCH (10:41)
[2019-11-29 11:53] LABS: Glucose,Whole Blood 134 mg/dL (75-99)
[2019-11-29] MEDS: CEFEPIME 2 GM in SODIUM CHLORIDE 0.9% 100 ML IVPB SCH ×2 (12:13→22:14)
[2019-11-29 15:54] LABS: Glucose,Whole Blood 134 mg/dL (75-99)
[2019-11-29] MEDS: LEVOFLOXACIN 750 MG TAB PO SCH (15:58)
--- NOTE | 2019-11-29 17:28 | P.PN ---
Subjective Progress Note Date: 11/29/19 This is a 69 year old gentleman with history of underlying left sided lung cancer, hyperlipidemia, hypertension, thyroid disorder, hepatitis C, Hodgkin's lymphoma and squamous cell-completed radiation and chemo, former nicotine dependence returned to the ER with complaints of worsening shortness of breath, occasional hemoptysis, fevers, chills 2 days. Patient initially had come into ER 3 days ago, placed on Levaquin and discharged home. Chest x-ray on admission reported bilateral pulmonary masses with bibasilar consolidation, underlying pneumonia, interstitial pneumonitis. Right upper lobe mass noted at 4.2 cm, additional masses identified within the suprahilar region measuring 5.8 x 5.8 cm. follow-up chest x-ray this morning reporting worsening left apical infiltrate, correlate for pneumonia, right upper lobe infiltrate, developing mass possible, underlying left upper lobe lung cancer. EKG reported sinus tachycardia, left atrial enlargement. T-max 101, WBC 12.2-now down to 11.8. Hemoglobin 9.8, BUN 26, creatinine 0.76. Blood sugars elevated 230-350s. O2 sat on admission 69% on room air, placed on nonrebreather, currently maintaining O2 sats in the low 90s on 6 L nasal cannula. IV antibiotics of Zosyn and Levaquin initiated in addition to nebulized bronchodilators and IV fluid hydration. Pulmonary and oncology consulted. 11/26/2019 until yesterday morning patient developed worsening hypoxia, sinus tachycardia, patient was transferred to ICU and intubated. Converted and r emains in sinus rhythm. Maintained on mechanical ventilation, FiO2 down to 50, PEEP up to +8. Continues on diprovan, IV fluids and IV antibiotics. Underwent bronchoscopy yesterday, cytology, cultures pending. Afebrile. Echo reportedly mild concentric hypertrophy, EF 60-65%, moderate to severe tricuspid regurgitation, severe pulmonary hypertension . Chest x-ray noted. Tolerating tube feeds at goal with minimal to no residuals. 11/27/2019 remains vent dependent, FiO2 50%/+8 of PEEP. ABGs noted. Chest x- ray reporting interval progression of the disease involving left lung apex, diffuse pleural-progression of changes, correlate for pulmonary mass. Maintained on IV fluids ,diprovan, Dilaudid. Blood pressure marginal, map 55. No weaning trials recommended today.Tolerating tube feeds at goal with minimal to no residual. Blood sugars controlled on insulin drip. Bronc cultures, cytology pending. Continues on Zosyn, Levaquin, vancomycin. Creatinine 0.7. Afebrile, WBC 10. 11/28/2019 Consulted infectious disease, antibiotics adjusted. Currently on cefepime and Levaquin.Bronchoscopy cytology reporting no malignant cells identified. Bronchoscopy washings, cultures currently negative, fungal culture pending. Afebrile, normal WBC. Chest x-ray reporting stable, no significant change from yesterday's x-ray; left suprahilar mass or neoplasm on background, chronic emphysematous change with left-sided volume loss, diffuse right lung edema and/or infiltrates with more focal right upper lung masslike consolidation, small bilateral pleural effusions. Recently extubated, requiring 60% high flow, being transitioned to airvo. Currently nothing by mouth, blood sugars ranging 130s to 140s. Hemoglobin 9. 11/29/2019 breathing continues to improve, airvo decreased to 60. Chest x-ray reporting unchanged left apical opacity/left basilar density. Mass density right upper lobe measuring 5.4 cm. Persistent patchy improving right lower lobe infiltrate. Maintained on Clevaprex. Diet intake improving. No nausea, no vomiting, no diarrhea. Blood sugars improved. Speech therapy evaluating swallow. Afebrile, normal WBC. Denies chest pain, palpitations. Objective - Vital Signs Vital signs: Vital Signs Temp 98.1 F 11/29/19 16:00 Pulse 103 H 11/29/19 17:00 Resp 28 H 11/29/19 17:00 BP 146/82 11/29/19 17:00 Pulse Ox 95 11/29/19 17:00 Intake & Output 11/28/19 11/29/19 11/29/19 18:59 06:59 18:59 Intake Total 783.029 938.133 570.333 Output Total 3005 1510 3450 Balance -2221.971 -571.867 -3699.667 Weight 92 kg 86.9 kg Intake: IV 585 588 524 Sodium Chloride 0.9% 1, 516 516 473 000 ml @ 43 mls/hr IV . [id number] [facility] Rx#:[id number] pressure bag 69 72 51 Intake, IV Titration 166.029 350.133 46.333 Amount Cefepime 2 gm In Sodium 100 Chloride 0.9% 100 ml @ 200 mls/hr IVPB Q12H [facility] Rx#:[id number] Clevidipine Butyrate 25 79.433 250.133 46.333 mg In Empty Bag 1 bag @ 1 MG/HR 2 mls/hr IV .Q24H [facility] Rx#:[id number] Insulin Regular 100 unit 19.123 In Sodium Chloride 0.9% 100 ml @ Per Protocol IV .Q0M [facility] Rx#:[id number] Propofol 1,000 mg In 67.473 Empty Bag 1 bag @ Titrate IV .Q0M [facility] Rx#: [id number] Tube Feeding 32 Output: Urine 3005 1510 3450 Other: Voiding Method Indwelling Catheter Indwelling Catheter Indwelling Catheter ABP, PAP, CO, CI - Last Documented Arterial Blood Pressure 198/69 - Exam VITAL SIGNS: [As above] GENERAL: Sitting up in bed, extubated HEENT: Conjunctivae normal. eyes normal. NECK: No JVD. No thyroid enlargement. No LNs CARDIOVASCULAR: S1, S2 regular. No murmur RESPIRATION: Breath sounds diminished in the bases. Scattered rhonchi, crackles and occasional expiratory wheezing. ABDOMEN: Soft, nontender . No guarding. no masses palpable. No ascites, No hepatosplenomegaly.Bowel sounds heard. LEGS: mild edema. Offloading Boots on bilateral lower extremities PSYCHIATRY: Alert and oriented X3, mood and affect normal. NERVOUS SYSTEM: Cranial nerves II through XII grossly intact, moving all extremities. Generalized diffuse weakness .No focal deficits Skin: no rash , blanchable coccyx with optifoam dressing ordered. Microbiology 11/22/19 13:11 Blood Blood Culture - Final No Growth after 144 hours 11/25/19 10:30 Bronchial Washings - Right Gram Stain - Final 11/25/19 10:30 Bronchial Washings - Right Bronchial Washings Culture - Final 11/25/19 10:30 Bronchial Washings - Right Acid Fast Bacilli Smear - Final 11/25/19 10:30 Bronchial Washings - Right Acid Fast Bacilli Culture - Preliminary 11/25/19 10:30 Bronchial Washings - Right Fungal Culture - Preliminary 11/22/19 03:15 Sputum Gram Stain - Final 11/22/19 03:15 Sputum Sputum Culture - Final - Labs CBC & Chem 7: 11/29/19 05:45 11/29/19 05:45 Labs: Abnormal Lab Results - Last 24 Hours (Table) 11/28/19 11/29/19 11/29/19 Range/Units 20:03 00:05 04:06 RBC (4.30-5.90) m/uL Hgb (13.0-17.5) gm/dL Hct (39.0-53.0) % RDW (11.5-15.5) % Neutrophils # (1.3-7.7) k/uL Lymphocytes # (1.0-4.8) k/uL Chloride (98-107) mmol/L BUN (9-20) mg/dL Creatinine (0.66-1.25) mg/dL Glucose (74-99) mg/dL POC Glucose (mg/dL) 175 H 146 H 148 H (75-99) mg/dL Calcium (8.4-10.2) mg/dL 11/29/19 11/29/19 11/29/19 Range/Units 05:45 05:45 08:06 RBC 3.37 L (4.30-5.90) m/uL Hgb 10.0 L (13.0-17.5) gm/dL Hct 30.3 L (39.0-53.0) % RDW 16.3 H (11.5-15.5) % Neutrophils # 8.8 H (1.3-7.7) k/uL Lymphocytes # 0.4 L (1.0-4.8) k/uL Chloride 108 H (98-107) mmol/L BUN 34 H (9-20) mg/dL Creatinine 0.63 L (0.66-1.25) mg/dL Glucose 154 H (74-99) mg/dL POC Glucose (mg/dL) 219 H (75-99) mg/dL Calcium 8.2 L (8.4-10.2) mg/dL 11/29/19 11/29/19 Range/Units 11:51 15:53 RBC (4.30-5.90) m/uL Hgb (13.0-17.5) gm/dL Hct (39.0-53.0) % RDW (11.5-15.5) % Neutrophils # (1.3-7.7) k/uL Lymphocytes # (1.0-4.8) k/uL Chloride (98-107) mmol/L BUN (9-20) mg/dL Creatinine (0.66-1.25) mg/dL Glucose (74-99) mg/dL POC Glucose (mg/dL) 134 H 134 H (75-99) mg/dL Calcium (8.4-10.2) mg/dL Microbiology - Last 24 Hours (Table) 11/22/19 13:11 Blood Culture - Final Blood No Growth after 144 hours Assessment and Plan Assessment: Assessment: Acute hypoxic respiratory failure, multifactorial, secondary to bilateral pneumonia-suspect community-acquired, bilateral pulmonary masses, in a patient with history of underlying left lobe carcinoma, failed outpatient treatment, status post ventilator dependent Acute dehydration Acute COPD exacerbation Non-small cell CA of the lung, completed chemoradiation therapy, underwent immunotherapy, PET scan August 2019 reported no progression. Recurrent hemoptysis secondary to lung cancer CVAT, history of stenting, non-STEMI Diabetes mellitus2 Hypothyroidism Hypertension Hodgkin's disease Former nicotine dependence Sinus tachycardia, not A. fib per cardiology's review of EKGs Severe pulmonary hypertension Moderate to severe tricuspid regurgitation Plan: Continue current medication regime ,monitoring and symptomatic treatment. IV antibiotics as per infectious disease. Maintained nebulized bronchodilators. Diet intake improving, close monitoring of blood sugars. Prognosis guarded given multiple complex medical issues. Follow closely with multiple consults. The impression and plan of care has been dictated as directed. : I performed a history and examination of this patient, discussed the same with the dictator. I agree with the dictator's note ,documented as a scribe. Any additional findings or plans will be noted.
--- NOTE | 2019-11-29 17:33 | PN ---
PROGRESS NOTE DATE OF SERVICE: 11/29/2019 REASON FOR FOLLOWUP: Pneumonia. INTERVAL HISTORY: The patient is currently afebrile, has been breathing comfortably. Did have some cough but not bringing up any sputum. No nausea, no vomiting. No abdominal pain or any diarrhea. PHYSICAL EXAMINATION: Blood pressure 164/64 with pulse 93, temperature 98. He is 94% on high-flow oxygen. General description is an elderly male up in the chair in no distress. RESPIRATORY SYSTEM: Unlabored breathing with decreased breath sounds at the base. No wheeze. HEART: S1, S2. Regular rate and rhythm. ABDOMEN: Soft. No tenderness. LABS: Hemoglobin is 10 with a white count of 9.7, BUN of 34, creatinine 0.63. Bronch culture has been negative. DIAGNOSTIC IMPRESSION AND PLAN: Patient admitted to hospital with pneumonia and sepsis and acute respiratory failure. The patient seems to have shown clinical improvement. The patient at this time is currently covered with cefepime and Levaquin; to continue while monitoring his clinical course closely. Family at the bedside. Their questions were answered. MMODL / IJN: [id number] /
--- NOTE | 2019-11-29 18:18 | P.PN ---
Subjective IMPRESSION / ASSESSMENT: Acute hypoxic respiratory failure secondary to pneumonia, requiring intubation, has been successfully extubated Hemoptysis status post bronchoscopy with blood clots but no active bleeding, on the Plavix has been stopped History of non-small cell lung carcinoma Abnormal troponins, no acute EKG changes, likely type 2 CA likely secondary to combination of hypoxia and respiratory distress CAD status post stenting Echo showing preserved LV systolic function Diabetes Hypertension, blood pressure has been trending in the 140s over 80s Dyslipidemia PLAN: Increase lisinopril to 20 mg twice a day for blood pressure management Continue aspirin, Lipitor Continue amlodipine 10 mg daily, metoprolol titrate 100 mg twice daily, clonidine patch HPI/interval history Patient is a 69-year-old male with a history of lung cancer, CAD status post stenting, hypertension, and dyslipidemia who presented with cough and shortness of breath. He developed hemoptysis and respiratory failure requiring intubation in his Plavix was stopped. He was successfully extubated. Patient seen and examined in the ICU. Bedside telemetry shows sinus tachycardia in the 100s. States he is feeling "okay". States his breathing has improved. No chest pain. EXAMINATION Pulse in the 90s to 100s, patient is afebrile, blood pressure in the 140s over 80s, oxygen saturation 95% on high flow nasal cannula Patient seen and examined resting in bed, in no acute distress Breath sounds are coarse Heart is regular, tachycardic, systolic murmur audible No lower extremity edema REVIEW OF LABS, ECG Labs reviewed, WBC 9.7, hemoglobin 10, platelets 155, potassium 3.9, BUN 34, creatinine 0.63 Objective - Vital Signs Vital signs: Vital Signs Temp 98.1 F 11/29/19 16:00 Pulse 103 H 11/29/19 17:00 Resp 28 H 11/29/19 17:00 BP 146/82 11/29/19 17:00 Pulse Ox 95 11/29/19 17:00 Intake & Output 11/28/19 11/29/19 11/29/19 18:59 06:59 18:59 Intake Total 783.029 938.133 870.333 Output Total 3005 1510 3450 Balance -2221.971 -571.867 -2579.667 Weight 92 kg 86.9 kg Intake: IV 585 588 624 Cefepime 2 gm In Sodium 100 Chloride 0.9% 100 ml @ 200 mls/hr IVPB Q12H [facility] Rx#:[id number] Sodium Chloride 0.9% 1, 516 516 473 000 ml @ 43 mls/hr IV . [id number] [facility] Rx#:[id number] pressure bag 69 72 51 Intake, IV Titration 166.029 350.133 246.333 Amount Cefepime 2 gm In Sodium 100 Chloride 0.9% 100 ml @ 200 mls/hr IVPB Q12H [facility] Rx#:[id number] Clevidipine Butyrate 25 79.433 250.133 46.333 mg In Empty Bag 1 bag @ 1 MG/HR 2 mls/hr IV .Q24H [facility] Rx#:[id number] Insulin Regular 100 unit 19.123 In Sodium Chloride 0.9% 100 ml @ Per Protocol IV .Q0M [facility] Rx#:[id number] Potassium Chloride 10 meq 200 In Water For Injection 1 100ml.bag @ 100 mls/hr IVPB Q1H [facility] Rx#: [id number] Propofol 1,000 mg In 67.473 Empty Bag 1 bag @ Titrate IV .Q0M [facility] Rx#: [id number] Tube Feeding 32 Output: Urine 3005 1510 3450 Other: Voiding Method Indwelling Catheter Indwelling Catheter Indwelling Catheter ABP, PAP, CO, CI - Last Documented Arterial Blood Pressure 198/69 - Labs CBC & Chem 7: 11/29/19 05:45 11/29/19 05:45 Labs: Abnormal Lab Results - Last 24 Hours (Table) 11/28/19 11/29/19 11/29/19 Range/Units 20:03 00:05 04:06 RBC (4.30-5.90) m/uL Hgb (13.0-17.5) gm/dL Hct (39.0-53.0) % RDW (11.5-15.5) % Neutrophils # (1.3-7.7) k/uL Lymphocytes # (1.0-4.8) k/uL Chloride (98-107) mmol/L BUN (9-20) mg/dL Creatinine (0.66-1.25) mg/dL Glucose (74-99) mg/dL POC Glucose (mg/dL) 175 H 146 H 148 H (75-99) mg/dL Calcium (8.4-10.2) mg/dL 11/29/19 11/29/19 11/29/19 Range/Units 05:45 05:45 08:06 RBC 3.37 L (4.30-5.90) m/uL Hgb 10.0 L (13.0-17.5) gm/dL Hct 30.3 L (39.0-53.0) % RDW 16.3 H (11.5-15.5) % Neutrophils # 8.8 H (1.3-7.7) k/uL Lymphocytes # 0.4 L (1.0-4.8) k/uL Chloride 108 H (98-107) mmol/L BUN 34 H (9-20) mg/dL Creatinine 0.63 L (0.66-1.25) mg/dL Glucose 154 H (74-99) mg/dL POC Glucose (mg/dL) 219 H (75-99) mg/dL Calcium 8.2 L (8.4-10.2) mg/dL 11/29/19 11/29/19 Range/Units 11:51 15:53 RBC (4.30-5.90) m/uL Hgb (13.0-17.5) gm/dL Hct (39.0-53.0) % RDW (11.5-15.5) % Neutrophils # (1.3-7.7) k/uL Lymphocytes # (1.0-4.8) k/uL Chloride (98-107) mmol/L BUN (9-20) mg/dL Creatinine (0.66-1.25) mg/dL Glucose (74-99) mg/dL POC Glucose (mg/dL) 134 H 134 H (75-99) mg/dL Calcium (8.4-10.2) mg/dL Microbiology - Last 24 Hours (Table) 11/22/19 13:11 Blood Culture - Final Blood No Growth after 144 hours
[2019-11-29 20:14] LABS: Glucose,Whole Blood 141 mg/dL (75-99)
[2019-11-29] MEDS: ATORVASTATIN 40 MG TAB PO SCH (20:38)
[2019-11-29] MEDS: ASPIRIN 81 MG PO SCH (20:38)
[2019-11-29] MEDS: LISINOPRIL 20 MG TAB PO SCH (20:39)
[2019-11-29 23:37] LABS: Glucose,Whole Blood 143 mg/dL (75-99)
[2019-11-30 02:46] LABS: ABG HCO3 35 mmol/L (21-25); ABG Oxygen Saturation 98.7 % (94-97); ABG PCO2 42 mmHg (35-45); ABG PH 7.53 (7.35-7.45); ABG PO2 98 mmHg (83-108); ABG TCO2 36 mmol/L (19-24)
[2019-11-30] MEDS: INSULIN ASPART (NovoLOG) 100 UNIT/ML VIAL SQ SCH ×5 (03:03→20:15)
[2019-11-30 03:04] LABS: Glucose,Whole Blood 127 mg/dL (75-99)
[2019-11-30] MEDS: HYDROmorphone 1 MG/ML 1 ML SYRINGE IVP PRN ×10 (03:04→22:07)
[2019-11-30 03:05] LABS: Anisocytosis Slight; HCT 30.6 % (39.0-53.0); HGB 10.4 gm/dL (13.0-17.5); Hypochromasia Slight; MCH 30.4 pg (25.0-35.0); MCHC 33.9 g/dL (31.0-37.0); MCV 89.7 fL (80.0-100.0); Mean Platelet Volume 7.4; Platelet Count 125 k/uL (150-450); Poikilocytosis Moderate; RBC 3.41 m/uL (4.30-5.90); RDW 16.1 % (11.5-15.5); WBC 10.2 k/uL (3.8-10.6)
[2019-11-30 03:19] LABS: African American GFR (CKD) >90 (>60 ml/min/1.73 sqM); Anion Gap 2 mmol/L; Blood Urea Nitrogen 34 mg/dL (9-20); Carbon Dioxide 33 mmol/L (22-30); Chloride 104 mmol/L (98-107); Glucose 123 mg/dL (74-99); Non-African American GFR(CKD) >90 (>60 ml/min/1.73 sqM); Potassium 3.5 mmol/L (3.5-5.1); Sodium 139 mmol/L (137-145)
[2019-11-30] MEDS: LEVOTHYROXINE 100 MCG TAB PO SCH (06:56)
[2019-11-30] MEDS ORDERED: LACTATED RINGERS 500 ML IV SCH (07:30)
[2019-11-30] MEDS ORDERED: LABETALOL 5 MG/ML VIAL MDV IVP PRN (07:32)
[2019-11-30] MEDS ORDERED: LACTATED RINGERS 500 ML IV ONE (07:45)
--- NOTE | 2019-11-30 07:49 | XR ---
EXAMINATION TYPE: XR chest 1V portable DATE OF EXAM: 11/30/2019 COMPARISON: 11/29/2019 INDICATION: Airvo dependent TECHNIQUE: Single frontal view of the chest is obtained. FINDINGS: The heart size may be mildly prominent but stable. The pulmonary vasculature is normal. There is persistent density in the peripheral right upper lung field. Left basilar infiltrate and/or small pleural effusion may be present. Mild infiltrate is at the right lung base. Left apical thicken ing and opacity is stable. There is a left central venous catheter present with tip in the distal superior vena cava region. IMPRESSION: 1. Overall stable findings from comparison.
[2019-11-30] MEDS ORDERED: cloNIDine 0.3 MG/24HR PATCH TRANSDERM SCH (08:00)
[2019-11-30 08:06] LABS: Glucose,Whole Blood 196 mg/dL (75-99)
[2019-11-30] MEDS: POTASSIUM BICARBONATE/CIT AC 20 MEQ TABLET.EFF NG-TUBE SCH ×2 (08:12→10:39)
[2019-11-30] MEDS: LISINOPRIL 20 MG TAB PO SCH ×2 (08:13→20:15)
[2019-11-30] MEDS: amLODIPine 10 MG TAB PO SCH (08:13)
[2019-11-30] MEDS: PANTOPRAZOLE 40 MG TABLET PO SCH (08:13)
[2019-11-30] MEDS: METOPROLOL TARTRATE 50 MG TAB PO SCH ×2 (08:13→20:15)
[2019-11-30] MEDS: IPRATROPIUM-ALBUTEROL 3 ML NEB INHALATION SCH ×4 (08:31→19:00)
[2019-11-30] MEDS: BUDESONIDE 1 MG/2 ML NEBU INHALATION SCH ×2 (08:31→19:00)
[2019-11-30] MEDS: FORMOTEROL FUMARATE 20 MCG/2 ML NEBU INHALATION SCH ×2 (08:31→19:00)
--- NOTE | 2019-11-30 10:19 | P.PN ---
Subjective Progress Note Date: 11/30/19 Principal diagnosis: Acute hypoxemic respiratory failure secondary to bilateral pneumonia 69-year-old male patient of Dr. 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 Chicas and Dr. Scanlon. Patient was diagnosed in 2016, he is status post chemoradiation therapy completed in August 2017. He was started on immunotherapy in April 2018, and his most recent PET scan from August 2019 showed no disease progression, fact the metabolic activity seen in the right mediastinum has completely resolved and the left suprahilar mass showed less metabolic activity and had shrunken in size. There was however evidence of radiation pneumonitis and left upper lobe and loss and limited areas of drug-induced pneumonitis with chronic interstitial changes. Other medical history includes coronary artery disease, history of non-ST elevated myocardial infarction, and patient had several coronary artery stents, diabetes mellitus 2, Hodgkin's lymphoma, hepatitis C, former smoker, history of chronic obstructive lung disease the baseline FEV1 of 75% of predicted however most recent PFT in January 2019 showed decrease in his FEV1 value down to 1.92 L or 60% of predicted consistent with stage II COPD, and patient is not normally oxygen dependent. Patient states his immunotherapy had been on hold since September for possibility of cataract surgery. On 11/22/2019 patient presented today emergency department per EMS for increasing shortness of breath, fever, fatigue, decreased appetite, chest soreness from difficulty breathing. He is seen today 11/30/2019 follow-up in the intensive care unit. He was extubated on 11/28/2019. He is currently resting fairly comfortably in bed. He is awake and alert in no acute distress. He is quite weak. He remains on the airflow at 60 L/m and 60% FiO2. Blood gases reveal a P O2 of 97, pCO2 42, pH 7.53. 0.9 normal saline at 43 ML's per hour. He is currently off the clever proximal. He was given 500 mL lactated Ringer's this morning. He is on Lopressor 100 mg twice a day and Catapres 0.3mg patch for blood pressure control. Bronchial wash findings revealed no growth. White count 10.2. Hemoglobin 10.4. Sodium 139. Potassium 3.5. Creatinine 0.65. He is maintaining on antibiotics in the form of Levaquin, bronchodilators. Today's chest x-ray reveals persistent density in the right peripheral upper lung field. Left basilar infiltrate and small effusion. Mild infiltrate of the right base. Left apical thickening and opacity is stable. Objective - Vital Signs Vital signs: Vital Signs Temp 99.3 F 11/30/19 08:00 Pulse 98 11/30/19 08:54 Resp 18 11/30/19 08:00 BP 160/106 11/30/19 08:00 Pulse Ox 95 11/30/19 08:00 Intake & Output 11/29/19 11/30/19 11/30/19 18:59 06:59 18:59 Intake Total 916.333 652 592 Output Total 3575 1030 410 Balance -2658.667 -378 182 Weight 85.6 kg Intake: IV 670 652 592 Cefepime 2 gm In Sodium 100 100 Chloride 0.9% 100 ml @ 200 mls/hr IVPB Q12H [facility] Rx#:[id number] Lactated Ringers 500 ml @ 500 999 mls/hr IV .Q31M [facility] Rx#:[id number] Sodium Chloride 0.9% 1, 516 516 86 000 ml @ 43 mls/hr IV . [id number] [facility] Rx#:[id number] pressure bag 54 36 6 Intake, IV Titration 246.333 Amount Clevidipine Butyrate 25 46.333 mg In Empty Bag 1 bag @ 1 MG/HR 2 mls/hr IV .Q24H [facility] Rx#:[id number] Potassium Chloride 10 meq 200 In Water For Injection 1 100ml.bag @ 100 mls/hr IVPB Q1H [facility] Rx#: [id number] Output: Urine 3575 1030 410 Other: Voiding Method Indwelling Catheter Indwelling Catheter Indwelling Catheter ABP, PAP, CO, CI - Last Documented Arterial Blood Pressure 162/60 - Exam GENERAL EXAM: Alert, pleasant, 69-year-old male patient, appears chronically ill, debilitated, extubated on 11/28/2019, remains on AirVo high flow oxygen device at 60 L and 60% FiO2 HEAD: Normocephalic/atraumatic. EYES: Normal reaction of pupils, equal size. Conjunctiva pink, sclera white. NOSE: Clear with pink turbinates. THROAT: No erythema or exudates. NECK: No masses, no JVD, no thyroid enlargement, no adenopathy. CHEST: No chest wall deformity. Symmetrical expansion. LUNGS: Equal air entry with coarse crackles at bilateral bases, few scattered rhonchi CVS: Regular rate and rhythm, normal S1 and S2, no gallops, no murmurs, no rubs ABDOMEN: Soft, nontender. No hepatosplenomegaly, normal bowel sounds, no guarding or rigidity. EXTREMITIES: No clubbing, no edema, no cyanosis, 2+ pulses and upper and lower extremities. MUSCULOSKELETAL: Muscle strength and tone normal. SPINE: No scoliosis or deformity SKIN: No rashes CENTRAL NERVOUS SYSTEM: No focal deficits, tone is normal in all 4 extremities. PSYCHIATRIC: Alert and oriented -3. Appropriate affect. Intact judgment and insight. - Labs CBC & Chem 7: 11/30/19 02:56 11/30/19 02:56 Labs: Abnormal Lab Results - Last 24 Hours (Table) 11/29/19 11/29/19 11/29/19 Range/Units 11:51 15:53 20:12 RBC (4.30-5.90) m/uL Hgb (13.0-17.5) gm/dL Hct (39.0-53.0) % RDW (11.5-15.5) % Plt Count (150-450) k/uL ABG pH (7.35-7.45) ABG HCO3 (21-25) mmol/L ABG Total CO2 (19-24) mmol/L ABG O2 Saturation (94-97) % Carbon Dioxide (22-30) mmol/L BUN (9-20) mg/dL Creatinine (0.66-1.25) mg/dL Glucose (74-99) mg/dL POC Glucose (mg/dL) 134 H 134 H 141 H (75-99) mg/dL Calcium (8.4-10.2) mg/dL 11/29/19 11/30/19 11/30/19 Range/Units 23:36 02:42 02:56 RBC 3.41 L (4.30-5.90) m/uL Hgb 10.4 L (13.0-17.5) gm/dL Hct 30.6 L (39.0-53.0) % RDW 16.1 H (11.5-15.5) % Plt Count 125 L (150-450) k/uL ABG pH 7.53 H (7.35-7.45) ABG HCO3 35 H (21-25) mmol/L ABG Total CO2 36 H (19-24) mmol/L ABG O2 Saturation 98.7 H (94-97) % Carbon Dioxide (22-30) mmol/L BUN (9-20) mg/dL Creatinine (0.66-1.25) mg/dL Glucose (74-99) mg/dL POC Glucose (mg/dL) 143 H (75-99) mg/dL Calcium (8.4-10.2) mg/dL 11/30/19 11/30/19 11/30/19 Range/Units 02:56 03:02 08:04 RBC (4.30-5.90) m/uL Hgb (13.0-17.5) gm/dL Hct (39.0-53.0) % RDW (11.5-15.5) % Plt Count (150-450) k/uL ABG pH (7.35-7.45) ABG HCO3 (21-25) mmol/L ABG Total CO2 (19-24) mmol/L ABG O2 Saturation (94-97) % Carbon Dioxide 33 H (22-30) mmol/L BUN 34 H (9-20) mg/dL Creatinine 0.65 L (0.66-1.25) mg/dL Glucose 123 H (74-99) mg/dL POC Glucose (mg/dL) 127 H 196 H (75-99) mg/dL Calcium 8.0 L (8.4-10.2) mg/dL Assessment and Plan Assessment: #1. Acute hypoxemic respiratory failure related to bilateral pneumonia, chest x-ray showed bilateral pulmonary masses, consolidation with suspicion of under lying pneumonia, requiring intubation and mechanical ventilatory support, extubated on 11/28/2019. Currently on AirVo high flow oxygen device at 60 L and 60% FiO2 with O2 saturation of 95% #2. Weakness, fatigue, febrile illness, occasional hemoptysis related to the above #3. Non-small cell carcinoma of the lung, TNM stage IIIB diagnosed in 2016 patient underwent chemoradiation therapy completed in August 2017, patient was started immunotherapy in April 2018, most recent PET scan in August 2019 showed no disease progression, resolution of metabolic activity in the right mediastinum, in decrease in metabolic activity involving left suprahilar mass was decreased in size. #4. Chronic interstitial changes involving left upper lobe #5. History of coronary artery disease with history of coronary artery stenting #6. History of non-ST elevated myocardial infarction #7. History of COPD with FEV1 of 60% of predicted, stage II COPD not normally oxygen dependent #8. Type 2 diabetes mellitus #9. Dyspnea, acute on chronic, multifactorial, related to acute bilateral lung pneumonia, chronic COPD, chronic deconditioning #10. History of Hodgkin's disease #11. History of hypothyroidism #12. History of hypertension #13. History of hyperlipidemia #14. Former smoker Plan: The patient was seen and evaluated by Dr. Benz. Chest x-ray, ABGs and labs all reviewed. He did receive an extra 500 mL of lactated Ringer's. Lopressor and Catapres for blood pressure control. Currently off the Cleviprex. We will continue to monitor him closely here in the intensive care unit. We'll continue to follow and make further recommendations based on his clinical status. Critical care time 38 minutes. I, the cosigning physician, performed a history & physical examination of the patient. Lungs sounds bilateral crackles scattered rhonchi. Maintaining good O2 saturations in the 90s on 60% FiO2 and 60 L per AirVo high flow oxygen. I discussed the assessment and plan of care with my nurse practitioner, Lucretia Atkins. I attest to the above note as dictated by her.
[2019-11-30] MEDS: CEFEPIME 2 GM in SODIUM CHLORIDE 0.9% 100 ML IVPB SCH ×2 (10:38→22:05)
--- NOTE | 2019-11-30 11:59 | P.PN ---
Subjective This is Rhoda Meneses PA-C dictating a progress note on this patient The patient was interviewed and examined by me as well as by Dr. Jones Case discussed with Dr. Jones and he agrees with the plan of care HPI/interval history Patient is a 69-year-old male with a history of lung cancer, CAD status post stenting, hypertension, and dyslipidemia who presented with cough and shortness of breath. He developed hemoptysis and respiratory failure requiring intubation in his Plavix was stopped. He was successfully extubated. He was initially hypotensive but for the last 2 days he has been hypertensive. He was restarted on his home blood pressure medications as well as a clonidine patch. Yesterday I increased his lisinopril as well. His blood pressure remains elevated on the arterial line but the arm cuff seems to be more accurate. Bedside telemetry shows sinus mechanism with heart rate in the 90s. Patient seen and examined resting in bed. Getting a breathing treatment. Denies chest pain. EXAMINATION Patient is afebrile, pulse in the 90s, respirations 18, blood pressure in the 60s and 100, oxygen saturation 95% Patient seen and examined resting in bed, in no acute distress Lungs mildly diminished Heart is regular, soft systolic murmur No lower extremity edema REVIEW OF LABS, ECG Labs reviewed, WBC 10.2, hemoglobin 10.4, platelet 125, potassium 3.5, BUN 34, creatinine 0.65 IMPRESSION / ASSESSMENT: Acute hypoxic respiratory failure secondary to pneumonia, requiring intubation, has been successfully extubated Hemoptysis status post bronchoscopy with blood clots but no active bleeding, on the Plavix has been stopped History of non-small cell lung carcinoma Abnormal troponins, no acute EKG changes, likely type 2 NH likely secondary to combination of hypoxia and respiratory distress CAD status post stenting Echo showing preserved LV systolic function Diabetes Hypertension, blood pressure remains elevated, clonidine patch dose has been increased Dyslipidemia PLAN: Continue current medication regimen, agree with increasing clonidine Objective - Vital Signs Vital signs: Vital Signs Temp 99.3 F 11/30/19 08:00 Pulse 98 11/30/19 08:54 Resp 18 11/30/19 08:00 BP 160/106 11/30/19 08:00 Pulse Ox 95 11/30/19 08:00 Intake & Output 11/29/19 11/30/19 11/30/19 18:59 06:59 18:59 Intake Total 916.333 652 592 Output Total 3575 1030 410 Balance -2658.667 -378 182 Weight 85.6 kg 85.6 kg Intake: IV 670 652 592 Cefepime 2 gm In Sodium 100 100 Chloride 0.9% 100 ml @ 200 mls/hr IVPB Q12H [facility] Rx#:[id number] Lactated Ringers 500 ml @ 500 999 mls/hr IV .Q31M [facility] Rx#:[id number] Sodium Chloride 0.9% 1, 516 516 86 000 ml @ 43 mls/hr IV . [id number] [facility] Rx#:[id number] pressure bag 54 36 6 Intake, IV Titration 246.333 Amount Clevidipine Butyrate 25 46.333 mg In Empty Bag 1 bag @ 1 MG/HR 2 mls/hr IV .Q24H [facility] Rx#:[id number] Potassium Chloride 10 meq 200 In Water For Injection 1 100ml.bag @ 100 mls/hr IVPB Q1H [facility] Rx#: [id number] Output: Urine 3575 1030 410 Other: Voiding Method Indwelling Catheter Indwelling Catheter Indwelling Catheter ABP, PAP, CO, CI - Last Documented Arterial Blood Pressure 162/60 - Labs CBC & Chem 7: 11/30/19 02:56 11/30/19 02:56 Labs: Abnormal Lab Results - Last 24 Hours (Table) 11/29/19 11/29/19 11/29/19 Range/Units 15:53 20:12 23:36 RBC (4.30-5.90) m/uL Hgb (13.0-17.5) gm/dL Hct (39.0-53.0) % RDW (11.5-15.5) % Plt Count (150-450) k/uL ABG pH (7.35-7.45) ABG HCO3 (21-25) mmol/L ABG Total CO2 (19-24) mmol/L ABG O2 Saturation (94-97) % Carbon Dioxide (22-30) mmol/L BUN (9-20) mg/dL Creatinine (0.66-1.25) mg/dL Glucose (74-99) mg/dL POC Glucose (mg/dL) 134 H 141 H 143 H (75-99) mg/dL Calcium (8.4-10.2) mg/dL 11/30/19 11/30/19 11/30/19 Range/Units 02:42 02:56 02:56 RBC 3.41 L (4.30-5.90) m/uL Hgb 10.4 L (13.0-17.5) gm/dL Hct 30.6 L (39.0-53.0) % RDW 16.1 H (11.5-15.5) % Plt Count 125 L (150-450) k/uL ABG pH 7.53 H (7.35-7.45) ABG HCO3 35 H (21-25) mmol/L ABG Total CO2 36 H (19-24) mmol/L ABG O2 Saturation 98.7 H (94-97) % Carbon Dioxide 33 H (22-30) mmol/L BUN 34 H (9-20) mg/dL Creatinine 0.65 L (0.66-1.25) mg/dL Glucose 123 H (74-99) mg/dL POC Glucose (mg/dL) (75-99) mg/dL Calcium 8.0 L (8.4-10.2) mg/dL 11/30/19 11/30/19 Range/Units 03:02 08:04 RBC (4.30-5.90) m/uL Hgb (13.0-17.5) gm/dL Hct (39.0-53.0) % RDW (11.5-15.5) % Plt Count (150-450) k/uL ABG pH (7.35-7.45) ABG HCO3 (21-25) mmol/L ABG Total CO2 (19-24) mmol/L ABG O2 Saturation (94-97) % Carbon Dioxide (22-30) mmol/L BUN (9-20) mg/dL Creatinine (0.66-1.25) mg/dL Glucose (74-99) mg/dL POC Glucose (mg/dL) 127 H 196 H (75-99) mg/dL Calcium (8.4-10.2) mg/dL
[2019-11-30 12:01] LABS: Glucose,Whole Blood 95 mg/dL (75-99)
[2019-11-30] MEDS: SODIUM CHLORIDE 0.9% 1,000 ML IV SCH (12:53)
--- NOTE | 2019-11-30 14:17 | P.PN ---
Subjective Progress Note Date: 11/30/19 This is a 69 year old gentleman with history of underlying left sided lung cancer, hyperlipidemia, hypertension, thyroid disorder, hepatitis C, Hodgkin's lymphoma and squamous cell-completed radiation and chemo, former nicotine dependence returned to the ER with complaints of worsening shortness of breath, occasional hemoptysis, fevers, chills 2 days. Patient initially had come into ER 3 days ago, placed on Levaquin and discharged home. Chest x-ray on admission reported bilateral pulmonary masses with bibasilar consolidation, underlying pneumonia, interstitial pneumonitis. Right upper lobe mass noted at 4.2 cm, additional masses identified within the suprahilar region measuring 5.8 x 5.8 cm. follow-up chest x-ray this morning reporting worsening left apical infiltrate, correlate for pneumonia, right upper lobe infiltrate, developing mass possible, underlying left upper lobe lung cancer. EKG reported sinus tachycardia, left atrial enlargement. T-max 101, WBC 12.2-now down to 11.8. Hemoglobin 9.8, BUN 26, creatinine 0.76. Blood sugars elevated 230-350s. O2 sat on admission 69% on room air, placed on nonrebreather, currently maintaining O2 sats in the low 90s on 6 L nasal cannula. IV antibiotics of Zosyn and Levaquin initiated in addition to nebulized bronchodilators and IV fluid hydration. Pulmonary and oncology consulted. 11/26/2019 until yesterday morning patient developed worsening hypoxia, sinus tachycardia, patient was transferred to ICU and intubated. Converted and r emains in sinus rhythm. Maintained on mechanical ventilation, FiO2 down to 50, PEEP up to +8. Continues on diprovan, IV fluids and IV antibiotics. Underwent bronchoscopy yesterday, cytology, cultures pending. Afebrile. Echo reportedly mild concentric hypertrophy, EF 60-65%, moderate to severe tricuspid regurgitation, severe pulmonary hypertension . Chest x-ray noted. Tolerating tube feeds at goal with minimal to no residuals. 11/27/2019 remains vent dependent, FiO2 50%/+8 of PEEP. ABGs noted. Chest x- ray reporting interval progression of the disease involving left lung apex, diffuse pleural-progression of changes, correlate for pulmonary mass. Maintained on IV fluids ,diprovan, Dilaudid. Blood pressure marginal, map 55. No weaning trials recommended today.Tolerating tube feeds at goal with minimal to no residual. Blood sugars controlled on insulin drip. Bronc cultures, cytology pending. Continues on Zosyn, Levaquin, vancomycin. Creatinine 0.7. Afebrile, WBC 10. 11/28/2019 Consulted infectious disease, antibiotics adjusted. Currently on cefepime and Levaquin.Bronchoscopy cytology reporting no malignant cells identified. Bronchoscopy washings, cultures currently negative, fungal culture pending. Afebrile, normal WBC. Chest x-ray reporting stable, no significant change from yesterday's x-ray; left suprahilar mass or neoplasm on background, chronic emphysematous change with left-sided volume loss, diffuse right lung edema and/or infiltrates with more focal right upper lung masslike consolidation, small bilateral pleural effusions. Recently extubated, requiring 60% high flow, being transitioned to airvo. Currently nothing by mouth, blood sugars ranging 130s to 140s. Hemoglobin 9. 11/29/2019 breathing continues to improve, airvo decreased to 60. Chest x-ray reporting unchanged left apical opacity/left basilar density. Mass density right upper lobe measuring 5.4 cm. Persistent patchy improving right lower lobe infiltrate. Maintained on Clevaprex. Diet intake improving. No nausea, no vomiting, no diarrhea. Blood sugars improved. Speech therapy evaluating swallow. Afebrile, normal WBC. Denies chest pain, palpitations. 11/30/2019 chest x-ray reporting stable from comparison; persistent density in the peripheral right upper lung field, left basilar infiltrate and/or small pleural effusion mild right lung base infiltrate, left apical thickening and opacity stable. Maintained on 60% airvo. Early a.m. ABGs alkalotic, received 500 ml LR, airvo settings adjusted as per scraper hand. Telemetry sinus rhythm. Antihypertensives adjusted, Clonidine patch increased, now off of Clevaprex. Diet intake fair 15% this am, blood sugars ranging from 120s to 190s. Continues on IV antibiotics of Levaquin and cefepime .T-max 99.7, normal WBC. Objective - Vital Signs Vital signs: Vital Signs Temp 99.3 F 11/30/19 08:00 Pulse 98 11/30/19 08:54 Resp 18 11/30/19 08:00 BP 160/106 11/30/19 08:00 Pulse Ox 95 11/30/19 08:00 Intake & Output 11/29/19 11/30/19 11/30/19 18:59 06:59 18:59 Intake Total 916.333 652 592 Output Total 3575 1030 410 Balance -2658.667 -378 182 Weight 85.6 kg Intake: IV 670 652 592 Cefepime 2 gm In Sodium 100 100 Chloride 0.9% 100 ml @ 200 mls/hr IVPB Q12H [facility] Rx#:[id number] Lactated Ringers 500 ml @ 500 999 mls/hr IV .Q31M [facility] Rx#:[id number] Sodium Chloride 0.9% 1, 516 516 86 000 ml @ 43 mls/hr IV . [id number] [facility] Rx#:[id number] pressure bag 54 36 6 Intake, IV Titration 246.333 Amount Clevidipine Butyrate 25 46.333 mg In Empty Bag 1 bag @ 1 MG/HR 2 mls/hr IV .Q24H [facility] Rx#:[id number] Potassium Chloride 10 meq 200 In Water For Injection 1 100ml.bag @ 100 mls/hr IVPB Q1H [facility] Rx#: [id number] Output: Urine 3575 1030 410 Other: Voiding Method Indwelling Catheter Indwelling Catheter ABP, PAP, CO, CI - Last Documented Arterial Blood Pressure 162/60 - Exam VITAL SIGNS: [As above] GENERAL: Sitting up in bed,weak, no acute distress HEENT: Conjunctivae normal. eyes normal. NECK: No JVD. No thyroid enlargement. No LNs CARDIOVASCULAR: S1, S2 regular. No murmur RESPIRATION: Breath sounds diminished in the bases. Scattered rhonchi, crackles. ABDOMEN: Soft, nontender . No guarding. no masses palpable. No ascites, No hepatosplenomegaly.Bowel sounds heard. LEGS: mild edema. Offloading Boots on bilateral lower extremities PSYCHIATRY: Alert and oriented X3, mood and affect normal. NERVOUS SYSTEM: Cranial nerves II through XII grossly intact, moving all extremities. Generalized diffuse weakness .No focal deficits Skin: no rash , mild edema of upper extremities. blanchable coccyx with optifoam dressing ordered. Microbiology 11/22/19 13:11 Blood Blood Culture - Final No Growth after 144 hours 11/25/19 10:30 Bronchial Washings - Right Gram Stain - Final 11/25/19 10:30 Bronchial Washings - Right Bronchial Washings Culture - Final 11/25/19 10:30 Bronchial Washings - Right Acid Fast Bacilli Smear - Final 11/25/19 10:30 Bronchial Washings - Right Acid Fast Bacilli Culture - Preliminary 11/25/19 10:30 Bronchial Washings - Right Fungal Culture - Preliminary 11/22/19 03:15 Sputum Gram Stain - Final 11/22/19 03:15 Sputum Sputum Culture - Final - Labs CBC & Chem 7: 11/30/19 02:56 11/30/19 02:56 Labs: Abnormal Lab Results - Last 24 Hours (Table) 11/29/19 11/29/19 11/29/19 Range/Units 11:51 15:53 20:12 RBC (4.30-5.90) m/uL Hgb (13.0-17.5) gm/dL Hct (39.0-53.0) % RDW (11.5-15.5) % Plt Count (150-450) k/uL ABG pH (7.35-7.45) ABG HCO3 (21-25) mmol/L ABG Total CO2 (19-24) mmol/L ABG O2 Saturation (94-97) % Carbon Dioxide (22-30) mmol/L BUN (9-20) mg/dL Creatinine (0.66-1.25) mg/dL Glucose (74-99) mg/dL POC Glucose (mg/dL) 134 H 134 H 141 H (75-99) mg/dL Calcium (8.4-10.2) mg/dL 11/29/19 11/30/19 11/30/19 Range/Units 23:36 02:42 02:56 RBC 3.41 L (4.30-5.90) m/uL Hgb 10.4 L (13.0-17.5) gm/dL Hct 30.6 L (39.0-53.0) % RDW 16.1 H (11.5-15.5) % Plt Count 125 L (150-450) k/uL ABG pH 7.53 H (7.35-7.45) ABG HCO3 35 H (21-25) mmol/L ABG Total CO2 36 H (19-24) mmol/L ABG O2 Saturation 98.7 H (94-97) % Carbon Dioxide (22-30) mmol/L BUN (9-20) mg/dL Creatinine (0.66-1.25) mg/dL Glucose (74-99) mg/dL POC Glucose (mg/dL) 143 H (75-99) mg/dL Calcium (8.4-10.2) mg/dL 11/30/19 11/30/19 11/30/19 Range/Units 02:56 03:02 08:04 RBC (4.30-5.90) m/uL Hgb (13.0-17.5) gm/dL Hct (39.0-53.0) % RDW (11.5-15.5) % Plt Count (150-450) k/uL ABG pH (7.35-7.45) ABG HCO3 (21-25) mmol/L ABG Total CO2 (19-24) mmol/L ABG O2 Saturation (94-97) % Carbon Dioxide 33 H (22-30) mmol/L BUN 34 H (9-20) mg/dL Creatinine 0.65 L (0.66-1.25) mg/dL Glucose 123 H (74-99) mg/dL POC Glucose (mg/dL) 127 H 196 H (75-99) mg/dL Calcium 8.0 L (8.4-10.2) mg/dL Assessment and Plan Assessment: Assessment: Acute hypoxic respiratory failure, multifactorial, secondary to bilateral pneumonia-suspect community-acquired, bilateral pulmonary masses, in a patient with history of underlying left lobe carcinoma, failed outpatient treatment, status post ventilator dependent Acute dehydration Acute COPD exacerbation Non-small cell CA of the lung, completed chemoradiation therapy, underwent immunotherapy, PET scan August 2019 reported no progression. Recurrent hemoptysis secondary to lung cancer CVAT, history of stenting, non-STEMI Diabetes mellitus2 Hypothyroidism Hypertension Hodgkin's disease Former nicotine dependence Sinus tachycardia, not A. fib per cardiology's review of EKGs Severe pulmonary hypertension Moderate to severe tricuspid regurgitation Plan: Continue current medication regime ,monitoring and symptomatic treatment. Continue on nebulized bronchodilators. IV antibiotics as per infectious disease. Close monitoring of blood sugars, diet intake fair Prognosis guarded given multiple complex medical issues. The impression and plan of care has been dictated as directed. : I performed a history and examination of this patient, discussed the same with the dictator. I agree with the dictator's note ,documented as a scribe. Any additional findings or plans will be noted.
--- NOTE | 2019-11-30 15:26 | P.PN ---
Subjective Progress Note Date: 11/30/19 Principal diagnosis: pneumonia In f/u today pt alert, answers questions appropriately, he can say 1 or 2 more words today before becoming SOB, little less use of pursed lip breathing. Denies pain Objective - Vital Signs Vital signs: Vital Signs Temp 98.3 F 11/30/19 12:00 Pulse 93 11/30/19 15:00 Resp 18 11/30/19 15:00 BP 159/65 11/30/19 15:00 Pulse Ox 97 11/30/19 15:00 Intake & Output 11/29/19 11/30/19 11/30/19 18:59 06:59 18:59 Intake Total 916.333 652 922 Output Total 3575 1030 1075 Balance -2658.667 -378 -153 Weight 85.6 kg 85.6 kg Intake: IV 670 652 922 Cefepime 2 gm In Sodium 100 100 100 Chloride 0.9% 100 ml @ 200 mls/hr IVPB Q12H [facility] Rx#:[id number] Lactated Ringers 500 ml @ 500 999 mls/hr IV .Q31M [facility] Rx#:[id number] Sodium Chloride 0.9% 1, 516 516 301 000 ml @ 43 mls/hr IV . [id number] [facility] Rx#:[id number] pressure bag 54 36 21 Intake, IV Titration 246.333 Amount Clevidipine Butyrate 25 46.333 mg In Empty Bag 1 bag @ 1 MG/HR 2 mls/hr IV .Q24H [facility] Rx#:[id number] Potassium Chloride 10 meq 200 In Water For Injection 1 100ml.bag @ 100 mls/hr IVPB Q1H [facility] Rx#: [id number] Output: Urine 3575 1030 1075 Other: Voiding Method Indwelling Catheter Indwelling Catheter Indwelling Catheter ABP, PAP, CO, CI - Last Documented Arterial Blood Pressure 162/60 - Constitutional General appearance: Present: cooperative, mild distress, thin - EENT Eyes: Present: anicteric sclerae, EOMI ENT: Present: hearing grossly normal - Respiratory Respiratory: bilateral: CTA, diminished - Cardiovascular Heart sounds: normal: S1, S2 - Peripheral edema leg Peripheral Edema: bilateral: None - Gastrointestinal General gastrointestinal: Present: normal bowel sounds, soft - Neurologic Neurologic: Present: CNII-XII intact - Musculoskeletal Musculoskeletal: Present: generalized weakness - Psychiatric Psychiatric: Present: A&O x's 3, appropriate affect, intact judgment & insight - Labs CBC & Chem 7: 11/30/19 02:56 11/30/19 14:30 Labs: Abnormal Lab Results - Last 24 Hours (Table) 11/29/19 11/29/19 11/29/19 Range/Units 15:53 20:12 23:36 RBC (4.30-5.90) m/uL Hgb (13.0-17.5) gm/dL Hct (39.0-53.0) % RDW (11.5-15.5) % Plt Count (150-450) k/uL ABG pH (7.35-7.45) ABG HCO3 (21-25) mmol/L ABG Total CO2 (19-24) mmol/L ABG O2 Saturation (94-97) % Carbon Dioxide (22-30) mmol/L BUN (9-20) mg/dL Creatinine (0.66-1.25) mg/dL Glucose (74-99) mg/dL POC Glucose (mg/dL) 134 H 141 H 143 H (75-99) mg/dL Calcium (8.4-10.2) mg/dL 11/30/19 11/30/19 11/30/19 Range/Units 02:42 02:56 02:56 RBC 3.41 L (4.30-5.90) m/uL Hgb 10.4 L (13.0-17.5) gm/dL Hct 30.6 L (39.0-53.0) % RDW 16.1 H (11.5-15.5) % Plt Count 125 L (150-450) k/uL ABG pH 7.53 H (7.35-7.45) ABG HCO3 35 H (21-25) mmol/L ABG Total CO2 36 H (19-24) mmol/L ABG O2 Saturation 98.7 H (94-97) % Carbon Dioxide 33 H (22-30) mmol/L BUN 34 H (9-20) mg/dL Creatinine 0.65 L (0.66-1.25) mg/dL Glucose 123 H (74-99) mg/dL POC Glucose (mg/dL) (75-99) mg/dL Calcium 8.0 L (8.4-10.2) mg/dL 11/30/19 11/30/19 Range/Units 03:02 08:04 RBC (4.30-5.90) m/uL Hgb (13.0-17.5) gm/dL Hct (39.0-53.0) % RDW (11.5-15.5) % Plt Count (150-450) k/uL ABG pH (7.35-7.45) ABG HCO3 (21-25) mmol/L ABG Total CO2 (19-24) mmol/L ABG O2 Saturation (94-97) % Carbon Dioxide (22-30) mmol/L BUN (9-20) mg/dL Creatinine (0.66-1.25) mg/dL Glucose (74-99) mg/dL POC Glucose (mg/dL) 127 H 196 H (75-99) mg/dL Calcium (8.4-10.2) mg/dL - Imaging and Cardiology Chest x-ray: report reviewed Assessment and Plan (1) Pneumonia Narrative/Plan: Cont treatments per Pulmonary med and Critical Care CXR reported stable Current Visit: Yes Status: Acute Priority: High Code(s): J18.9 - PNEUMONIA, UNSPECIFIED ORGANISM SNOMED Code(s): 224440220 (2) Hepatocellular carcinoma Current Visit: No Status: Chronic Priority: Medium Code(s): C22.0 - LIVER CELL CARCINOMA SNOMED Code(s): 474817463 (3) Lung cancer Current Visit: No Status: Chronic Priority: Medium Code(s): C34.90 - MALIGNANT NEOPLASM OF UNSP PART OF UNSP BRONCHUS OR LUNG SNOMED Code(s): 181795944 Plan: In regards to malignancy, it was not felt that pt has progression of disease at this time. Agree with continuing treatment and supportive care of pneumonia. Patient's was asking questions regarding rehabilitation and hospice. I told the patient and his that either situation is appropriate based on patient goals. Whenever patient and decide on they will be supported in their decision. They will discuss and report patient wishes.
[2019-11-30] MEDS: LEVOFLOXACIN 750 MG TAB PO SCH (15:59)
[2019-11-30 16:03] LABS: Glucose,Whole Blood 127 mg/dL (75-99)
--- NOTE | 2019-11-30 18:08 | PN ---
PROGRESS NOTE DATE OF SERVICE: 11/30/2019 REASON FOR FOLLOWUP: Pneumonia. INTERVAL HISTORY: The patient is currently afebrile. The patient is breathing comfortably. The patient denies having any chest pain. He did have some cough, not bringing up any sputum. No nausea, no vomiting. No abdominal pain. No diarrhea. The patient is constipated. PHYSICAL EXAMINATION: Blood pressure 159/65 with a pulse of 90, temperature of 98. He is 97% on high-flow oxygen. General description is an elderly male up in the chair in no distress. RESPIRATORY SYSTEM: Unlabored breathing with decreased intensity of breath sounds. No wheeze. HEART: S1, S2. Regular rate and rhythm. ABDOMEN: Soft. No tenderness. LABS: Hemoglobin is 10.4, white count 10.2, BUN of 34, creatinine 0.65. Bronch culture has been negative. DIAGNOSTIC IMPRESSION AND PLAN: Patient admitted to hospital with sepsis. Source is pneumonia, possibly community- acquired blood culture has been negative for any resistant pathogen. The patient may benefit through a short course of oral Levaquin and monitor clinical course closely. MMODL / IJN: [id number] /
[2019-11-30 20:11] LABS: Glucose,Whole Blood 149 mg/dL (75-99)
[2019-11-30] MEDS: ATORVASTATIN 40 MG TAB PO SCH (20:14)
[2019-11-30] MEDS: ASPIRIN 81 MG PO SCH (20:15)
[2019-12-01 00:21] LABS: Glucose,Whole Blood 102 mg/dL (75-99)
[2019-12-01] MEDS: INSULIN ASPART (NovoLOG) 100 UNIT/ML VIAL SQ SCH ×4 (00:23→18:27)
[2019-12-01] MEDS: HYDROmorphone 1 MG/ML 1 ML SYRINGE IVP PRN ×8 (00:24→20:50)
[2019-12-01 04:03] LABS: Glucose,Whole Blood 117 mg/dL (75-99)
[2019-12-01 04:58] LABS: Basophils % (A) 0 %; Eosinophils # (A) 0.1 k/uL (0-0.7); Eosinophils % (A) 1 %; HCT 30.4 % (39.0-53.0); HGB 9.8 gm/dL (13.0-17.5); Hypochromasia Slight; Lymphocytes # (A) 0.6 k/uL (1.0-4.8); Lymphocytes % (A) 7 %; MCH 28.8 pg (25.0-35.0); MCHC 32.1 g/dL (31.0-37.0); MCV 89.8 fL (80.0-100.0); Mean Platelet Volume 7.4; Monocytes # (A) 0.4 k/uL (0-1.0); Monocytes % (A) 5 %; Neutrophils # (A) 7.3 k/uL (1.3-7.7); Neutrophils % (A) 86 %; Platelet Count 108 k/uL (150-450); Poikilocytosis Moderate; RBC 3.39 m/uL (4.30-5.90); RDW 15.7 % (11.5-15.5); WBC 8.5 k/uL (3.8-10.6)
[2019-12-01 05:16] LABS: African American GFR (CKD) >90 (>60 ml/min/1.73 sqM); Anion Gap 1 mmol/L; Blood Urea Nitrogen 33 mg/dL (9-20); Carbon Dioxide 34 mmol/L (22-30); Chloride 103 mmol/L (98-107); Glucose 117 mg/dL (74-99); Non-African American GFR(CKD) >90 (>60 ml/min/1.73 sqM); Potassium 3.9 mmol/L (3.5-5.1); Sodium 138 mmol/L (137-145)
[2019-12-01] MEDS: LEVOTHYROXINE 100 MCG TAB PO SCH (05:35)
--- NOTE | 2019-12-01 06:22 | XR ---
EXAMINATION TYPE: XR chest 1V portable DATE OF EXAM: 12/01/2019 HISTORY: ICU management. REFERENCE: Previous study dated 11/30/2019. FINDINGS: A left internal jugular catheter remains in place. Its tip is in the superior vena cava. There is a left apical mass. There is apparent elevation of the left hemidiaphragm. There is a massli ke density in the periphery of the right lung superiorly. Heart size is obscured. There is dense consolidation or dense pleural reaction at the left lung base. There is interstitial change throughout the right lung. The overall appearance has not changed signi ficantly. IMPRESSION: NO SIGNIFICANT INTERVAL CHANGE IN THE CHEST.
[2019-12-01 08:10] LABS: Glucose,Whole Blood 169 mg/dL (75-99)
[2019-12-01] MEDS: FORMOTEROL FUMARATE 20 MCG/2 ML NEBU INHALATION SCH ×2 (08:25→19:50)
[2019-12-01] MEDS: IPRATROPIUM-ALBUTEROL 3 ML NEB INHALATION SCH ×4 (08:25→19:50)
[2019-12-01] MEDS: BUDESONIDE 1 MG/2 ML NEBU INHALATION SCH ×2 (08:25→19:50)
[2019-12-01] MEDS ORDERED: SODIUM CHLORIDE 0.9% 1,000 ML IV ONE (08:29)
[2019-12-01] MEDS ORDERED: DILTIAZEM 125 MG in SODIUM CHLORIDE 0.9% 100 ML IV SCH (08:30)
--- NOTE | 2019-12-01 09:59 | P.PN ---
Subjective Progress Note Date: 12/01/19 Principal diagnosis: Acute hypoxemic respiratory failure secondary to bilateral pneumonia 69-year-old male patient of Dr. 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 Chicas and Dr. Scanlon. Patient was diagnosed in 2016, he is status post chemoradiation therapy completed in August 2017. He was started on immunotherapy in April 2018, and his most recent PET scan from August 2019 showed no disease progression, fact the metabolic activity seen in the right mediastinum has completely resolved and the left suprahilar mass showed less metabolic activity and had shrunken in size. There was however evidence of radiation pneumonitis and left upper lobe and loss and limited areas of drug-induced pneumonitis with chronic interstitial changes. Other medical history includes coronary artery disease, history of non-ST elevated myocardial infarction, and patient had several coronary artery stents, diabetes mellitus 2, Hodgkin's lymphoma, hepatitis C, former smoker, history of chronic obstructive lung disease the baseline FEV1 of 75% of predicted however most recent PFT in January 2019 showed decrease in his FEV1 value down to 1.92 L or 60% of predicted consistent with stage II COPD, and patient is not normally oxygen dependent. Patient states his immunotherapy had been on hold since September for possibility of cataract surgery. On 11/22/2019 patient presented today emergency department per EMS for increasing shortness of breath, fever, fatigue, decreased appetite, chest soreness from difficulty breathing. He is seen today 11/30/2019 follow-up in the intensive care unit. He was extubated on 11/28/2019. He is currently resting fairly comfortably in bed. He is awake and alert in no acute distress. He is quite weak. He remains on the airflow at 60 L/m and 60% FiO2. Blood gases reveal a P O2 of 97, pCO2 42, pH 7.53. 0.9 normal saline at 43 ML's per hour. He is currently off the clever proximal. He was given 500 mL lactated Ringer's this morning. He is on Lopressor 100 mg twice a day and Catapres 0.3mg patch for blood pressure control. Bronchial wash findings revealed no growth. White count 10.2. Hemoglobin 10.4. Sodium 139. Potassium 3.5. Creatinine 0.65. He is maintaining on antibiotics in the form of Levaquin, bronchodilators. Today's chest x-ray reveals persistent density in the right peripheral upper lung field. Left basilar infiltrate and small effusion. Mild infiltrate of the right base. Left apical thickening and opacity is stable. The patient is seen today 12/01/2019 in follow-up in the intensive care unit. This morning he developed atrial fibrillation with a rapid ventricular response requiring a Cardizem drip at 7.5 mg an hour. He was hypotensive and received another liter of fluid. He was clammy. Throughout the night he had been having some left arm and neck discomfort. He is since converted back to normal sinus rhythm. He remains on the AirVo high flow oxygen device with 60 L/m at 52% FiO2. Chest x-ray continues to show a dense consolidation/pleural reaction of left lung base there is also interstitial changes throughout the right lung. Continued left apical mass and a masslike density in the periphery the right lung superiorly. Unchanged. Bronchial wash cultures reveal no growth. White count 8.5. Hemoglobin 9.8. Sodium 138. Potassium 3.9. Creatinine 0.59. Troponin 0.489. He is continued on DuoNeb inhalations, Pulmicort and Perforomist inhalations, and diuretics in the form of cefepime and Levaquin. Objective - Vital Signs Vital signs: Vital Signs Temp 98.6 F 12/01/19 08:00 Pulse 112 H 12/01/19 09:00 Resp 17 12/01/19 09:00 BP 89/63 12/01/19 09:00 Pulse Ox 97 12/01/19 09:00 Intake & Output 11/30/19 12/01/19 12/01/19 18:59 06:59 18:59 Intake Total 6799 130 3178 Output Total 1265 710 105 Balance -113 67 990 Weight 85.6 kg 84.1 kg Intake: IV 9282 845 5382 0.9 bolus 1000 Cefepime 2 gm In Sodium 100 100 Chloride 0.9% 100 ml @ 200 mls/hr IVPB Q12H [facility] Rx#:[id number] Lactated Ringers 500 ml @ 500 999 mls/hr IV .Q31M [facility] Rx#:[id number] Sodium Chloride 0.9% 1, 516 516 86 000 ml @ 43 mls/hr IV . [id number] [facility] Rx#:[id number] pressure bag 36 36 9 Tube Feeding 125 Output: Urine 1265 710 105 Other: Voiding Method Indwelling Catheter Indwelling Catheter ABP, PAP, CO, CI - Last Documented Arterial Blood Pressure 143/53 - Exam GENERAL EXAM: Alert, pleasant, 69-year-old male patient, appears chronically ill, debilitated, extubated on 11/28/2019, remains on AirVo high flow oxygen device at 60 L and 52% FiO2 HEAD: Normocephalic/atraumatic. EYES: Normal reaction of pupils, equal size. Conjunctiva pink, sclera white. NOSE: Clear with pink turbinates. THROAT: No erythema or exudates. NECK: No masses, no JVD, no thyroid enlargement, no adenopathy. CHEST: No chest wall deformity. Symmetrical expansion. LUNGS: Equal air entry with coarse crackles at bilateral bases, few scattered rhonchi CVS: Regular rate and rhythm, normal S1 and S2, no gallops, no murmurs, no rubs ABDOMEN: Soft, nontender. No hepatosplenomegaly, normal bowel sounds, no guar ding or rigidity. EXTREMITIES: No clubbing, no edema, no cyanosis, 2+ pulses and upper and lower extremities. MUSCULOSKELETAL: Muscle strength and tone normal. SPINE: No scoliosis or deformity SKIN: No rashes CENTRAL NERVOUS SYSTEM: No focal deficits, tone is normal in all 4 extremities. PSYCHIATRIC: Alert and oriented -3. Appropriate affect. Intact judgment and insight. - Labs CBC & Chem 7: 12/01/19 04:25 12/01/19 04:25 Labs: Abnormal Lab Results - Last 24 Hours (Table) 11/30/19 11/30/19 12/01/19 Range/Units 16:02 20:09 00:19 RBC (4.30-5.90) m/uL Hgb (13.0-17.5) gm/dL Hct (39.0-53.0) % RDW (11.5-15.5) % Plt Count (150-450) k/uL Lymphocytes # (1.0-4.8) k/uL Carbon Dioxide (22-30) mmol/L BUN (9-20) mg/dL Creatinine (0.66-1.25) mg/dL Glucose (74-99) mg/dL POC Glucose (mg/dL) 127 H 149 H 102 H (75-99) mg/dL Calcium (8.4-10.2) mg/dL 12/01/19 12/01/19 12/01/19 Range/Units 04:01 04:25 04:25 RBC 3.39 L (4.30-5.90) m/uL Hgb 9.8 L (13.0-17.5) gm/dL Hct 30.4 L (39.0-53.0) % RDW 15.7 H (11.5-15.5) % Plt Count 108 L (150-450) k/uL Lymphocytes # 0.6 L (1.0-4.8) k/uL Carbon Dioxide 34 H (22-30) mmol/L BUN 33 H (9-20) mg/dL Creatinine 0.59 L (0.66-1.25) mg/dL Glucose 117 H (74-99) mg/dL POC Glucose (mg/dL) 117 H (75-99) mg/dL Calcium 8.0 L (8.4-10.2) mg/dL 12/01/19 Range/Units 08:08 RBC (4.30-5.90) m/uL Hgb (13.0-17.5) gm/dL Hct (39.0-53.0) % RDW (11.5-15.5) % Plt Count (150-450) k/uL Lymphocytes # (1.0-4.8) k/uL Carbon Dioxide (22-30) mmol/L BUN (9-20) mg/dL Creatinine (0.66-1.25) mg/dL Glucose (74-99) mg/dL POC Glucose (mg/dL) 169 H (75-99) mg/dL Calcium (8.4-10.2) mg/dL Assessment and Plan Assessment: #1. Acute hypoxemic respiratory failure related to bilateral pneumonia, chest x-ray showed bilateral pulmonary masses, consolidation with suspicion of underlying pneumonia, requiring intubation and mechanical ventilatory support, extubated on 11/28/2019. Currently on AirVo high flow oxygen device at 60 L and 60% FiO2 with O2 saturation of 95% #2. Acute atrial fibrillation with a rapid ventricular response and 12/01/2019. Converted back to normal sinus rhythm. On Cardizem drip at 7.5 mg per hour. #3. Non-small cell carcinoma of the lung, TNM stage IIIB diagnosed in 2017 patient underwent chemoradiation therapy completed in August 2017, patient was started immunotherapy in April 2018, most recent PET scan in August 2019 showed no disease progression, resolution of metabolic activity in the right mediastinum, in decrease in metabolic activity involving left suprahilar mass was decreased in size. #4. Chronic interstitial changes involving left upper lobe #5. History of coronary artery disease with history of coronary artery stenting #6. History of non-ST elevated myocardial infarction #7. History of COPD with FEV1 of 60% of predicted, stage II COPD not normally oxygen dependent #8. Type 2 diabetes mellitus #9. Dyspnea, acute on chronic, multifactorial, related to acute bilateral lung pneumonia, chronic COPD, chronic deconditioning #10. History of Hodgkin's disease #11. History of hypothyroidism #12. History of hypertension #13. History of hyperlipidemia #14. Former smoker Plan: The patient was seen and evaluated by Dr. Benz. Chest x-ray, labs all rev iewed. He did require Cardizem drip at 7.5 mg per hour for A. fib with RVR. Currently back in sinus rhythm. Troponin 0.489. He was hypotensive at the time and he received another liter of fluid. We will continue to monitor him closely here in the intensive care unit. We'll continue to follow and make further recommendations based on his clinical status. Overall prognosis is quite guarded. Critical care time 35 minutes. I, the cosigning physician, performed a history & physical examination of the patient. Lungs sounds bilateral crackles scattered rhonchi. Maintaining good O2 saturations in the 90s on 52% FiO2 and 60 L per AirVo high flow oxygen. I discussed the assessment and plan of care with my nurse practitioner, Lucretia Atkins. I attest to the above note as dictated by her.
[2019-12-01] MEDS: SODIUM CHLORIDE 0.9% 1,000 ML IV SCH (10:24)
[2019-12-01] MEDS: METOPROLOL TARTRATE 50 MG TAB PO SCH ×2 (10:28→21:20)
[2019-12-01] MEDS: PANTOPRAZOLE 40 MG TABLET PO SCH (10:29)
[2019-12-01] MEDS: CEFEPIME 2 GM in SODIUM CHLORIDE 0.9% 100 ML IVPB SCH (10:31)
[2019-12-01] MEDS: HYDROcodone/APAP 10-325MG 1 EACH TAB PO PRN ×2 (11:49→18:31)
[2019-12-01 12:04] LABS: Glucose,Whole Blood 205 mg/dL (75-99)
--- NOTE | 2019-12-01 13:02 | P.PN ---
Subjective Progress Note Date: 12/01/19 This is a 69 year old gentleman with history of underlying left sided lung cancer, hyperlipidemia, hypertension, thyroid disorder, hepatitis C, Hodgkin's lymphoma and squamous cell-completed radiation and chemo, former nicotine dependence returned to the ER with complaints of worsening shortness of breath, occasional hemoptysis, fevers, chills 2 days. Patient initially had come into ER 3 days ago, placed on Levaquin and discharged home. Chest x-ray on admission reported bilateral pulmonary masses with bibasilar consolidation, underlying pneumonia, interstitial pneumonitis. Right upper lobe mass noted at 4.2 cm, additional masses identified within the suprahilar region measuring 5.8 x 5.8 cm. follow-up chest x-ray this morning reporting worsening left apical infiltrate, correlate for pneumonia, right upper lobe infiltrate, developing mass possible, underlying left upper lobe lung cancer. EKG reported sinus tachycardia, left atrial enlargement. T-max 101, WBC 12.2-now down to 11.8. Hemoglobin 9.8, BUN 26, creatinine 0.76. Blood sugars elevated 230-350s. O2 sat on admission 69% on room air, placed on nonrebreather, currently maintaining O2 sats in the low 90s on 6 L nasal cannula. IV antibiotics of Zosyn and Levaquin initiated in addition to nebulized bronchodilators and IV fluid hydration. Pulmonary and oncology consulted. 11/26/2019 until yesterday morning patient developed worsening hypoxia, sinus tachycardia, patient was transferred to ICU and intubated. Converted and remains in sinus rhythm. Maintained on mechanical ventilation, FiO2 down to 50, PEEP up to +8. Continues on diprovan, IV fluids and IV antibiotics. Underwent bronchoscopy yesterday, cytology, cultures pending. Afebrile. Echo reportedly mild concentric hypertrophy, EF 60-65%, moderate to severe tricuspid regurgitation, severe pulmonary hypertension . Chest x-ray noted. Tolerating tube feeds at goal with minimal to no residuals. 11/27/2019 remains vent dependent, FiO2 50%/+8 of PEEP. ABGs noted. Chest x- ray reporting interval progression of the disease involving left lung apex, diffuse pleural-progression of changes, correlate for pulmonary mass. Maintained on IV fluids ,diprovan, Dilaudid. Blood pressure marginal, map 55. No weaning trials recommended today.Tolerating tube feeds at goal with minimal to no residual. Blood sugars controlled on insulin drip. [facility] cultures, cytology pending. Continues on Zosyn, Levaquin, vancomycin. Creatinine 0.7. Afebrile, WBC 10. 11/28/2019 Consulted infectious disease, antibiotics adjusted. Currently on cefepime and Levaquin.Bronchoscopy cytology reporting no malignant cells identified. Bronchoscopy washings, cultures currently negative, fungal culture pending. Afebrile, normal WBC. Chest x-ray reporting stable, no significant change from yesterday's x-ray; left suprahilar mass or neoplasm on background, chronic emphysematous change with left-sided volume loss, diffuse right lung edema and/or infiltrates with more focal right upper lung masslike consolidation, small bilateral pleural effusions. Recently extubated, requiring 60% high flow, being transitioned to airvo. Currently nothing by mouth, blood sugars ranging 130s to 140s. Hemoglobin 9. 11/29/2019 breathing continues to improve, airvo decreased to 60. Chest x-ray reporting unchanged left apical opacity/left basilar density. Mass density right upper lobe measuring 5.4 cm. Persistent patchy improving right lower lobe infiltrate. Maintained on Clevaprex. Diet intake improving. No nausea, no vomiting, no diarrhea. Blood sugars improved. Speech therapy evaluating swallow. Afebrile, normal WBC. Denies chest pain, palpitations. 11/30/2019 chest x-ray reporting stable from comparison; persistent density in the peripheral right upper lung field, left basilar infiltrate and/or small pleural effusion mild right lung base infiltrate, left apical thickening and opacity stable. Maintained on 60% airvo. Early a.m. ABGs alkalotic, received 500 ml LR, airvo settings adjusted as per demi chef. Telemetry sinus rhythm. Antihypertensives adjusted, Clonidine patch increased, now off of Clevaprex. Diet intake fair 15% this am, blood sugars ranging from 120s to 190s. Continues on IV antibiotics of Levaquin and cefepime .T-max 99.7, normal WBC. The above documentation was per my nurse practitioner's notes that I have concurred with. 12/01/2019:He remains on the AirVo high flow oxygen device with 60 L/m at 52% FiO2. Chest x-ray continues to show a dense consolidation/pleural reaction of left lung base there is also interstitial changes throughout the right lung. Continued left apical mass and a masslike density in the periphery the right lung superiorly. Unchanged. Last night he had an episode of atrial fibrillation. He was placed on a IV Cardizem drip and did experience some hypotension. He is since converted back to sinus rhythm. He remains somewhat short of breath is only able to say a few words. He did indicate to [facility] is having ongoing neck and back pain. He takes hydrocodone 10/325, one every 6 hours as needed at home.Inpatient since extubation receiving 1 mg of Dilaudid IV push every hour. Bronchial wash cultures reveal no growth. Labs reviewed and appear stable. Troponin 0.489. He is continued on DuoNeb inhalations, Pulmicort and Perforomist inhalations, and antibiotics in the form of cefepime and Levaquin. Yesterday oncology did see him and discuss the family his current status. They felt this was not a worsening of his cancer but truly pneumonia. We discussed either hospice or rehabilitation in either would be appropriate in his current situation. He denies any nausea or vomiting and is tolerating a minimal diet. He is not finding the current food appetizing. Remains on NovoLog scale for his diabetes. Sugars are adequately controlled. Objective - Vital Signs Vital signs: Vital Signs Temp 98.6 F 12/01/19 08:00 Pulse 78 12/01/19 11:45 Resp 12 12/01/19 11:45 BP 113/62 12/01/19 11:45 Pulse Ox 98 12/01/19 11:45 Intake & Output 11/30/19 12/01/19 12/01/19 18:59 06:59 18:59 Intake Total 5518 483 2215 Output Total 1265 710 290 Balance -113 67 997 Weight 85.6 kg 84.1 kg Intake: IV 8212 594 5430 0.9 bolus 1000 Cefepime 2 gm In Sodium 100 100 100 Chloride 0.9% 100 ml @ 200 mls/hr IVPB Q12H [facility] Rx#:[id number] Lactated Ringers 500 ml @ 500 999 mls/hr IV .Q31M ONE Rx#:[id number] Sodium Chloride 0.9% 1, 516 516 172 000 ml @ 43 mls/hr IV . [id number] [facility] Rx#:[id number] pressure bag 36 36 15 Tube Feeding 125 Output: Urine 1265 710 290 Other: Voiding Method Indwelling Catheter Indwelling Catheter Indwelling Catheter ABP, PAP, CO, CI - Last Documented Arterial Blood Pressure 137/55 - Exam GENERAL: Sitting up in bed,weak, no acute distress, airvo high flow oxygen nasal cannula in place NECK: No JVD. No thyroid enlargement. No LNs CARDIOVASCULAR: S1, S2 regular. No murmur RESPIRATION: Breath sounds diminished in the bases. Scattered rhonchi, crackles. ABDOMEN: Soft, nontender . No guarding. no masses palpable. No ascites, No hepatosplenomegaly.Bowel sounds heard. LEGS: mild edema. Offloading Boots on bilateral lower extremities PSYCHIATRY: Alert and oriented X3, mood and affect normal. NERVOUS SYSTEM: Cranial nerves II through XII grossly intact, moving all extremities. Generalized diffuse weakness .No focal deficits Skin: no rash , mild edema of upper extremities. blanchable coccyx with optifoam dressing ordered. - Labs CBC & Chem 7: 12/01/19 04:25 12/01/19 04:25 Labs: Abnormal Lab Results - Last 24 Hours (Table) 11/30/19 11/30/19 12/01/19 Range/Units 16:02 20:09 00:19 RBC (4.30-5.90) m/uL Hgb (13.0-17.5) gm/dL Hct (39.0-53.0) % RDW (11.5-15.5) % Plt Count (150-450) k/uL Lymphocytes # (1.0-4.8) k/uL Carbon Dioxide (22-30) mmol/L BUN (9-20) mg/dL Creatinine (0.66-1.25) mg/dL Glucose (74-99) mg/dL POC Glucose (mg/dL) 127 H 149 H 102 H (75-99) mg/dL Calcium (8.4-10.2) mg/dL Troponin I (0.000-0.034) ng/mL 12/01/19 12/01/19 12/01/19 Range/Units 04:01 04:25 04:25 RBC 3.39 L (4.30-5.90) m/uL Hgb 9.8 L (13.0-17.5) gm/dL Hct 30.4 L (39.0-53.0) % RDW 15.7 H (11.5-15.5) % Plt Count 108 L (150-450) k/uL Lymphocytes # 0.6 L (1.0-4.8) k/uL Carbon Dioxide 34 H (22-30) mmol/L BUN 33 H (9-20) mg/dL Creatinine 0.59 L (0.66-1.25) mg/dL Glucose 117 H (74-99) mg/dL POC Glucose (mg/dL) 117 H (75-99) mg/dL Calcium 8.0 L (8.4-10.2) mg/dL Troponin I (0.000-0.034) ng/mL 12/01/19 12/01/19 12/01/19 Range/Units 08:08 09:00 12:03 RBC (4.30-5.90) m/uL Hgb (13.0-17.5) gm/dL Hct (39.0-53.0) % RDW (11.5-15.5) % Plt Count (150-450) k/uL Lymphocytes # (1.0-4.8) k/uL Carbon Dioxide (22-30) mmol/L BUN (9-20) mg/dL Creatinine (0.66-1.25) mg/dL Glucose (74-99) mg/dL POC Glucose (mg/dL) 169 H 205 H (75-99) mg/dL Calcium (8.4-10.2) mg/dL Troponin I 0.489 H* (0.000-0.034) ng/mL Assessment and Plan (1) Acute and chronic respiratory failure with hypoxia Current Visit: Yes Status: Acute Code(s): J96.21 - ACUTE AND CHRONIC RESPIRATORY FAILURE WITH HYPOXIA SNOMED Code(s): 30238828 (2) Hemoptysis Current Visit: Yes Status: Acute Code(s): R04.2 - HEMOPTYSIS SNOMED Code(s): 15737421 (3) CAD (coronary artery disease) Current Visit: Yes Status: Acute Code(s): I25.10 - ATHSCL HEART DISEASE OF [place] CORONARY ARTERY W/O ANG PCTRS SNOMED Code(s): 93631995 (4) Diabetes Current Visit: Yes Status: Acute Code(s): E11.9 - TYPE 2 DIABETES MELLITUS WITHOUT COMPLICATIONS SNOMED Code(s): 71804879 (5) Hypothyroidism Current Visit: Yes Status: Acute Code(s): E03.9 - HYPOTHYROIDISM, UNSPECIFIED SNOMED Code(s): 46956779 (6) Essential (primary) hypertension Current Visit: Yes Status: Acute Code(s): I10 - ESSENTIAL (PRIMARY) HYPERTENSION SNOMED Code(s): 61163184 (7) Hodgkin disease Current Visit: Yes Status: Acute Code(s): C81.90 - HODGKIN LYMPHOMA, UNSPECIFIED, UNSPECIFIED SITE SNOMED Code(s): 750556083 (8) Paroxysmal A-fib Current Visit: Yes Status: Acute Code(s): I48.0 - PAROXYSMAL ATRIAL FIBRILLATION SNOMED Code(s): 736773062 (9) Acute exacerbation of chronic obstructive pulmonary disease Current Visit: Yes Status: Acute Code(s): J44.1 - CHRONIC OBSTRUCTIVE PULMONARY DISEASE W (ACUTE) EXACERBATION SNOMED Code(s): 740131420 (10) Acute respiratory distress syndrome in adult Current Visit: Yes Status: Acute Code(s): J80 - ACUTE RESPIRATORY DISTRESS SYNDROME SNOMED Code(s): 19891727 (11) Pneumonia Current Visit: Yes Status: Acute Priority: High Code(s): J18.9 - PNEUMONIA, UNSPECIFIED ORGANISM SNOMED Code(s): 879687131 (12) Sepsis Current Visit: Yes Status: Acute Code(s): A41.9 - SEPSIS, UNSPECIFIED OR GANISM SNOMED Code(s): 41988703 (13) Hepatocellular carcinoma Current Visit: No Status: Chronic Priority: Medium Code(s): C22.0 - LIVER CELL CARCINOMA SNOMED Code(s): 296305849 (14) Lung cancer Current Visit: No Status: Chronic Priority: Medium Code(s): C34.90 - MALIGNANT NEOPLASM OF UNSP PART OF UNSP BRONCHUS OR LUNG SNOMED Code(s): 625529405 (15) Anticoagulant long-term use Current Visit: Yes Status: Acute Code(s): Z79.01 - [facility] (CURRENT) USE OF ANTICOAGULANTS SNOMED Code(s): 629531297 (16) Cervicalgia Current Visit: Yes Status: Acute Code(s): M54.2 - CERVICALGIA SNOMED Code(s): 73996224 (17) Dorsalgia Current Visit: Yes Status: Acute Code(s): M54.9 - DORSALGIA, UNSPECIFIED SNOMED Code(s): 231884035 Plan: I have already restarted his [place] for his neck and back pain and decreased his Dilaudid 1 mg every 3 hours. At this point he still continues to have pain. Increase her [place] to 1.5 tablets every 6 hours as needed. Repeat labs in am. Weight on for the Regranex and critical care and cardiology along with oncology. He is been started on senior care anticoagulation of Elequis for the A. fib. We'll encourage him to improve his diet and reevaluate next 24 hours.
[2019-12-01] MEDS: LISINOPRIL 20 MG TAB PO SCH ×2 (14:44→21:20)
--- NOTE | 2019-12-01 14:50 | P.PN ---
Subjective Patient is extubated now. Sitting up in answering questions Blood pressure medical control no Pulse rate in the 80s blood pressure 104/67 mmHg breath sounds are reduced bilaterally Heart sounds are regular. Last night he went into atrial fibrillation RVR He was treated with IV Cardizem and now he is back in sinus rhythm Suggest Continue beta blockers and higher dose of 150 g twice daily DC Cardizem ELIQUIS 5 mg twice daily if okay with hematology Objective - Vital Signs Vital signs: Vital Signs Temp 98.6 F 12/01/19 12:00 Pulse 88 12/01/19 14:00 Resp 16 12/01/19 14:00 BP 104/67 12/01/19 14:00 Pulse Ox 94 L 12/01/19 14:00 Intake & Output 11/30/19 12/01/19 12/01/19 18:59 06:59 18:59 Intake Total 8305 547 6635 Output Total 1265 710 450 Balance -113 67 975 Weight 85.6 kg 84.1 kg Intake: IV 8642 957 2764 0.9 bolus 1000 Cefepime 2 gm In Sodium 100 100 100 Chloride 0.9% 100 ml @ 200 mls/hr IVPB Q12H [facility] Rx#:[id number] Lactated Ringers 500 ml @ 500 999 mls/hr IV .Q31M ONE Rx#:[id number] Sodium Chloride 0.9% 1, 516 516 301 000 ml @ 43 mls/hr IV . [id number] [facility] Rx#:[id number] pressure bag 36 36 24 Tube Feeding 125 Output: Urine 1265 710 450 Other: Voiding Method Indwelling Catheter Indwelling Catheter Indwelling Catheter ABP, PAP, CO, CI - Last Documented Arterial Blood Pressure 106/47 - Labs CBC & Chem 7: 12/01/19 04:25 12/01/19 04:25 Labs: Abnormal Lab Results - Last 24 Hours (Table) 11/30/19 11/30/19 12/01/19 Range/Units 16:02 20:09 00:19 RBC (4.30-5.90) m/uL Hgb (13.0-17.5) gm/dL Hct (39.0-53.0) % RDW (11.5-15.5) % Plt Count (150-450) k/uL Lymphocytes # (1.0-4.8) k/uL Carbon Dioxide (22-30) mmol/L BUN (9-20) mg/dL Creatinine (0.66-1.25) mg/dL Glucose (74-99) mg/dL POC Glucose (mg/dL) 127 H 149 H 102 H (75-99) mg/dL Calcium (8.4-10.2) mg/dL Troponin I (0.000-0.034) ng/mL 12/01/19 12/01/19 12/01/19 Range/Units 04:01 04:25 04:25 RBC 3.39 L (4.30-5.90) m/uL Hgb 9.8 L (13.0-17.5) gm/dL Hct 30.4 L (39.0-53.0) % RDW 15.7 H (11.5-15.5) % Plt Count 108 L (150-450) k/uL Lymphocytes # 0.6 L (1.0-4.8) k/uL Carbon Dioxide 34 H (22-30) mmol/L BUN 33 H (9-20) mg/dL Creatinine 0.59 L (0.66-1.25) mg/dL Glucose 117 H (74-99) mg/dL POC Glucose (mg/dL) 117 H (75-99) mg/dL Calcium 8.0 L (8.4-10.2) mg/dL Troponin I (0.000-0.034) ng/mL 12/01/19 12/01/19 12/01/19 Range/Units 08:08 09:00 12:03 RBC (4.30-5.90) m/uL Hgb (13.0-17.5) gm/dL Hct (39.0-53.0) % RDW (11.5-15.5) % Plt Count (150-450) k/uL Lymphocytes # (1.0-4.8) k/uL Carbon Dioxide (22-30) mmol/L BUN (9-20) mg/dL Creatinine (0.66-1.25) mg/dL Glucose (74-99) mg/dL POC Glucose (mg/dL) 169 H 205 H (75-99) mg/dL Calcium (8.4-10.2) mg/dL Troponin I 0.489 H* (0.000-0.034) ng/mL
[2019-12-01] MEDS: LEVOFLOXACIN 750 MG TAB PO SCH (16:09)
[2019-12-01] MEDS: amLODIPine 10 MG TAB PO SCH (16:23)
[2019-12-01] MEDS ORDERED: MAGNESIUM HYDROXIDE 2,400 MG/10 ML CUP PO PRN (16:42)
[2019-12-01 16:58] LABS: Glucose,Whole Blood 177 mg/dL (75-99)
[2019-12-01 17:50] LABS: Glucose,Whole Blood 177 mg/dL (75-99)
[2019-12-01] MEDS: ASPIRIN 81 MG PO SCH (21:19)
[2019-12-01] MEDS: APIXABAN 5 MG TAB PO SCH (21:19)
[2019-12-01] MEDS: ATORVASTATIN 40 MG TAB PO SCH (21:20)
[2019-12-01 21:53] LABS: Glucose,Whole Blood 164 mg/dL (75-99)
[2019-12-02] MEDS: HYDROcodone/APAP 10-325MG 1 EACH TAB PO PRN ×4 (00:35→22:35)
[2019-12-02] MEDS: CEFEPIME 2 GM in SODIUM CHLORIDE 0.9% 100 ML IVPB SCH ×2 (00:41→11:09)
[2019-12-02 00:46] LABS: Glucose,Whole Blood 160 mg/dL (75-99)
[2019-12-02] MEDS: INSULIN ASPART (NovoLOG) 100 UNIT/ML VIAL SQ SCH ×5 (00:47→20:52)
[2019-12-02] MEDS: HYDROmorphone 1 MG/ML 1 ML SYRINGE IVP PRN ×5 (03:26→20:54)
--- NOTE | 2019-12-02 06:16 | XR ---
EXAMINATION TYPE: XR chest 1V portable DATE OF EXAM: 12/02/2019 HISTORY: ICU management. REFERENCE: Previous study dated 12/01/2019. FINDINGS: Masslike densities project in the right upper lobe and the left apex. There is elevation le ft hemidiaphragm. Heart size is obscured. There is increased interstitial markings on the right. This may reflect interstitial spread of carcinomatosis. There is a left internal jugular catheter in plac e. Its tip is in the superior vena cava. IMPRESSION: NO SIGNIFICANT INTERVAL CHANGE IN APPEARANCE OF THE CHEST.
[2019-12-02 06:53] LABS: Glucose,Whole Blood 115 mg/dL (75-99)
[2019-12-02 07:36] LABS: African American GFR (CKD) >90 (>60 ml/min/1.73 sqM); Anion Gap 3 mmol/L; Blood Urea Nitrogen 31 mg/dL (9-20); Calcium 7.7 mg/dL (8.4-10.2); Carbon Dioxide 33 mmol/L (22-30); Chloride 103 mmol/L (98-107); Glucose 117 mg/dL (74-99); Non-African American GFR(CKD) >90 (>60 ml/min/1.73 sqM); Potassium 3.7 mmol/L (3.5-5.1); Sodium 139 mmol/L (137-145)
[2019-12-02 07:37] LABS: Basophils # (A) 0.1 k/uL (0-0.2); Basophils % (A) 1 %; Eosinophils # (A) 0.1 k/uL (0-0.7); Eosinophils % (A) 1 %; HCT 29.8 % (39.0-53.0); HGB 9.5 gm/dL (13.0-17.5); Hypochromasia Moderate; Lymphocytes # (A) 0.8 k/uL (1.0-4.8); Lymphocytes % (A) 9 %; MCH 28.7 pg (25.0-35.0); MCHC 31.8 g/dL (31.0-37.0); MCV 90.4 fL (80.0-100.0); Mean Platelet Volume 7.1; Monocytes # (A) 0.5 k/uL (0-1.0); Monocytes % (A) 6 %; Neutrophils # (A) 7.7 k/uL (1.3-7.7); Neutrophils % (A) 83 %; Platelet Count 104 k/uL (150-450); Poikilocytosis Moderate; RBC 3.29 m/uL (4.30-5.90); RDW 15.7 % (11.5-15.5); WBC 9.3 k/uL (3.8-10.6)
[2019-12-02] MEDS: LEVOTHYROXINE 100 MCG TAB PO SCH (08:14)
[2019-12-02] MEDS: amLODIPine 10 MG TAB PO SCH (08:15)
[2019-12-02] MEDS: LISINOPRIL 20 MG TAB PO SCH ×2 (08:15→20:52)
[2019-12-02] MEDS: METOPROLOL TARTRATE 50 MG TAB PO SCH ×2 (08:16→20:52)
[2019-12-02] MEDS: PANTOPRAZOLE 40 MG TABLET PO SCH (08:16)
[2019-12-02] MEDS: APIXABAN 5 MG TAB PO SCH (08:20)
[2019-12-02] MEDS: IPRATROPIUM-ALBUTEROL 3 ML NEB INHALATION SCH ×4 (09:01→19:39)
[2019-12-02] MEDS: BUDESONIDE 1 MG/2 ML NEBU INHALATION SCH ×2 (09:01→19:39)
[2019-12-02] MEDS: FORMOTEROL FUMARATE 20 MCG/2 ML NEBU INHALATION SCH ×2 (09:02→19:39)
--- NOTE | 2019-12-02 10:15 | CT ---
EXAMINATION TYPE: CT angio chest DATE OF EXAM: 12/02/2019 10:03 AM COMPARISON: Previous PET/CT dated 04/21/2019. HISTORY: hypoxemia, possible PE, lung CA, pneumonia CT DLP: 621.8 mGycm Automated exposure control for dose reduction was used. CONTRAST: CTA scan of the thorax is performed with IV Contrast, patient injected with 100 mL of Isovue 370, pul monary embolism protocol. . FINDINGS: Since the previous examination there is developed a 5 cm mass in the right upper lobe which has a low attenuating center and is likely cavitating. Surrounding this there is coarse fibrosis and possible radiation change. There are bilateral effusions larger on the left than the right. There is also some fibrosis or postradiation change in the anterior aspect of the left lung. These findings w ere not present on the previous study. There is some fluid loculated in the left upper lobe adjacent to the mediastinum and apex of the lung . There is no significant axillary, mediastinal or hilar adenopathy. The contrast bolus is quite suboptimal. There is no large, central pulmonary embolus. The aorta is normal in caliber without evidence of dissection. The spleen and appears mottled but this is likely due to the arterial nature of the contrast bolus. V isualized portions of the upper abdomen are otherwise unremarkable. There is hypertrophic spondylosis within the spine. No bony destructive lesion is seen. IMPRESSION: #1 THIS EXAMINATION IS SUBOPTIMAL BUT IS NEGATIVE FOR LARGE, CENTRAL PULMONARY EMBOLI. 2. INTERVAL DEVELOPMENT OF A 5 CM MASS LESION IN THE RIGHT UPPER LOBE WHICH APPEARS TO HAVE A NECROTI C CENTER. 3. FIBROSIS OR POSTRADIATION CHANGE THROUGHOUT THE RIGHT LUNG AND IN THE ANTERIOR PORTION OF THE LEFT LUNG. 4. BILATERAL PLEURAL EFFUSIONS. SOME OF THE FLUID APPEARS LOCULATED ANTERIORLY ON THE LEFT. 5. DEGENERATIVE CHANGES WITHIN THE SPINE.
--- NOTE | 2019-12-02 10:22 | PN ---
PROGRESS NOTE DATE OF SERVICE: December 02, 2019. Critical care time: 33 minutes. This is a very complicated patient. He is a 69-year-old male admitted back on November 22. Initially came to the ICU on November 25. He was intubated on the for acute hypoxemic respiratory failure. He was thought to have a COPD exacerbation and he does have a history of lung cancer and as well as pneumonia and hemoptysis. He was initially seen by my partner, Dr. Arteaga. I began seeing him on Tuesday this past week. The patient was thought to have bilateral pneumonia and hemoptysis and underwent bronchoscopy on Tuesday the . The cytology from the bronch wash was negative. Microbiology is still negative or pending. The patient was eventually extubated from mechanical ventilation on November 28. Since that time, he has been on AIRVO. Today's AIRVO settings are 60 L/minute and 70%. His oxygen requirements went up last night. He is getting saline at 43 mL an hour. He did develop atrial fibrillation with RVR yesterday. The Cardizem drip was turned off. That was done by Cardiology. I have had ongoing discussions with the family members. They understand the gravity of the situation. The , Ilda, former ICU nurse, continues to be hopeful that the patient will turn around. The patient remains a FULL CODE. Currently, he is doing about the same, although as I mentioned, his FiO2 requirements have gone up. His chest x-ray is unchanged. It shows a pattern of a mass in the right upper lobe, volume loss in the left upper and left lower lobe, and diffuse interstitial changes throughout the entire right lung. PHYSICAL EXAMINATION: VITAL SIGNS: Current vital signs are reviewed temperature is 98 degrees, heart rate 100, respiratory rate 25, blood pressure 151/90, mean 110, saturations 93%. Appears in no acute distress. HEENT examination is grossly unremarkable. Mucous membranes are moist. No oral lesions. AIRVO device in place. NECK: Supple. Full range of motion. No adenopathy or thyromegaly. Neck veins are flat. CARDIOVASCULAR: Examination reveals regular rhythm and rate. Heart rate about 100. He is back in sinus rhythm. Yesterday he was in atrial fibrillation. S1, S2 normal. LUNGS: Reveal diffuse, coarse rhonchi. Breath sounds are diminished. Pulmonary examination has remained about the same since extubation. ABDOMEN: Soft, bowel sounds are not noted. EXTREMITIES are intact. Minimal edema. SKIN: Without rash. NEUROLOGIC: Examination is brief but nonfocal. LABS: Reviewed. White count 9.3, hemoglobin 9.5, hematocrit 29.8, platelet count 104,000. Sodium 139, potassium 3.7, chloride 103. CO2 33, anion gap is 3, BUN and creatinine were 31 and 0.55. Magnesium is 1.9. Microbiology including all the bronch washes from the from my partner have been negative. Cytology was also negative. Chest x-ray is essentially unchanged. MEDICATIONS: Reviewed. The patient remains on amlodipine, Eliquis, aspirin, Lipitor, Pulmicort, Maxipime, clonidine patch, formoterol, [place], Dilaudid, NovoLog insulin, DuoNeb, Levaquin, levothyroxine, Zestril, milk of magnesia, magnesium replacement protocol, metoprolol, Protonix, potassium replacement, and a saline IV. ASSESSMENT: 1. Acute hypoxemic respiratory failure, secondary to underlying pneumonia and/or bronchogenic carcinoma with intubation on the and extubation on November 28. 2. Status post bronchoscopy on the , sampling for both cytologic and microbiologic analysis has been negative. 3. Stage non-small cell lung cancer/squamous cell type, diagnosed 2017, status post chemo radiation and more recently immunotherapy in 2018. 4. Recurrent hemoptysis, secondary to lung cancer and blood thinner, improved. 5. Stage IIIB non-small cell lung cancer, squamous cell type, as mentioned. 6. Chronic interstitial changes, right lung, which may represent fluid, pneumonia, lymphangitic carcinomatosis, or radiation changes. 7. History of coronary artery disease with previous stenting. 8. History of non ST-segment elevation myocardial infarction. 9. Moderate/stage 2 COPD, FEV1 60% of predicted. 10.Type 2 diabetes mellitus. 11.History of Hodgkin's lymphoma. 12.History of hypothyroidism. 13.Benign essential hypertension. 14.Hyperlipidemia. 15.Prior history of tobacco use. 16.History of hepatic carcinoma, status post surgical excision. 17.Status post bronchoscopy and BAL November 25, 2019. PLAN: Patient's medications, labs and x-rays are all reviewed. There has been no major change since extubation on the other than his oxygen requirements going back up and the fact he had a brief episode of atrial fibrillation with RVR, treated successfully with a Cardizem drip. The Cardizem drip has been turned off. Microbiology and cytology from the bronch washes on the have been negative. We will continue to be aggressive in his management. All his medications seem appropriate. Prognosis is guarded. Critical care time 33 minutes. [id number] / LAURIN: [id number] /
--- NOTE | 2019-12-02 11:12 | P.PN ---
Subjective Patient looks a lot more alert today. Denies any chest discomfort since he is a little short of breath and he is bringing up phlegm Blood pressure is much better controlled and he is tolerating the clonidine patch He is also tolerating metoprolol 150 g twice daily he maintains sinus rhythm and has not had any more atrial fibrillation Breath sounds are reduced bilaterally with crackles at the base He is a soft systolic murmur No JVD Impression Acute hypoxic respiratory failure due to pneumonia Hemoptysis, Plavix stopped History of non-small cell lung cancer Known coronary artery disease status post cardiac stenting in the past Preserved LV systolic function Hypertension which was elevated Abnormal troponins likely demand ischemia type II NC Suggest Continue current antihypertensive therapy including the clonidine patch at TT S3, metoprolol 150 mg twice daily Amlodipine 10 mrem by mouth daily Lisinopril 20 mg twice daily Continue aspirin Objective - Vital Signs Vital signs: Vital Signs Temp 98.6 F 12/02/19 08:00 Pulse 85 12/02/19 10:00 Resp 21 12/02/19 10:00 BP 121/65 12/02/19 10:00 Pulse Ox 78 L 12/02/19 10:00 Intake & Output 12/01/19 12/02/19 12/02/19 18:59 06:59 18:59 Intake Total 1609 519 574 Output Total 670 760 285 Balance 939 -241 289 Weight 86 kg Intake: IV 1609 519 324 0.9 bolus 1000 Cefepime 2 gm In Sodium 100 100 Chloride 0.9% 100 ml @ 200 mls/hr IVPB Q12H PEDRO [facility]IS Rx#:[id number] Sodium Chloride 0.9% 1, 473 516 215 000 ml @ 43 mls/hr IV . [id number] [facility] Rx#:[id number] pressure bag 36 3 9 Oral 250 Output: Urine 670 760 285 Other: Voiding Method Indwelling Catheter Indwelling Catheter Indwelling Catheter # Voids 1 # Bowel Movements 1 ABP, PAP, CO, CI - Last Documented Arterial Blood Pressure 110/49 - Labs CBC & Chem 7: 12/02/19 06:14 12/02/19 06:14 Labs: Abnormal Lab Results - Last 24 Hours (Table) 12/01/19 12/01/19 12/01/19 Range/Units 12:03 16:56 17:49 RBC (4.30-5.90) m/uL Hgb (13.0-17.5) gm/dL Hct (39.0-53.0) % RDW (11.5-15.5) % Plt Count (150-450) k/uL Lymphocytes # (1.0-4.8) k/uL Carbon Dioxide (22-30) mmol/L BUN (9-20) mg/dL Creatinine (0.66-1.25) mg/dL Glucose (74-99) mg/dL POC Glucose (mg/dL) 205 H 177 H 177 H (75-99) mg/dL Calcium (8.4-10.2) mg/dL 12/01/19 12/02/19 12/02/19 Range/Units 21:52 00:44 06:14 RBC 3.29 L (4.30-5.90) m/uL Hgb 9.5 L (13.0-17.5) gm/dL Hct 29.8 L (39.0-53.0) % RDW 15.7 H (11.5-15.5) % Plt Count 104 L (150-450) k/uL Lymphocytes # 0.8 L (1.0-4.8) k/uL Carbon Dioxide (22-30) mmol/L BUN (9-20) mg/dL Creatinine (0.66-1.25) mg/dL Glucose (74-99) mg/dL POC Glucose (mg/dL) 164 H 160 H (75-99) mg/dL Calcium (8.4-10.2) mg/dL 12/02/19 12/02/19 Range/Units 06:14 06:52 RBC (4.30-5.90) m/uL Hgb (13.0-17.5) gm/dL Hct (39.0-53.0) % RDW (11.5-15.5) % Plt Count (150-450) k/uL Lymphocytes # (1.0-4.8) k/uL Carbon Dioxide 33 H (22-30) mmol/L BUN 31 H (9-20) mg/dL Creatinine 0.55 L (0.66-1.25) mg/dL Glucose 117 H (74-99) mg/dL POC Glucose (mg/dL) 115 H (75-99) mg/dL Calcium 7.7 L (8.4-10.2) mg/dL
[2019-12-02 11:33] LABS: Glucose,Whole Blood 189 mg/dL (75-99)
[2019-12-02] MEDS: LEVOFLOXACIN 750 MG TAB PO SCH (16:20)
[2019-12-02 16:26] LABS: Glucose,Whole Blood 164 mg/dL (75-99)
--- NOTE | 2019-12-02 16:38 | P.PN ---
Subjective This is a 69 year old gentleman with history of underlying left sided lung cancer, hyperlipidemia, hypertension, thyroid disorder, hepatitis C, Hodgkin's lymphoma and squamous cell-completed radiation and chemo, former nicotine dependence returned to the ER with complaints of worsening shortness of breath, occasional hemoptysis, fevers, chills 2 days. Patient initially had come into ER 3 days ago, placed on Levaquin and discharged home. Chest x-ray on admission reported bilateral pulmonary masses with bibasilar consolidation, underlying pn eumonia, interstitial pneumonitis. Right upper lobe mass noted at 4.2 cm, additional masses identified within the suprahilar region measuring 5.8 x 5.8 cm. follow-up chest x-ray this morning reporting worsening left apical infiltrate, correlate for pneumonia, right upper lobe infiltrate, developing mass possible, underlying left upper lobe lung cancer. EKG reported sinus tachycardia, left atrial enlargement. T-max 101, WBC 12.2-now down to 11.8. Hemoglobin 9.8, BUN 26, creatinine 0.76. Blood sugars elevated 230-350s. O2 sat on admission 69% on room air, placed on nonrebreather, currently maintaining O2 sats in the low 90s on 6 L nasal cannula. IV antibiotics of Zosyn and Levaquin initiated in addition to nebulized bronchodilators and IV fluid hydration. Pulmonary and oncology consulted. 11/26/2019 until yesterday morning patient developed worsening hypoxia, sinus tachycardia, patient was transferred to ICU and intubated. Converted and remains in sinus rhythm. Maintained on mechanical ventilation, FiO2 down to 50, PEEP up to +8. Continues on diprovan, IV fluids and IV antibiotics. Underwent bronchoscopy yesterday, cytology, cultures pending. Afebrile. Echo reportedly mild concentric hypertrophy, EF 60-65%, moderate to severe tricuspid regurgitation, severe pulmonary hypertension . Chest x-ray noted. Tolerating tube feeds at goal with minimal to no residuals. 11/27/2019 remains vent dependent, FiO2 50%/+8 of PEEP. ABGs noted. Chest x- ray reporting interval progression of the disease involving left lung apex, diffuse pleural-progression of changes, correlate for pulmonary mass. Maintained on IV fluids ,diprovan, Dilaudid. Blood pressure marginal, map 55. No weaning trials recommended today.Tolerating tube feeds at goal with minimal to no residual. Blood sugars controlled on insulin drip. [facility] cultures, cytology pending. Continues on Zosyn, Levaquin, vancomycin. Creatinine 0.7. Afebrile, WBC 10. 11/28/2019 Consulted infectious disease, antibiotics adjusted. Currently on cefepime and Levaquin.Bronchoscopy cytology reporting no malignant cells identified. Bronchoscopy washings, cultures currently negative, fungal culture pending. Afebrile, normal WBC. Chest x-ray reporting stable, no significant change from yesterday's x-ray; left suprahilar mass or neoplasm on background, chronic emphysematous change with left-sided volume loss, diffuse right lung edema and/or infiltrates with more focal right upper lung masslike conso lidation, small bilateral pleural effusions. Recently extubated, requiring 60% high flow, being transitioned to airvo. Currently nothing by mouth, blood sugars ranging 130s to 140s. Hemoglobin 9. 11/29/2019 breathing continues to improve, airvo decreased to 60. Chest x-ray reporting unchanged left apical opacity/left basilar density. Mass density right upper lobe measuring 5.4 cm. Persistent patchy improving right lower lobe infiltrate. Maintained on Clevaprex. Diet intake improving. No nausea, no vomiting, no diarrhea. Blood sugars improved. Speech therapy evaluating s sebastianroni. Afebrile, normal WBC. Denies chest pain, palpitations. 11/30/2019 chest x-ray reporting stable from comparison; persistent density in the peripheral right upper lung field, left basilar infiltrate and/or small pleural effusion mild right lung base infiltrate, left apical thickening and opacity stable. Maintained on 60% airvo. Early a.m. ABGs alkalotic, received 500 ml LR, airvo settings adjusted as per mathematics education professor. Telemetry sinus rhythm. Antihypertensives adjusted, Clonidine patch increased, now off of Clevaprex. Diet intake fair 15% this am, blood sugars ranging from 120s to 190s. Continues on IV antibiotics of Levaquin and cefepime .T-max 99.7, normal WBC. The above documentation was per my nurse practitioner's notes that I have concurred with. 12/01/2019:He remains on the AirVo high flow oxygen device with 60 L/m at 52% FiO2. Chest x-ray continues to show a dense consolidation/pleural reaction of left lung base there is also interstitial changes throughout the right lung. Continued left apical mass and a masslike density in the periphery the right lung superiorly. Unchanged. Last night he had an episode of atrial fibrillation. He was placed on a IV Cardizem drip and did experience some hypotension. He is since converted back to sinus rhythm. He remains somewhat short of breath is only able to say a few words. He did indicate to [facility] is having ongoing neck and back pain. He takes hydrocodone 10/325, one every 6 hours as needed at home.Inpatient since extubation receiving 1 mg of Dilaudid IV push every hour. Bronchial wash cultures reveal no growth. Labs reviewed and appear stable. Troponin 0.489. He is continued on DuoNeb inhalations, Pulmicort and Perforomist inhalations, and antibiotics in the form of cefepime and Levaquin. Yesterday oncology did see him and discuss the family his current status. They felt this was not a worsening of his cancer but truly pneumonia. We discussed either hospice or rehabilitation in either would be appropriate in his current situation. He denies any nausea or vomiting and is tolerating a minimal diet. He is not finding the current food appetizing. Remains on NovoLog scale for his diabetes. Sugars are adequately controlled. 12/02/2019: Patient indicates his pain is better controlled 1-1/2 of tablets of [place] 10/325. He is on Arava to high flow oxygen and maximum at this point. Apparently he did desat a little bit currently is a 91% on this device. CTA showed no acute pulmonary embolus after he has had an episode of hemoptysis several times today. Plavix has been discontinued. Elequis is still on his med list. He continues on cefepime and levofloxacin antibiotic coverage. He remains on amlodipine, lisinopril and metoprolol for heart rate in blood pressure control. Sugars remained stable on scale. We've held off on adding a long-acting insulin at this time to her micrograms daily. He has not had thyroid levels checked in 2 months. She continues to have DuoNeb updrafts. Indicates his diet is a little better than he tolerated breakfast more. He denies any chest pains or pressures. Has not had any significant nausea or vomiting. Calcium was slightly low on labs at 7.7 today. Objective - Vital Signs Vital signs: Vital Signs Temp 99.1 F 12/02/19 12:00 Pulse 90 12/02/19 15:44 Resp 22 12/02/19 15:00 BP 135/65 12/02/19 15:00 Pulse Ox 90 L 12/02/19 15:34 Intake & Output 12/01/19 12/02/19 12/02/19 18:59 06:59 18:59 Intake Total 1609 519 924 Output Total 670 760 595 Balance 939 -241 329 Weight 86 kg Intake: IV 1609 519 554 0.9 bolus 1000 Cefepime 2 gm In Sodium 100 100 Chloride 0.9% 100 ml @ 200 mls/hr IVPB Q12H P[facility]RO [facility] Rx#:[id number] Sodium Chloride 0.9% 1, 473 516 430 000 ml @ 43 mls/hr IV . [id number] P[facility]RO [facility]IS Rx#:[id number] pressure bag 36 3 24 Oral 370 Output: Urine 670 760 595 Other: Voiding Method Indwelling Catheter Indwelling Catheter Indwelling Catheter # Voids 1 # Bowel Movements 1 ABP, PAP, CO, CI - Last Documented Arterial Blood Pressure 110/49 - Exam GENERAL: Sitting up in bed,weak, no acute distress, airvo high flow oxygen nasal cannula in place NECK: No JVD. No thyroid enlargement. No LNs CARDIOVASCULAR: S1, S2 regular. No murmur RESPIRATION: Breath sounds diminished in the bases. Scattered rhonchi, crackles. ABDOMEN: Soft, nontender . No guarding. no masses palpable. No ascites, No hepatosplenomegaly.Bowel sounds heard. LEGS: mild edema. Offloading Boots on bilateral lower extremities PSYCHIATRY: Alert and oriented X3, mood and affect normal. NERVOUS SYSTEM: Cranial nerves II through XII grossly intact, moving all extremities. Generalized diffuse weakness .No focal deficits Skin: no rash , mild edema of upper extremities. blanchable coccyx with optifoam dressing ordered. - Labs CBC & Chem 7: 12/02/19 06:14 12/02/19 06:14 Labs: Abnormal Lab Results - Last 24 Hours (Table) 12/01/19 12/01/19 12/01/19 Range/Units 16:56 17:49 21:52 RBC (4.30-5.90) m/uL Hgb (13.0-17.5) gm/dL Hct (39.0-53.0) % RDW (11.5-15.5) % Plt Count (150-450) k/uL Lymphocytes # (1.0-4.8) k/uL Carbon Dioxide (22-30) mmol/L BUN (9-20) mg/dL Creatinine (0.66-1.25) mg/dL Glucose (74-99) mg/dL POC Glucose (mg/dL) 177 H 177 H 164 H (75-99) mg/dL Calcium (8.4-10.2) mg/dL 12/02/19 12/02/19 12/02/19 Range/Units 00:44 06:14 06:14 RBC 3.29 L (4.30-5.90) m/uL Hgb 9.5 L (13.0-17.5) gm/dL Hct 29.8 L (39.0-53.0) % RDW 15.7 H (11.5-15.5) % Plt Count 104 L (150-450) k/uL Lymphocytes # 0.8 L (1.0-4.8) k/uL Carbon Dioxide 33 H (22-30) mmol/L BUN 31 H (9-20) mg/dL Creatinine 0.55 L (0.66-1.25) mg/dL Glucose 117 H (74-99) mg/dL POC Glucose (mg/dL) 160 H (75-99) mg/dL Calcium 7.7 L (8.4-10.2) mg/dL 12/02/19 12/02/19 12/02/19 Range/Units 06:52 11:31 16:25 RBC (4.30-5.90) m/uL Hgb (13.0-17.5) gm/dL Hct (39.0-53.0) % RDW (11.5-15.5) % Plt Count (150-450) k/uL Lymphocytes # (1.0-4.8) k/uL Carbon Dioxide (22-30) mmol/L BUN (9-20) mg/dL Creatinine (0.66-1.25) mg/dL Glucose (74-99) mg/dL POC Glucose (mg/dL) 115 H 189 H 164 H (75-99) mg/dL Calcium (8.4-10.2) mg/dL Assessment and Plan (1) Acute and chronic respiratory failure with hypoxia Current Visit: Yes Status: Acute Code(s): J96.21 - ACUTE AND CHRONIC RESPIRATORY FAILURE WITH HYPOXIA SNOMED Code(s): 21227201 (2) Hemoptysis Current Visit: Yes Status: Acute Code(s): R04.2 - HEMOPTYSIS SNOMED Code(s): 68544518 (3) CAD (coronary artery disease) Current Visit: Yes Status: Acute Code(s): I25.10 - ATHSCL HEART DISEASE OF [place] CORONARY ARTERY W/O ANG PCTRS SNOMED Code(s): 93174838 (4) Diabetes Current Visit: Yes Status: Acute Code(s): E11.9 - TYPE 2 DIABETES MELLITUS WITHOUT COMPLICATIONS SNOMED Code(s): 75222188 (5) Hypothyroidism Current Visit: Yes Status: Acute Code(s): E03.9 - HYPOTHYROIDISM, UNSPECIFIED SNOMED Code(s): 37673300 (6) Essential (primary) hypertension Current Visit: Yes Status: Acute Code(s): I10 - ESSENTIAL (PRIMARY) HYPERTENSION SNOMED Code(s): 48137539 (7) Hodgkin disease Current Visit: Yes Status: Acute Code(s): C81.90 - HODGKIN LYMPHOMA, UNSPECIFIED, UNSPECIFIED SITE SNOMED Code(s): 759517553 (8) Paroxysmal A-fib Current Visit: Yes Status: Acute Code(s): I48.0 - PAROXYSMAL ATRIAL FIBRILLATION SNOMED Code(s): 172731213 (9) Acute exacerbation of chronic obstructive pulmonary disease Current Visit: Yes Status: Acute Code(s): J44.1 - CHRONIC OBSTRUCTIVE PULMONARY DISEASE W (ACUTE) EXACERBATION SNOMED Code(s): 619946724 (10) Acute respiratory distress syndrome in adult Current Visit: Yes Status: Acute Code(s): J80 - ACUTE RESPIRATORY DISTRESS SYNDROME SNOMED Code(s): 71312442 (11) Pneumonia Current Visit: Yes Status: Acute Priority: High Code(s): J18.9 - PNEUMONIA, UNSPECIFIED ORGANISM SNOMED Code(s): 261512334 (12) Sepsis Current Visit: Yes Status: Acute Code(s): A41.9 - SEPSIS, UNSPECIFIED ORGANISM SNOMED Code(s): 86157841 (13) Hepatocellular carcinoma Current Visit: No Status: Chronic Priority: Medium Code(s): C22.0 - LIVER CELL CARCINOMA SNOMED Code(s): 486610945 (14) Lung cancer Current Visit: No Status: Chronic Priority: Medium Code(s): C34.90 - MALIGNANT NEOPLASM OF UNSP PART OF UNSP BRONCHUS OR LUNG SNOMED Code(s): 531801023 (15) Anticoagulant long-term use Current Visit: Yes Status: Acute Code(s): Z79.01 - [facility] (CURRENT) USE OF ANTICOAGULANTS SNOMED Code(s): 421463786 (16) Cervicalgia Current Visit: Yes Status: Acute Code(s): M54.2 - CERVICALGIA SNOMED C ode(s): 67857548 (17) Dorsalgia Current Visit: Yes Status: Acute Code(s): M54.9 - DORSALGIA, UNSPECIFIED SNOMED Code(s): 227076499 (18) Hemoptysis Current Visit: Yes Status: Acute Code(s): R04.2 - HEMOPTYSIS SNOMED Code(s): 93745250 Plan: Continue [place] as directed for pain. Check thyroid levels versus hypot hyroidism. His Plavix been on hold but he remains on Elequis. Staff are monitoring his hemoptysis. Repeat labs in a.m. Critical care is adjusting his oxygen to keep his saturations good. Family has not decided as far as hospice and/or rehabilitation with a preferred this time. He will be reevaluated next 24 hours.
[2019-12-02 17:08] LABS: Glucose,Whole Blood 158 mg/dL (75-99)
[2019-12-02] MEDS ORDERED: Potassium Replacement Protocol 1 EACH MISC MISCELLANE PRN (19:12)
[2019-12-02] MEDS ORDERED: Magnesium Replacement Protocol 1 EACH MISC MISCELLANE PRN (19:13)
[2019-12-02] MEDS: PIPERACILLIN-TAZOBACTAM 3.375 GM in SODIUM CHLORIDE 0.9% 100 ML IVPB SCH (19:54)
[2019-12-02 20:26] LABS: Glucose,Whole Blood 305 mg/dL (75-99)
[2019-12-02] MEDS: ASPIRIN 81 MG PO SCH (20:52)
[2019-12-02] MEDS: ATORVASTATIN 40 MG TAB PO SCH (20:52)
[2019-12-02] MEDS: POTASSIUM CHLORIDE 10 MEQ in WATER FOR INJECTION 1 100ML.BAG IVPB SCH ×2 (20:53→22:30)
[2019-12-02] MEDS: MAGNESIUM SULFATE-D5W PMX 1 GM in DEXTROSE/WATER 1 100ML.BAG IVPB SCH (20:53)
[2019-12-02] MEDS: SODIUM CHLORIDE 0.9% 1,000 ML IV SCH (21:14)
[2019-12-02] MEDS: LINEZOLID 600 MG in DEXTROSE/WATER 1 300ML.BAG IVPB SCH (22:30)
[2019-12-03] MEDS: HYDROmorphone 1 MG/ML 1 ML SYRINGE IVP PRN ×6 (00:01→21:14)
[2019-12-03 00:09] LABS: Glucose,Whole Blood 210 mg/dL (75-99)
[2019-12-03] MEDS: MAGNESIUM SULFATE-D5W PMX 1 GM in DEXTROSE/WATER 1 100ML.BAG IVPB SCH (02:09)
[2019-12-03] MEDS: PIPERACILLIN-TAZOBACTAM 3.375 GM in SODIUM CHLORIDE 0.9% 100 ML IVPB SCH ×3 (02:09→17:10)
[2019-12-03 04:12] LABS: HCT 28.6 % (39.0-53.0); HGB 9.3 gm/dL (13.0-17.5); Hypochromasia Slight; MCH 29.2 pg (25.0-35.0); MCHC 32.5 g/dL (31.0-37.0); Mean Platelet Volume 7.9; Poikilocytosis Moderate; RBC 3.18 m/uL (4.30-5.90); RDW 15.6 % (11.5-15.5); WBC 10.6 k/uL (3.8-10.6)
[2019-12-03] MEDS: LEVOTHYROXINE 100 MCG TAB PO SCH (04:20)
[2019-12-03] MEDS: HYDROcodone/APAP 10-325MG 1 EACH TAB PO PRN ×2 (04:20→10:39)
[2019-12-03 04:38] LABS: African American GFR (CKD) >90 (>60 ml/min/1.73 sqM); Anion Gap 1 mmol/L; Blood Urea Nitrogen 32 mg/dL (9-20); Calcium 7.6 mg/dL (8.4-10.2); Carbon Dioxide 35 mmol/L (22-30); Chloride 102 mmol/L (98-107); Glucose 141 mg/dL (74-99); Magnesium 2.5 mg/dL (1.6-2.3); Non-African American GFR(CKD) >90 (>60 ml/min/1.73 sqM); Platelet Count 96 k/uL (150-450); Potassium 4.3 mmol/L (3.5-5.1); Sodium 138 mmol/L (137-145)
[2019-12-03 04:53] LABS: T4, Free (Free Thyroxine) 1.12 ng/dL (0.78-2.19)
--- NOTE | 2019-12-03 05:49 | PN ---
PROGRESS NOTE DATE OF SERVICE: 12/02/2019 REASON FOR FOLLOWUP: Pneumonia. INTERVAL HISTORY: The patient is currently afebrile, has been breathing comfortably. The patient did have a cough complaining about hemoptysis though the patient was denying it. Denies any choking on the food. No nausea or vomiting. No abdominal pain. No diarrhea. PHYSICAL EXAMINATION: Blood pressure 147/74 with a pulse of 111, temperature 99.5. He is 97% on BiPAP. General description is an elderly male lying in bed in no distress. RESPIRATORY SYSTEM: Unlabored breathing, coarse breath sounds at the bases bilaterally. HEART: S1, S2. Regular rate and rhythm. ABDOMEN: Soft, no tenderness. LABS: Hemoglobin 9.5, white count 9.3, BUN of 31, creatinine 0.55. Bronch culture has been negative. The patient did have a CT angiogram that was negative for PE, however, did show a 5 cm mass lesion in the right upper lobe which appears to have a necrotic center. DIAGNOSTIC IMPRESSION AND PLAN: Patient with right upper lobe necrotic tumor versus necrotic in this patient who did have hemoptysis: His sputum was negative and bronch; however, no was seen in clinical condition. Will add linezolid and Zosyn. Will repeat his sputum and monitor clinical course closely. Family at the bedside. Questions were answered. MMODL / IJN: [id number] /
[2019-12-03 06:54] LABS: Glucose,Whole Blood 176 mg/dL (75-99)
[2019-12-03] MEDS: IPRATROPIUM-ALBUTEROL 3 ML NEB INHALATION SCH ×4 (07:11→20:12)
[2019-12-03] MEDS: BUDESONIDE 1 MG/2 ML NEBU INHALATION SCH ×2 (07:11→20:12)
[2019-12-03] MEDS: FORMOTEROL FUMARATE 20 MCG/2 ML NEBU INHALATION SCH ×2 (07:11→20:12)
--- NOTE | 2019-12-03 07:43 | XR ---
EXAMINATION TYPE: XR chest 1V portable DATE OF EXAM: 12/03/2019 CLINICAL HISTORY: Difficulty breathing progress study. TECHNIQUE: Single AP portable semiupright view of the chest is obtained. COMPARISON: Chest x-ray from one day earlier and older studies. CTA chest from yesterday. FINDINGS: Stable left internal jugular central venous catheter. Background Chronic emphysematous and parenchymal fibrotic changes redemonstrated. Redemonstration of left sided volume loss with left periaortic mass or neoplasm. Diffuse right lung alveolar and interstitial opaci ties on background parenchymal fibrotic change with mass like consolidation lateral right suprahilar region all redemonstrated. Cardiac silhouette size is stable and within normal limits with atheroscle rotic aorta. Osseous structures are intact. IMPRESSION: Overall stable findings, chronic emphysematous and fibrotic changes with left-sided vol ume loss. Left periaortic neoplasm. Diffuse right lung edema and/or infiltrates with focal lateral ri ght upper lung mass or masslike consolidation.
[2019-12-03 08:04] LABS: Glucose,Whole Blood 161 mg/dL (75-99)
[2019-12-03] MEDS: INSULIN ASPART (NovoLOG) 100 UNIT/ML VIAL SQ SCH ×5 (08:18→21:03)
[2019-12-03] MEDS: LISINOPRIL 20 MG TAB PO SCH ×2 (09:07→21:02)
[2019-12-03] MEDS: PANTOPRAZOLE 40 MG TABLET PO SCH (09:08)
[2019-12-03] MEDS: amLODIPine 10 MG TAB PO SCH (09:08)
[2019-12-03] MEDS: LINEZOLID 600 MG in DEXTROSE/WATER 1 300ML.BAG IVPB SCH ×2 (09:08→21:02)
[2019-12-03] MEDS: METOPROLOL TARTRATE 50 MG TAB PO SCH ×4 (09:10→21:03)
[2019-12-03] MEDS: SODIUM CHLORIDE 0.9% 1,000 ML IV SCH (09:22)
--- NOTE | 2019-12-03 10:14 | P.PN ---
Subjective Progress Note Date: 12/03/19 Principal diagnosis: Acute hypoxic respiratory failure second to bilateral pneumonia, and possibility of progression of metastatic lung cancer 69-year-old male patient of Dr. 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 Chicas and Dr. Scanlon. Patient was diagnosed in 2016, he is status post chemoradiation therapy completed in August 2017. He was started on immunotherapy in April 2018, and his most recent PET scan from August 2019 showed no disease progression, fact the metabolic activity seen in the right mediastinum has completely resolved and the left suprahilar mass showed less metabolic activity and had shrunken in size. There was however evidence of radiation pneumonitis and left upper lobe and loss and limited areas of drug- induced pneumonitis with chronic interstitial changes. Other medical history includes coronary artery disease, history of non-ST elevated myocardial infa rction, and patient had several coronary artery stents, diabetes mellitus 2, Hodgkin's lymphoma, hepatitis C, former smoker, history of chronic obstructive lung disease the baseline FEV1 of 75% of predicted however most recent PFT in January 2019 showed decrease in his FEV1 value down to 1.92 L or 60% of predicted consistent with stage II COPD, and patient is not normally oxygen dependent. Patient states his immunotherapy had been on hold since September for possibility of cataract surgery. On 11/22/2019 patient presented today emergency department per EMS for increasing shortness of breath, fever, fatigue, decreased appetite, chest soreness from difficulty breathing. He is seen today 11/30/2019 follow-up in the intensive care unit. He was extubated on 11/28/2019. He is currently resting fairly comfortably in bed. He is awake and alert in no acute distress. He is quite weak. He remains on the airflow at 60 L/m and 60% FiO2. Blood gases reveal a P O2 of 97, pCO2 42, pH 7.53. 0.9 normal saline at 43 ML's per hour. He is currently off the clever proximal. He was given 500 mL lactated Ringer's this morning. He is on Lopressor 100 mg twice a day and Catapres 0.3mg patch for blood pressure control. Bronchial wash findings revealed no growth. White count 10.2. Hemoglobin 10.4. Sodium 139. Potassium 3.5. Creatinine 0.65. He is maintaining on antibiotics in the form of Levaquin, bronchodilators. Today's chest x-ray reveals persistent density in the right peripheral upper lung field. Left basilar infiltrate and small effusion. Mild infiltrate of the right base. Left apical thickening and opacity is stable. The patient is seen today 12/01/2019 in follow-up in the intensive care unit. This morning he developed atrial fibrillation with a rapid ventricular response requiring a Cardizem drip at 7.5 mg an hour. He was hypotensive and received another liter of fluid. He was clammy. Throughout the night he had been having some left arm and neck discomfort. He is since converted back to normal sinus rhythm. He remains on the [employer] high flow oxygen device with 60 L/m at 52% FiO2. Chest x-ray continues to show a dense consolidation/pleural reaction of left lung base there is also interstitial changes throughout the right lung. Continued left apical mass and a masslike density in the periphery the right lung superiorly. Unchanged. Bronchial wash cultures reveal no growth. White count 8.5. Hemoglobin 9.8. Sodium 138. Potassium 3.9. Creatinine 0.59. Troponin 0.489. He is continued on DuoNeb inhalations, Pulmicort and Perforomist inhalations, and diuretics in the form of cefepime and Levaquin. On 12/03/2019 patient seen in follow-up in the intensive care unit, yesterday patient was switched to BiPAP support in view of desaturation down in the 70s on high flow oxygen per [employer]. He is currently on BiPAP support, with pressures of 15/5, and FiO2 of 100%, and his pulse ox is 88-91%. He is calm, but he is tachypneic, moderately dyspneic with any conversation, low-grade fevers, he is tachycardic but in sinus mechanism, Cardizem drip has been discontinued, no recurrence of A. fib RVR since Tuesday, respirations are shallow, tachypneic, occasional cough, no sputum production, lung sounds are positive for scattered rhonchi bilaterally. Patient is currently on a combination of Zosyn and Zyvox, so far bronch wash cultures have been negative. CT angios chest on 12/02/2019 was reviewed showing 5 cm mass in the right upper lobe which is likely cavitating, surrounding coarse fibrosis and possible radiation changes, bilateral pleural effusions larger on the left than the right, some fibrosis or post radiation changes in the anterior aspect of the left lung. Some fluid loculated in the left upper lobe adjacent to the mediastinum and apex of the lung, no significant axillary mediastinal or hilar adenopathy. No large central pulmonary embolus although the contrast bolus was quite suboptimal. Today's chest x-ray shows masslike densities in the right upper lobe and left apex, elevation of the left hemidiaphragm, increased interstitial markings on the right which could reflect interstitial spread of carcinomatosis. Today's labs have been reviewed, showing white blood cell count of 10.6, hemoglobin of 9.3, sodium is 138, potassium is 4.3, chloride is 102, CO2 35, B1 is 32 and creatinine 0.51. TSH was within normal limits, free T4 was 1.8. No phlegm production, no hemoptysis no chest pain, patient is awake and alert, and altered mentation, answering questions appropriately, quite severely generally weak, mucous membranes are very dry. Nonoliguric. 0.9 normal saline running at a rate of 40 ML per hour. No other drips Objective - Vital Signs Vital signs: Vital Signs Temp 99 F 12/03/19 09:00 Pulse 112 H 12/03/19 09:00 Resp 31 H 12/03/19 09:00 BP 155/74 12/03/19 09:00 Pulse Ox 88 L 12/03/19 09:00 Intake & Output 12/02/19 12/03/19 12/03/19 18:59 06:59 18:59 Intake Total 1136 1223 495 Output Total 635 805 140 Balance 501 418 355 Weight 89 kg Intake: IV 646 1223 395 Cefepime 2 gm In Sodium 100 Chloride 0.9% 100 ml @ 200 mls/hr IVPB Q12H [facility] Rx#:[id number] Linezolid 600 mg In 300 300 Dextrose/Water 1 300ml. bag @ 150 mls/hr IVPB Q12HR [facility] Rx#:[id number] Magnesium Sulfate-D5w Pmx 200 1 gm In Dextrose/Water 1 100ml.bag @ 100 mls/hr IVPB Q1H [facility] Rx#: [id number] Normal Saline pressure 30 36 9 bag Potassium Chloride 10 meq 200 In Water For Injection 1 100ml.bag @ 100 mls/hr IVPB Q1H [facility] Rx#: [id number] Sodium Chloride 0.9% 1, 516 487 86 000 ml @ 43 mls/hr IV . [id number] [facility] Rx#:[id number] Intake, IV Titration 100 Amount Piperacillin-Tazobactam 3 100 .375 gm In Sodium Chloride 0.9% 100 ml @ 25 mls/hr IVPB Q8H [facility] Rx#: [id number] Oral 490 Output: Urine 635 805 140 Other: Voiding Method Indwelling Catheter Indwelling Catheter Indwelling Catheter ABP, PAP, CO, CI - Last Documented Arterial Blood Pressure 123/71 - Exam GENERAL EXAM: Alert, very pleasant, 69-year-old white male, appears chronically ill, fatigued, debilitated, short of breath, currently on BiPAP support with pressures of 15/5, and FiO2 of 100%, with a pulse ox of 80-91%, moderately dyspneic with any conversation HEAD: Normocephalic/atraumatic. EYES: Normal reaction of pupils, equal size. Conjunctiva pink, sclera white. NOSE: Clear with pink turbinates. THROAT: No erythema or exudates. NECK: No masses, no JVD, no thyroid enlargement, no adenopathy. CHEST: No chest wall deformity. Symmetrical expansion. LUNGS: Equal air entry with coarse rhonchi throughout CVS: Regular rate and rhythm, normal S1 and S2, no gallops, no murmurs, no rubs ABDOMEN: Soft, nontender. No hepatosplenomegaly, normal bowel sounds, no guarding or rigidity. EXTREMITIES: No clubbing, no edema, no cyanosis, 2+ pulses and upper and lower extremities. MUSCULOSKELETAL: Muscle strength and tone normal. SPINE: No scoliosis or deformity SKIN: No rashes CENTRAL NERVOUS SYSTEM: Alert and oriented -3. No focal deficits, tone is normal in all 4 extremities. PSYCHIATRIC: Alert and oriented -3. Appropriate affect. Intact judgment and insight. - Labs CBC & Chem 7: 12/03/19 03:50 12/03/19 03:50 Labs: Abnormal Lab Results - Last 24 Hours (Table) 12/02/19 12/02/19 12/02/19 Range/Units 11:31 16:25 17:07 RBC (4.30-5.90) m/uL Hgb (13.0-17.5) gm/dL Hct (39.0-53.0) % RDW (11.5-15.5) % Plt Count (150-450) k/uL Carbon Dioxide (22-30) mmol/L BUN (9-20) mg/dL Creatinine (0.66-1.25) mg/dL Glucose (74-99) mg/dL POC Glucose (mg/dL) 189 H 164 H 158 H (75-99) mg/dL Calcium (8.4-10.2) mg/dL Magnesium (1.6-2.3) mg/dL Free T3 pg/mL (2.8-5.3) pg/ml 12/02/19 12/03/19 12/03/19 Range/Units 20:24 00:08 03:50 RBC (4.30-5.90) m/uL Hgb (13.0-17.5) gm/dL Hct (39.0-53.0) % RDW (11.5-15.5) % Plt Count (150-450) k/uL Carbon Dioxide 35 H (22-30) mmol/L BUN 32 H (9-20) mg/dL Creatinine 0.51 L (0.66-1.25) mg/dL Glucose 141 H (74-99) mg/dL POC Glucose (mg/dL) 305 H 210 H (75-99) mg/dL Calcium 7.6 L (8.4-10.2) mg/dL Magnesium 2.5 H (1.6-2.3) mg/dL Free T3 pg/mL 1.8 L (2.8-5.3) pg/ml 12/03/19 12/03/19 12/03/19 Range/Units 03:50 06:53 08:02 RBC 3.18 L (4.30-5.90) m/uL Hgb 9.3 L (13.0-17.5) gm/dL Hct 28.6 L (39.0-53.0) % RDW 15.6 H (11.5-15.5) % Plt Count 96 L (150-450) k/uL Carbon Dioxide (22-30) mmol/L BUN (9-20) mg/dL Creatinine (0.66-1.25) mg/dL Glucose (74-99) mg/dL POC Glucose (mg/dL) 176 H 161 H (75-99) mg/dL Calcium (8.4-10.2) mg/dL Magnesium (1.6-2.3) mg/dL Free T3 pg/mL (2.8-5.3) pg/ml Assessment and Plan Plan: Assessment: #1. Possible progression of metastatic squamous cell carcinoma of the lung, follow-up CTA chest on the 12/02/2019 showed internal development of a 5 cm mass lesion in the right upper lobe, compared the previous PET/CT dated 04/21/2019. In addition there is coarse fibrosis and possible postradiation changes throughout the right lung and the anterior portion of the left lung, bilateral pleural effusions, and loculated fluid on the left. No evidence of a large central pulmonary emboli. #2. Acute hypoxemic respiratory failure related to bilateral pneumonia, and possibility of progression of metastatic squamous cell carcinoma of the lung, #3. Weakness, fatigue, febrile illness, occasional hemoptysis related to the above #4. Squamous cell carcinoma of the lung, TNM stage IIIB diagnosed in 2016 patient underwent chemoradiation therapy completed in August 2017, patient was started immunotherapy in April 2018, most recently on Tecentriq and Avastin, which have been on hold since August 2019 her possibility of a vocal cord surgery and poor tolerance #5. Chronic interstitial changes involving left upper lobe #6. History of coronary artery disease with history of coronary artery stenting #7. History of non-ST elevated myocardial infarction #8. History of COPD with FEV1 of 60% of predicted, stage II COPD not normally oxygen dependent #9. Type 2 diabetes mellitus #10. Dyspnea, acute on chronic, multifactorial, related to acute bilateral lung pneumonia, chronic COPD, chronic deconditioning #11. History of Hodgkin's disease #12. History of hypothyroidism #13. History of hypertension #14. History of hyperlipidemia #15. Former smoker Plan: Continue current antibiotics, patient is on Zosyn and Zyvox, continue BiPAP support, on current settings, we'll restart IV steroids, obtain Procalcitonin level, CTA chest and chest x-ray reviewed, showing possible disease progression of metastatic squamous cell carcinoma of the lung with interval development of a right upper lobe mass lesion. Continue breathing treatments, supportive care. Bronch cultures have been reviewed showing no growth so far. Patient continues with low-grade fevers, no altered mentation, severe generalized weakness. Prognosis is extremely guarded. Patient will remain in the ICU I performed a history & physical examination of the patient and discussed their management with my nurse practitioner, Mohini Fischer. I reviewed the nurse practitioner's note and agree with the documented findings and plan of care. Lung sounds are positive for diffuse crackles. The findings and the impression was discussed with the patient. I attest to the documentation by the nurse practitioner. Time with Patient: Greater than 30
--- NOTE | 2019-12-03 10:37 | P.PN ---
Subjective This is Rhoda Meneses PA-C dictating a progress note on this patient The patient was interviewed and examined by me as well as by Dr. Jones Case discussed with Dr. Jones and he agrees with the plan of care HPI/interval history Patient is a 69-year-old male with a history of lung cancer, CAD status post stenting, hypertension, and dyslipidemia who presented with cough and shortness of breath. He developed hemoptysis and respiratory failure requiring intubation in his Plavix was stopped. He has been extubated. He did develop atrial fibrillation over the weekend but has converted to sinus rhythm. Yesterday Dr. Jones increased his metoprolol to 150 mg twice a day. His blood pressure has been better controlled but he remains in sinus tachycardia in the 1 teens. Patient seen and examined resting in bed. On BiPAP. Continues to have shortness of breath and cough. EXAMINATION Temperature 99F, pulse in the 100s, respirations 22, blood pressure 124/66, oxygen saturation 91% on BiPAP Patient seen and examined resting in bed, currently on BiPAP Breath sounds are diminished bilaterally with crackles Heart is regular, tachycardic, soft systolic murmur REVIEW OF LABS, ECG WBC 10.6, hemoglobin 9.3, platelets 96, potassium 4.3, BUN 32, creatinine 0.51 TSH within normal limits IMPRESSION / ASSESSMENT: Acute hypoxic respiratory failure secondary to pneumonia and possible progression of lung cancer Hemoptysis status post bronchoscopy with blood clots but no active bleeding, Plavix has been stopped History of non-small cell lung carcinoma, possibly progressing Abnormal troponins, unclear significance, likely type 2 [place] likely secondary to combination of hypoxia and respiratory distress CAD status post stenting Echo showing preserved LV systolic function Diabetes Hypertension, blood pressure control improved dyslipidemia Sinus tachycardia, likely respiratory Paroxysmal atrial fibrillation, maintaining sinus rhythm, not on anticoagulation secondary to recent hemoptysis on this admission and anemia anemia PLAN: From a cardiology standpoint, we will recommend continuing the current medication regimen, we will sign off now and see the patient on an as-needed basis Continue current dose of metoprolol 150 mg twice a day Continue amlodipine 10 mg daily, clonidine patch, lisinopril 20 mg twice a day for blood pressure management Continue aspirin and statins Objective - Vital Signs Vital signs: Vital Signs Temp 99 F 12/03/19 09:00 Pulse 94 01/27/20 10:00 Resp 22 12/03/19 10:00 BP 124/66 12/03/19 10:00 Pulse Ox 91 L 12/03/19 10:00 Intake & Output 12/02/19 12/03/19 12/03/19 18:59 06:59 18:59 Intake Total 1136 1223 541 Output Total 635 805 176 Balance 501 418 365 Weight 89 kg Intake: IV 646 1223 441 Cefepime 2 gm In Sodium 100 Chloride 0.9% 100 ml @ 200 mls/hr IVPB Q12H [facility] Rx#:[id number] Linezolid 600 mg In 300 300 Dextrose/Water 1 300ml. bag @ 150 mls/hr IVPB Q12HR [facility] Rx#:[id number] Magnesium Sulfate-D5w Pmx 200 1 gm In Dextrose/Water 1 100ml.bag @ 100 mls/hr IVPB Q1H [facility] Rx#: [id number] Normal Saline pressure 30 36 12 bag Potassium Chloride 10 meq 200 In Water For Injection 1 100ml.bag @ 100 mls/hr IVPB Q1H [facility] Rx#: [id number] Sodium Chloride 0.9% 1, 516 487 129 000 ml @ 43 mls/hr IV . [id number] [facility] Rx#:[id number] Intake, IV Titration 100 Amount Piperacillin-Tazobactam 3 100 .375 gm In Sodium Chloride 0.9% 100 ml @ 25 mls/hr IVPB Q8H [facility] Rx#: [id number] Oral 490 Output: Urine 635 805 176 Other: Voiding Method Indwelling Catheter Indwelling Catheter Indwelling Catheter ABP, PAP, CO, CI - Last Documented Arterial Blood Pressure 170/64 - Labs CBC & Chem 7: 12/03/19 03:50 12/03/19 03:50 Labs: Abnormal Lab Results - Last 24 Hours (Table) 12/02/19 12/02/19 12/02/19 Range/Units 11:31 16:25 17:07 RBC (4.30-5.90) m/uL Hgb (13.0-17.5) gm/dL Hct (39.0-53.0) % RDW (11.5-15.5) % Plt Count (150-450) k/uL Carbon Dioxide (22-30) mmol/L BUN (9-20) mg/dL Creatinine (0.66-1.25) mg/dL Glucose (74-99) mg/dL POC Glucose (mg/dL) 189 H 164 H 158 H (75-99) mg/dL Calcium (8.4-10.2) mg/dL Magnesium (1.6-2.3) mg/dL Free T3 pg/mL (2.8-5.3) pg/ml 12/02/19 12/03/19 12/03/19 Range/Units 20:24 00:08 03:50 RBC (4.30-5.90) m/uL Hgb (13.0-17.5) gm/dL Hct (39.0-53.0) % RDW (11.5-15.5) % Plt Count (150-450) k/uL Carbon Dioxide 35 H (22-30) mmol/L BUN 32 H (9-20) mg/dL Creatinine 0.51 L (0.66-1.25) mg/dL Glucose 141 H (74-99) mg/dL POC Glucose (mg/dL) 305 H 210 H (75-99) mg/dL Calcium 7.6 L (8.4-10.2) mg/dL Magnesium 2.5 H (1.6-2.3) mg/dL Free T3 pg/mL 1.8 L (2.8-5.3) pg/ml 12/03/19 12/03/19 12/03/19 Range/Units 03:50 06:53 08:02 RBC 3.18 L (4.30-5.90) m/uL Hgb 9.3 L (13.0-17.5) gm/dL Hct 28.6 L (39.0-53.0) % RDW 15.6 H (11.5-15.5) % Plt Count 96 L (150-450) k/uL Carbon Dioxide (22-30) mmol/L BUN (9-20) mg/dL Creatinine (0.66-1.25) mg/dL Glucose (74-99) mg/dL POC Glucose (mg/dL) 176 H 161 H (75-99) mg/dL Calcium (8.4-10.2) mg/dL Magnesium (1.6-2.3) mg/dL Free T3 pg/mL (2.8-5.3) pg/ml
[2019-12-03] MEDS: methylPREDNISolone SOD SUCCI 40 MG/ML 1 ML VIAL IV SCH ×2 (10:40→15:44)
[2019-12-03 12:01] LABS: Glucose,Whole Blood 146 mg/dL (75-99)
[2019-12-03 16:46] LABS: Glucose,Whole Blood 155 mg/dL (75-99)
--- NOTE | 2019-12-03 17:33 | P.PN ---
Subjective Progress Note Date: 12/03/19 This is a 69 year old gentleman with history of underlying left sided lung cancer, hyperlipidemia, hypertension, thyroid disorder, hepatitis C, Hodgkin's lymphoma and squamous cell-completed radiation and chemo, former nicotine dependence returned to the ER with complaints of worsening shortness of breath, occasional hemoptysis, fevers, chills 2 days. Patient initially had come into ER 3 days ago, placed on Levaquin and discharged home. Chest x-ray on admission reported bilateral pulmonary masses with bibasilar consolidation, underlying pneumonia, interstitial pneumonitis. Right upper lobe mass noted at 4.2 cm, additional masses identified within the suprahilar region measuring 5.8 x 5.8 cm. follow-up chest x-ray this morning reporting worsening left apical infiltrate, correlate for pneumonia, right upper lobe infiltrate, developing mass possible, underlying left upper lobe lung cancer. EKG reported sinus tachycardia, left atrial enlargement. T-max 101, WBC 12.2-now down to 11.8. Hemoglobin 9.8, BUN 26, creatinine 0.76. Blood sugars elevated 230-350s. O2 sat on admission 69% on room air, placed on nonrebreather, currently maintaining O2 sats in the low 90s on 6 L nasal cannula. IV antibiotics of Zosyn and Levaquin initiated in addition to nebulized bronchodilators and IV fluid hydration. Pulmonary and oncology consulted. 11/26/2019 until yesterday morning patient developed worsening hypoxia, sinus tachycardia, patient was transferred to ICU and intubated. Converted and r emains in sinus rhythm. Maintained on mechanical ventilation, FiO2 down to 50, PEEP up to +8. Continues on diprovan, IV fluids and IV antibiotics. Underwent bronchoscopy yesterday, cytology, cultures pending. Afebrile. Echo reportedly mild concentric hypertrophy, EF 60-65%, moderate to severe tricuspid regurgitation, severe pulmonary hypertension . Chest x-ray noted. Tolerating tube feeds at goal with minimal to no residuals. 11/27/2019 remains vent dependent, FiO2 50%/+8 of PEEP. ABGs noted. Chest x- ray reporting interval progression of the disease involving left lung apex, diffuse pleural-progression of changes, correlate for pulmonary mass. Maintained on IV fluids ,diprovan, Dilaudid. Blood pressure marginal, map 55. No weaning trials recommended today.Tolerating tube feeds at goal with minimal to no residual. Blood sugars controlled on insulin drip. Bronc cultures, cytology pending. Continues on Zosyn, Levaquin, vancomycin. Creatinine 0.7. Afebrile, WBC 10. 11/28/2019 Consulted infectious disease, antibiotics adjusted. Currently on cefepime and Levaquin.Bronchoscopy cytology reporting no malignant cells identified. Bronchoscopy washings, cultures currently negative, fungal culture pending. Afebrile, normal WBC. Chest x-ray reporting stable, no significant change from yesterday's x-ray; left suprahilar mass or neoplasm on background, chronic emphysematous change with left-sided volume loss, diffuse right lung edema and/or infiltrates with more focal right upper lung masslike consolidation, small bilateral pleural effusions. Recently extubated, requiring 60% high flow, being transitioned to airvo. Currently nothing by mouth, blood sugars ranging 130s to 140s. Hemoglobin 9. 11/29/2019 breathing continues to improve, airvo decreased to 60. Chest x-ray reporting unchanged left apical opacity/left basilar density. Mass density right upper lobe measuring 5.4 cm. Persistent patchy improving right lower lobe infiltrate. Maintained on Clevaprex. Diet intake improving. No nausea, no vomiting, no diarrhea. Blood sugars improved. Speech therapy evaluating swallow. Afebrile, normal WBC. Denies chest pain, palpitations. 11/30/2019 chest x-ray reporting stable from comparison; persistent density in the peripheral right upper lung field, left basilar infiltrate and/or small pleural effusion mild right lung base infiltrate, left apical thickening and opacity stable. Maintained on 60% airvo. Early a.m. ABGs alkalotic, received 500 ml LR, airvo settings adjusted as per oil seal assembler. Telemetry sinus rhythm. Antihypertensives adjusted, Clonidine patch increased, now off of Clevaprex. Diet intake fair 15% this am, blood sugars ranging from 120s to 190s. Continues on IV antibiotics of Levaquin and cefepime .T-max 99.7, normal WBC. 12/03/2019 antibiotics adjusted yesterday to Zosyn and Zyvox. bronchoscopy cultures reported negative cultures. T-max 100.2, WBC 10.6. Desated on Airvo yesterday, converted to BiPAP, 100% with nonproductive cough. Chest CT completed yesterday, suboptimal, reporting negative for large central pulmonary emboli, development of a 5 cm mass lesion in the right upper lobe appears to have a necrotic center, fibrosis or post radiation changes throughout the entire right lung and in the anterior left lung, bilateral pleural effusions with some of anterior left fluid appearing loculated. Chest x-ray reporting stable, chronic emphysematous and fibrotic changes with left-sided volume loss, left periaortic neoplasm, diffuse right lung edema and/or infiltrates with focal lateral right upper lung masslike consolidation. IV steroids initiated. Prognosis, pending Telemetry sinus tach with beta marilyn increased as per cardiology. No further hemoptysis, hemoglobin stable, 9.3. Objective - Vital Signs Vital signs: Vital Signs Temp 99 F 12/03/19 09:00 Pulse 88 12/03/19 11:35 Resp 14 12/03/19 11:00 BP 122/67 12/03/19 11:00 Pulse Ox 91 L 12/03/19 11:00 Intake & Output 12/02/19 12/03/19 12/03/19 18:59 06:59 18:59 Intake Total 1136 1223 587 Output Total 635 805 216 Balance 501 418 371 Weight 89 kg Intake: IV 646 1223 487 Cefepime 2 gm In Sodium 100 Chloride 0.9% 100 ml @ 200 mls/hr IVPB Q12H [facility] Rx#:[id number] Linezolid 600 mg In 300 300 Dextrose/Water 1 300ml. bag @ 150 mls/hr IVPB Q12HR [facility] Rx#:[id number] Magnesium Sulfate-D5w Pmx 200 1 gm In Dextrose/Water 1 100ml.bag @ 100 mls/hr IVPB Q1H [facility] Rx#: [id number] Normal Saline pressure 30 36 15 bag Potassium Chloride 10 meq 200 In Water For Injection 1 100ml.bag @ 100 mls/hr IVPB Q1H [facility] Rx#: [id number] Sodium Chloride 0.9% 1, 516 487 172 000 ml @ 43 mls/hr IV . [id number] [facility] Rx#:[id number] Intake, IV Titration 100 Amount Piperacillin-Tazobactam 3 100 .375 gm In Sodium Chloride 0.9% 100 ml @ 25 mls/hr IVPB Q8H [facility] Rx#: [id number] Oral 490 Output: Urine 635 805 216 Other: Voiding Method Indwelling Catheter Indwelling Catheter Indwelling Catheter ABP, PAP, CO, CI - Last Documented Arterial Blood Pressure 105/45 - Exam VITAL SIGNS: [As above] GENERAL: Sitting up in bed,weak, no acute distress,on Bipap HEENT: Conjunctivae normal. eyes normal. NECK: No JVD. No thyroid enlargement. No LNs CARDIOVASCULAR: S1, S2 regular. No murmur RESPIRATION: Breath sounds diminished in the bases. Scattered coarse rhonchi with diffuse crackles throughout. ABDOMEN: Soft, nontender . No guarding. no masses palpable. No ascites, No hepatosplenomegaly.Bowel sounds heard. LEGS: mild edema. Offloading Boots on bilateral lower extremities PSYCHIATRY: Alert and oriented X3, mood and affect normal. NERVOUS SYSTEM: Cranial nerves II through XII grossly intact, moving all extremities. Generalized diffuse weakness .No focal deficits Skin: no rash , mild edema of upper extremities. blanchable coccyx with optifoam dressing ordered. Microbiology 11/22/19 13:11 Blood Blood Culture - Final No Growth after 144 hours 11/25/19 10:30 Bronchial Washings - Right Gram Stain - Final 11/25/19 10:30 Bronchial Washings - Right Bronchial Washings Culture - Final 11/25/19 10:30 Bronchial Washings - Right Acid Fast Bacilli Smear - Final 11/25/19 10:30 Bronchial Washings - Right Acid Fast Bacilli Culture - Preliminary 11/25/19 10:30 Bronchial Washings - Right Fungal Culture - Preliminary 11/22/19 03:15 Sputum Gram Stain - Final 11/22/19 03:15 Sputum Sputum Culture - Final - Labs CBC & Chem 7: 12/03/19 03:50 12/03/19 03:50 Labs: Abnormal Lab Results - Last 24 Hours (Table) 12/02/19 12/02/19 12/02/19 Range/Units 16:25 17:07 20:24 RBC (4.30-5.90) m/uL Hgb (13.0-17.5) gm/dL Hct (39.0-53.0) % RDW (11.5-15.5) % Plt Count (150-450) k/uL Carbon Dioxide (22-30) mmol/L BUN (9-20) mg/dL Creatinine (0.66-1.25) mg/dL Glucose (74-99) mg/dL POC Glucose (mg/dL) 164 H 158 H 305 H (75-99) mg/dL Calcium (8.4-10.2) mg/dL Magnesium (1.6-2.3) mg/dL Free T3 pg/mL (2.8-5.3) pg/ml 12/03/19 12/03/19 12/03/19 Range/Units 00:08 03:50 03:50 RBC 3.18 L (4.30-5.90) m/uL Hgb 9.3 L (13.0-17.5) gm/dL Hct 28.6 L (39.0-53.0) % RDW 15.6 H (11.5-15.5) % Plt Count 96 L (150-450) k/uL Carbon Dioxide 35 H (22-30) mmol/L BUN 32 H (9-20) mg/dL Creatinine 0.51 L (0.66-1.25) mg/dL Glucose 141 H (74-99) mg/dL POC Glucose (mg/dL) 210 H (75-99) mg/dL Calcium 7.6 L (8.4-10.2) mg/dL Magnesium 2.5 H (1.6-2.3) mg/dL Free T3 pg/mL 1.8 L (2.8-5.3) pg/ml 12/03/19 12/03/19 Range/Units 06:53 08:02 RBC (4.30-5.90) m/uL Hgb (13.0-17.5) gm/dL Hct (39.0-53.0) % RDW (11.5-15.5) % Plt Count (150-450) k/uL Carbon Dioxide (22-30) mmol/L BUN (9-20) mg/dL Creatinine (0.66-1.25) mg/dL Glucose (74-99) mg/dL POC Glucose (mg/dL) 176 H 161 H (75-99) mg/dL Calcium (8.4-10.2) mg/dL Magnesium (1.6-2.3) mg/dL Free T3 pg/mL (2.8-5.3) pg/ml Assessment and Plan Assessment: Assessment: Acute hypoxic respiratory failure, multifactorial, secondary to bilateral pneumonia-suspect community-acquired, bilateral pulmonary masses, in a patient with history of underlying left lobe carcinoma, failed outpatient treatment, status post ventilator dependent, on airvo. Sepsis secondary to the above ARDS Acute dehydration Acute COPD exacerbation Non-small cell CA of the lung, completed chemoradiation therapy, underwent immunotherapy, PET scan August 2019 reported no progression. Recurrent hemoptysis, status post bronchoscopy Hepatocellular carcinoma CAD, history of stenting, non-STEMI Diabetes mellitus2 Hypothyroidism Hypertension Hodgkin's disease Former nicotine dependence Sinus tachycardia, not A. fib per cardiology's review of EKGs Severe pulmonary hypertension Moderate to severe tricuspid regurgitation Plan: Continue current medication regime ,monitoring and symptomatic treatment. Continue on nebulized bronchodilators. IV antibiotics adjusted as per in fectious disease. Cardiology has signed off. CODE STATUS discussed with patient and family -they are currently continuing to discuss. Patient/family reports pain management not controlling cancer pain. Daisy discontinued, Percocet added to alternate with Dilaudid. Prognosis guarded given multiple complex medical issues. The impression and plan of care has been dictated as directed. : I performed a history and examination of this patient, discussed the same with the dictator. I agree with the dictator's note ,documented as a scribe. Any additional findings or plans will be noted.
[2019-12-03] MEDS: oxyCODONE-APAP 10-325MG 1 EACH TAB PO PRN (18:06)
[2019-12-03 20:53] LABS: Glucose,Whole Blood 173 mg/dL (75-99)
[2019-12-03] MEDS: ASPIRIN 81 MG PO SCH (21:02)
[2019-12-03] MEDS: ATORVASTATIN 40 MG TAB PO SCH (21:03)
--- NOTE | 2019-12-03 22:23 | PN ---
PROGRESS NOTE DATE OF SERVICE: 12/03/2019 REASON FOR FOLLOWUP: Pneumonia. INTERVAL HISTORY: The patient is currently afebrile. The patient is still having pleurodesis and BiPAP dependent. The patient did have a cough but no further hemoptysis has been noticed. No nausea, vomiting, abdominal pain, no diarrhea. PHYSICAL EXAMINATION: Blood pressure 109/97, pulse 83, temperature 98. He is 93% on BIPAP. General description is an elderly male lying in bed in no distress. Respiratory system: Unlabored breathing. Decreased breath sounds in the intensity. No wheeze. Heart S1, S2. Regular rate and rhythm. Abdomen soft, no tenderness. LABS: Hemoglobin 9.4, white count 10.3, BUN of 32, creatinine 0.51. DIAGNOSTIC IMPRESSION AND PLAN: Patient with right upper lobe cavitary lesion with concern for possible pneumonia versus malignancy. The patient is currently with Zosyn and Zyvox to continue. We will try to obtain a sputum to narrow down the antibiotics. Continue supportive care. MMODL / IJN: [id number] /
[2019-12-04] MEDS: methylPREDNISolone SOD SUCCI 40 MG/ML 1 ML VIAL IV SCH ×4 (00:14→23:55)
[2019-12-04] MEDS: oxyCODONE-APAP 10-325MG 1 EACH TAB PO PRN ×4 (00:23→20:04)
[2019-12-04] MEDS: HYDROmorphone 1 MG/ML 1 ML SYRINGE IVP PRN ×7 (00:23→23:08)
[2019-12-04] MEDS: PIPERACILLIN-TAZOBACTAM 3.375 GM in SODIUM CHLORIDE 0.9% 100 ML IVPB SCH ×3 (02:07→17:08)
[2019-12-04 05:01] LABS: HCT 26.3 % (39.0-53.0); HGB 8.4 gm/dL (13.0-17.5); Hypochromasia Moderate; MCH 28.8 pg (25.0-35.0); MCHC 31.9 g/dL (31.0-37.0); MCV 90.5 fL (80.0-100.0); Mean Platelet Volume 8.2; Platelet Count 109 k/uL (150-450); Poikilocytosis Moderate; RBC 2.91 m/uL (4.30-5.90); RDW 15.6 % (11.5-15.5); WBC 10.3 k/uL (3.8-10.6)
[2019-12-04 05:29] LABS: African American GFR (CKD) >90 (>60 ml/min/1.73 sqM); Anion Gap 1 mmol/L; Blood Urea Nitrogen 36 mg/dL (9-20); Calcium 7.7 mg/dL (8.4-10.2); Carbon Dioxide 32 mmol/L (22-30); Chloride 101 mmol/L (98-107); Glucose 165 mg/dL (74-99); Non-African American GFR(CKD) >90 (>60 ml/min/1.73 sqM); Potassium 4.4 mmol/L (3.5-5.1); Sodium 134 mmol/L (137-145)
[2019-12-04] MEDS: LEVOTHYROXINE 100 MCG TAB PO SCH (06:25)
[2019-12-04 06:43] LABS: Glucose,Whole Blood 182 mg/dL (75-99)
[2019-12-04] MEDS: INSULIN ASPART (NovoLOG) 100 UNIT/ML VIAL SQ SCH ×4 (06:45→21:15)
[2019-12-04] MEDS: IPRATROPIUM-ALBUTEROL 3 ML NEB INHALATION SCH ×4 (07:10→19:18)
[2019-12-04] MEDS: BUDESONIDE 1 MG/2 ML NEBU INHALATION SCH ×2 (07:10→19:18)
[2019-12-04] MEDS: FORMOTEROL FUMARATE 20 MCG/2 ML NEBU INHALATION SCH ×2 (07:10→19:18)
--- NOTE | 2019-12-04 07:34 | P.PN ---
Subjective Progress Note Date: 12/04/19 This is a 69-year-old male patient with known history of non-small cell Lung cancer of a squamous cell type. The patient was diagnosed approximately 3 years ago and his initial staging was stage IIIB. He came into the hospital because of worsening shortness of breath and he ultimately ended up and acute hypoxic respiratory failure. The patient was briefly intubated and subsequently extubated. He continues to have a consolidation of the right lung which is unchanged compared to yesterday's chest x-ray. Note that post intubation, the patient a bronchoscopy and aspirates from the right lung was quite bloody. And all of the cultures came back negative for any microbes. He regains on a combination of Zosyn and Zyvox. The CAT scan of the chest that was done on 12/02/2019 revealed a progression of his underlying non-small cell lung cancer with a 5 cm mass in the right upper lobe in addition to extensive airspace disease and emphysema in addition to radiation changes in the lungs and bilater al pleural effusion left more than right in addition to a left upper lobe mass abutting the mediastinum. There was no evidence of any pulmonary embolism. Based on the CAT scan picture, there has been interval progression of his non- small cell lung cancer which is probably an ascetic at this point in time. Clinically, this morning, the patient is feeling slightly better. I was able to cut down his BiPAP to a pressure of 10/5 cm of water. He was having increased pressure sensation and on the current setting is feeling much more comfortable. Is a FiO2 still at high around 90%. I'm hoping that she'll be able to cut down the FiO2 slightly maintaining his saturation above 90%. His mucous membranes are dry. Occasional cough. No significant sputum production. No hemoptysis. He has adequate urine output. The white cell count is at 10.3 with a hemoglobin of 8.4. Platelet counts are at 109. The patient's renal function remains stable. The neck fluid balance is +900 mL over the past 24 hours. He is alert and oriented. He is able to communicate and answer questions appropriately. No chest pain. Less anxious compared to yesterday. I discussed the case at length with the family and his CODE STATUS is DNR/DNI for now. Objective - Vital Signs Vital signs: Vital Signs Temp 97.9 F 12/04/19 04:00 Pulse 81 12/04/19 07:15 Resp 12 12/04/19 05:00 BP 90/52 12/04/19 05:00 Pulse Ox 100 12/04/19 05:00 Intake & Output 12/03/19 12/04/19 12/04/19 18:59 06:59 18:59 Intake Total 1677 1092 Output Total 451 445 Balance 1226 647 Intake: IV 809 671 Linezolid 600 mg In 300 300 Dextrose/Water 1 300ml. bag @ 150 mls/hr IVPB Q12HR [facility] Rx#:[id number] Normal Saline pressure 36 27 bag Sodium Chloride 0.9% 1, 473 344 000 ml @ 43 mls/hr IV . [id number] [facility] Rx#:[id number] Intake, IV Titration 100 125 Amount Piperacillin-Tazobactam 3 100 125 .375 gm In Sodium Chloride 0.9% 100 ml @ 25 mls/hr IVPB Q8H [facility] Rx#: [id number] Oral 768 296 Output: Urine 451 445 Other: Voiding Method Indwelling Catheter Indwelling Catheter ABP, PAP, CO, CI - Last Documented Arterial Blood Pressure 115/47 - Exam GENERAL EXAM: Alert, very pleasant, 69-year-old white male, appears chronically ill, fatigued, debilitated, short of breath, currently on BiPAP support with pressures of 10/5, and FiO2 of 90%, with a pulse ox of 95%, moderately dyspneic with any conversation HEAD: Normocephalic/atraumatic. EYES: Normal reaction of pupils, equal size. Conjunctiva pink, sclera white. NOSE: Clear with pink turbinates. THROAT: No erythema or exudates. NECK: No masses, no JVD, no thyroid enlargement, no adenopathy. CHEST: No chest wall deformity. Symmetrical expansion. LUNGS: Equal air entry with coarse rhonchi throughout CVS: Regular rate and rhythm, normal S1 and S2, no gallops, no murmurs, no rubs ABDOMEN: Soft, nontender. No hepatosplenomegaly, normal bowel sounds, no guarding or rigidity. EXTREMITIES: No clubbing, no edema, no cyanosis, 2+ pulses and upper and lower extremities. MUSCULOSKELETAL: Muscle strength and tone normal. SPINE: No scoliosis or deformity SKIN: No rashes CENTRAL NERVOUS SYSTEM: Alert and oriented -3. No focal deficits, tone is normal in all 4 extremities. PSYCHIATRIC: Alert and oriented -3. Appropriate affect. Intact judgment and insight. - Labs CBC & Chem 7: 12/04/19 04:45 12/04/19 04:45 Labs: Abnormal Lab Results - Last 24 Hours (Table) 12/03/19 12/03/19 12/03/19 Range/Units 03:50 08:02 12:00 RBC (4.30-5.90) m/uL Hgb (13.0-17.5) gm/dL Hct (39.0-53.0) % RDW (11.5-15.5) % Plt Count (150-450) k/uL Sodium (137-145) mmol/L Carbon Dioxide (22-30) mmol/L BUN (9-20) mg/dL Creatinine (0.66-1.25) mg/dL Glucose (74-99) mg/dL POC Glucose (mg/dL) 161 H 146 H (75-99) mg/dL Calcium (8.4-10.2) mg/dL Procalcitonin 0.13 H (0.02-0.09) ng/mL 12/03/19 12/03/19 12/04/19 Range/Units 16:43 20:52 04:45 RBC 2.91 L (4.30-5.90) m/uL Hgb 8.4 L (13.0-17.5) gm/dL Hct 26.3 L (39.0-53.0) % RDW 15.6 H (11.5-15.5) % Plt Count 109 L (150-450) k/uL Sodium (137-145) mmol/L Carbon Dioxide (22-30) mmol/L BUN (9-20) mg/dL Creatinine (0.66-1.25) mg/dL Glucose (74-99) mg/dL POC Glucose (mg/dL) 155 H 173 H (75-99) mg/dL Calcium (8.4-10.2) mg/dL Procalcitonin (0.02-0.09) ng/mL 12/04/19 12/04/19 Range/Units 04:45 06:42 RBC (4.30-5.90) m/uL Hgb (13.0-17.5) gm/dL Hct (39.0-53.0) % RDW (11.5-15.5) % Plt Count (150-450) k/uL Sodium 134 L (137-145) mmol/L Carbon Dioxide 32 H (22-30) mmol/L BUN 36 H (9-20) mg/dL Creatinine 0.58 L (0.66-1.25) mg/dL Glucose 165 H (74-99) mg/dL POC Glucose (mg/dL) 182 H (75-99) mg/dL Calcium 7.7 L (8.4-10.2) mg/dL Procalcitonin (0.02-0.09) ng/mL Microbiology - Last 24 Hours (Table) 11/25/19 10:30 Acid Fast Bacilli Smear - Final Bronchial Washings - Right Acid Fast Bacilli Culture - Preliminary 11/25/19 10:30 Fungal Culture - Preliminary Bronchial Washings - Right Assessment and Plan Plan: #1. metastatic squamous cell carcinoma of the lung, follow-up CTA chest on the 12/02/2019 showed internal development of a 5 cm mass lesion in the right upper lobe, compared the previous PET/CT dated 04/21/2019. In addition there is coarse fibrosis and possible postradiation changes throughout the right lung and the anterior portion of the left lung, bilateral pleural effusions, and loculated fluid on the left. No evidence of a large central pulmonary emboli. #2. Acute hypoxemic respiratory failure related to bilateral pneumonia, and possibility of progression of metastatic squamous cell carcinoma of the lung, however, there is also the possibility of either pneumonia involving the right lung or bleeding into the right lung as the patient had a bronchoalveolar lavage that was quite bloody. It's possible that the right upper lobe mass that into the right lung causing significant consolidation and bleeding into acute hypoxic respiratory failure. The patient is currently on IPAP and will be able to The BiPAP to 10/5 with an FiO2 of 90% Hoping to Drop down the FiO2 Gradually during the Course of the Day. #3. Weakness, fatigue, febrile illness, occasional hemoptysis related to the above #4. Squamous cell carcinoma of the lung, TNM stage IIIB diagnosed in 2016 patient underwent chemoradiation therapy completed in August 2017, patient was started immunotherapy in April 2018, most recently on Tecentriq and Avastin, which have been on hold since August 2019 her possibility of a vocal cord surg rachid and poor tolerance #5. Chronic COPD and interstitial changes bilaterally #6. History of coronary artery disease with history of coronary artery stenting #7. History of non-ST elevated myocardial infarction #8. History of COPD with FEV1 of 60% of predicted, stage II COPD not normally oxygen dependent #9. Type 2 diabetes mellitus #10. Dyspnea, acute on chronic, multifactorial, related to acute bilateral lung pneumonia, chronic COPD, chronic deconditioning #11. History of Hodgkin's disease #12. History of hypothyroidism #13. History of hypertension #14. History of hyperlipidemia #15. Former smoker Plan This patient is still critically ill. The patient is BiPAP dependent with limited reserve. I would say probably slightly proves compared to yesterday, however not to the point where he can come off the BiPAP or be further weaned. We're going to watch him during the course of the day. We're going to drop down the FiO2 as tolerated. Currently is on a pressure of 10/5 cm of water. No hemoptysis. Keep same antibiotic coverage. Unable to eat due to his BiPAP dependence. We'll may try to later on during the day with some clear liquids if possible trying him on high flow oxygen if he maintains saturation above 90%. His CODE STATUS is been switched a DNR/DNI. Please refer to the explanation above regarding his respiratory failure. His long-term prognosis and the short- term prognosis is poor. We'll continue to follow. I'm going to update his family on his condition.
--- NOTE | 2019-12-04 08:11 | XR ---
EXAMINATION TYPE: XR chest 1V portable DATE OF EXAM: 12/04/2019 HISTORY: Shortness of breath. COMPARISON: 12/03/2019 TECHNIQUE: Single view of the chest is submitted. FINDINGS: Demonstrated are scattered senescent parenchymal change. Right upper lobe and left upper lobe masses persists. Coarse infiltrate throughout the right lung per sists as well although has improved slightly. Persistent small left basilar effusion and probable ate lectasis. The heart is stable. Hilar and mediastinal structures are within normal limits. Degenerative changes are seen of the dorsal spine. IMPRESSION: 1. Right upper lobe and left upper lobe masses persists. Coarse infiltrate throughout the right lung persists as well although has improved slightly. Persistent small left basilar effusion and probable atelectasis.
[2019-12-04] MEDS: amLODIPine 10 MG TAB PO SCH (09:27)
[2019-12-04] MEDS: PANTOPRAZOLE 40 MG TABLET PO SCH (09:27)
[2019-12-04] MEDS: LINEZOLID 600 MG in DEXTROSE/WATER 1 300ML.BAG IVPB SCH (09:27)
[2019-12-04] MEDS: METOPROLOL TARTRATE 50 MG TAB PO SCH ×2 (09:27→21:15)
[2019-12-04] MEDS: LISINOPRIL 20 MG TAB PO SCH ×2 (09:27→21:15)
[2019-12-04 10:40] VITALS: BMI 29.3
[2019-12-04 11:55] LABS: Glucose,Whole Blood 257 mg/dL (75-99)
[2019-12-04 13:58] LABS: Hemoglobin A1C 6.1 % (4.0-6.0)
--- NOTE | 2019-12-04 14:11 | P.PN ---
Subjective Progress Note Date: 12/04/19 This is a 69 year old gentleman with history of underlying left sided lung cancer, hyperlipidemia, hypertension, thyroid disorder, hepatitis C, Hodgkin's lymphoma and squamous cell-completed radiation and chemo, former nicotine dependence returned to the ER with complaints of worsening shortness of breath, occasional hemoptysis, fevers, chills 2 days. Patient initially had come into ER 3 days ago, placed on Levaquin and discharged home. Chest x-ray on admission reported bilateral pulmonary masses with bibasilar consolidation, underlying pneumonia, interstitial pneumonitis. Right upper lobe mass noted at 4.2 cm, additional masses identified within the suprahilar region measuring 5.8 x 5.8 cm. follow-up chest x-ray this morning reporting worsening left apical infiltrate, correlate for pneumonia, right upper lobe infiltrate, developing mass possible, underlying left upper lobe lung cancer. EKG reported sinus tachycardia, left atrial enlargement. T-max 101, WBC 12.2-now down to 11.8. Hemoglobin 9.8, BUN 26, creatinine 0.76. Blood sugars elevated 230-350s. O2 sat on admission 69% on room air, placed on nonrebreather, currently maintaining O2 sats in the low 90s on 6 L nasal cannula. IV antibiotics of Zosyn and Levaquin initiated in addition to nebulized bronchodilators and IV fluid hydration. Pulmonary and oncology consulted. 11/26/2019 until yesterday morning patient developed worsening hypoxia, sinus tachycardia, patient was transferred to ICU and intubated. Converted and r emains in sinus rhythm. Maintained on mechanical ventilation, FiO2 down to 50, PEEP up to +8. Continues on diprovan, IV fluids and IV antibiotics. Underwent bronchoscopy yesterday, cytology, cultures pending. Afebrile. Echo reportedly mild concentric hypertrophy, EF 60-65%, moderate to severe tricuspid regurgitation, severe pulmonary hypertension . Chest x-ray noted. Tolerating tube feeds at goal with minimal to no residuals. 11/27/2019 remains vent dependent, FiO2 50%/+8 of PEEP. ABGs noted. Chest x- ray reporting interval progression of the disease involving left lung apex, diffuse pleural-progression of changes, correlate for pulmonary mass. Maintained on IV fluids ,diprovan, Dilaudid. Blood pressure marginal, map 55. No weaning trials recommended today.Tolerating tube feeds at goal with minimal to no residual. Blood sugars controlled on insulin drip. Bronc cultures, cytology pending. Continues on Zosyn, Levaquin, vancomycin. Creatinine 0.7. Afebrile, WBC 10. 11/28/2019 Consulted infectious disease, antibiotics adjusted. Currently on cefepime and Levaquin.Bronchoscopy cytology reporting no malignant cells identified. Bronchoscopy washings, cultures currently negative, fungal culture pending. Afebrile, normal WBC. Chest x-ray reporting stable, no significant change from yesterday's x-ray; left suprahilar mass or neoplasm on background, chronic emphysematous change with left-sided volume loss, diffuse right lung edema and/or infiltrates with more focal right upper lung masslike consolidation, small bilateral pleural effusions. Recently extubated, requiring 60% high flow, being transitioned to airvo. Currently nothing by mouth, blood sugars ranging 130s to 140s. Hemoglobin 9. 11/29/2019 breathing continues to improve, airvo decreased to 60. Chest x-ray reporting unchanged left apical opacity/left basilar density. Mass density right upper lobe measuring 5.4 cm. Persistent patchy improving right lower lobe infiltrate. Maintained on Clevaprex. Diet intake improving. No nausea, no vomiting, no diarrhea. Blood sugars improved. Speech therapy evaluating swallow. Afebrile, normal WBC. Denies chest pain, palpitations. 11/30/2019 chest x-ray reporting stable from comparison; persistent density in the peripheral right upper lung field, left basilar infiltrate and/or small pleural effusion mild right lung base infiltrate, left apical thickening and opacity stable. Maintained on 60% airvo. Early a.m. ABGs alkalotic, received 500 ml LR, airvo settings adjusted as per military administrative technician. Telemetry sinus rhythm. Antihypertensives adjusted, Clonidine patch increased, now off of Clevaprex. Diet intake fair 15% this am, blood sugars ranging from 120s to 190s. Continues on IV antibiotics of Levaquin and cefepime .T-max 99.7, normal WBC. 12/03/2019 antibiotics adjusted yesterday to Zosyn and Zyvox. bronchoscopy cultures reported negative cultures. T-max 100.2, WBC 10.6. Desated on Airvo yesterday, converted to BiPAP, 100% with nonproductive cough. Chest CT completed yesterday, suboptimal, reporting negative for large central pulmonary emboli, development of a 5 cm mass lesion in the right upper lobe appears to have a necrotic center, fibrosis or post radiation changes throughout the entire right lung and in the anterior left lung, bilateral pleural effusions with some of anterior left fluid appearing loculated. Chest x-ray reporting stable, chronic emphysematous and fibrotic changes with left-sided volume loss, left periaortic neoplasm, diffuse right lung edema and/or infiltrates with focal lateral right upper lung masslike consolidation. IV steroids initiated. Prognosis, pending Telemetry sinus tach with beta marilyn increased as per cardiology. No further hemoptysis, hemoglobin stable, 9.3. 12/04/2019 T-max on her 100.1, WBC within normal limits. No further hemoptysis, Hemoglobin 8.4. Platelets 109. Remains BiPAP dependent, decreased to 80%-Currently unable to eat. Chest x-ray reporting persistent right upper lobe and left upper lobe masses, mildly improved right lung coarse infiltrate, persistent small left basilar effusion-probable atelectasis. as well Denies ch est pain, palpitations. Yesterday adjusted pain management regimen with alternating Percocets with Dilaudid. Reports better pain control, less anxiety. Objective - Vital Signs Vital signs: Vital Signs Temp 97.9 F 12/04/19 09:00 Pulse 81 12/04/19 10:00 Resp 24 12/04/19 10:00 BP 113/68 12/04/19 10:00 Pulse Ox 93 L 12/04/19 10:00 Intake & Output 12/03/19 12/04/19 12/04/19 18:59 06:59 18:59 Intake Total 1677 1230 538 Output Total 451 595 240 Balance 1226 635 298 Weight 90.1 kg 90.1 kg Intake: IV 809 809 538 Linezolid 600 mg In 300 300 300 Dextrose/Water 1 300ml. bag @ 150 mls/hr IVPB Q12HR [facility] Rx#:[id number] Normal Saline pressure 36 36 9 bag Piperacillin-Tazobactam 3 100 .375 gm In Sodium Chloride 0.9% 100 ml @ 25 mls/hr IVPB Q8H [facility] Rx#: [id number] Sodium Chloride 0.9% 1, 473 473 129 000 ml @ 43 mls/hr IV . [id number] [facility] Rx#:[id number] Intake, IV Titration 100 125 Amount Piperacillin-Tazobactam 3 100 125 .375 gm In Sodium Chloride 0.9% 100 ml @ 25 mls/hr IVPB Q8H [facility] Rx#: [id number] Oral 768 296 Output: Urine 451 595 240 Other: Voiding Method Indwelling Catheter Indwelling Catheter Indwelling Catheter ABP, PAP, CO, CI - Last Documented Arterial Blood Pressure 107/44 - Exam VITAL SIGNS: [As above] GENERAL: Sitting up in bed,weak, fatigued, increased respiratory effort ,on Bi pap HEENT: Conjunctivae normal. eyes normal. NECK: No JVD. No thyroid enlargement. No LNs CARDIOVASCULAR: S1, S2 regular. No murmur RESPIRATION: Breath sounds diminished in the bases. Scattered coarse rhonchi throughout ABDOMEN: Soft, nontender . No guarding. no masses palpable. Bowel sounds heard. LEGS: No edema, Offloading Boots on bilateral lower extremities PSYCHIATRY: Alert and oriented X3, mood and affect normal. NERVOUS SYSTEM: Cranial nerves II through XII grossly intact, moving all extremities. Generalized diffuse weakness .No focal deficits Skin: no rash Microbiology 11/22/19 13:11 Blood Blood Culture - Final No Growth after 144 hours 11/25/19 10:30 Bronchial Washings - Right Gram Stain - Final 11/25/19 10:30 Bronchial Washings - Right Bronchial Washings Culture - Final 11/25/19 10:30 Bronchial Washings - Right Acid Fast Bacilli Smear - Final 11/25/19 10:30 Bronchial Washings - Right Acid Fast Bacilli Culture - Preliminary 11/25/19 10:30 Bronchial Washings - Right Fungal Culture - Preliminary 11/22/19 03:15 Sputum Gram Stain - Final 11/22/19 03:15 Sputum Sputum Culture - Final - Labs CBC & Chem 7: 12/04/19 04:45 12/04/19 04:45 Labs: Abnormal Lab Results - Last 24 Hours (Table) 12/03/19 12/03/19 12/03/19 Range/Units 03:50 12:00 16:43 RBC (4.30-5.90) m/uL Hgb (13.0-17.5) gm/dL Hct (39.0-53.0) % RDW (11.5-15.5) % Plt Count (150-450) k/uL Sodium (137-145) mmol/L Carbon Dioxide (22-30) mmol/L BUN (9-20) mg/dL Creatinine (0.66-1.25) mg/dL Glucose (74-99) mg/dL POC Glucose (mg/dL) 146 H 155 H (75-99) mg/dL Calcium (8.4-10.2) mg/dL Procalcitonin 0.13 H (0.02-0.09) ng/mL 12/03/19 12/04/19 12/04/19 Range/Units 20:52 04:45 04:45 RBC 2.91 L (4.30-5.90) m/uL Hgb 8.4 L (13.0-17.5) gm/dL Hct 26.3 L (39.0-53.0) % RDW 15.6 H (11.5-15.5) % Plt Count 109 L (150-450) k/uL Sodium 134 L (137-145) mmol/L Carbon Dioxide 32 H (22-30) mmol/L BUN 36 H (9-20) mg/dL Creatinine 0.58 L (0.66-1.25) mg/dL Glucose 165 H (74-99) mg/dL POC Glucose (mg/dL) 173 H (75-99) mg/dL Calcium 7.7 L (8.4-10.2) mg/dL Procalcitonin (0.02-0.09) ng/mL 12/04/19 Range/Units 06:42 RBC (4.30-5.90) m/uL Hgb (13.0-17.5) gm/dL Hct (39.0-53.0) % RDW (11.5-15.5) % Plt Count (150-450) k/uL Sodium (137-145) mmol/L Carbon Dioxide (22-30) mmol/L BUN (9-20) mg/dL Creatinine (0.66-1.25) mg/dL Glucose (74-99) mg/dL POC Glucose (mg/dL) 182 H (75-99) mg/dL Calcium (8.4-10.2) mg/dL Procalcitonin (0.02-0.09) ng/mL Microbiology - Last 24 Hours (Table) 11/25/19 10:30 Acid Fast Bacilli Smear - Final Bronchial Washings - Right Acid Fast Bacilli Culture - Preliminary 11/25/19 10:30 Fungal Culture - Preliminary Bronchial Washings - Right Assessment and Plan Assessment: Assessment: Acute hypoxic respiratory failure, multifactorial, secondary to bilateral pneumonia-suspect community-acquired, bilateral pulmonary masses, in a patient with history of underlying left lobe carcinoma, failed outpatient treatment, status post ventilator dependent, on airvo. Sepsis secondary to the above ARDS Acute dehydration Acute COPD exacerbation Non-small cell CA of the lung, completed chemoradiation therapy, underwent immunotherapy, PET scan August 2019 reported no progression. Recurrent hemoptysis, status post bronchoscopy Hepatocellular carcinoma CAD, history of stenting, non-STEMI Diabetes mellitus2 Hypothyroidism Hypertension Hodgkin's disease Former nicotine dependence Sinus tachycardia, not A. fib per cardiology's review of EKGs Severe pulmonary hypertension Moderate to severe tricuspid regurgitation Anemia of chronic disease secondary to malignancy, tx. Plan: Continue current medication regime ,monitoring and symptomatic treatment. Maintain nebulized bronchodilators, IV antibiotics. FiO2 weaning in progress . Patient/family reports pain management not controlling cancer pain. Pain Management with Percocet's alternating with Dilaudid. CODE STATUS has been changed to no code, no intubation as per further discussion between military administrative technician and family. Prognosis remains guarded given multiple complex medical issues. The impression and plan of care has been dictated as directed. : I performed a history and examination of this patient, discussed the same with the dictator. I agree with the dictator's note ,documented as a scribe. Any additional findings or plans will be noted.
[2019-12-04 16:51] LABS: Glucose,Whole Blood 171 mg/dL (75-99)
--- NOTE | 2019-12-04 21:06 | PN ---
PROGRESS NOTE DATE OF SERVICE: 12/04/2019 REASON FOR FOLLOWUP: Pneumonia. INTERVAL HISTORY: The patient is currently afebrile. The patient is breathing. The patient is still requiring BiPAP for the respiratory support. The patient denies having any chest pain. Cough has been about the same. No further hemoptysis has been reported. No vomiting or diarrhea. PHYSICAL EXAMINATION: Blood pressure is 133/72 with a pulse of 77, temperature 98. He is 96% on BiPAP. General description is an elderly male up in the chair in no distress. Respiratory system: Unlabored breathing, decreased intensity of breath sounds. No wheeze. Heart S1, S2. Regular rate and rhythm. Abdomen soft, no tenderness. LABS: Hemoglobin 8.4, white count 10.3, BUN of 36, creatinine 0.58. DIAGNOSTIC IMPRESSION AND PLAN: Patient with acute respiratory failure which is likely multifactorial, possible component of pneumonia. The patient is currently broadly covered with Zosyn and Levaquin, to continue. Try to obtain sputum to narrow down antibiotics. Continue supportive care. MMODL / IJN: [id number] /
[2019-12-04 21:12] LABS: Glucose,Whole Blood 193 mg/dL (75-99)
[2019-12-04] MEDS: ATORVASTATIN 40 MG TAB PO SCH (21:15)
[2019-12-04] MEDS: ASPIRIN 81 MG PO SCH (21:15)
[2019-12-04] MEDS: SODIUM CHLORIDE 0.9% 1,000 ML IV SCH (21:15)
[2019-12-04] MEDS: LINEZOLID 600 MG TAB PO SCH (22:12)
[2019-12-05] MEDS: PIPERACILLIN-TAZOBACTAM 3.375 GM in SODIUM CHLORIDE 0.9% 100 ML IVPB SCH ×2 (02:06→08:17)
[2019-12-05] MEDS: HYDROmorphone 1 MG/ML 1 ML SYRINGE IVP PRN ×4 (02:06→12:52)
[2019-12-05] MEDS: oxyCODONE-APAP 10-325MG 1 EACH TAB PO PRN ×2 (02:06→08:06)
[2019-12-05 04:55] LABS: Basophils % (A) 0 %; Eosinophils % (A) 0 %; HCT 30.1 % (39.0-53.0); HGB 9.5 gm/dL (13.0-17.5); Hypochromasia Moderate; Lymphocytes # (A) 0.4 k/uL (1.0-4.8); Lymphocytes % (A) 3 %; MCH 28.4 pg (25.0-35.0); MCHC 31.5 g/dL (31.0-37.0); MCV 90.4 fL (80.0-100.0); Mean Platelet Volume 7.6; Monocytes # (A) 0.5 k/uL (0-1.0); Monocytes % (A) 3 %; Neutrophils # (A) 13.7 k/uL (1.3-7.7); Neutrophils % (A) 93 %; Poikilocytosis Moderate; RBC 3.33 m/uL (4.30-5.90); RDW 15.6 % (11.5-15.5); WBC 14.7 k/uL (3.8-10.6)
[2019-12-05 05:03] LABS: ALT 54 U/L (4-49); AST 55 U/L (17-59); African American GFR (CKD) >90 (>60 ml/min/1.73 sqM); Albumin 2.5 g/dL (3.5-5.0); Alkaline Phosphatase 128 U/L (38-126); Anion Gap 1 mmol/L; Blood Urea Nitrogen 33 mg/dL (9-20); Calcium 8.1 mg/dL (8.4-10.2); Carbon Dioxide 33 mmol/L (22-30); Chloride 101 mmol/L (98-107); Glucose 187 mg/dL (74-99); Non-African American GFR(CKD) >90 (>60 ml/min/1.73 sqM); Potassium 4.4 mmol/L (3.5-5.1); Sodium 135 mmol/L (137-145); Total Bilirubin 0.9 mg/dL (0.2-1.3); Total Protein 5.1 g/dL (6.3-8.2)
[2019-12-05 05:24] LABS: Platelet Count 183 k/uL (150-450)
[2019-12-05] MEDS: LEVOTHYROXINE 100 MCG TAB PO SCH (05:53)
[2019-12-05] MEDS: SODIUM CHLORIDE 0.9% 1,000 ML IV SCH (05:54)
[2019-12-05 06:48] LABS: Glucose,Whole Blood 220 mg/dL (75-99)
[2019-12-05] MEDS: INSULIN ASPART (NovoLOG) 100 UNIT/ML VIAL SQ SCH (06:50)
[2019-12-05] MEDS: IPRATROPIUM-ALBUTEROL 3 ML NEB INHALATION SCH ×2 (07:22→10:43)
[2019-12-05] MEDS: FORMOTEROL FUMARATE 20 MCG/2 ML NEBU INHALATION SCH (07:22)
[2019-12-05] MEDS: BUDESONIDE 1 MG/2 ML NEBU INHALATION SCH (07:22)
[2019-12-05] MEDS: methylPREDNISolone SOD SUCCI 40 MG/ML 1 ML VIAL IV SCH (08:15)
[2019-12-05] MEDS: METOPROLOL TARTRATE 50 MG TAB PO SCH (08:19)
[2019-12-05] MEDS: PANTOPRAZOLE 40 MG TABLET PO SCH (08:20)
[2019-12-05] MEDS: LISINOPRIL 20 MG TAB PO SCH (08:20)
[2019-12-05] MEDS: amLODIPine 10 MG TAB PO SCH (08:20)
--- NOTE | 2019-12-05 08:33 | P.PN ---
Subjective Progress Note Date: 12/05/19 On today's evaluation of 12/05/2019, I'm seeing this patient for a follow-up. At this point in time he has metastatic small cell carcinoma with masses involving the lungs bilaterally. He also developed a dense consolidation of the right lung is either infectious or inflammatory even lead that do not have occurred causing respiratory decompensation. Currently the patient is on a BiPAP at a pressure of 10/5 cm of water with an FiO2 of 90%. This morning he seems to be struggling even while on the BiPAP. He is unable to complete full sentences. He desaturates significantly was taken off the BiPAP and he takes in a long time to recover. His BiPAP is intermittently being taken off for him to take his oral pills and this has caused significant desaturation. Chest x-ray from today shows no major interval change. There is extensive infiltration of the right lung with a 5 cm right upper lobe mass in addition to a mass in the left upper lobe that has been present on previous chest x-rays. No further bouts of hemoptysis. Cultures of been all negative. He is on broad-spectrum antibiotics. No major change in his chest x-ray findings. Unfortunately is becoming progressively more debilitated and weak. His CODE STATUS is DNR/DNI. I'm not seeing much of progress over the past 72 hours. Objective - Vital Signs Vital signs: Vital Signs Temp 97.7 F 12/05/19 04:00 Pulse 94 12/05/19 07:22 Resp 20 12/05/19 07:00 BP 145/74 12/05/19 07:00 Pulse Ox 95 12/05/19 07:00 Intake & Output 12/04/19 12/05/19 12/05/19 18:59 06:59 18:59 Intake Total 766 709 Output Total 580 975 Balance 186 -266 Weight 90.1 kg 86.7 kg Intake: IV 766 709 Linezolid 600 mg In 300 43 Dextrose/Water 1 300ml. bag @ 150 mls/hr IVPB Q12HR [facility] Rx#:[id number] Normal Saline pressure 15 bag Piperacillin-Tazobactam 3 100 150 .375 gm In Sodium Chloride 0.9% 100 ml @ 25 mls/hr IVPB Q8H [facility] Rx#: [id number] Piperacillin-Tazobactam 3 50 .375 gm In Sodium Chloride 0.9% 100 ml @ 25 mls/hr IVPB Q8HR [facility] Rx# :[id number] Sodium Chloride 0.9% 1, 301 516 000 ml @ 43 mls/hr IV . [id number] [facility] Rx#:[id number] Output: Urine 580 975 Other: Voiding Method Indwelling Catheter Indwelling Catheter ABP, PAP, CO, CI - Last Documented Arterial Blood Pressure 107/44 - Exam GENERAL EXAM: Alert, very pleasant, 69-year-old white male, appears chronically ill, fatigued, debilitated, short of breath, currently on BiPAP support with pressures of 10/5, and FiO2 of 90%, with a pulse ox of 95%, moderately dyspneic with any conversation HEAD: Normocephalic/atraumatic. EYES: Normal reaction of pupils, equal size. Conjunctiva pink, sclera white. NOSE: Clear with pink turbinates. THROAT: No erythema or exudates. NECK: No masses, no JVD, no thyroid enlargement, no adenopathy. CHEST: No chest wall deformity. Symmetrical expansion. LUNGS: Equal air entry with coarse rhonchi throughout CVS: Regular rate and rhythm, normal S1 and S2, no gallops, no murmurs, no rubs ABDOMEN: Soft, nontender. No hepatosplenomegaly, normal bowel sounds, no guarding or rigidity. EXTREMITIES: No clubbing, no edema, no cyanosis, 2+ pulses and upper and lower extremities. MUSCULOSKELETAL: Muscle strength and tone normal. SPINE: No scoliosis or deformity SKIN: No rashes CENTRAL NERVOUS SYSTEM: Alert and oriented -3. No focal deficits, tone is normal in all 4 extremities. PSYCHIATRIC: Alert and oriented -3. Appropriate affect. Intact judgment and insight. - Labs CBC & Chem 7: 12/05/19 04:26 12/05/19 04:26 Labs: Abnormal Lab Results - Last 24 Hours (Table) 12/04/19 12/04/19 12/04/19 Range/Units 04:45 11:53 16:50 WBC (3.8-10.6) k/uL RBC (4.30-5.90) m/uL Hgb (13.0-17.5) gm/dL Hct (39.0-53.0) % RDW (11.5-15.5) % Neutrophils # (1.3-7.7) k/uL Lymphocytes # (1.0-4.8) k/uL Sodium (137-145) mmol/L Carbon Dioxide (22-30) mmol/L BUN (9-20) mg/dL Creatinine (0.66-1.25) mg/dL Glucose (74-99) mg/dL POC Glucose (mg/dL) 257 H 171 H (75-99) mg/dL Hemoglobin A1c 6.1 H (4.0-6.0) % Calcium (8.4-10.2) mg/dL ALT (4-49) U/L Alkaline Phosphatase (38-126) U/L Total Protein (6.3-8.2) g/dL Albumin (3.5-5.0) g/dL 12/04/19 12/05/19 12/05/19 Range/Units 21:10 04:26 04:26 WBC 14.7 H (3.8-10.6) k/uL RBC 3.33 L (4.30-5.90) m/uL Hgb 9.5 L (13.0-17.5) gm/dL Hct 30.1 L (39.0-53.0) % RDW 15.6 H (11.5-15.5) % Neutrophils # 13.7 H (1.3-7.7) k/uL Lymphocytes # 0.4 L (1.0-4.8) k/uL Sodium 135 L (137-145) mmol/L Carbon Dioxide 33 H (22-30) mmol/L BUN 33 H (9-20) mg/dL Creatinine 0.58 L (0.66-1.25) mg/dL Glucose 187 H (74-99) mg/dL POC Glucose (mg/dL) 193 H (75-99) mg/dL Hemoglobin A1c (4.0-6.0) % Calcium 8.1 L (8.4-10.2) mg/dL ALT 54 H (4-49) U/L Alkaline Phosphatase 128 H (38-126) U/L Total Protein 5.1 L (6.3-8.2) g/dL Albumin 2.5 L (3.5-5.0) g/dL 12/05/19 Range/Units 06:47 WBC (3.8-10.6) k/uL RBC (4.30-5.90) m/uL Hgb (13.0-17.5) gm/dL Hct (39.0-53.0) % RDW (11.5-15.5) % Neutrophils # (1.3-7.7) k/uL Lymphocytes # (1.0-4.8) k/uL Sodium (137-145) mmol/L Carbon Dioxide (22-30) mmol/L BUN (9-20) mg/dL Creatinine (0.66-1.25) mg/dL Glucose (74-99) mg/dL POC Glucose (mg/dL) 220 H (75-99) mg/dL Hemoglobin A1c (4.0-6.0) % Calcium (8.4-10.2) mg/dL ALT (4-49) U/L Alkaline Phosphatase (38-126) U/L Total Protein (6.3-8.2) g/dL Albumin (3.5-5.0) g/dL Assessment and Plan Plan: #1. metastatic squamous cell carcinoma of the lung, follow-up CTA chest on the 12/02/2019 showed internal development of a 5 cm mass lesion in the right up per lobe, compared the previous PET/CT dated 04/21/2019. In addition there is coarse fibrosis and possible postradiation changes throughout the right lung and the anterior portion of the left lung, bilateral pleural effusions, and loculated fluid on the left. No evidence of a large central pulmonary emboli. #2. Acute hypoxemic respiratory failure related to bilateral pneumonia, and possibility of progression of metastatic squamous cell carcinoma of the lung, however, there is also the possibility of either pneumonia involving the right lung or bleeding into the right lung as the patient had a bronchoalveolar lavage that was quite bloody. It's possible that the right upper lobe mass that into the right lung causing significant consolidation and bleeding into acute hypoxic respiratory failure. The patient is currently on IPAP and will be able to The BiPAP to 10/5 with an FiO2 of 90% and no further progress over the past 24 hours. The patient continues to be on a same BiPAP setting. He is very much dependent on BiPAP. He has no reserve. Status post easily within a few seconds after being taken off the BiPAP and he has a very slow recovery. Chest x-ray findings are essentially unchanged. He has not responded to the combination of antibiotics and steroids and breathing treatments. He is getting progressively more weak and debilitated. #3. Weakness, fatigue, febrile illness, occasional hemoptysis related to the above #4. Squamous cell carcinoma of the lung, TNM stage IIIB diagnosed in 2017 patient underwent chemoradiation therapy completed in August 2017, patient was started immunotherapy in April 2018, most recently on Tecentriq and Avastin, which have been on hold since August 2019 her possibility of a vocal cord surgery and poor tolerance #5. Chronic COPD and interstitial changes bilaterally #6. History of coronary artery disease with history of coronary artery stenting #7. History of non-ST elevated myocardial infarction #8. History of COPD with FEV1 of 60% of predicted, stage II COPD not normally oxygen dependent #9. Type 2 diabetes mellitus #10. Dyspnea, acute on chronic, multifactorial, related to acute bilateral lung pneumonia, chronic COPD, chronic deconditioning #11. History of Hodgkin's disease #12. History of hypothyroidism #13. History of hypertension #14. History of hyperlipidemia #15. Former smoker Plan This patient is still critically ill. Continue BiPAP for now. Not much of progress over the past 24-48 hours. Very much BiPAP dependent. We'll continue the same BiPAP settings are pressure of 10/5 with an FiO2 of 90%. Unable to wean down the FiO2. We'll have discussion with the family. Prognosis poor. Unfortunately, nothing much that can be often this patient. He is a DO NOT RESUSCITATE DO NOT INTUBATE CODE STATUS and his lung cancer seems to be terminal at this point in time. We'll have discussion with Ilda and aggressive the family.
--- NOTE | 2019-12-05 09:02 | XR ---
EXAMINATION TYPE: XR chest 1V DATE OF EXAM: 12/05/2019 COMPARISON: 12/04/2019 HISTORY: 69-year-old male shortness of breath, BiPAP dependent TECHNIQUE: Single frontal view of the chest is obtained. FINDINGS: Left IJ CVC tip at the caval atrial junction. Interstitial changes persist throughout the right lung with focal masslike opacity peripheral right upper lobe. There is progressive, dense opaci fication at the left apex and left upper lobe.. Similar asymmetric elevation left hemidiaphragm. IMPRESSION: 1. Recurrent dense opacification at the left apex, similar to that seen on 12/02/2019. 2. Similar background fibrotic changes with right upper lobe mass and possible interstitial pulmonary edema.
[2019-12-05] MEDS: LINEZOLID 600 MG TAB PO SCH (10:06)
[2019-12-05 11:49] LABS: Glucose,Whole Blood 368 mg/dL (75-99)
[2019-12-05] MEDS ORDERED: INSULIN REGULAR BOLUS (FROM DRIP BAG) IV PRN (12:22)
[2019-12-05] MEDS ORDERED: INSULIN REGULAR 100 UNIT in SODIUM CHLORIDE 0.9% 100 ML IV SCH (12:30)
[2019-12-05 13:19] VITALS: TEMP 97.3
[2019-12-05 13:30] LABS: Glucose,Whole Blood 381 mg/dL (75-99)
[2019-12-05] MEDS ORDERED: MORPHINE SULFATE 2 MG/ML SYRINGE IVP PRN (13:47)
[2019-12-05] MEDS ORDERED: HYDROmorphone 1 MG/ML 1 ML SYRINGE IVP PRN (13:48)
[2019-12-05 15:01] LABS: Glucose,Whole Blood 213 mg/dL (75-99)
[2019-12-05 16:02] VITALS: BP 121/73; PULSE 76; RESP 15
--- NOTE | 2019-12-05 16:37 | P.PN ---
Subjective Progress Note Date: 12/05/19 This is a 69 year old gentleman with history of underlying left sided lung cancer, hyperlipidemia, hypertension, thyroid disorder, hepatitis C, Hodgkin's lymphoma and squamous cell-completed radiation and chemo, former nicotine dependence returned to the ER with complaints of worsening shortness of breath, occasional hemoptysis, fevers, chills 2 days. Patient initially had come into ER 3 days ago, placed on Levaquin and discharged home. Chest x-ray on admission reported bilateral pulmonary masses with bibasilar consolidation, underlying pneumonia, interstitial pneumonitis. Right upper lobe mass noted at 4.2 cm, additional masses identified within the suprahilar region measuring 5.8 x 5.8 cm. follow-up chest x-ray this morning reporting worsening left apical infiltrate, correlate for pneumonia, right upper lobe infiltrate, developing mass possible, underlying left upper lobe lung cancer. EKG reported sinus tachycardia, left atrial enlargement. T-max 101, WBC 12.2-now down to 11.8. Hemoglobin 9.8, BUN 26, creatinine 0.76. Blood sugars elevated 230-350s. O2 sat on admission 69% on room air, placed on nonrebreather, currently maintaining O2 sats in the low 90s on 6 L nasal cannula. IV antibiotics of Zosyn and Levaquin initiated in addition to nebulized bronchodilators and IV fluid hydration. Pulmonary and oncology consulted. 11/26/2019 until yesterday morning patient developed worsening hypoxia, sinus tachycardia, patient was transferred to ICU and intubated. Converted and r emains in sinus rhythm. Maintained on mechanical ventilation, FiO2 down to 50, PEEP up to +8. Continues on diprovan, IV fluids and IV antibiotics. Underwent bronchoscopy yesterday, cytology, cultures pending. Afebrile. Echo reportedly mild concentric hypertrophy, EF 60-65%, moderate to severe tricuspid regurgitation, severe pulmonary hypertension . Chest x-ray noted. Tolerating tube feeds at goal with minimal to no residuals. 11/27/2019 remains vent dependent, FiO2 50%/+8 of PEEP. ABGs noted. Chest x- ray reporting interval progression of the disease involving left lung apex, diffuse pleural-progression of changes, correlate for pulmonary mass. Maintained on IV fluids ,diprovan, Dilaudid. Blood pressure marginal, map 55. No weaning trials recommended today.Tolerating tube feeds at goal with minimal to no residual. Blood sugars controlled on insulin drip. Bronc cultures, cytology pending. Continues on Zosyn, Levaquin, vancomycin. Creatinine 0.7. Afebrile, WBC 10. 11/28/2019 Consulted infectious disease, antibiotics adjusted. Currently on cefepime and Levaquin.Bronchoscopy cytology reporting no malignant cells identified. Bronchoscopy washings, cultures currently negative, fungal culture pending. Afebrile, normal WBC. Chest x-ray reporting stable, no significant change from yesterday's x-ray; left suprahilar mass or neoplasm on background, chronic emphysematous change with left-sided volume loss, diffuse right lung edema and/or infiltrates with more focal right upper lung masslike consolidation, small bilateral pleural effusions. Recently extubated, requiring 60% high flow, being transitioned to airvo. Currently nothing by mouth, blood sugars ranging 130s to 140s. Hemoglobin 9. 11/29/2019 breathing continues to improve, airvo decreased to 60. Chest x-ray reporting unchanged left apical opacity/left basilar density. Mass density right upper lobe measuring 5.4 cm. Persistent patchy improving right lower lobe infiltrate. Maintained on Clevaprex. Diet intake improving. No nausea, no vomiting, no diarrhea. Blood sugars improved. Speech therapy evaluating swallow. Afebrile, normal WBC. Denies chest pain, palpitations. 11/30/2019 chest x-ray reporting stable from comparison; persistent density in the peripheral right upper lung field, left basilar infiltrate and/or small pleural effusion mild right lung base infiltrate, left apical thickening and opacity stable. Maintained on 60% airvo. Early a.m. ABGs alkalotic, received 500 ml LR, airvo settings adjusted as per dredgemaster. Telemetry sinus rhythm. Antihypertensives adjusted, Clonidine patch increased, now off of Clevaprex. Diet intake fair 15% this am, blood sugars ranging from 120s to 190s. Continues on IV antibiotics of Levaquin and cefepime .T-max 99.7, normal WBC. 12/03/2019 antibiotics adjusted yesterday to Zosyn and Zyvox. bronchoscopy cultures reported negative cultures. T-max 100.2, WBC 10.6. Desated on Airvo yesterday, converted to BiPAP, 100% with nonproductive cough. Chest CT completed yesterday, suboptimal, reporting negative for large central pulmonary emboli, development of a 5 cm mass lesion in the right upper lobe appears to have a necrotic center, fibrosis or post radiation changes throughout the entire right lung and in the anterior left lung, bilateral pleural effusions with some of anterior left fluid appearing loculated. Chest x-ray reporting stable, chronic emphysematous and fibrotic changes with left-sided volume loss, left periaortic neoplasm, diffuse right lung edema and/or infiltrates with focal lateral right upper lung masslike consolidation. IV steroids initiated. Prognosis, pending Telemetry sinus tach with beta marilyn increased as per cardiology. No further hemoptysis, hemoglobin stable, 9.3. 12/04/2019 T-max on her 100.1, WBC within normal limits. No further hemoptysis, Hemoglobin 8.4. Platelets 109. Remains BiPAP dependent, decreased to 80%-Currently unable to eat. Chest x-ray reporting persistent right upper lobe and left upper lobe masses, mildly improved right lung coarse infiltrate, persistent small left basilar effusion-probable atelectasis. as well Denies ch est pain, palpitations. Yesterday adjusted pain management regimen with alternating Percocets with Dilaudid. Reports better pain control, less anxiety. 12/05/2019 BiPAP dependent, unable to wean FiO2 down, requiring 90%. Weakness, shortness of breath worsening. Desatting, while attempting to take medications. Chest x-ray reporting minimal change. No hemoptysis. Insulin drip initiated for hyperglycemia. Family at bedside, discussing hospice. Objective - Vital Signs Vital signs: Vital Signs Temp 97.5 F L 12/05/19 08:00 Pulse 111 H 12/05/19 08:00 Resp 18 12/05/19 08:00 BP 146/98 12/05/19 08:00 Pulse Ox 85 L 12/05/19 08:00 Intake & Output 12/04/19 12/05/19 12/05/19 18:59 06:59 18:59 Intake Total 766 709 43 Output Total 580 975 100 Balance 186 -266 -57 Weight 90.1 kg 86.7 kg Intake: IV 766 709 43 Linezolid 600 mg In 300 43 Dextrose/Water 1 300ml. bag @ 150 mls/hr IVPB Q12HR [facility] Rx#:[id number] Normal Saline pressure 15 bag Piperacillin-Tazobactam 3 100 150 .375 gm In Sodium Chloride 0.9% 100 ml @ 25 mls/hr IVPB Q8H [facility] Rx#: [id number] Piperacillin-Tazobactam 3 50 .375 gm In Sodium Chloride 0.9% 100 ml @ 25 mls/hr IVPB Q8HR [facility] Rx# :[id number] Sodium Chloride 0.9% 1, 301 516 43 000 ml @ 43 mls/hr IV . [id number] [facility] Rx#:[id number] Output: Urine 580 975 100 Other: Voiding Method Indwelling Catheter Indwelling Catheter ABP, PAP, CO, CI - Last Documented Arterial Blood Pressure 107/44 - Exam VITAL SIGNS: [As above] GENERAL: Sitting up in bed, increasing weakness, shortness of breath, anxiety,on Bipap HEENT: Conjunctivae normal. eyes normal. NECK: No JVD. No thyroid enlargement. No LNs CARDIOVASCULAR: S1, S2 regular. No murmur RESPIRATION: Breath sounds diminished in the bases. Scattered coarse rhonchi throughout ABDOMEN: Soft, nontender . No guarding. no masses palpable. Bowel sounds heard. LEGS: No edema, Offloading Boots on bilateral lower extremities PSYCHIATRY: Alert and oriented X3, mood and affect normal. NERVOUS SYSTEM: Cranial nerves II through XII grossly intact, moving all extremities. Generalized diffuse weakness .No focal deficits Skin: no rash Microbiology 11/22/19 13:11 Blood Blood Culture - Final No Growth after 144 hours 11/25/19 10:30 Bronchial Washings - Right Gram Stain - Final 11/25/19 10:30 Bronchial Washings - Right Bronchial Washings Culture - Final 11/25/19 10:30 Bronchial Washings - Right Acid Fast Bacilli Smear - Final 11/25/19 10:30 Bronchial Washings - Right Acid Fast Bacilli Culture - Preliminary 11/25/19 10:30 Bronchial Washings - Right Fungal Culture - Preliminary 11/22/19 03:15 Sputum Gram Stain - Final 11/22/19 03:15 Sputum Sputum Culture - Final - Labs CBC & Chem 7: 12/05/19 04:26 12/05/19 04:26 Labs: Abnormal Lab Results - Last 24 Hours (Table) 12/04/19 12/04/19 12/04/19 Range/Units 04:45 11:53 16:50 WBC (3.8-10.6) k/uL RBC (4.30-5.90) m/uL Hgb (13.0-17.5) gm/dL Hct (39.0-53.0) % RDW (11.5-15.5) % Neutrophils # (1.3-7.7) k/uL Lymphocytes # (1.0-4.8) k/uL Sodium (137-145) mmol/L Carbon Dioxide (22-30) mmol/L BUN (9-20) mg/dL Creatinine (0.66-1.25) mg/dL Glucose (74-99) mg/dL POC Glucose (mg/dL) 257 H 171 H (75-99) mg/dL Hemoglobin A1c 6.1 H (4.0-6.0) % Calcium (8.4-10.2) mg/dL ALT (4-49) U/L Alkaline Phosphatase (38-126) U/L Total Protein (6.3-8.2) g/dL Albumin (3.5-5.0) g/dL 12/04/19 12/05/19 12/05/19 Range/Units 21:10 04:26 04:26 WBC 14.7 H (3.8-10.6) k/uL RBC 3.33 L (4.30-5.90) m/uL Hgb 9.5 L (13.0-17.5) gm/dL Hct 30.1 L (39.0-53.0) % RDW 15.6 H (11.5-15.5) % Neutrophils # 13.7 H (1.3-7.7) k/uL Lymphocytes # 0.4 L (1.0-4.8) k/uL Sodium 135 L (137-145) mmol/L Carbon Dioxide 33 H (22-30) mmol/L BUN 33 H (9-20) mg/dL Creatinine 0.58 L (0.66-1.25) mg/dL Glucose 187 H (74-99) mg/dL POC Glucose (mg/dL) 193 H (75-99) mg/dL Hemoglobin A1c (4.0-6.0) % Calcium 8.1 L (8.4-10.2) mg/dL ALT 54 H (4-49) U/L Alkaline Phosphatase 128 H (38-126) U/L Total Protein 5.1 L (6.3-8.2) g/dL Albumin 2.5 L (3.5-5.0) g/dL 12/05/19 Range/Units 06:47 WBC (3.8-10.6) k/uL RBC (4.30-5.90) m/uL Hgb (13.0-17.5) gm/dL Hct (39.0-53.0) % RDW (11.5-15.5) % Neutrophils # (1.3-7.7) k/uL Lymphocytes # (1.0-4.8) k/uL Sodium (137-145) mmol/L Carbon Dioxide (22-30) mmol/L BUN (9-20) mg/dL Creatinine (0.66-1.25) mg/dL Glucose (74-99) mg/dL POC Glucose (mg/dL) 220 H (75-99) mg/dL Hemoglobin A1c (4.0-6.0) % Calcium (8.4-10.2) mg/dL ALT (4-49) U/L Alkaline Phosphatase (38-126) U/L Total Protein (6.3-8.2) g/dL Albumin (3.5-5.0) g/dL Assessment and Plan Assessment: Assessment: Acute hypoxic respiratory failure, multifactorial, secondary to bilateral pneumonia-suspect community-acquired, bilateral pulmonary masses, in a patient with history of underlying left lobe carcinoma, failed outpatient treatment, status post ventilator dependent, on airvo. Sepsis secondary to the above ARDS Acute dehydration Acute COPD exacerbation Non-small cell CA of the lung, completed chemoradiation therapy, underwent immunotherapy, PET scan August 2019 reported no progression. Recurrent hemoptysis, status post bronchoscopy Hepatocellular carcinoma CAD, history of stenting, non-STEMI Diabetes mellitus2 Hypothyroidism Hypertension Hodgkin's disease Former nicotine dependence Sinus tachycardia, not A. fib per cardiology's review of EKGs Severe pulmonary hypertension Moderate to severe tricuspid regurgitation Anemia of chronic disease secondary to malignancy, tx. No code, no CPR, no intubation Plan: Continue current medication regime ,monitoring and symptomatic treatment. Patient continuing to decline, family discussing hospice at bedside . Maintain supportive care; nebulized bronchodilators, IV antibiotics. Pain management further adjusted, patient complaining of increased pain.Prognosis remains guarded given multiple complex medical issues. Family at bedside, updated, questions, concerns addressed; support given. The impression and plan of care has been dictated as directed. : I performed a history and examination of this patient, discussed the same with the dictator. I agree with the dictator's note ,documented as a scribe. Any additional findings or plans will be noted.
== END 2019-12-05 15:28 | disposition hospice, inpatient (51) | DRG 871 ==
LOC: EC 13:00 → 3SCARD 15:42 → 2SICU 11-25 07:13
PROVIDERS: ADMIT Family Medicine; ATTEND Family Medicine
PROC: 0B9G8ZZ Drainage of Left Upper Lung Lobe, Via Natural or Artificial Opening Endoscopic (ICD-10-PCS; 2019-11-25)
PROC: 0B9C7ZX Drainage of Right Upper Lung Lobe, Via Natural or Artificial Opening, Diagnostic (ICD-10-PCS; 2019-11-25)
PROC: 0B9F7ZX Drainage of Right Lower Lung Lobe, Via Natural or Artificial Opening, Diagnostic (ICD-10-PCS; 2019-11-25)
PROC: 03HC33Z Insertion of Infusion Device into Left Radial Artery, Percutaneous Approach (ICD-10-PCS; 2019-11-25)
PROC: 05HY33Z Insertion of Infusion Device into Upper Vein, Percutaneous Approach (ICD-10-PCS; 2019-11-26)
PROC: 0BH17EZ Insertion of Endotracheal Airway into Trachea, Via Natural or Artificial Opening (ICD-10-PCS; principal; 2019-12-02)
PROC: 5A1945Z Respiratory Ventilation, 24-96 Consecutive Hours (ICD-10-PCS; principal; 2019-12-02)
DX: A41.9 Sepsis, unspecified organism (principal); J18.9 Pneumonia, unspecified organism; I21.A1 Myocardial infarction type 2; J96.21 Acute and chronic respiratory failure with hypoxia; I47.1 Supraventricular tachycardia; J44.0 Chronic obstructive pulmonary disease with (acute) lower respiratory infection; J44.1 Chronic obstructive pulmonary disease with (acute) exacerbation; C34.11 Malignant neoplasm of upper lobe, right bronchus or lung; E87.3 Alkalosis; J90 Pleural effusion, not elsewhere classified; J98.11 Atelectasis; R04.2 Hemoptysis; C34.12 Malignant neoplasm of upper lobe, left bronchus or lung; C81.90 Hodgkin lymphoma, unspecified, unspecified site; I48.0 Paroxysmal atrial fibrillation; D63.0 Anemia in neoplastic disease; E03.9 Hypothyroidism, unspecified; E11.65 Type 2 diabetes mellitus with hyperglycemia; E78.5 Hyperlipidemia, unspecified; E86.0 Dehydration; F41.9 Anxiety disorder, unspecified; I07.1 Rheumatic tricuspid insufficiency; I10 Essential (primary) hypertension; I25.10 Atherosclerotic heart disease of native coronary artery without angina pectoris; I25.2 Old myocardial infarction; I27.20 Pulmonary hypertension, unspecified; K59.00 Constipation, unspecified; B19.20 Unspecified viral hepatitis C without hepatic coma; I95.9 Hypotension, unspecified; M54.2 Cervicalgia; M54.9 Dorsalgia, unspecified; R53.81 Other malaise; Z95.5 Presence of coronary angioplasty implant and graft; Z92.3 Personal history of irradiation; Z92.21 Personal history of antineoplastic chemotherapy; Z87.891 Personal history of nicotine dependence; Z85.05 Personal history of malignant neoplasm of liver; Z66 Do not resuscitate; Z79.82 Long term (current) use of aspirin; Z79.890 Hormone replacement therapy; Z79.899 Other long term (current) drug therapy; Z79.84 Long term (current) use of oral hypoglycemic drugs; Z79.52 Long term (current) use of systemic steroids; Z86.73 Personal history of transient ischemic attack (TIA), and cerebral infarction without residual deficits; Z82.49 Family history of ischemic heart disease and other diseases of the circulatory system; Z80.1 Family history of malignant neoplasm of trachea, bronchus and lung
CPT/HCPCS: 31624; 36415; 36600; 71045; 71046; 71275; 80048; 80053; 80202; 81001; 82550; 82805; 83036; 83605; 83735; 83880; 84132; 84145; 84439; 84443; 84481; 84484; 85025; 85027; 85610; 85730; 87040; 87070; 87102; 87116; 87205; 87206; 87252; 87496; 87498; 87502; 87529; 87634; 87798; 88108; 88305; 89050; 93005; 93306; 94003; 94640; 94660; 94760; 96360; 96361; 96365; 96367; 96374; 99284; 99291

== ENCOUNTER 2019-12-05 15:03 | Inpatient (IN) | payer MEDICAID ==
[2019-12-05] MEDS ORDERED: ATROPINE OPHTH SOLN 1% 5ML BTL SUBLINGUAL PRN (15:10)
[2019-12-05] MEDS ORDERED: GLYCOPYRROLATE 0.2 MG/ML 2 ML VIAL IVP PRN (15:10)
[2019-12-05] MEDS ORDERED: MORPHINE SULFATE 2 MG/ML SYRINGE IV PRN (15:10)
[2019-12-05] MEDS ORDERED: ACETAMINOPHEN SUPPOSITORY 650 MG SUPP RECTAL PRN (15:10)
[2019-12-05] MEDS ORDERED: ONDANSETRON 4 MG/2 ML VIAL IVP PRN (15:10)
[2019-12-05] MEDS ORDERED: ALBUTEROL NEBULIZED 2.5 MG/3 ML INHALATION PRN (15:12)
[2019-12-05] MEDS ORDERED: SCOPOLAMINE 1.5MG/72HR PATCH TRANSDERM SCH (15:15)
[2019-12-05] MEDS: MORPHINE SULFATE (100 MG/2 ML) 100 MG in SODIUM CHLORIDE 0.9% 100 ML IV SCH (16:08)
[2019-12-05] MEDS: LORazepam 2 MG/ML INJ IV PRN ×2 (16:55→22:26)
[2019-12-06 02:01] VITALS: RESP 10
[2019-12-06] MEDS: MORPHINE SULFATE (100 MG/2 ML) 100 MG in SODIUM CHLORIDE 0.9% 100 ML IV SCH (03:07)
--- NOTE | 2019-12-08 09:00 | P.DS ---
Providers Date of admission: 12/05/19 15:30 Expected date of discharge: 12/06/19 Attending physician: Noman Stephens Primary care physician: Noman Stephens Assessment: terminal lung CA Patient Condition at Discharge: Poor Plan - Discharge Summary New Discharge Prescriptions: No Action Lisinopril [Zestril] 10 mg PO BID Metoprolol Tartrate [Lopressor] 100 mg PO BID Rosuvastatin [Crestor] 20 mg PO HS Clopidogrel Bisulfate [Plavix] 75 mg PO HS ALPRAZolam [Xanax] 0.5 mg PO Q8H PRN PRN Reason: Anxiety glipiZIDE [Glucotrol] 5 mg PO AC-BRKFST metFORMIN HCL [Glucophage] 500 mg PO BID Chelsea-3 Fatty Acids/Fish Oil [Fish Oil 1,000 mg Softgel] 1 cap PO BID amLODIPine BESYLATE [Norvasc] 10 mg PO DAILY Aspirin [Adult Low Dose Aspirin EC] 81 mg PO HS Levothyroxine Sodium [Synthroid] 200 mcg PO DAILY Multivitamin [Multivitamins Adult Gummies] 1 tab PO DAILY Tiotropium 18 Mcg/Puff [Spiriva] 1 puff INHALATION RT-DAILY predniSONE 10 mg PO DAILY Albuterol Nebulized [Ventolin Nebulized] 2.5 mg INHALATION RT-Q4H PRN PRN Reason: Shortness Of Breath Zolpidem [Ambien] 5 - 10 mg PO HS PRN PRN Reason: Insomnia Levofloxacin [Levaquin] 500 mg PO DAILY HYDROcodone/APAP 10-325MG [[place]dwell 10-325] 1 tab PO Q6H PRN PRN Reason: Pain Discharge Medication List Lisinopril [Zestril] 10 mg PO BID 11/11/17 [History] ALPRAZolam [Xanax] 0.5 mg PO Q8H PRN 08/21/18 [History] Clopidogrel Bisulfate [Plavix] 75 mg PO HS 08/21/18 [History] Metoprolol Tartrate [Lopressor] 100 mg PO BID 08/21/18 [History] Rosuvastatin [Crestor] 20 mg PO HS 08/21/18 [History] Chelsea-3 Fatty Acids/Fish Oil [Fish Oil 1,000 mg Softgel] 1 cap PO BID 09/17/19 [History] glipiZIDE [Glucotrol] 5 mg PO AC-BRKFST 09/17/19 [History] metFORMIN HCL [Glucophage] 500 mg PO BID 09/17/19 [History] Aspirin [Adult Low Dose Aspirin EC] 81 mg PO HS 09/19/19 [History] Levothyroxine Sodium [Synthroid] 200 mcg PO DAILY 09/19/19 [History] Multivitamin [Multivitamins Adult Gummies] 1 tab PO DAILY 09/19/19 [History] Tiotropium 18 Mcg/Puff [Spiriva] 1 puff INHALATION RT-DAILY 09/19/19 [History] amLODIPine BESYLATE [Norvasc] 10 mg PO DAILY 09/19/19 [History] predniSONE 10 mg PO DAILY 11/20/19 [History] Albuterol Nebulized [Ventolin Nebulized] 2.5 mg INHALATION RT-Q4H PRN 11/22/19 [History] HYDROcodone/APAP 10-325MG [[place]dwell 10-325] 1 tab PO Q6H PRN 11/22/19 [History] Levofloxacin [Levaquin] 500 mg PO DAILY 11/22/19 [History] Zolpidem [Ambien] 5 - 10 mg PO HS PRN 11/22/19 [History]
== END 2019-12-06 09:25 | disposition expired | DRG 951 ==
LOC: 2SICU 15:30 → 5NMEDONC 18:23
PROVIDERS: ADMIT Family Medicine; ATTEND Family Medicine
DX: Z51.5 Encounter for palliative care (principal); J18.9 Pneumonia, unspecified organism; J96.01 Acute respiratory failure with hypoxia; C34.12 Malignant neoplasm of upper lobe, left bronchus or lung; C34.11 Malignant neoplasm of upper lobe, right bronchus or lung; J44.0 Chronic obstructive pulmonary disease with (acute) lower respiratory infection; J44.1 Chronic obstructive pulmonary disease with (acute) exacerbation; Z66 Do not resuscitate; E78.5 Hyperlipidemia, unspecified; I10 Essential (primary) hypertension; E86.0 Dehydration; I25.2 Old myocardial infarction; E11.9 Type 2 diabetes mellitus without complications; E03.9 Hypothyroidism, unspecified; Z79.84 Long term (current) use of oral hypoglycemic drugs; Z79.02 Long term (current) use of antithrombotics/antiplatelets; Z79.82 Long term (current) use of aspirin; Z79.890 Hormone replacement therapy; Z79.52 Long term (current) use of systemic steroids; Z79.899 Other long term (current) drug therapy; Z92.21 Personal history of antineoplastic chemotherapy; Z92.3 Personal history of irradiation; Z87.891 Personal history of nicotine dependence; Z85.72 Personal history of non-Hodgkin lymphomas; Z86.73 Personal history of transient ischemic attack (TIA), and cerebral infarction without residual deficits; Z92.25 Personal history of immunosuppression therapy; Z98.890 Other specified postprocedural states; Z82.49 Family history of ischemic heart disease and other diseases of the circulatory system; Z80.1 Family history of malignant neoplasm of trachea, bronchus and lung